=== PATIENT | female | born 1940 | race Caucasian/White ===

== ENCOUNTER 2016-08-02 14:11 | Inpatient (IN) | payer MEDICARE, BC ==
[2016-08-02] MEDS ORDERED: Morphine INJ* 4 MG/ML 1 ML SYRINGE IV ONE ×2 (14:13→14:49)
[2016-08-02] MEDS ORDERED: Ondansetron INJ* 2 MG/ML VIAL IV ONE (14:13)
[2016-08-02] MEDS ORDERED: Ondansetron INJ* 2 MG/ML VIAL ONE (14:16)
[2016-08-02] MEDS ORDERED: Morphine INJ* 4 MG/ML 1 ML SYRINGE ONE (14:16)
[2016-08-02] MEDS ORDERED: NS 0.9% 1000 ML* 2,000 ML IV ONE (14:33)
--- NOTE | 2016-08-02 15:18 | RAD ---
INDICATION: Abdominal pain. COMPARISON: Comparison is made with a prior chest x-ray study from January 23, 2015. TECHNIQUE: A portable view of the chest was obtained. FINDINGS: Cardiac and mediastinal contours appear to be within normal limits. The lungs are underinflated. There is mild prominence of the interstitial markings. No focal infiltrate or pleural effusion is seen. IMPRESSION: DIFFUSE PROMINENCE OF THE INTERSTITIAL MARKINGS LIKELY SECONDARY TO UNDERINFLATION OF THE LUNGS ALTHOUGH THE POSSIBILITY OF INTERSTITIAL PULMONARY EDEMA CANNOT BE EXCLUDED.
[2016-08-02] MEDS ORDERED: Ketorolac INJ* 30 MG/ML 1 ML VIAL IV PUSH ONE (15:19)
[2016-08-02 15:41] LABS: Hematocrit 39 % (35-47); Hemoglobin 12.7 g/dl (12.0-16.0); Mean Corpuscular HGB Conc 33 g/dl (31-36); Mean Corpuscular Hemoglobin 31 pg (27-31); Mean Corpuscular Volume 94 fL (80-97); Mean Platelet Volume 9 um3 (7.4-10.4); Red Blood Count 4.12 10^6/ul (4.0-5.4); Red Cell Distribution Width 14 % (10.5-15); White Blood Count 6.8 10^3/ul (3.5-10.8)
[2016-08-02 15:45] LABS: Troponin I 0.04 ng/mL (<0.04)
[2016-08-02 15:51] LABS: ALT 16 U/L (7-52); AST 28 U/L (13-39); Albumin 3.6 g/dL (3.2-5.2); Alkaline Phosphatase 43 U/L (34-104); Anion Gap 7 mmol/L (2-11); BUN/Creatinine Ratio 40.8 (8-20); Blood Urea Nitrogen 20 mg/dL (6-24); C Reactive Protein < 1.00 mg/L (< 5.00); CO2 Carbon Dioxide 24 mmol/L (22-32); Calcium 8.7 mg/dL (8.6-10.3); Chloride 107 mmol/L (101-111); Creatine Kinase 206 U/L (10-223); EGFR African American 158.3 (>60); EGFR Non-African American 123.1 (>60); Globulin 2.2 g/dL (2-4); Glucose 121 mg/dL (70-100); Lipase < 10 U/L (11.0-82.0); Potassium 3.8 mmol/L (3.5-5.0); Sodium 138 mmol/L (133-145); Total Protein 5.8 g/dL (6.4-8.9)
[2016-08-02] MEDS ORDERED: Diazepam SYRINGE* 5 MG/ML SYRINGE IV ONE (16:43)
--- NOTE | 2016-08-02 16:48 | RAD ---
INDICATION: Right hip pain. TECHNIQUE: An AP view of the pelvis was obtained. FINDINGS: The patient is status post total bilateral hip replacement surgeries. The bones and prostheses are in normal alignment. No fracture is seen. IMPRESSION: STATUS POST TOTAL BILATERAL HIP REPLACEMENT SURGERIES, NO EVIDENCE FOR ACUTE FINDING.
--- NOTE | 2016-08-02 16:50 | RAD ---
INDICATION: Right hip pain. TECHNIQUE: 2 views of the right femur were obtained. FINDINGS: The patient is status post total right hip replacement surgery. The bones and prostheses are in normal alignment. No fracture is seen. There is moderate to severe osteoarthritic change in the medial compartment of the knee. Incidental note is made of prominent vascular calcifications. IMPRESSION: 1. NO EVIDENCE FOR FRACTURE. 2. MODERATE TO SEVERE OSTEOARTHRITIC CHANGE IN THE RIGHT KNEE.
[2016-08-02 18:40] LABS: Troponin I 0.26 ng/mL (<0.04)
[2016-08-02] MEDS ORDERED: Iohexol 350* (CONTRAST) 500 ML MDV IV ONE (19:06)
--- NOTE | 2016-08-02 20:34 | RAD ---
Indication: Chest pain, back pain Contrast: Administered 99.9 ml of OMNIPAQUE 350 mgi/ml CTA of the chest, abdomen and pelvis was performed after IV contrast administration. Coronal and sagittal reconstructed images were obtained. The internal carotid arteries are unremarkable. Atherosclerotic aorta is noted. No evidence of aneurysmal dilatation of the a.c. ascending or descending aorta is noted. No evidence of aortic dissection is noted. Common iliac artery and external iliac arteries are unremarkable. There is no mediastinal or hilar adenopathy noted. No hilar adenopathy is noted. The heart demonstrates no pericardial effusion. The trachea and major bronchi appear patent. No pneumothorax is noted. Some atelectasis is noted in the left medial lung base. The spleen is normal in size. The liver is normal in size. No focal lesions or intrahepatic ductal dilatation is noted. Gallbladder demonstrates no calcified gallstones. The spleen is normal in size. No adrenal masses are noted. The kidneys demonstrate no masses. No retroperitoneal lymphadenopathy is noted. No dilated loops of bowel are noted. The colon is filled with stool. The stomach demonstrates diffuse wall thickening which is nonspecific. CT of the pelvis demonstrates no pelvic adenopathy. Urinary bladder is unremarkable. No hernias are noted. Small bowel demonstrates no evidence of abnormal dilatation. Patient is status post bilateral hip replacement. IMPRESSION: NO EVIDENCE OF AORTIC DISSECTION IS NOTED ALTHOUGH ATHEROSCLEROTIC AORTA IS NOTED. MULTILEVEL DEGENERATIVE DISC DISEASE IS NOTED.
[2016-08-02 21:23] LABS: Troponin I 0.33 ng/mL (<0.04)
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
--- NOTE | 2016-08-02 22:30 | HP ---
H&P (Free Text) History and Physical: PCP: Maria Elena Guerra MD Date/Time of Evaluation: 08/02/2016 2200 CC: RLQ & R hip pain HPI: Mrs Bose is a 76YO female HX HTN, HLD, RA who was driving today and experienced the sudden onset of severe sharp RLQ pain that gradually settled in to the lateral R hip. Pain was rated at 10/10. Morphine did not help much, but toradol did after ~1hour. She states she has never had pain this severe, but does have chronic LBP that radiates down the legs. She did feel warm and reports sweating for hours during the worst of the pain, but denies chills or other infectious symptoms. She denies chest pain, SOB, nausea, palpitations, and light-headedness. Evaluation is notable mainly for an incidental finding of elevated troponin initially at 0.04, then increasing to 0.24, and again to 0.33. ECG is benign. Radiologic work up for dissection and fracture is negative. PMedHx asthma HTN HLD hypothyroidism rheumatoid arthritis chronic LBP w/ sciatica IBS osteoporosis OAB Ambulatory Orders Albuterol TAB* [Proventil TAB*] 4 mg PO BID 07/11/13 Folic Acid TAB* [Folvite TAB*] 1 mg PO DAILY 07/11/13 Metaxalone TAB* [Skelaxin TAB*] 800 mg PO BEDTIME PRN 07/11/13 Atorvastatin* [Lipitor*] 20 mg PO DAILY 11/25/14 Clotrimazole 1% TOPICAL (NF) [Lotrimin 1% TOPICAL (NF)] 1 applic TOPICAL DAILY 11/25/14 Fluticasone NASAL SPRAY 50MCG* [Flonase NASAL SPRAY 50MCG*] 2 spray BOTH NARES DAILY PRN 11/25/14 Lidocaine PATCH 5%* [Lidoderm 5% Patch*] 1 patch TRANSDERM DAILY PRN 11/25/14 Montelukast Sodium TAB* [Singulair TAB*] 10 mg PO DAILY 11/25/14 Albuterol 2.5MG/3ML (0.083%)* [Ventolin 2.5 MG/3 ML NEB.TITUS*] 2.5 mg INH Q4H PRN 08/02/16 Albuterol HFA INHALER* [Ventolin HFA Inhaler*] 2 puff INH DAILY PRN 08/02/16 Aspirin EC Low Dose* [Ecotrin EC Low Dose 81 MG*] 81 mg PO DAILY 08/02/16 Carboxymethylcellulose Sodium [Refresh Tears] 0.5 % BOTH EYES DAILY PRN Clobetasol 0.05% OINT* 1 applic TOPICAL DAILY PRN 08/02/16 Cyanocobalamin TAB* [Vitamin B12 TAB*] 1,000 mcg PO DAILY 08/02/16 Desloratidine (NF) [Clarinex (NF)] 5 mg PO DAILY 08/02/16 Diclofenac 1.3% PATCH (NF) [Flector 1.3% PATCH (NF)] 1 patch TOPICAL DAILY PRN 08/02/16 Diphenhydramine HCl (Topical) [Itch Relief] 2 % TOPICAL DAILY PRN 08/02/16 Docusate Sodium [Dok] 250 mg PO DAILY PRN 08/02/16 Epinastine 0.05% OPHTH(NF) [Elestat 0.05% OPTH TITUS (NF)] 1 drop BOTH EYES BID Gabapentin CAP(*) [Neurontin 100 mg CAP(*)] 100 mg PO BEDTIME 08/02/16 Gabapentin CAP(*) [Neurontin 100 mg CAP(*)] 200 mg PO 1200 08/02/16 Gabapentin CAP(*) [Neurontin 100 mg CAP(*)] 200 mg PO QAM 08/02/16 Ketoconazole 2 % CREAM (NF) [Nizoral 2% CREAM (NF)] 1 applic TOPICAL DAILY PRN 08/02/16 Leflunomide [Arava] 20 mg PO QAM 08/02/16 Levothyroxine TAB* [Synthroid TAB*] 150 mcg PO DAILY 08/02/16 Mometasone 220 MCG MDI * [Asmanex 220 MCG MDI *] 1 puff INH BID 08/02/16 Multivitamins/Minerals TAB* [Theragran/minerals TAB*] 1 tab PO DAILY 08/02/16 Oxaprozin [Daypro] 1,200 mg PO DAILY 08/02/16 Raloxifene (NF) [Evista(NF)] 60 mg PO DAILY 08/02/16 Solifenacin(NF) [Vesicare(NF)] 5 mg PO DAILY 08/02/16 Triamcinolone 0.1% CREAM (NF) [Kenalog 0.1% Cream (NF)] 1 applic TOPICAL BID oxyCODONE SR TAB(*) [Oxycontin 10 mg (*)] 20 mg PO BID 08/02/16 oxyCODONE TAB* [Roxycodone TAB 5 mg*] 5 mg PO BID 08/02/16 Allergies Amoxicillin Allergy (Severe, Verified 08/02/16 21:36) Rash Fluocinolone [From Fluocinonide Acetonide] Allergy (Severe, Verified 08/02/16 21 :36) Itching Penicillins Allergy (Mild, Verified 08/02/16 21:36) Rash Sulfa Drugs Allergy (Mild, Verified 08/02/16 21:36) Rash Latex Allergy (Verified 08/02/16 21:36) Itching Codeine Adverse Reaction (Severe, Verified 08/02/16 21:36) Nausea Cromolyn [From Intal] Adverse Reaction (Severe, Verified 08/02/16 21:36) Palpitations Sulindac [From Clinoril] Adverse Reaction (Severe, Verified 08/02/16 21:36) Diarrhea Tramadol Adverse Reaction (Severe, Verified 08/02/16 21:36) Nausea Zafirlukast [From Accolate] Adverse Reaction (Severe, Verified 08/02/16 21:36) elevated lft's DUST Allergy (Uncoded 08/02/16 21:36) Unknown Reaction Details GETS ALLERGY SHOTS FOR THIS MOLD Allergy (Uncoded 08/02/16 21:36) Unknown Reaction Details GET ALLERGY SHOTS FOR THIS POLLEN Allergy (Uncoded 08/02/16 21:36) Unknown Reaction Details GETS ALLERGY SHOTS FOR THIS advair discus Adverse Reaction (Intermediate, Uncoded 08/02/16 21:36) voice change METHYL LAURAL SULFATE Adverse Reaction (Uncoded 08/02/16 21:36) MOUTH SORES FOUND IN MOST TOOTHPASTE PSurgHx OU cataract extractions tonsillectomy Ex-Lap for endometriosis tubal ligation B JACOBY ORIF R wrist B carpal tunnel release R arthroscopy SocHx: no tobacco or recreational drugs, mild alcohol; , lives alone; full code status FamHx: no similar issues in family ROS: as above, otherwise reviewed and all were negative Constitutional: NAD, normally developed, well-nourished elderly white female vitals: Vital Signs Temp 36.6 C 08/02/16 18:18 Pulse 82 08/02/16 21:33 Resp 19 08/02/16 21:33 BP 114/71 08/02/16 21:33 Pulse Ox 97 08/02/16 21:33 Intake & Output 08/01/16 08/02/16 08/02/16 23:59 11:59 23:59 Weight 45.359 kg HEENM: atraumatic; sclera/conjunctiva: non-icteric/clear; hearing: clinically intact; oropharynx: clear, mucosa moist Neck: soft tissue: non-tender; thyroid: normal Pulmonary: clear to auscultation bilaterally, good aeration, no accessory muscle use CV: RR/RR, normal S1S2, no carotid bruit, no jugular venous distention, 2+ B DP/ PT, no edema Abdominal: soft, non-distended, non-tender, no rebound/guarding/rigidity, normoactive bowel sounds, no hepatosplenomegaly or masses, no costovertebral angle tenderness Musculoskeletal: general: grossly intact; gait: unsteady; tender over R greater trochanter Integumental: normal appearance and texture of exposed skin Psychiatric orientation: AA&O to PPS affect: calm mood: cooperative eye contact: good content: reliable responses: timely insight: good Testing: Lab Results 08/02/16 08/02/16 08/02/16 Range/Units 15:14 15:14 15:14 WBC 6.8 (3.5-10.8) 10^3/ul RBC 4.12 (4.0-5.4) 10^6/ul Hgb 12.7 (12.0-16.0) g/dl Hct 39 (35-47) % MCV 94 (80-97) fL MCH 31 (27-31) pg MCHC 33 (31-36) g/dl RDW 14 (10.5-15) % Plt Count 251 (150-450) 10^3/ul MPV 9 (7.4-10.4) um3 Neut % (Auto) 62.3 (38-83) % Lymph % (Auto) 19.5 L (25-47) % [place] % (Auto) 14.9 H (1-9) % Eos % (Auto) 2.2 (0-6) % Baso % (Auto) 1.1 (0-2) % Absolute Neuts (auto) 4.2 (1.5-7.7) 10^3/ul Absolute Lymphs (auto) 1.3 (1.0-4.8) 10^3/ul Absolute Monos (auto) 1.0 H (0-0.8) 10^3/ul Absolute Eos (auto) 0.1 (0-0.6) 10^3/ul Absolute Basos (auto) 0.1 (0-0.2) 10^3/ul Absolute Nucleated RBC 0 10^3/ul Nucleated RBC % 0 INR (Anticoag Therapy) 0.93 (0.89-1.11) APTT 27.8 (26.0-36.3) seconds Sodium 138 (133-145) mmol/L Potassium 3.8 (3.5-5.0) mmol/L Chloride 107 (101-111) mmol/L Carbon Dioxide 24 (22-32) mmol/L Anion Gap 7 (2-11) mmol/L BUN 20 (6-24) mg/dL Creatinine 0.49 L (0.51-0.95) mg/dL Est GFR ( Amer) 158.3 (>60) Est GFR (Non-Af Amer) 123.1 (>60) BUN/Creatinine Ratio 40.8 H (8-20) Glucose 121 H (70-100) mg/dL Calcium 8.7 (8.6-10.3) mg/dL Total Bilirubin 0.30 (0.2-1.0) mg/dL AST 28 (13-39) U/L ALT 16 (7-52) U/L Alkaline Phosphatase 43 (34-104) U/L Total Creatine Kinase 206 (10-223) U/L CK-MB (CK-2) Pending Troponin I 0.04 H* (<0.04) ng/mL C-Reactive Protein < 1.00 (< 5.00) mg/L B-Natriuretic Peptide ( - 100) pg/mL Total Protein 5.8 L (6.4-8.9) g/dL Albumin 3.6 (3.2-5.2) g/dL Globulin 2.2 (2-4) g/dL Albumin/Globulin Ratio 1.6 (1-3) Lipase < 10 L (11.0-82.0) U/L 08/02/16 08/02/16 08/02/16 Range/Units 15:14 18:10 20:56 WBC (3.5-10.8) 10^3/ul RBC (4.0-5.4) 10^6/ul Hgb (12.0-16.0) g/dl Hct (35-47) % MCV (80-97) fL MCH (27-31) pg MCHC (31-36) g/dl RDW (10.5-15) % Plt Count (150-450) 10^3/ul MPV (7.4-10.4) um3 Neut % (Auto) (38-83) % Lymph % (Auto) (25-47) % [place] % (Auto) (1-9) % Eos % (Auto) (0-6) % Baso % (Auto) (0-2) % Absolute Neuts (auto) (1.5-7.7) 10^3/ul Absolute Lymphs (auto) (1.0-4.8) 10^3/ul Absolute Monos (auto) (0-0.8) 10^3/ul Absolute Eos (auto) (0-0.6) 10^3/ul Absolute Basos (auto) (0-0.2) 10^3/ul Absolute Nucleated RBC 10^3/ul Nucleated RBC % INR (Anticoag Therapy) (0.89-1.11) APTT (26.0-36.3) seconds Sodium (133-145) mmol/L Potassium (3.5-5.0) mmol/L Chloride (101-111) mmol/L Carbon Dioxide (22-32) mmol/L Anion Gap (2-11) mmol/L BUN (6-24) mg/dL Creatinine (0.51-0.95) mg/dL Est GFR ( Amer) (>60) Est GFR (Non-Af Amer) (>60) BUN/Creatinine Ratio (8-20) Glucose (70-100) mg/dL Calcium (8.6-10.3) mg/dL Total Bilirubin (0.2-1.0) mg/dL AST (13-39) U/L ALT (7-52) U/L Alkaline Phosphatase (34-104) U/L Total Creatine Kinase Pending Pending (10-223) U/L CK-MB (CK-2) Pending Pending Troponin I 0.26 H* 0.33 H* (<0.04) ng/mL C-Reactive Protein (< 5.00) mg/L B-Natriuretic Peptide 128 H ( - 100) pg/mL Total Protein (6.4-8.9) g/dL Albumin (3.2-5.2) g/dL Globulin (2-4) g/dL Albumin/Globulin Ratio (1-3) Lipase (11.0-82.0) U/L ECG, personally reviewed: 1st degree AV block rate 79, no ischemia, CXR, personally reviewed: IMPRESSION: DIFFUSE PROMINENCE OF THE INTERSTITIAL MARKINGS LIKELY SECONDARY TO UNDERINFLATION OF THE LUNGS ALTHOUGH THE POSSIBILITY OF INTERSTITIAL PULMONARY EDEMA CANNOT BE EXCLUDED. CT chest/abd/pel W, personally reviewed: IMPRESSION: NO EVIDENCE OF AORTIC DISSECTION IS NOTED ALTHOUGH ATHEROSCLEROTIC AORTA IS NOTED. MULTILEVEL DEGENERATIVE DISC DISEASE IS NOTED. XRY pelvis, personally reviewed: IMPRESSION: STATUS POST TOTAL BILATERAL HIP REPLACEMENT SURGERIES, NO EVIDENCE FOR ACUTE FINDING. XRY R femur, personally reviewed: IMPRESSION: 1. NO EVIDENCE FOR FRACTURE. 2. MODERATE TO SEVERE OSTEOARTHRITIC CHANGE IN THE RIGHT KNEE. Impression: 76F presenting with non-tramatic acute RLQ and R hip pain and incidental finding of escalating troponin DIAGNOSIS & PLAN Primary acute non-traumatic RLQ/R hip pain of uncertain etiology, suspect exacerbation of her chronic LBP/sciatica vs bursitis : pain control : PT evaluation elevated troponin : uncertain clinical significance : uncertain relation to chief complaint unless demand ischemia or highly atypical anginal equivalent : telemetry : trend : aspirin : metoprolol : supplemental oxygen : check ECHO in AM : consider cardiology consult vs chemical NST in AM pending above : supportive care Secondary asthma : continue albuterol, montelukast, & mometasone HTN : monitor periodically : not currently on anti-hypertensives HLD : continue atorvastatin hypothyroidism : continue levothyroxine rheumatoid arthritis : continue leflunomide chronic LBP w/ sciatica : continue lidocaine patch, gabapentin, metaxalone, oxaprozin, & oxycodone IBS osteoporosis : continue raloxifene OAB : continue solifenacin Admission Rational: observation for r/o ACS DVTp: heparin SQ & SCDs Code Status: full HCP:
[2016-08-02] MEDS ORDERED: Ondansetron INJ* 2 MG/ML VIAL IV PRN (22:59)
[2016-08-02] MEDS ORDERED: Aspirin Low Dose CHEW TAB* 81 MG PO ONE (22:59)
[2016-08-02] MEDS ORDERED: HYDROmorphone* 1 MG/ML 1 ML SYR IV PRN (22:59)
[2016-08-02] MEDS ORDERED: Ketorolac INJ* 15 MG/ML 1 ML VIAL IV PRN (22:59)
[2016-08-02] MEDS ORDERED: Melatonin (NF) 3 MG TAB PO PRN (22:59)
[2016-08-02] MEDS ORDERED: traMADol TAB* 50 MG PO PRN (22:59)
[2016-08-02] MEDS ORDERED: Metoprolol Tartrate TAB* 25 MG PO ONE (23:00)
[2016-08-02] MEDS ORDERED: Lidocaine PATCH 5%* 1 PATCH TRANSDERM PRN (23:11)
[2016-08-02] MEDS ORDERED: oxyCODONE SR TAB(*) 20 MG TAB.SR PO SCH (23:30)
[2016-08-02] MEDS ORDERED: ALBUTEROL 4 MG PO SCH (23:30)
[2016-08-02] MEDS ORDERED: Lidocaine Patch REMOVE* 1 NOTE MISC PATCH OFF PRN (23:45)
[2016-08-03] MEDS: Montelukast Sodium TAB* 10 MG PO SCH ×2 (00:59→20:56)
[2016-08-03] MEDS: CMCS Solifenacin(NF) 5 MG TAB PO SCH ×3 (01:00→20:56)
[2016-08-03] MEDS: Metaxalone TAB* 800 MG PO PRN ×2 (01:00→20:56)
--- NOTE | 2016-08-03 01:08 | PN ---
Progress Note - Progress Note Note: Nursing reports continued increase in troponin to 0.6 making this an NSTEMI. Start heparin GTT, D/C ketorolac, continue troponin trending.
[2016-08-03] MEDS: ALBUTEROL 4 MG PO SCH ×3 (01:13→20:56)
[2016-08-03] MEDS ORDERED: Heparin VIAL(*) 5000 UNITS/ML VIAL (FIVE THOUSAND) IV SCH (02:00)
[2016-08-03] MEDS: Heparin DRIP 25,000 UNITS(*) 25,000 UNITS/500 ML BAG IVPB SCH (02:12)
[2016-08-03] MEDS: Senna TAB PO SCH ×2 (02:12→20:55)
[2016-08-03] MEDS: Levothyroxine TAB* 150 MCG TAB PO SCH (05:49)
[2016-08-03] MEDS: Omeprazole CAP* 20 MG PO SCH (05:49)
[2016-08-03] MEDS ORDERED: Heparin VIAL(*) 5000 UNITS/ML VIAL (FIVE THOUSAND) SUBCUT SCH (06:00)
[2016-08-03] MEDS: LEFLUNOMIDE 20 MG PO SCH (08:05)
[2016-08-03] MEDS: Epinastine 0.05% OPHTH(NF) 5 ML BTL BOTH EYES SCH ×2 (08:05→20:58)
[2016-08-03] MEDS: Gabapentin CAP(*) 100 MG PO SCH ×3 (08:05→20:58)
[2016-08-03] MEDS: Mometasone 220 MCG MDI INH SCH ×2 (08:54→20:40)
[2016-08-03] MEDS ORDERED: Atorvastatin* 20 MG TAB PO SCH (09:00)
[2016-08-03] MEDS ORDERED: ALBUTEROL 4 MG PO SCH (09:00)
[2016-08-03] MEDS ORDERED: Raloxifene (NF) 60 MG TAB PO SCH (09:00)
[2016-08-03] MEDS ORDERED: OXAPROZIN PO SCH (09:00)
[2016-08-03] MEDS ORDERED: oxyCODONE TAB* 5 MG TAB PO SCH (09:00)
[2016-08-03] MEDS ORDERED: oxyCODONE SR TAB(*) 10 MG TAB.SR PO SCH (09:00)
[2016-08-03] MEDS: Aspirin EC Low Dose* 81 MG TAB.EC PO SCH (09:36)
[2016-08-03] MEDS ORDERED: Gabapentin CAP(*) 100 MG PO SCH (12:00)
--- NOTE | 2016-08-03 13:11 | ECHO ---
Patient: SMITH ORTEGA [facility] Rec#: [id number] : 1940 Date: 08/03/2016 Age: 76y Height: 147.32 cm / 58.0 in Weight: 45.36 kg / 100.0 lbs Sex: F BSA: 1.36 Room#: [facility] Admit Date#: 08/02/2016 Type: Inpatient Referring: Howie Bradshaw MD Reading: Lana Fabian MD Picu Nurse: Keysha Garcia,RDCS,RDMS CC: Vani Guerra MD Transthoracic Echocardiogram Indication: NSTEMI BP: 95/56 HR: 68 Rhythm: NSR Indications Acute Myocardial Infarction Findings History: HTN, HLD, RA, SVT Technical Comments: The study quality is fair. Completed 1010 Left Ventricle: The left ventricular chamber size is normal. Mild concentric left ventricular hypertrophy is observed. There is a prominent septal knuckle. There is a focal wall motion abnormality present.The apex is severely hypo to akinetic extending to the septum and inferior base. on apical views, the anterior wall is severely hypokinetic on the short axis view. There is moderately decreased left ventricular systolic function. The estimated ejection fraction is 35-40%. Closer to 35%. Abnormal left ventricular diastolic filling is observed, consistent with impaired relaxation. The mid anteroseptal, mid anterolateral, mid inferolateral, apical septal, apical anterior, apical lateral, and apical inferior wall segments are hypokinetic (score 2). Overall wallmotion score index is 2.00 Left Atrium: The left atrial chamber size is normal. Right Ventricle: The right ventricular chamber size and systolic function are within normal limits. Right Atrium: The right atrial cavity size is normal. Aortic Valve: The aortic valve is trileaflet. The aortic valve leaflets are mildly thickened. There is aortic annular calcification. There is a trace of aortic regurgitation. Mitral Valve: There is mitral annular calcification. The mitral valve leaflets are mildly thickened. There is no evidence of mitral regurgitation. Tricuspid Valve: The tricuspid valve leaflets are normal. There is trace tricuspid regurgitation. Unable to estimate the right ventricular systolic pressure. Pulmonic Valve: There is no evidence of pulmonic valve thickening. There is a trace pulmonic regurgitation. Pericardium: There is no significant pericardial effusion. Aorta: The ascending aorta is not well visualized. The aortic arch is not well visualized. The aortic root is normal in size. Pulmonary Artery: The main pulmonary artery is not well visualized. Venous: The inferior vena cava appears normal in size. There is an approximate 50% respiratory change in the inferior vena cava dimension. Conclusions Mild concentric left ventricular hypertrophy is observed. The apex is severely hypo to akinetic extending to the septum and inferior base. on apical views, the anterior wall is severely hypokinetic on the short axis view. The estimated ejection fraction is 35%. Abnormal left ventricular diastolic filling is observed, consistent with impaired relaxation. The right ventricular chamber size and systolic function are within normal limits. The aortic valve leaflets are sclerosit with a trace of aortic regurgitation. There is mitral annular calcification and the mitral valve leaflets are mildly thickened. There is trace tricuspid regurgitation. Unable to estimate the right ventricular systolic pressure. Compared with prior echo of 07/11/13, the apical wall motion abnormality and depressed EF are new. Measurements Name Value Normal Range RVIDd (AP) 2D 1.3 cm (0.9 - 2.6) RVDdMajor (2D) 3.3 cm (2.2 - 4.4) RAd ISD 4CH 3.5 cm (3.4 - 4.9) RA (A4C)W 4 cm (2.9 - 4.6) IVSd (2D) 1.3 cm (0.6 - 1) LVPWd (2D) 1.1 cm (0.6 - 1) LVIDd (2D) 3.8 cm (3.6 - 5.4) LVIDs (2D) 2.3 cm - LV FS (2D) 38 % (25 - 45) Aortic Annulus 2 cm (1.4 - 2.6) Ao root diameter (2D) 3.1 cm (2.1 - 3.5) LA dimension (AP) 2D 3.7 cm (2.3 - 3.8) LAd ISD 4CH 5.7 cm (2.9 - 5.3) LA ISD 4CH W 4.2 cm (2.5 - 4.5) Name Value Normal Range LA ESV SP 4CH (A/L) 40.84 ml - LA ESV SP 2CH (A/L) 44.54 ml - LA ESV BP (A/L) 43.3 ml - LA ESV BP (A/L) index 32 ml/m2 - LA ESV SP 4CH (MOD) 36.9 ml - LA ESV SP 2CH (MOD) 43.09 ml - Name Value Normal Range MV E-wave Vmax 1 m/sec - MV deceleration time 191 msec - MV A-wave Vmax 1.4 m/sec - MV E:A ratio 0.7 ratio - P. vein S-wave Vmax 0.6 m/sec - P. vein D-wave Vmax 0.3 m/sec - P. vein S:D Vmax ratio 1.7 ratio - P. vein A-wave duration 67 msec - LV septal e' Vmax 0.04 m/sec - LV lateral e' Vmax 0.06 m/sec - LV E:e' septal ratio 25 ratio - LV E:e' lateral ratio 16.7 ratio - Name Value Normal Range AV Vmax 1.4 m/sec - AV VTI 27.4 cm - AV peak gradient 8 mmHg - AV mean gradient 4.2 mmHg - LVOT diameter 2 cm - LVOT Vmax 0.7 m/sec - LVOT VTI 16 cm - LVOT peak gradient 2 mmHg - LVOT mean gradient 1.4 mmHg - DOI (VTI) 0.6 ratio - SV LVOT 49.74 ml - MILAGROS (continuity Vmax) 1.6 cm2 - MILAGROS (continuity VTI) 1.8 cm2 - Name Value Normal Range MV Vmax 1.3 m/sec - MV VTI 30.6 cm - MV peak gradient 7 mmHg - MV mean gradient 3.2 mmHg - MV PHT 43 msec - MVA (PHT) 5.1 cm2 - MVA (continuity VTI) 1.6 cm2 - Name Value Normal Range RAP 8 mmHg - IVC diameter 1.8 cm - Name Value Normal Range PV Vmax 0.7 m/sec - PV peak gradient 2 mmHg - Wallmotion BAS Not Seen BA Not Seen BAL Not Seen KAEL Not Seen BI Not Seen BIS Not Seen MAS Hypokinetic MA Not Seen MAL Hypokinetic MIL Hypokinetic VA Not Seen MIS Not Seen Hypokinetic AA Hypokinetic AL Hypokinetic AI Hypokinetic APEX Hypokinetic
[2016-08-03] MEDS: Metoprolol Tartrate TAB* 25 MG PO SCH (18:33)
--- NOTE | 2016-08-03 21:45 | CONS ---
INTERVENTIONAL CARDIOLOGY CONSULT NOTE: DATE OF CONSULT: 08/03/16 PRIMARY: Vani Guerra MD APPLICATION ADMINISTRATOR: Lana Fabian MD HISTORY OF PRESENT ILLNESS: A 76-year-old woman with hypertension, hyperlipidemia, rheumatoid arthritis, and chronic pain admitted with severe hip pain and found to have troponin positive "ACS" attributed to demand ischemia. She has no history of angina, she is limited by orthopedic issues in terms of ambulation, walks with a cane and walking sticks. She does not have dyspnea on exertion or any symptoms suggestive of angina. During this admission, she was found to have an elevated troponin in the ER, which subsequently peaked at 0.67 and cardiology was consulted. 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 She was admitted here in 2013, EKG during that admission showed small inferior R - waves and QS in V1 and V2 consistent with the septal infarct, new from prior EKGs, echo then showed limited study with better than current septal wall motion. She has not had a previous catheter or stress imaging. She denies PND or orthopnea, has longstanding history of asthma, which has been well controlled and she does not exercise to the level of dyspnea. During this admission, her echo showed LVEF of 35% with an apical wall motion abnormality, worse than 2014. She has not had imaging, has not been treated for reduced LVEF. PAST MEDICAL HISTORY: 1. Hypertension. 2. Hyperlipidemia. 3. Rheumatoid arthritis. 4. History of asthma. PRE-HOSPITAL MEDICATIONS: Extensive. ALLERGIES: Numerous - see the list. FAMILY HISTORY: Negative for premature coronary disease. SOCIAL HISTORY: She is a nonsmoker. She is active. 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 GI: No history of peptic ulcer disease or bleeding. She has tolerated aspirin 81 mg daily for a long time. Heme: No history of malignancy or bleeding. Remainder all negative. PHYSICAL EXAM: General: She is slight, weighs 102 pounds. Vital signs: BP 122/72 and pulse is in the 60s to 80s, sinus rhythm. HEENT: Normal. Neck: JVP is normal. Carotids are normal. Lungs: She has a few faint rales. Cardiac Exam: Notable for possibly a soft S4, but no S3 or murmur. Abdomen: Soft and nontender. No bruit. I can't feel the aorta. Extremities: Femoral pulses are palpable. Her right radial and left radial are palpable. She has soreness in the right wrist, which precludes external rotation currently. Pedal pulses, dorsalis pedis, and posterior tibial palpable bilaterally. She has no cyanosis, clubbing, or edema. DIAGNOSTIC STUDIES/LAB DATA: EKG shows evidence of a previous inferior and septal infarct, echo as above. Troponins 0.04, 0.26, 0.33, 0.67, and 0.6. BNP 128. Chest x-ray by my review shows some increased interstitial markings consistent with very mild CHF. BNP is 128. IMPRESSION: Type II NSTEMI with severe Left ventricular systolic dysfunction. This is apparently chronic with wall motion worse than it was in 2014, but EKG evidence of a septal and apical infarct. The amount of viable residual myocardium is unknown, she will have a viability study tomorrow morning. Depending on those findings, she may need a coronary angiogram if she has sufficient viable anteroapical myocardium. I have discussed with her cath, stenting, she understands the potential need for dual- antiplatelet therapy. I have added short-acting captopril with the intent of switching it to long- acting CARMINA inhibitor before discharge. Thanks for the consultation. I will follow with you as needed. CC: Vani Guerra MD; Lana Fabian MD * [id number]/[facility] #: [id number] MTDD
[2016-08-04] MEDS ORDERED: Fluticasone NASAL SPRAY 50MCG* 16 gm SPRAY BTL BOTH NARES PRN ×2 (00:26→00:27)
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
[2016-08-04] MEDS: Metoprolol Tartrate TAB* 25 MG PO SCH ×3 (02:31→18:39)
[2016-08-04 05:00] LABS: Hematocrit 35 % (35-47); Hemoglobin 11.4 g/dl (12.0-16.0); Mean Corpuscular HGB Conc 33 g/dl (31-36); Mean Corpuscular Hemoglobin 31 pg (27-31); Mean Corpuscular Volume 95 fL (80-97); Mean Platelet Volume 9 um3 (7.4-10.4); Red Blood Count 3.68 10^6/ul (4.0-5.4); Red Cell Distribution Width 14 % (10.5-15)
[2016-08-04 05:13] LABS: Albumin 3.1 g/dL (3.2-5.2); BUN/Creatinine Ratio 23.9 (8-20); Calcium 8.3 mg/dL (8.6-10.3); EGFR African American 170.3 (>60); EGFR Non-African American 132.4 (>60); Globulin 2.2 g/dL (2-4); Potassium 3.5 mmol/L (3.5-5.0); Total Bilirubin 0.3 mg/dL (0.2-1.0); Total Protein 5.3 g/dL (6.4-8.9)
[2016-08-04 05:17] LABS: Troponin I 0.22 ng/mL (<0.04)
[2016-08-04] MEDS: Levothyroxine TAB* 150 MCG TAB PO SCH (06:02)
[2016-08-04] MEDS: Omeprazole CAP* 20 MG PO SCH (06:02)
[2016-08-04] MEDS: oxyCODONE SR TAB(*) 10 MG TAB.SR PO SCH ×3 (06:03→15:40)
[2016-08-04] MEDS: oxyCODONE TAB* 5 MG TAB PO SCH ×2 (06:03→12:15)
[2016-08-04] MEDS: Heparin DRIP 25,000 UNITS(*) 25,000 UNITS/500 ML BAG IVPB SCH (06:59)
[2016-08-04] MEDS: Mometasone 220 MCG MDI INH SCH ×2 (07:42→21:08)
[2016-08-04] MEDS: Epinastine 0.05% OPHTH(NF) 5 ML BTL BOTH EYES SCH ×2 (07:53→08:15)
[2016-08-04] MEDS: LEFLUNOMIDE 20 MG PO SCH (07:53)
[2016-08-04] MEDS: Gabapentin CAP(*) 100 MG PO SCH ×3 (08:05→21:58)
[2016-08-04] MEDS: Atorvastatin* 80 MG TAB PO SCH (08:05)
[2016-08-04] MEDS: Aspirin EC Low Dose* 81 MG TAB.EC PO SCH (08:05)
[2016-08-04] MEDS: CMCS Solifenacin(NF) 5 MG TAB PO SCH ×2 (08:14→21:49)
[2016-08-04] MEDS: ALBUTEROL 4 MG PO SCH ×2 (10:46→21:54)
[2016-08-04] MEDS: EPINASTINE 0.05% BOTH EYES SCH ×2 (12:13→21:45)
[2016-08-04] MEDS: CMC: Leflunomide (NF) 10 MG TAB PO SCH (12:13)
[2016-08-04] MEDS: Potassium Chlor TAB* 20 MEQ TAB.ER PO SCH ×2 (12:14→15:40)
[2016-08-04] MEDS: Captopril TAB* 12.5 MG PO SCH ×2 (15:40→21:43)
[2016-08-04] MEDS: Montelukast Sodium TAB* 10 MG PO SCH (21:48)
[2016-08-04] MEDS: Senna TAB PO SCH (21:48)
[2016-08-04] MEDS: Metaxalone TAB* 800 MG PO PRN (21:55)
[2016-08-05] MEDS: Metoprolol Tartrate TAB* 25 MG PO SCH ×2 (03:50→08:40)
[2016-08-05 05:47] LABS: Hematocrit 36 % (35-47); Hemoglobin 11.8 g/dl (12.0-16.0); Mean Corpuscular HGB Conc 33 g/dl (31-36); Mean Corpuscular Hemoglobin 31 pg (27-31); Mean Corpuscular Volume 94 fL (80-97); Mean Platelet Volume 9 um3 (7.4-10.4); Red Blood Count 3.84 10^6/ul (4.0-5.4); Red Cell Distribution Width 14 % (10.5-15)
[2016-08-05 05:57] LABS: BUN/Creatinine Ratio 18.6 (8-20); Calcium 8.6 mg/dL (8.6-10.3); EGFR African American 184.1 (>60); EGFR Non-African American 143.1 (>60); Magnesium 1.9 mg/dL (1.9-2.7); Potassium 3.8 mmol/L (3.5-5.0)
[2016-08-05] MEDS: Levothyroxine TAB* 150 MCG TAB PO SCH (06:12)
[2016-08-05] MEDS: Omeprazole CAP* 20 MG PO SCH (06:13)
[2016-08-05] MEDS: oxyCODONE TAB* 5 MG TAB PO SCH ×2 (06:14→11:44)
[2016-08-05] MEDS: oxyCODONE SR TAB(*) 10 MG TAB.SR PO SCH ×3 (06:15→15:28)
[2016-08-05] MEDS: Mometasone 220 MCG MDI INH SCH ×2 (07:42→20:54)
[2016-08-05] MEDS: EPINASTINE 0.05% BOTH EYES SCH ×2 (08:39→18:10)
[2016-08-05] MEDS: Aspirin EC Low Dose* 81 MG TAB.EC PO SCH (08:40)
[2016-08-05] MEDS: CMCS Solifenacin(NF) 5 MG TAB PO SCH ×2 (08:40→21:41)
[2016-08-05] MEDS: ALBUTEROL 4 MG PO SCH ×2 (08:41→21:39)
[2016-08-05] MEDS: Lisinopril TAB* 5 MG PO SCH (08:41)
[2016-08-05] MEDS: Atorvastatin* 80 MG TAB PO SCH (08:41)
[2016-08-05] MEDS: Gabapentin CAP(*) 100 MG PO SCH ×3 (08:42→21:39)
[2016-08-05] MEDS: CMC: Leflunomide (NF) 10 MG TAB PO SCH (08:43)
[2016-08-05] MEDS ORDERED: NS 0.9% 500 ML BAG* 500 ML IV ONE (12:00)
[2016-08-05] MEDS ORDERED: Lidocaine 1% INJ* 10 MG/ML 30 ML SDV ONE (14:03)
[2016-08-05] MEDS ORDERED: methylPREDNISolone ACETATE 80* 80 MG/ML 1 ML VIAL ONE (14:03)
--- NOTE | 2016-08-05 17:08 | RAD ---
CPT II Codes: 6045F INDICATION: Back pain. Fluoroscopic services provided for referring physician. 6 seconds of fluoroscopy time was used. 3 spot images demonstrates placement of a catheter in the epidural space. IMPRESSION: Fluoroscopic services provided for referring physician for pain management.
[2016-08-05] MEDS: Montelukast Sodium TAB* 10 MG PO SCH (21:40)
[2016-08-05] MEDS: Senna TAB PO SCH (21:41)
[2016-08-05] MEDS: Metoprolol Succinate XL TAB* 50 MG PO SCH ×2 (21:54→22:41)
[2016-08-06] MEDS: Omeprazole CAP* 20 MG PO SCH (06:15)
[2016-08-06] MEDS: Levothyroxine TAB* 150 MCG TAB PO SCH (06:15)
[2016-08-06] MEDS: oxyCODONE SR TAB(*) 10 MG TAB.SR PO SCH ×2 (06:15→07:59)
[2016-08-06] MEDS: oxyCODONE TAB* 5 MG TAB PO SCH ×2 (06:16→12:57)
[2016-08-06 07:48] VITALS: BP 104/63
[2016-08-06] MEDS: CMC: Leflunomide (NF) 10 MG TAB PO SCH (07:58)
[2016-08-06] MEDS: Aspirin EC Low Dose* 81 MG TAB.EC PO SCH (07:58)
[2016-08-06] MEDS: ALBUTEROL 4 MG PO SCH (07:59)
[2016-08-06] MEDS: Lisinopril TAB* 5 MG PO SCH (07:59)
[2016-08-06] MEDS: CMCS Solifenacin(NF) 5 MG TAB PO SCH (07:59)
[2016-08-06] MEDS: Atorvastatin* 80 MG TAB PO SCH (08:00)
[2016-08-06] MEDS: Metoprolol Succinate XL TAB* 50 MG PO SCH (08:00)
[2016-08-06] MEDS: Gabapentin CAP(*) 100 MG PO SCH ×2 (08:00→12:57)
[2016-08-06] MEDS: EPINASTINE 0.05% BOTH EYES SCH (08:02)
[2016-08-06] MEDS: Mometasone 220 MCG MDI INH SCH (08:35)
--- NOTE | 2016-08-06 09:26 | RAD ---
HISTORY: Right wrist pain COMPARISONS: December 09, 2009 VIEWS: 3, Frontal, lateral, and oblique views of the right wrist FINDINGS: BONE DENSITY: There is diffuse osteopenia. BONES: The patient is status post internal fixation of the distal radius. There is no hardware failure or osteolysis. JOINTS: There is advanced osteoarthritis of the first MCP joint . There is osteoarthritis of the fifth DIP joint ALIGNMENT: There is no dislocation. SOFT TISSUES: Unremarkable. OTHER FINDINGS: None. IMPRESSION: 1. OSTEOPENIA. 2. OSTEOARTHRITIS. 3. STATUS POST INTERNAL FIXATION OF THE DISTAL RADIUS
--- NOTE | 2016-08-06 09:54 | RAD ---
Indication: Old myocardial infarct, evaluate apex for viability. Rest myocardial perfusion scan was performed after intravenous injection of 3.1 mCi of thallium-201. 4 hour images were obtained. 24 hour additional 1.0 mCi of thallium-201 was injected. There is homogeneous distribution of the radiotracer throughout the left ventricle. There may be some apical thinning that extends slightly into the anterior lateral wall most pronounced on the 4 hour images. This area appears to reverse after reinjection and this likely represents viable myocardium. This is a rather small defect. IMPRESSION: THALLIUM VIABILITY STUDY DEMONSTRATES APICAL THINNING WITH SMALL DEFECT EXTENDING INTO THE ANTERIOR WALL WHICH APPEARS TO REDISTRIBUTE AFTER 24 HOUR REINJECTION SUGGESTIVE OF MYOCARDIAL VIABILITY.
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
== END 2016-08-06 13:30 | disposition home or self-care (01) | DRG 281 ==
LOC: ED 14:11 → MEDTELE 23:23 → OBSVTOIN 08-03 15:36
PROVIDERS: ADMIT Hospitalist; ATTEND Internal Medicine Geriatric Medicine
PROC: 3E0S33Z Introduction of Anti-inflammatory into Epidural Space, Percutaneous Approach (ICD-10-PCS; principal; 2016-08-05)
DX: I21.4 Non-ST elevation (NSTEMI) myocardial infarction (principal); J98.11 Atelectasis; M06.9 Rheumatoid arthritis, unspecified; I08.2 Rheumatic disorders of both aortic and tricuspid valves; M41.9 Scoliosis, unspecified; Z96.643 Presence of artificial hip joint, bilateral; G89.29 Other chronic pain; E03.9 Hypothyroidism, unspecified; E78.00 Pure hypercholesterolemia, unspecified; I10 Essential (primary) hypertension; M54.42 Lumbago with sciatica, left side; M47.816 Spondylosis without myelopathy or radiculopathy, lumbar region; M25.551 Pain in right hip; M79.651 Pain in right thigh; G25.0 Essential tremor; I70.0 Atherosclerosis of aorta; F43.9 Reaction to severe stress, unspecified; N32.81 Overactive bladder; M19.031 Primary osteoarthritis, right wrist; J45.909 Unspecified asthma, uncomplicated; K58.9 Irritable bowel syndrome, unspecified; M19.90 Unspecified osteoarthritis, unspecified site; M81.0 Age-related osteoporosis without current pathological fracture; H40.9 Unspecified glaucoma; Z79.82 Long term (current) use of aspirin; Z87.01 Personal history of pneumonia (recurrent); Z91.81 History of falling; Z97.4 Presence of external hearing-aid; Z82.49 Family history of ischemic heart disease and other diseases of the circulatory system; Z83.49 Family history of other endocrine, nutritional and metabolic diseases; Z88.8 Allergy status to other drugs, medicaments and biological substances; Z88.0 Allergy status to penicillin; Z88.1 Allergy status to other antibiotic agents; Z88.2 Allergy status to sulfonamides; Z91.040 Latex allergy status; Z91.048 Other nonmedicinal substance allergy status; Z98.42 Cataract extraction status, left eye; Z98.41 Cataract extraction status, right eye; Z98.51 Tubal ligation status; I25.2 Old myocardial infarction
CPT/HCPCS: 36415; 62323; 71010; 71275; 72100; 72170; 74174; 77003; 78452; 80048; 80053; 82550; 82553; 83690; 83735; 83880; 84484; 85025; 85027; 85610; 85730; 86140; 93005; 93306; 94640; 94760; A9270-GY; A9505; G0378; G8978-GP-CH; G8979-GP-CH; G8980-GP-CH; J1040; J1170; J1644; J1885; J2001; J2270; J2405; Q9967

== ENCOUNTER 2017-06-30 21:51 | Observation (INO) | payer MEDICARE, BC ==
[2017-06-30] MEDS ORDERED: Ketorolac INJ* 30 MG/ML 1 ML VIAL IV PUSH ONE (22:33)
[2017-06-30] MEDS ORDERED: HYDROmorphone INJ* 2 MG/ML CARPUJECT SYRINGE IV SLOW PU ONE (22:33)
[2017-06-30] MEDS ORDERED: diPHENhydraMINE IV* 50 MG/ML 1 ml VIAL (BENADRYL) IV ONE (22:33)
[2017-07-01 00:34] LABS: ABS Basophils 0.1 10^3/ul (0-0.2); ABS Eosinophils 0.3 10^3/ul (0-0.6); ABS Lymphocytes 1.4 10^3/ul (1.0-4.8); ABS Neutrophils 4.1 10^3/ul (1.5-7.7); ABS Nucleated RBC 0 10^3/ul; Hematocrit 39 % (35-47); Hemoglobin 13.1 g/dl (12.0-16.0); Lymphocyte % 20.4 % (25-47); Mean Corpuscular HGB Conc 33 g/dl (31-36); Mean Corpuscular Hemoglobin 31 pg (27-31); Mean Corpuscular Volume 93 fL (80-97); Mean Platelet Volume 8.8 um3 (7.4-10.4); Nucleated Red Blood Cells % 0; Platelet Count 230 10^3/ul (150-450); Red Blood Count 4.23 10^6/ul (4.0-5.4); Red Cell Distribution Width 15 % (10.5-15); White Blood Count 6.8 10^3/ul (3.5-10.8)
[2017-07-01] MEDS ORDERED: HYDROmorphone INJ* 2 MG/ML CARPUJECT SYRINGE ONE (00:44)
[2017-07-01] MEDS ORDERED: HYDROmorphone INJ* 2 MG/ML CARPUJECT SYRINGE IV SLOW PU ONE (00:46)
[2017-07-01 00:48] LABS: EGFR Non-African American 103.1 (>60)
[2017-07-01] MEDS ORDERED: Aspirin 81 mg CHEW TAB* 81 MG TAB.CHEW PO ONE (01:29)
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
--- NOTE | 2017-07-01 04:52 | HP ---
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 Over 15 minutes it increased to severe and she left the auditorium hoping walking and stretching would help, but it did not. She then asked help from the theater staff and EMS was called. She is most concerned as she feels this is exactly how she felt when she was found to have an NSTEMI. ED checked a troponin finding it elevated at 0.04 and prompting request for observation. She denies chest pain, SOB, N/V, diaphoresis, palpitations, & light-headedness. PMedHx CAD/LA cardiomyopathy EF 35-40% COPD HTN HLD hypothyroidism rheumatoid arthritis chronic LBP w/ sciatica IBS osteoporosis OAB Ambulatory Orders Albuterol 2.5MG/3ML (0.083%)* [Ventolin 2.5 MG/3 ML NEB.TITUS*] 2.5 mg INH Q4H PRN 06/30/17 Albuterol TAB* [Proventil TAB*] 4 mg PO BID 06/30/17 Atorvastatin* [Lipitor*] 80 mg PO DAILY 06/30/17 Desloratidine (NF) [Clarinex (NF)] 5 mg PO DAILY 06/30/17 Epinastine 0.05% OPHTH(NF) [Elestat 0.05% OPTH TITUS (NF)] 1 drop BOTH EYES DAILY 06/30/17 Folic Acid TAB* [Folvite TAB*] 1 mg PO DAILY 06/30/17 Ketoconazole 2 % CREAM (NF) [Nizoral 2% CREAM (NF)] 1 applic TOPICAL DAILY 06/30 Leflunomide (NF) [Arava (NF)] 20 mg PO DAILY 06/30/17 Levothyroxine TAB* [Synthroid TAB*] 112 mcg PO DAILY 06/30/17 Lisinopril TAB* [Prinivil TAB*] 5 mg PO DAILY 06/30/17 Metaxalone TAB* [Skelaxin TAB*] 800 mg PO BEDTIME 06/30/17 Metoprolol Succinate XL TAB* [Toprol XL TAB*] 50 mg PO DAILY 06/30/17 Mometasone 220 MCG MDI * [Asmanex 220 MCG MDI *] 1 puff INH BID 06/30/17 Montelukast Sodium TAB* [Singulair TAB*] 10 mg PO DAILY 06/30/17 Solifenacin(NF) [Vesicare(NF)] 10 mg PO BEDTIME 06/30/17 oxyCODONE SR TAB(*) [Oxycontin 10 mg (*)] 10 mg PO QPM PRN 06/30/17 oxyCODONE SR TAB(*) [Oxycontin 10 mg (*)] 20 mg PO QAM PRN 06/30/17 oxyCODONE TAB* [Roxycodone TAB 5 mg*] 5 mg PO BID PRN 06/30/17 Allergies amoxicillin Allergy (Verified 06/20/17 10:23) Rash codeine Allergy (Verified 06/20/17 10:23) Nausea cromolyn Allergy (Verified 06/20/17 10:23) Palpitations fluocinolone acetonide Allergy (Verified 06/20/17 10:23) Itching latex Allergy (Verified 06/20/17 10:23) Itching Penicillins Allergy (Verified 06/20/17 10:23) Rash Sulfa (Sulfonamide Antibiotics) Allergy (Verified 06/20/17 10:23) Rash sulindac Allergy (Verified 06/20/17 10:23) Diarrhea tramadol Allergy (Verified 06/20/17 10:23) Nausea zafirlukast [From Accolate] Allergy (Verified 06/20/17 10:23) elevated LFT's cats Allergy (Uncoded 06/20/17 10:23) Difficulty Breathing Dogs Allergy (Uncoded 06/20/17 10:23) upper resp DUST Allergy (Uncoded 06/20/17 10:23) Unknown Reaction Details GETS ALLERGY SHOTS FOR THIS MOLD Allergy (Uncoded 06/20/17 10:23) Unknown Reaction Details GET ALLERGY SHOTS FOR THIS POLLEN Allergy (Uncoded 06/20/17 10:23) Unknown Reaction Details GETS ALLERGY SHOTS FOR THIS advair discus Adverse Reaction (Intermediate, Uncoded 06/20/17 10:23) voice change METHYL LAURAL SULFATE Adverse Reaction (Uncoded 06/20/17 10:23) MOUTH SORES FOUND IN MOST TOOTHPASTE PSurgHx OU cataract extractions tonsillectomy exploratory laparotomy for endometriosis tubal ligation B JACOBY ORIF R wrist B carpal tunnel release SocHx: no tobacco, alcohol, or recreational drugs; lives alone; full code status FamHx: reviewed & non-contributory ROS: as above, otherwise reviewed and all were negative vitals: Vital Signs Temp 36.7 C 07/01/17 03:09 Pulse 78 07/01/17 03:09 Resp 18 07/01/17 03:09 BP 123/74 07/01/17 03:09 Pulse Ox 97 07/01/17 03:09 Intake & Output 06/30/17 06/30/17 07/01/17 11:59 23:59 11:59 Weight 45.359 kg Constitutional: NAD, normally developed, well-nourished elderly white female HEENM: atraumatic; sclera/conjunctiva: anicteric/clear; hearing: clinically mildly decreased; oropharynx: clear, moist Neck: soft tissue: non-tender; thyroid: normal Pulmonary: clear to auscultation bilaterally, good aeration, no accessory muscle use CV: RR/RR, normal S1S2, no carotid bruit, no jugular venous distention, 2+ B DP/ PT, no edema Abdominal: soft, non-distended, non-tender, no rebound/guarding/rigidity, normoactive bowel sounds, no hepatosplenomegaly or masses, no costovertebral angle tenderness Musculoskeletal: general: grossly intact, no tenderness w/ palpation Integumental: normal appearance and texture of exposed skin Psychiatric orientation: AA&O to PPS affect: calm mood: cooperative eye contact: good content: reliable responses: timely insight: good Testing: Lab Results 07/01/17 07/01/17 07/01/17 Range/Units 00:20 00:20 00:20 WBC 6.8 (3.5-10.8) 10^3/ul RBC 4.23 (4.0-5.4) 10^6/ul Hgb 13.1 (12.0-16.0) g/dl Hct 39 (35-47) % MCV 93 (80-97) fL MCH 31 (27-31) pg MCHC 33 (31-36) g/dl RDW 15 (10.5-15) % Plt Count 230 (150-450) 10^3/ul MPV 8.8 (7.4-10.4) um3 Neut % (Auto) 60.5 (38-83) % Lymph % (Auto) 20.4 L (25-47) % [place] % (Auto) 14.2 H (0-7) % Eos % (Auto) 4.0 (0-6) % Baso % (Auto) 0.9 (0-2) % Absolute Neuts (auto) 4.1 (1.5-7.7) 10^3/ul Absolute Lymphs (auto) 1.4 (1.0-4.8) 10^3/ul Absolute Monos (auto) 1.0 H (0-0.8) 10^3/ul Absolute Eos (auto) 0.3 (0-0.6) 10^3/ul Absolute Basos (auto) 0.1 (0-0.2) 10^3/ul Absolute Nucleated RBC 0 10^3/ul Nucleated RBC % 0 Sodium 135 L (139-145) mmol/L Potassium 4.3 (3.5-5.0) mmol/L Chloride 103 (101-111) mmol/L Carbon Dioxide 26 (22-32) mmol/L Anion Gap 6 (2-11) mmol/L BUN 20 (6-24) mg/dL Creatinine 0.57 (0.51-0.95) mg/dL Est GFR ( Amer) 132.6 (>60) Est GFR (Non-Af Amer) 103.1 (>60) BUN/Creatinine Ratio 35.1 H (8-20) Glucose 117 H (70-100) mg/dL Lactic Acid 0.6 (0.5-2.0) mmol/L Calcium 8.9 (8.6-10.3) mg/dL Total Bilirubin 0.40 (0.2-1.0) mg/dL AST 24 (13-39) U/L ALT 18 (7-52) U/L Alkaline Phosphatase 54 (34-104) U/L Total Creatine Kinase 110 (10-223) U/L Troponin I 0.04 H* (<0.04) ng/mL C-Reactive Protein < 1.00 (< 5.00) mg/L Total Protein 6.1 L (6.4-8.9) g/dL Albumin 3.8 (3.2-5.2) g/dL Globulin 2.3 (2-4) g/dL Albumin/Globulin Ratio 1.7 (1-3) 07/01/ Range/Units 03:29 WBC (3.5-10.8) 10^3/ul RBC (4.0-5.4) 10^6/ul Hgb (12.0-16.0) g/dl Hct (35-47) % MCV (80-97) fL MCH (27-31) pg MCHC (31-36) g/dl RDW (10.5-15) % Plt Count (150-450) 10^3/ul MPV (7.4-10.4) um3 Neut % (Auto) (38-83) % Lymph % (Auto) (25-47) % [place] % (Auto) (0-7) % Eos % (Auto) (0-6) % Baso % (Auto) (0-2) % Absolute Neuts (auto) (1.5-7.7) 10^3/ul Absolute Lymphs (auto) (1.0-4.8) 10^3/ul Absolute Monos (auto) (0-0.8) 10^3/ul Absolute Eos (auto) (0-0.6) 10^3/ul Absolute Basos (auto) (0-0.2) 10^3/ul Absolute Nucleated RBC 10^3/ul Nucleated RBC % Sodium (139-145) mmol/L Potassium (3.5-5.0) mmol/L Chloride (101-111) mmol/L Carbon Dioxide (22-32) mmol/L Anion Gap (2-11) mmol/L BUN (6-24) mg/dL Creatinine (0.51-0.95) mg/dL Est GFR ( Amer) (>60) Est GFR (Non-Af Amer) (>60) BUN/Creatinine Ratio (8-20) Glucose (70-100) mg/dL Lactic Acid (0.5-2.0) mmol/L Calcium (8.6-10.3) mg/dL Total Bilirubin (0.2-1.0) mg/dL AST (13-39) U/L ALT (7-52) U/L Alkaline Phosphatase (34-104) U/L Total Creatine Kinase (10-223) U/L Troponin I 0.05 H* (<0.04) ng/mL C-Reactive Protein (< 5.00) mg/L Total Protein (6.4-8.9) g/dL Albumin (3.2-5.2) g/dL Globulin (2-4) g/dL Albumin/Globulin Ratio (1-3) ECG, personally reviewed: NSR rate 85, no ischemia, old inferior LA CXR, personally reviewed: no acute process XRY pelvis, personally reviewed: B JACOBY, no acute finding Impression: 77F HX NSTEMI presents with rapid onset R hip pain radiating down R leg which is how she presented last year when found to have an NSTEMI, elevated troponin DIAGNOSIS & PLAN Primary R hip pain radiating down R leg : HX chronic LBP w/ sciatica : continue outpatient regimen elevated troponin : HX CAD/LA : cardiomyopathy EF 35-40% : telemetry : trend : aspirin given in ED : supplemental oxygen Secondary COPD : continue albutrol, mometasone HTN : continue lisinopril & metoprolol HLD : continue atorvastatin hypothyroidism : continue levothyroxine rheumatoid arthritis : continue leflunomide OAB : continue solifenacin Ambulatory Orders Ketoconazole 2 % CREAM (NF) [Nizoral 2% CREAM (NF)] 1 applic TOPICAL DAILY 06/30 Admission Rational: observation for elevated troponin/r/o ACS DVTp: SCDS Code Status: full HCP: son
[2017-07-01] MEDS ORDERED: Albuterol 2.5 MG/3 ML NEB.SOL* (0.083%) INH PRN (05:01)
[2017-07-01] MEDS ORDERED: oxyCODONE SR TAB(*) 10 MG TAB.SR PO PRN (06:07)
[2017-07-01] MEDS: oxyCODONE TAB* 5 MG TAB PO PRN ×2 (06:18→18:08)
[2017-07-01] MEDS: Levothyroxine TAB* 112 MCG TAB PO SCH (06:18)
[2017-07-01] MEDS: Mometasone 220 MCG MDI INH SCH ×2 (07:52→19:48)
--- NOTE | 2017-07-01 08:48 | RAD ---
INDICATION: Elevated troponin COMPARISON: Chest x-ray dated August 02, 2016 TECHNIQUE: Single AP portable view of the chest was obtained. FINDINGS: Image quality is compromised due to the relative inferiority of a portable chest x-ray. The heart and mediastinum exhibit normal size and contour. Again seen is coarse calcification overlying the arch of the aorta. The lungs are grossly clear. There is no evidence of a large pleural effusion. Visualized bones are normal for the patient's age. IMPRESSION: No radiographic evidence for acute cardiopulmonary abnormality on this portable chest x-ray.
[2017-07-01] MEDS ORDERED: LEFLUNOMIDE 10 MG PO SCH (09:00)
[2017-07-01] MEDS ORDERED: Metoprolol Succinate XL TAB* 50 MG PO SCH ×2 (09:00→21:00)
[2017-07-01] MEDS ORDERED: Montelukast Sodium TAB* 10 MG PO SCH ×2 (09:00→21:00)
--- NOTE | 2017-07-01 09:40 | RAD ---
INDICATION: Chronic right hip pain COMPARISON: None TECHNIQUE: 3 views of the right hip were obtained. FINDINGS: On the AP view of the pelvis the hip prostheses are anatomically aligned bilaterally. The right hip prosthesis is anatomically aligned in the AP and lateral views. The visualized bones are otherwise intact and appropriately aligned. Incidental note is made of calcified atherosclerosis of the bilateral visualized iliofemoral arteries. IMPRESSION: 1. Anatomic alignment of hip prostheses without radiographically apparent periprosthetic fracture or loosening. 2. Incidentally noted is calcified atherosclerosis. Please correlate to signs or symptoms of arterial insufficiency. If the patient's symptoms persist follow-up imaging is recommended.
[2017-07-01] MEDS: ALBUTEROL 4 MG PO SCH ×2 (09:46→20:57)
[2017-07-01] MEDS: Folic Acid TAB* 1 MG PO SCH (09:48)
[2017-07-01] MEDS: Atorvastatin* 80 MG TAB PO SCH (09:48)
[2017-07-01] MEDS: Lisinopril TAB* 5 MG PO SCH (09:48)
[2017-07-01] MEDS: KETOCONAZOLE 2% TOPICAL SCH (09:59)
[2017-07-01] MEDS: Epinastine 0.05% OPHTH(NF) 5 ML BTL BOTH EYES SCH (13:06)
[2017-07-01] MEDS ORDERED: oxyCODONE TAB* 5 MG TAB PO PRN (18:47)
[2017-07-01] MEDS ORDERED: Docusate CAP* 100 MG PO PRN (18:48)
[2017-07-01] MEDS ORDERED: Senna TAB PO PRN (18:48)
[2017-07-01] MEDS: oxyCODONE SR TAB(*) 10 MG TAB.SR PO SCH (19:18)
[2017-07-01] MEDS ORDERED: Solifenacin(NF) 10 MG TAB PO SCH (21:00)
[2017-07-01] MEDS ORDERED: Cetirizine* 10 MG TAB PO SCH (21:00)
[2017-07-01] MEDS ORDERED: Metaxalone TAB* 800 MG PO SCH (21:00)
[2017-07-02 05:27] LABS: ABS Basophils 0.1 10^3/ul (0-0.2); ABS Eosinophils 0.3 10^3/ul (0-0.6); ABS Lymphocytes 1.4 10^3/ul (1.0-4.8); ABS Monocytes 0.9 10^3/ul (0-0.8); ABS Neutrophils 4.6 10^3/ul (1.5-7.7); ABS Nucleated RBC 0 10^3/ul; Eosinophil % 3.6 % (0-6); Hematocrit 37 % (35-47); Hemoglobin 12.2 g/dl (12.0-16.0); Lymphocyte % 19.7 % (25-47); Mean Corpuscular HGB Conc 33 g/dl (31-36); Mean Corpuscular Hemoglobin 31 pg (27-31); Mean Corpuscular Volume 93 fL (80-97); Mean Platelet Volume 8.5 um3 (7.4-10.4); Nucleated Red Blood Cells % 0; Platelet Count 203 10^3/ul (150-450); Red Blood Count 3.96 10^6/ul (4.0-5.4); Red Cell Distribution Width 15 % (10.5-15); White Blood Count 7.2 10^3/ul (3.5-10.8)
[2017-07-02] MEDS ORDERED: oxyCODONE TAB* 5 MG TAB PO SCH (06:00)
[2017-07-02] MEDS: Levothyroxine TAB* 112 MCG TAB PO SCH (06:03)
[2017-07-02] MEDS: oxyCODONE SR TAB(*) 10 MG TAB.SR PO SCH ×2 (06:03→08:11)
[2017-07-02] MEDS: Mometasone 220 MCG MDI INH SCH (07:06)
[2017-07-02] MEDS: Folic Acid TAB* 1 MG PO SCH (08:12)
[2017-07-02] MEDS: Atorvastatin* 80 MG TAB PO SCH (08:12)
[2017-07-02] MEDS: ALBUTEROL 4 MG PO SCH (08:12)
[2017-07-02] MEDS: Lisinopril TAB* 5 MG PO SCH (08:12)
[2017-07-02] MEDS: KETOCONAZOLE 2% TOPICAL SCH (08:13)
[2017-07-02] MEDS: Epinastine 0.05% OPHTH(NF) 5 ML BTL BOTH EYES SCH (08:13)
[2017-07-02] MEDS ORDERED: LEFLUNOMIDE 20 MG PO SCH (09:00)
--- NOTE | 2017-07-02 09:59 | ECHO ---
Patient: SMITH ORTEGA [facility] Rec#: [id number] : 1940 Date: 07/02/2017 Age: 77y Height: 144.78 cm / 57.0 in Weight: 45.36 kg / 100.0 lbs Sex: F BSA: 1.34 Room#: 433 Admit Date#: 07/01/2017 Type: Inpatient Referring: Vani Guerra MD Reading: Ananth Camacho MD Console Assembler: Keysha GarciaRD,RDMS Transthoracic Echocardiogram Indication: Elevated TROP, cardiomyopathy BP: 127/61 HR: 65 Rhythm: NSR with PVCs Findings History: CAD, NH, COPD, HTN, HLD, cardiomyopathy Technical Comments: The study quality is good. Left Ventricle: The left ventricular chamber size is normal. Mild concentric left ventricular hypertrophy is observed. Basal interventricular septum shows moderate thickening. Global left ventricular wall motion and contractility are within normal limits. There is normal left ventricular systolic function. The estimated ejection fraction is 55-60%. Abnormal left ventricular diastolic filling is observed, consistent with impaired relaxation. Left Atrium: The left atrium is mildly dilated. Right Ventricle: The right ventricular chamber size and systolic function are within normal limits. Right Atrium: The right atrial cavity size is normal. Aortic Valve: The aortic valve is trileaflet. The aortic valve leaflets are mildly thickened. There is moderate thickening of the non coronary cusp. There is aortic annular calcification. There is no evidence of aortic regurgitation. There is mild aortic stenosis. The mean gradient of the aortic valve is 4.2 mmHg. The aortic valve area, by peak velocities, is calculated at 1.5 cm2. Mitral Valve: Severe mitral annular calcification present. The mitral valve leaflets are mildly thickened. There is a trace of mitral regurgitation. There is mild mitral stenosis. Tricuspid Valve: The tricuspid valve leaflets are normal. There is trace tricuspid regurgitation. No pulmonary hypertension is noted. Pulmonic Valve: The pulmonic valve structure is not well visualized. There is no evidence of pulmonic regurgitation. Pericardium: There is no significant pericardial effusion. Aorta: The aortic root appears normal. There is no dilatation of the aortic arch. There is plaque visualized in the ascending aorta. Pulmonary Artery: The main pulmonary artery is not well visualized. Venous: The inferior vena cava appears normal in size. There is an approximate 50% respiratory change in the inferior vena cava dimension. Conclusions Global left ventricular wall motion and contractility are within normal limits. There is normal left ventricular systolic function. The estimated ejection fraction is 55-60%. The right ventricular chamber size and systolic function are within normal limits. There is moderate thickening of the non coronary cusp. There is no evidence of aortic regurgitation. There is mild aortic stenosis. There is a trace of mitral regurgitation. There is trace tricuspid regurgitation. There is no significant pericardial effusion. Compared to study of 08-03-16 The LV function is now normal Measurements Name Value Normal Range RVIDd (AP) 2D 2.2 cm (0.9 - 2.6) RVDdMajor (2D) 2.5 cm (2.2 - 4.4) RAd ISD 4CH 4.2 cm (3.4 - 4.9) RA (A4C)W 3.8 cm (2.9 - 4.6) IVSd (2D) 1.6 cm (0.6 - 1) LVPWd (2D) 1 cm (0.6 - 1) LVIDd (2D) 3.6 cm (3.6 - 5.4) LVIDs (2D) 2.3 cm - LV FS (2D) 35 % (25 - 45) Aortic Annulus 2 cm (1.4 - 2.6) Ao root diameter (2D) 3.2 cm (2.1 - 3.5) Ascending Ao 3.2 cm (2.1 - 3.4) Aortic arch 2.1 cm (1.8 - 3.4) LA dimension (AP) 2D 3.5 cm (2.3 - 3.8) LAd ISD 4CH 5.9 cm (2.9 - 5.3) LA ISD 4CH W 4.3 cm (2.5 - 4.5) Name Value Normal Range LA ESV SP 4CH (A/L) 58.11 ml - LA ESV SP 2CH (A/L) 33.26 ml - LA ESV BP (A/L) 47 ml - LA ESV BP (A/L) index 35 ml/m2 - LA ESV SP 4CH (MOD) 51.68 ml - LA ESV SP 2CH (MOD) 32.14 ml - Name Value Normal Range MV E-wave Vmax 1 m/sec - MV deceleration time 330 msec - MV A-wave Vmax 1.3 m/sec - MV E:A ratio 0.8 ratio - LV septal e' Vmax 0.04 m/sec - LV lateral e' Vmax 0.07 m/sec - LV E:e' septal ratio 25 ratio - LV E:e' lateral ratio 14 ratio - Name Value Normal Range AV Vmax 1.5 m/sec - AV VTI 29 cm - AV peak gradient 9 mmHg - AV mean gradient 4.2 mmHg - LVOT diameter 1.9 cm - LVOT Vmax 0.8 m/sec - LVOT VTI 17 cm - LVOT peak gradient 2.6 mmHg - LVOT mean gradient 1.6 mmHg - MILAGROS (continuity Vmax) 1.5 cm2 - MILAGROS (continuity VTI) 1.7 cm2 - SUPRIYA Vmax 0.4 m/sec - Name Value Normal Range MV Vmax 1.4 m/sec - MV VTI 38.3 cm - MV peak gradient 8 mmHg - MV mean gradient 3.1 mmHg - MV PHT 99 msec - MVA (PHT) 2.2 cm2 - MVA (continuity VTI) 1.3 cm2 - Name Value Normal Range TR Vmax 2.6 m/sec - TR peak gradient 27 mmHg - RAP 3 mmHg - RVSP 30 mmHg - IVC diameter 2 cm - Name Value Normal Range PV Vmax 0.5 m/sec - PV peak gradient 1 mmHg -
[2017-07-02] MEDS ORDERED: NIFEdipine ER TAB* 30 MG PO ONE (12:45)
[2017-07-02 14:07] VITALS: BP 113/49
== END 2017-07-02 13:50 | disposition home or self-care (01) ==
LOC: ED 21:51 → MEDTELE 07-01 01:47
PROVIDERS: ADMIT Hospitalist; ATTEND Internal Medicine Geriatric Medicine
DX: M25.551 Pain in right hip (principal); G89.29 Other chronic pain; R79.89 Other specified abnormal findings of blood chemistry; I42.9 Cardiomyopathy, unspecified; I25.10 Atherosclerotic heart disease of native coronary artery without angina pectoris; I51.7 Cardiomegaly; J44.9 Chronic obstructive pulmonary disease, unspecified; I10 Essential (primary) hypertension; E78.5 Hyperlipidemia, unspecified; E03.9 Hypothyroidism, unspecified; M06.9 Rheumatoid arthritis, unspecified; M54.5 Low back pain; M54.30 Sciatica, unspecified side; K58.9 Irritable bowel syndrome, unspecified; M81.0 Age-related osteoporosis without current pathological fracture; N32.81 Overactive bladder; R42 Dizziness and giddiness
CPT/HCPCS: 36415; 71045; 80053; 82550; 83605; 84484; 85025; 86140; 93005; 93306; 94640; 94760; 96374; 96375; 99285; A9270-GY; G0378; J1170; J1200; J1885

== ENCOUNTER 2017-11-08 23:32 | Inpatient (IN) | payer MEDICARE, BC ==
[2017-11-08] MEDS ORDERED: Ondansetron INJ* 2 MG/ML VIAL IV PRN (23:54)
[2017-11-08] MEDS ORDERED: Morphine VIAL* 10 MG/ML 1 ML VIAL IV ONE (23:54)
[2017-11-08] MEDS ORDERED: NS 0.9% 500 ML* 500 ML IV ONE (23:54)
[2017-11-09 00:09] LABS: ABS Basophils 0 10^3/ul (0-0.2); ABS Eosinophils 0.2 10^3/ul (0-0.6); ABS Lymphocytes 1.3 10^3/ul (1.0-4.8); ABS Monocytes 0.9 10^3/ul (0-0.8); ABS Neutrophils 3.1 10^3/ul (1.5-7.7); ABS Nucleated RBC 0 10^3/ul; Eosinophil % 3.8 % (0-6); Hematocrit 41 % (35-47); Hemoglobin 13.8 g/dl (12.0-16.0); Lymphocyte % 23.2 % (25-47); Mean Corpuscular HGB Conc 33 g/dl (31-36); Mean Corpuscular Hemoglobin 31 pg (27-31); Mean Corpuscular Volume 93 fL (80-97); Mean Platelet Volume 8.6 um3 (7.4-10.4); Nucleated Red Blood Cells % 0; Platelet Count 278 10^3/ul (150-450); Red Blood Count 4.45 10^6/ul (4.00-5.40); Red Cell Distribution Width 14 % (10.5-15); White Blood Count 5.4 10^3/ul (3.5-10.8)
[2017-11-09 00:25] LABS: EGFR Non-African American 128.8 (>60)
--- OUTSIDE RECORDS SUMMARY | 2017-11-09 00:28 | XMS REPORT ---
:1940 External Reference #:[id number] Author Organization [facility] Address [address] [place] [address] Phone [phone] Care Team Providers Name Role Phone Vani Guerra M.D. Primary Care Physician Unavailable Payers Type Date Identification Numbers Payment Provider Subscriber Medicare Primary Policy Number: [id number] Medicare - NGS Kim Bose PayID: [id number] [address] [facility] [place] [address] Medigap Part B Effective: Policy Number: BS Excellus Kim Kimyor 1997 [id number] Health Plan PayID: [id number] [address] [address] [place] [address] Problems Date Description Provider Status Onset: Osteoporosis Active Onset: Rheumatoid arthritis Active Onset: Asthma Active Onset: Essential hypertension Active Onset: Allergic rhinitis Active Onset: Diverticulosis of colon without Active diverticulitis Onset: Essential tremor Active Onset: Hyperlipidemia Active Onset: Hypothyroidism Active Onset: Idiopathic scoliosis Active Onset: Lumbosacral radiculopathy Active Onset: Menopause present Active Onset: Bilateral hearing loss Active Onset: Anemia Active Onset: 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 Active Onset: 09/04/2014 Chronic allergic conjunctivitis Shelly Woodruff O.D. Active Onset: 09/04/2014 Moderate Glaucoma Shelly Woodruff O.D. Active Onset: 03/09/2015 Low-tension glaucoma, left eye, Shelly Woodruff O.D. Active moderate stage Onset: 03/09/2015 Primary open-angle glaucoma, Shelly Woodruff O.D. Active moderate stage Onset: 03/09/2015 Low tension glaucoma Shelly Woodruff O.D. 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 ON [employer] ETOH Use Rarely consumes alcohol Smoking Patient has never smoked Recreational Drug Use Never Used Drugs Daily Caffeine Does Not Consume Caffeine Allergies, Adverse Reactions, Alerts Date Description Reaction Status Severity Comments 09/04/2014 Amoxicillin Rash active 09/04/2014 Tramadol Nausea and Vomiting active 09/04/2014 Intal Palpitations active 09/04/2014 Codeine Nausea and Vomiting active 09/04/2014 Sulfa Antibiotics active 09/04/2014 Fluocinolone Itching active 09/04/2014 Clinoril active 09/04/2014 Accolate Elevated LFTs active 09/04/2014 Morphine Allergic asthma, Rash active 09/04/2014 Advair Diskus Voice Changes active 09/04/2014 Lumigan active 09/04/2014 Latex active 11/01/2017 Gluten active Medications Medication Date Status Form Strength Qnty SIG Indications Ordering Provider Epinastine HCL 04/04/ Active Solution 0.05% 15ml [address] 2016 twice a , in O.D. each eye Metaxalone / Active Tablets 800mg Unknown 0000 Albuterol / Active Tablets ER 4mg Unknown Sulfate ER 0000 12HR Montelukast / Active Tablets 10mg Unknown Sodium 0000 Oxycontin / Active Tab ER 12H 10mg Unknown 0000 Abuse-Det Asmanex / Active Aerosol 220mcg/Inh Unknown Twisthaler 60 0000 Metered Doses Leflunomide / Active Tablets 20mg Unknown 0000 Triamcinolone / Active Cream 0.1% Unknown Acetonide 0000 Lidocaine / Active Patches 5% Unknown 0000 Levothyroxine / Active Tablets 200mcg Unknown Sodium 0000 Folic Acid / Active Tablets 1mg Unknown 0000 Flector / Active Patches 1.3% Unknown 0000 Aspirin Low / Active Tablets 81mg 1 by Unknown Dose 0000 mouth every day Oxycodone HCL / Active Tablets 5mg 1 every Unknown 0000 4 hours as needed Clarinex / Active Tablets 5mg 1 every Unknown 0000 day Multivitamin / Active Tablets Adlt 50+ 1 every Unknown Adults 50+ 0000 day [facility] B-12 / Active Tablets ER 1000mcg 1 every Unknown 0000 day Nasal [place] / Active Solution 0.05% Unknown X-Moist 0000 Metoprolol / Active Tablets ER 50mg Guerra, Succinate ER 0000 24HR Vani M.D. Lisinopril / Active Tablets 5mg Guerra, 0000 Vani M.D. Atorvastatin / Active Tablets 80mg Guerra, Calcium 0000 Vani M.D. Vitamin D3 / Active Tablets Unknown Complete 0000 Nifedipine ER / Active Tablets ER 30mg Take 1 Unknown Osmotic Release 0000 24HR Tablet By Mouth Every Day Dymista / Active Suspension 137-50mcg/ Use 2 Unknown 0000 Act Sprays In Each Nostril One Time A Day Oxybutynin / Active Tablets ER 10mg Take 1 Unknown Chloride ER 0000 24HR Tablet By Mouth Every Day Ketoconazole / Active Cream 2% Unknown 0000 Elestat 10/06/ Hx Solution 0.05% 5units [address] 2015 - both isi, 10/15/ eyes O.D. 2016 twice a day Azelastine HCL 09/30/ Hx Solution 0.05% 6ml [address] (Ophthalmic) 2015 - both isi, 10/15/ eyes O.D. 2016 twice a day as needed Pataday 03/09/ Hx Solution 0.2% 2.5ml [address] 2014 - both Ranjan, 09/30/ eyes O.D. 2015 every day as needed Refresh Tears 03/08/ Hx Solution 0.5% as [facility] 2014 - needed win, 10/31/ O.D. 2017 Optivar 11/21/ Hx Solution 0.05% 1units [address] 2014 - both win, 03/08/ eyes O.D. 2014 twice a day as needed Azelastine HCL 09/03/ Hx Solution 0.05% [facility] 2014 - win, 03/08/ O.D. 2014 Soothe 09/03/ Hx Solution 0.6-0.6% [address] 2014 - a week win, 03/08/ drop O.D. 2014 left eye as needed Atorvastatin 00/ Hx Tablets 20mg Unknown Calcium - 2017 Fluticasone 00/ Hx Suspension 50mcg/Act Unknown Propionate - 2017 Raloxifene HCL /00/ Hx Tablets 60mg Unknown - 2014 Oxaprozin 00/ Hx Tablets 600mg Unknown - 2016 Verapamil HCL 00/ Hx Caps ER 24HR 120mg Unknown ER - 2014 Desloratadine /00/ Hx Tablets 5mg Unknown - 2017 Ventolin HFA / Hx Aerosol 108(90Base Unknown 0000 - ) mcg/Act 2017 Vesicare /00/ Hx Tablets 5mg Unknown 0000 - 2017 Gabapentin /00/ Hx Capsules 200mg three Unknown 0000 - times a 2016 Evista /00/ Hx Tablets 60mg every Unknown 0000 - day 2017 Nystatin /00/ Hx Suspension 172307Xone 1 tbsp Unknown 0000 - /ML four 05/03/ times a 2017 day as needed Singulair /00/ Hx Tablets 10mg 1 every Unknown 0000 - day 2017 Vitamin D 00/00/ Hx Tablets 1000Unit 1 by Unknown (Cholecalcifero 0000 - mouth l) 05/03/ twice a 2017 day Sennosides /00/ Hx Tablets 8.6mg 25 MG Unknown 0000 - 1-2 05/03/ Daily 2017 Docusate Sodium /00/ Hx Capsules 250mg 1 every Unknown 0000 - day 2017 Clotrimazole / Hx Cream 1% as Unknown 0000 - needed 2017 Prednisone / Hx Tablets 10mg 1/2 Unknown 0000 - tablet 10/31/ twice 2018 daily Medications Administered in Office Medication Date Status Form Strength Qnty SIG Indications Ordering Provider Alana Administered Injection Perez 3 Abraham Willoughby Results Description No Information Procedures Date CPT Code Description Status 05/04/2017 29085 Est Patient Intermediate Exam Completed 10/17/2016 87152 Scanning Computerized Ophthalmic Diagnostic Imag Completed Posterior Seg On 10/17/2016 94608 Est Patient Comprehensive Exam Completed 04/04/2016 62791 Est Patient Comprehensive Exam Completed 10/02/2015 02770 Scanning Computerized Ophthalmic Diagnostic Imag Completed Posterior Seg On 10/02/2015 32543 Est Patient Comprehensive Exam Completed 03/09/2015 62860 Scanning Computerized Ophthalmic Diagnostic Imag Completed Posterior Seg On 03/09/2015 80458 Est Patient Comprehensive Exam Completed 09/04/2014 63284 Est Patient Intermediate Exam Completed 03/07/2014 85782 Scanning Computerized Ophthalmic Diagnostic Imag Completed Posterior Seg On 03/07/2014 82061 Visual Field Exam Extended Completed 03/07/2014 74060 Est Patient Comprehensive Exam Completed 05/29/2013 43848 Trabeculoplasty By Laser Surgery Completed 04/01/2013 98846 Pachymetry Completed 02/27/2013 60026 Trabeculoplasty By Laser Surgery Completed 02/04/2013 96321 Visual Field Exam Extended Completed 01/30/2012 04002 Scanning Computerized Ophthalmic Diagnostic Imag Completed Posterior Seg On 05/27/2011 06330 Visual Field Exam Extended Completed 05/27/2011 60714 Determination Of Refractive State Completed 05/27/2011 46180 Est Patient Intermediate Exam Completed 02/11/2011 99747 Scanning Computerized Ophthalmic Diagnostic Imag Completed Posterior Seg On 02/11/2011 14239 Est Patient Comprehensive Exam Completed 01/15/2010 76748 Est Patient Intermediate Exam Completed 07/24/2008 27049 Scanning Laser W/Interp And Report Completed 07/24/2008 48471 Determination Of Refractive State Completed 07/24/2008 35795 Est Patient Comprehensive Exam Completed 01/24/2008 91542 Est Patient Intermediate Exam Completed 01/24/2008 71931 Visual Field Exam Extended Completed 01/24/2008 41315 Fundus Photography With Interpretation And Report Completed 10/23/2007 23896 Scanning Laser W/Interp And Report Completed 10/23/2007 05502 Determination Of Refractive State Completed 10/23/2007 35831 Est Patient Comprehensive Exam Completed 02/16/2005 64312 Est Patient Comprehensive Exam Completed 12/30/2004 10769 Scanning Laser W/Interp And Report Completed 12/30/2004 00110 Scanning Laser W/Interp And Report Completed 12/30/2004 24442 Visual Field Exam Extended Completed 12/22/2004 98101 Rescheduled Appointment Completed 07/16/2004 45059 Recheck Completed 06/24/2004 58148 Determination Of Refractive State Completed 06/24/2004 60084 Est Patient Intermediate Exam Completed 02/17/2004 23296 Est Patient Intermediate Exam Completed 02/17/2004 84996 Visual Field Exam Extended Completed 02/17/2004 54797 Scanning Laser W/Interp And Report Completed 12/24/2003 12073 Est Patient Intermediate Exam Completed 10/29/2003 37776 Extracapsular Cataract Extraction W/Intraocular Lens Completed 10/23/2003 73533 Ophthalmic Biometry Completed 10/22/2003 51961 Extracapsular Cataract Extraction W/Intraocular Lens Completed 10/13/2003 48557 Unlisted Procedure, Ophthalmological Completed 10/13/2003 12304 Ophthalmic Biometry Completed 09/18/2003 27252 Fundus Photography With Interpretation And Report Completed 09/18/2003 95953 Gonioscopy Completed 09/18/2003 41925 Determination Of Refractive State Completed 09/18/2003 99683 Est Patient Comprehensive Exam Completed 09/23/2002 113 Crizal Completed Encounters Type Date Location Provider CPT E/M Dx Office Visit 07/25/2013 10:45a Natan Mcfarland MD, Pee Lemus, 03026 365.12 melissa Cortez 365.72 Office Visit 05/03/2013 9:30a Natan Mcfarland MD, Hortencia Brumfield O.D. 39135 372.14 pc Office Visit 04/20/2013 1:30p Natan Mcfarland MD, Hortencia Brumfield O.D. 12024 372.14 pc Office Visit 04/01/2013 10:00a Natan Mcfarland MD, Pee Lemus M.D. 44100 365.11 pc 365.11 365.72 365.72 Office Visit 02/20/2013 10:45a Natan Mcfarland MD, Pee Lemus M.D. 57909 365.11 pc 365.72 Office Visit 02/13/2013 1:30p Natan Mcfarland MD, Pee Lemus M.D. 61758 995.27 pc Office Visit 02/04/2013 12:45p Natan Mcfarland MD, Pee Lemus M.D. 02895 365.12 pc 365.12 365.72 365.72 Office Visit 08/06/2012 1:45p Natan Mcfarland MD, Pee Lemus M.D. 52519 365.12 pc 365.72 Office Visit 01/30/2012 10:45a Natan Mcfarland MD, Pee Lemus M.D. 97489 365.12 pc 365.12 365.72 365.72 Office Visit 08/29/2011 10:00a Natan Mcfarland MD, Pee Lemus M.D. 84014 365.12 pc 365.72 Office Visit 02/25/2011 3:30p Natan Mcfarland MD, Pee Lemus M.D. 32418 365.12 pc 365.72 Plan of Care 11/01/2017 - Shelly Woodruff O.D.[id number] Low-tension glaucoma, bilateral, moderate stageComments:Your glaucoma is stable at this time.Your eye pressure is within an acceptable range, and your testing does not show any Glaucoma related changes at this time. Please continue your treatment.Follow up:6 Month Follow Up IOP Check At your next visit, we are not planning to dilate your eyes. However, if you have any changes in your vision or new symptoms, there are certain situations that require us to dilate your eyes. If Dr. Woodruff requests any additional testing, that may require extra time. If you have any questions before your next appointment, please call our office at [phone].
[2017-11-09] MEDS ORDERED: Iohexol 300* (CONTRAST) 10 ML SDV IV ONE (00:32)
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
[2017-11-09] MEDS ORDERED: Morphine VIAL* 10 MG/ML 1 ML VIAL ONE (01:30)
[2017-11-09] MEDS ORDERED: Morphine INJ* 2 MG/ML 1 ML SYRINGE (TWO MG - NEW SYRINGE VERSION) ONE ×3 (02:30→09:05)
--- NOTE | 2017-11-09 05:01 | RAD ---
EXAM: US Abdomen Limited, Right Upper Quadrant CLINICAL HISTORY: 77 years old, female; Pain; Abdominal pain; Generalized; Additional info: Ruq pain TECHNIQUE: Real-time ultrasound of the right upper quadrant with image documentation. COMPARISON: ABD SANCHEZ US ABDOMEN LIMITED 04/27/2011 7:38 AM, CTA C/A/P CTA CHEST/ABD/PEL 08/02/2016 7:12:00 PM FINDINGS: Liver: Normal liver echogenicity and size with a small focal hypoechoic nonvascular focus anterior right hepatic lobe measuring 1.4 x 1.1 x 0.8 cm not seen on prior exams. Normal hepatopetal portal vein flow. Gallbladder: Collapsed gallbladder containing no hyperechoic gallstones. No wall thickening, pericholecystic fluid, or sonographic Hernandez's sign. Common bile duct: CBD measures 0.3 cm. Pancreas: Pancreatic head and body are visualized showing no ductal dilation or focal lesions. Tail is shadowed by overlying bowel gas. Right kidney: Right kidney measures 9.2 x 4.0 x 3.9 cm (75 cc). No solid cortical lesions, calculi, or pelvocaliectasis. Aorta: Non-atherosclerotic normal caliber aorta. Inferior vena cava: Patent IVC. IMPRESSION: 1. No sonographic findings to correlate with patient's symptomatology. 2. Small hepatic lesion which may be due to technique with other etiologies including a complex cyst, atypical hemangioma, or metastasis. Consider multiphase liver protocol CT or MRI for further characterization.
--- NOTE | 2017-11-09 05:24 | RAD ---
EXAM: CT Abdomen and Pelvis With Intravenous Contrast CLINICAL HISTORY: 77 years old, female; Pain; Abdominal pain; Flank; Right lower quadrant (rlq); Prior surgery; Surgery date: 6+ months; Surgery type: Bilateral hip replacements; Patient HX: Rt lower abd pain/difficult urination TECHNIQUE: Axial computed tomography images of the abdomen and pelvis with intravenous contrast. All CT scans at this facility use at least one of these dose optimization techniques: automated exposure control; mA and/or kV adjustment per patient size (includes targeted exams where dose is matched to clinical indication); or iterative reconstruction. Coronal and sagittal reformatted images were created and reviewed. CONTRAST: 60 mL of OMNIPAQUE 300 administered intravenously. COMPARISON: CTA C/A/P CTA CHEST/ABD/PEL 08/02/2016 7:12 PM FINDINGS: Lung bases: Linear atelectasis or scarring in the lingula and left lower lobe. ABDOMEN: Liver: Hepatomegaly. Gallbladder and bile ducts: Mild intra-and extrahepatic biliary ductal dilatation to the level of the ampulla. No obstructing calculus is appreciated. Pancreas: Unremarkable. No mass. No ductal dilation. Spleen: Unremarkable. No splenomegaly. Adrenals: Unremarkable. No mass. Kidneys and ureters: Unremarkable. No solid mass. No hydronephrosis. Stomach and bowel: Status post partial bowel resection with anastomosis in the right lower quadrant. There is evidence of small bowel obstruction with transition point adjacent to the anastomotic suture line however evaluation of this region is suboptimal due to beam hardening artifact from bilateral hip arthroplasties. No mucosal thickening. PELVIS: Appendix: No findings to suggest acute appendicitis. Bladder: Unremarkable. No mass. Reproductive: Unremarkable as visualized. ABDOMEN and PELVIS: Intraperitoneal space: Unremarkable. No free air. No significant fluid collection. Bones/joints: Status post bilateral hip arthroplasty. Extensive beam hardening artifact from the hardware limits evaluation of pelvic organs. Stenosis of the spinal canal at L4-5. Severe levoscoliosis of the thoracolumbar spine. No acute fracture. No dislocation. Soft tissues: Unremarkable. Vasculature: Atherosclerotic disease of the coronary arteries. Coarsely calcified aortic and mitral anulus. Atherosclerotic disease of the abdominal aorta. No abdominal aortic aneurysm. Lymph nodes: Unremarkable. No enlarged lymph nodes. IMPRESSION: Status post partial bowel resection with anastomosis in the right lower quadrant. There is evidence of small bowel obstruction with transition point adjacent to the anastomotic suture line however evaluation of this region is suboptimal due to beam hardening artifact from bilateral hip arthroplasties.
[2017-11-09] MEDS ORDERED: Acetaminophen TAB* 325 MG PO ONE (06:11)
[2017-11-09 06:16] LABS: Urine Appearance Clear; Urine Blood Negative (Negative); Urine Color Yellow; Urine Ketones Negative (Negative); Urine Protein Negative (Negative); Urine Red Blood Cell Absent (Absent); Urine Specific Gravity 1.011 (1.010-1.030); Urine Urobilinogen Negative (Negative); Urine White Blood Cell Absent (Absent)
[2017-11-09] MEDS ORDERED: Morphine VIAL* 4 MG/ML VIAL (1 ml vial) IV ONE ×3 (07:35→08:58)
[2017-11-09] MEDS ORDERED: Ondansetron INJ* 2 MG/ML VIAL IV ONE (07:35)
[2017-11-09] MEDS: Morphine INJ* 2 MG/ML 1 ML SYRINGE (TWO MG - NEW SYRINGE VERSION) IV ONE ×2 (08:14→09:06)
--- NOTE | 2017-11-09 08:57 | ED ---
Re-Evaluation - Re-Evaluation First Eval Re-Evaluation Time: 08:00 Change: Worse Comment: Pain level high. Course/Dx - Course Course Of Treatment: Complains of sudden onset intense right side abdominal pain , 10 out of 10 starting at 9 PM. Pain described as constant, sharp. Denies fever, cough, sore throat, CP, SOB, N/V/D, change in urine, change in BM, vaginal symptoms. Denies pain with urination, history of kidney stones, history of similar symptoms. Medical history is back pain, RA, HTN, and STEMI. Abdominal/pelvic surgical history is none. Physical exam:Patient in extreme pain, hard to differentiate right lower quadrant pain from right upper quadrant pain. No other pain in with palpation of other quadrants of abdomen. - Provider Notifications Discussed Care Of Patient With: Radha Baca Time Discussed With Above Provider: 07:36 Instructed by Provider To: Other - ask surgeon if recommends surgical or medical admit. Discharge - Sign-Out/Discharge Documenting (check all that apply): Patient Departure - Admit, Receiving Sign- Out Receiving patient FROM: Micha Grimm - Discharge Plan Referrals: Vani Guerra MD [Primary Care Provider] - - Attestation Statements Document Initiated by Scribe: Yes Documenting Scribe: Mateo Solorzano Provider For Whom Scribe is Documenting (Include Credential): Dr. Jose Adams MD Scribe Attestation: Mateo Chahal scribed for Dr. Jose Adams MD on 11/09/17 at 0942. Consult Consult: 0848 Dr. uGerra: Asked if hospitalist could do medical admission at this time. 0850 Lavern Baca: Accepts admission. 0900 Dr. Torres: Being consulted, PA will see pt in ED.
[2017-11-09] MEDS ORDERED: Ondansetron INJ* 2 MG/ML VIAL IV PRN (09:38)
[2017-11-09] MEDS ORDERED: HYDROmorphone INJ* 1 MG/ML CARPUJECT SYRINGE IV SLOW PU PRN ×2 (09:38→15:30)
[2017-11-09] MEDS ORDERED: PROCHLORPERAZINE INJ 5 MG/ML 2 ML VIAL IV PRN (09:38)
[2017-11-09] MEDS ORDERED: Diclofenac 1.3% PATCH (NF) 5 PATCHS TRANSDERM PRN (09:41)
[2017-11-09] MEDS ORDERED: Carboxymethylcellulos 1% OPTH* 1 DROP AMP BOTH EYES PRN (09:41)
[2017-11-09] MEDS ORDERED: Albuterol 2.5 MG/3 ML NEB.SOL* (0.083%) INH PRN (09:41)
[2017-11-09] MEDS ORDERED: Lidocaine PATCH 5%* 1 PATCH TRANSDERM PRN (09:41)
[2017-11-09] MEDS ORDERED: Metoprolol Tartrate IV* 1 MG/ML 5 ML VIAL IV PRN (09:56)
[2017-11-09] MEDS ORDERED: HYDROmorphone INJ* 0.5 MG/0.5 ML SYRINGE ONE ×2 (12:28→15:54)
[2017-11-09] MEDS ORDERED: HYDROmorphone INJ* 0.5 MG/0.5 ML SYRINGE IV SLOW PU PRN ×2 (12:30→15:31)
[2017-11-09] MEDS: NS 0.9% 1000 ML* 1,000 ML IV SCH ×2 (12:57→22:33)
[2017-11-09] MEDS: Heparin VIAL(*) 5000 UNITS/ML VIAL (FIVE THOUSAND) SUBCUT SCH ×2 (13:48→21:53)
--- NOTE | 2017-11-09 16:08 | CONS ---
CC: Dr. Vani Guerra * SURGICAL CONSULTATION DATE OF CONSULT: 11/09/2017. ATTENDING SURGEON: Dr. Micha Torres (KARTHIK Joseph dictating). PRIMARY CARE PHYSICIAN: Dr. Vani Guerra. CHIEF COMPLAINT: Abdominal pain. HISTORY OF PRESENT ILLNESS: This is a 77-year-old female with multiple medical problems who was in her usual state of health yesterday. She got up to void around 9:30 p.m.and began to experience acute onset of right lower quadrant pain. She states that this has been both constant but with colicky paroxysms with some related nausea and anorexia, but no vomiting. She notes that she has not been passing gas. Her last bowel movement was yesterday morning and described it as normal (she does have some chronic constipation secondary to chronic opiate maintenance pain medication for which she uses Senna). 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 Her past record available in her electronic chart indicates a D and C for an endometrial polyp, but no other abdominal or pelvic procedures. She did undergo colonoscopy in 2011. This was a normal study. The patient states that she did receive some relief from an initial Morphine injection, but was declining effect on subsequent administration. PAST MEDICAL HISTORY: Fair severe scoliosis, chronic back and neck pain, rheumatoid arthritis, environmental allergies and asthma, osteoarthritis, hypertension, hyperlipidemia, hypothyroidism (on replacement). 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 Bilateral hip replacement, D and C, bilateral cataract surgery, bilateral carpal tunnel release. She reports no anesthesia or surgical complications. CURRENT MEDICATIONS: Her list was reviewed and includes Lisinopril, Atorvastatin, Montelukast, Metaxalone, Leflunomide, Albuterol nebulizer prn, Vesicare, Metoprolol Succinate, Diclofenac topical, Lidocaine patch, Desloratadine, Ketoconazole topical, Levothyroxine, OxyContin 10 mg t.i.d., Oxycodone 5 mg b.i.d. prn, Mometasone b.i.d., Albuterol 4 mg tablet p.o. b.i.d. , folic acid 1 mg once daily, multivitamin, B12 and D3 supplements, Nifedipine extended release 30 mg once daily, an ophthalmic drop, and Senna two tabs at bedtime. ALLERGIES: Multiple, including SULFA, PENICILLIN, AMOXICILLIN (ALL CAUSED RASH) , TRAMADOL and CODEINE (NAUSEA), CROMOLYN (PALPITATIONS), FLUOCINOLONE (ITCHING) , ADVAIR (VOICE CHANGES), ZAFIRLUKAST (ELEVATED LIVER FUNCTION TEST), SULINDAC ( DIARRHEA). FAMILY HISTORY: Not obtained. SOCIAL HISTORY: The patient lives alone, but does have a close friend attending her in the ED. She denies the use of tobacco and/or alcohol rarely. She does use a cane or walking stick when she is ambulating outside of her own home. PHYSICAL EXAM: General: Well-nourished, elderly-appearing female in various levels of distress based on timing of paroxysms of abdominal pain. At times during our interview, she appears comfortable and at other times she states that she is having the worst pain she has ever had. Skin: Warm and dry. No suspicious rashes or lesions. Vital Signs: Height 4'7", weight 100 pounds. Temperature 98.8, blood pressure ranging from 156 to 186/85 to 112, pulse ranging from 34 to 77, respirations 20, room air saturation 92 to 96 percent. HEENT: Head atraumatic. Oropharynx: Teeth in good repair. Mucus membranes moist. Neck: No lymphadenopathy or thyromegaly. Heart: Regular rate and rhythm. The heart tones are somewhat distant. No murmur appreciated. Lungs: Clear to auscultation. No rales or wheezes. Abdomen: Mildly protuberant and tympanitic. Bowel sounds are present, but hypoactive. There is a possible infraumbilical surgical scar, otherwise the abdomen appears to be without evidence of prior surgery. Abdomen is soft. There is mild tenderness across the lower abdomen with predominance in the right lower quadrant, though without peritoneal signs of guarding, rigidity, or rebound. There are no palpable masses. There are no palpable inguinal hernias. The remainder of the abdomen is relatively nontender. No tenderness specifically in the right upper quadrant. Negative Hernandez sign. Back: Not examined directly, but notable on her CT scan for fairly severe scoliosis with spondylolisthesis. Extremities: No edema. Pulse exam not performed. Neurological: Grossly intact. LABORATORY DATA: White blood cell count 5400, hemoglobin 13.8, no significant shift. Chemistries notable for AST of 100, ALT of 94 versus baseline for both which are normal. CRP is less than 1, lactic acid is normal at 0.8. DIAGNOSTIC STUDIES: CT scan of the abdomen and pelvis with oral and IV contrast was reviewed and compared with CTA from July of 2016. On the current study, the gallbladder is relatively contracted (she did have a right upper quadrant ultrasound done in the ED which did not show stones or evidence of cholecystitis). Oral contrast does extend into the distal small bowel, though is difficult to see a transition point. There is an area of hyperdensity in the right lower quadrant that appears to be consistent with an anastomotic staple line (despite the patient's lack of prior GI surgery). There is a dilated adjacent loop of bowel, but this appears fairly similar to the study from one year ago. There is some stool in the colon, but not extensive. There is no free air. IMPRESSION: Partial small bowel obstruction. PLAN: Bowel rest, IV hydration, pain control, serial exams, repeat lab work, and abdominal plain film in the morning. The case was discussed with Dr. Radha Baca. Case and CT to be reviewed by Dr. Torres who will also exam the patient for confirmation of the above findings. KARTHIK JOSEPH [id number]/[facility] #: [id number] SAMEER
[2017-11-09] MEDS: HYDROmorphone INJ* 0.5 MG/0.5 ML SYRINGE IV SLOW PU PRN (19:21)
[2017-11-09] MEDS: Mometasone 220 MCG MDI INH SCH (19:47)
--- NOTE | 2017-11-09 20:04 | HP ---
CC: Dr. Vani Guerra * HISTORY AND PHYSICAL: DATE OF ADMISSION: 11/09/17 PRIMARY CARE PROVIDER: Dr. Vani Guerra CHIEF COMPLAINT: Abdominal pain. HISTORY OF PRESENT ILLNESS: Ms. Bose is a 77-year-old female with an extensive medical history including hypertension, hypothyroidism, severe scoliosis with chronic back and neck pain, rheumatoid arthritis, asthma, and coronary artery disease, who presents to the emergency room with complaints of right lower quadrant abdominal pain. The patient states that on the evening prior to admission, she was essentially in her usual state of health. She states that she went to a dinner meeting last night and ate some foods that were not completely typical for her though nothing truly exotic or very high in roughage. She states that she ultimately came home and went to bed approximately 9 p.m. Shortly after lying down in bed, she felt as if she needed to urinate. She got up, she urinated without difficulty, but then within a couple of minutes developed severe right lower quadrant abdominal pain. The patient additionally felt the patient radiating into her right hip and lateral thigh. She states the patient was very severe and therefore contacted the ambulance to bring her to the emergency room. The patient in the ER had a gallbladder ultrasound, pain around midnight. This revealed no sonographic findings correlate with the patient's abdominal pain and the small hepatic lesion, which may be due to technique with other etiologies including complex cyst, atypical hemangioma or metastasis. Multiphase liver protocol CT or MRI was recommended for further characterization. The patient did also undergo CT of the abdomen and pelvis with oral and IV contrast. She was ultimately found to have an evidence of a small bowel obstruction with the transition point adjacent to what was felt to be an anastomotic suture line, however, evaluation of this region was felt to be suboptimal due to beam hardening artifact from bilateral hip arthroplasties. In speaking with the patient, she denies any abdominal surgery or bowel resections that she can recall. She does state that perhaps she has some sort of surgery for endometriosis in the past, but again she does not recall this either. The patient is continued to have severe intermittent episodes of grabbing sharp right lower quadrant abdominal pain. She has had more constant discomfort within the lateral hip and thigh. The patient over the last 1 to 2 hours states that she has now become somewhat nauseous. She has not vomited. She states her last bowel movement was yesterday morning and was normal for her. She does take Senna 50 mg at bedtime nightly due to being constipated related to her narcotic pain medications. The patient has noticed decrease in passing flatus over the last several hours. PAST MEDICAL HISTORY: 1. Coronary artery disease. 2. Cardiomyopathy with an EF of 35 to 40% with a most recent echocardiogram in the [facility] system dating back to June 2017, at which time her EF was estimated to be 55 to 60% 3. Asthma. 4. Hypertension. 5. Hyperlipidemia. 6. Hypothyroidism. 7. Rheumatoid arthritis. 8. Chronic back and neck pain with sciatica. 9. Osteoporosis. PAST SURGICAL HISTORY: 1. Bilateral cataract extractions. 2. Tonsillectomy. 3. Exploratory laparotomy for endometriosis. 4. Bilateral total hip replacement. 5. ORIF right wrist. 6. Bilateral carpal tunnel release. 7. D and C. MEDICATIONS: 1. OxyContin 10 mg p.o. t.i.d. 2. Oxymetazoline 1 to 2 sprays to both nostrils twice daily p.r.n. congestion. 3. Multivitamin 1 tab p.o. daily. 4. Lidocaine patch applied topically daily p.r.n. pain. 5. Flonase 2 squirts both nostrils daily. 6. Diclofenac patch apply topically daily p.r.n. pain. 7. Vitamin B12 1000 mcg p.o. daily. 8. Clotrimazole cream applied vaginal daily p.r.n. yeast infection. 9. Vitamin D3 1000 units p.o. daily. 10. Refresh Tears 1 drop to both eyes b.i.d. p.r.n. dry eyes. 11. Aspirin 81 mg p.o. daily. 12. Nifedipine ER 30 mg p.o. daily. 13. Oxycodone 5 mg p.o. b.i.d. p.r.n. pain. 14. VESIcare 10 mg p.o. daily. 15. Sennoside 50 mg p.o. q.h.s. 16. Singulair 10 mg p.o. daily. 17. Asmanex 1 puff inhaled twice daily. 18. Metoprolol XL 25 mg p.o. q.h.s. 19. Skelaxin 400 to 800 mg p.o. at bedtime p.r.n. muscle spasms. 20. Lisinopril 5 mg p.o. daily. 21. Levothyroxine 112 mcg p.o. daily. 22. Leflunomide 20 mg p.o. daily. 23. Folic acid 1 mg p.o. daily. 24. Clarinex 5 mg p.o. daily. 25. Lipitor 80 mg p.o. daily. 26. Albuterol 4 mg p.o. b.i.d. 27. Albuterol HFA 2 puffs inhaled q.4 hours p.r.n. shortness of breath. 28. Albuterol 1 neb inhaled q.4 hours p.r.n. shortness of breath. 29. Ketoconazole cream applied topically daily p.r.n. rash. 30. Elestat 1 drop to both eyes twice daily. ALLERGIES: AMOXICILLIN, CODEINE, CHROMELIN, FLUOCINOLONE ACETONIDE, LATEX, PENICILLIN, SULFA, SULINDAC, TRAMADOL, ACCOLATE, CATS, DOGS, DUST, MOLD, POLLEN , ADVAIR, METHYL SULFATE. FAMILY HISTORY: Mom at the age of 64 with CHF, she also had coronary disease. Dad had diabetes and emphysema. SOCIAL HISTORY: The patient lives alone and typically gets around without any difficulty, sometimes using a cane. She is a nonsmoker. She drinks alcohol very rarely. Her friend, Juanpablo Ortiz is her healthcare proxy. REVIEW OF SYSTEMS: A complete 11-system review of systems was obtained. Pertinent positives and negatives are as per HPI and otherwise negative. PHYSICAL EXAMINATION GENERAL: The patient is a well-developed, elderly female seen lying in the stretcher, at times appearing to be in severe pain, but currently in no acute distress. VITAL SIGNS: Blood pressure 144/83, pulse 69, respirations 18, temp 98.8, O2 sat 93% on room air. HEENT: Pupils are equal and round. There is evidence of prior cataract extraction. Extraocular muscles are intact. Oropharynx is clear. Oral mucosa is very dry. NECK: There is no submandibular, cervical, or supraclavicular adenopathy. PULMONARY: Lungs are clear to auscultation anteriorly. CARDIAC: Normal S1, S2. Heart rate sounds to be irregular. I do not appreciate any murmurs. There is no lower extremity edema. ABDOMEN: Bowel sounds present. Abdomen is soft, mildly distended. She is tender to palpation in the right lower quadrant. MUSCULOSKELETAL: There is no cyanosis or clubbing of the digits. There is full active range of motion of all 4 extremities. NEURO: Cranial nerves II through XII are grossly intact. Sensation is intact to light touch throughout. Strength is 5/5 and symmetric in both upper and lower extremities bilaterally. PSYCH: The patient is alert. She is oriented x3. Affect appears appropriate. SKIN: Warm and dry. There are no rashes. DIAGNOSTIC STUDIES/LAB DATA: WBC 5.4, hemoglobin 13.8, hematocrit 41, platelets 278. Sodium 137, potassium 3.6, chloride 102, CO2 26, BUN 16, creatinine 0.47, glucose 112, lactic acid 0.8, calcium 9.9. Bilirubin 0.5, AST 100, ALT 94, alk phos 85, CRP less than 1, albumin 4.2. Urinalysis revealed specific gravity of 1.011 and otherwise negative for signs of infection. CT abdomen and pelvis is read by the Overnight Radiology Service, the patient appears to be status post partial bowel resection with anastomosis in the right lower quadrant (the patient again denies this). There is evidence of small bowel obstruction with transition point adjacent to what appears to be anastomotic suture line, however, evaluation of this region is suboptimal due to beam hardening artifact from bilateral hip arthroplasties. EKG reveals sinus rhythm with PVCs. ASSESSMENT AND PLAN: Ms. Bose is a 77-year-old female with multiple chronic medical conditions including hypertension, hyperlipidemia, hypothyroidism, rheumatoid arthritis, and chronic back and neck pain, who presents to the emergency room with complaints of sudden acute onset of severe right lower quadrant abdominal pain radiating to the right lateral hip. 1. Abdominal pain. Differential diagnosis for this include bowel obstruction as identified on CT scan; however, the patient denies any bowel resection. She may have had an exploratory laparotomy for endometriosis, but she is not 100% sure about that. I do not have records for that here in this hospital. Bowel obstruction does seem likely given her symptoms, however, feels that mesenteric ischemia is also on the differential, however, her lactic acid is normal and her CRP is also normal. We will need to continue to perform serial abdominal exams. She will have a KUB obtained tomorrow morning to evaluate for progression of the contrast through her bowel and colon. Pain has been the biggest issue for this patient. It has been quite severe and at times appears to be out of proportion to her exam. She does, however, take oxycodone throughout the day and perhaps she has just built up a tolerance and needs a higher dose than what has been offered to her. She did receive approximately 20 mg of morphine in the emergency room over the course of the last 9 hours. I will change to Dilaudid 1 mg IV every 3 hours with the understanding that this dose may need to be increased if it does not adequately control her pain. The patient has had some nausea and therefore, Zofran and Compazine have been ordered. The patient will be n.p.o. except for sips of water or ice. General Surgery Service had seen the patient and will continue to follow along. 2. Hypertension. The patient at home is on nifedipine and metoprolol XL. If she is essentially n.p.o. at this point, I will order metoprolol XL to be given every 6 hours as needed for heart rate greater than 100. Her blood pressure is moderately elevated at this point, however, again her pain has not been adequately treated yet. We will monitor her blood pressure closely. 3. Hypothyroidism. The patient will be converted over to levothyroxine 60 mcg IV daily. 4. Hyperlipidemia. I am going to hold the patient's statin while n.p.o. 5. Rheumatoid arthritis. The patient's leflunomide and folic acid will be held. 6. Asthma. The patient will continue with p.r.n. albuterol nebs and inhaled steroid. 7. Chronic back and neck pain. The patient will have Dilaudid IV for pain. 8. DVT prophylaxis. According to the Adult Thrombosis Prophylaxis Risk Factor Assessment Guide, the patient has a total risk factor score of 3 making her high risk. She will be placed on heparin 5000 units subcutaneous q.8 hours. 9. Code status is full. TIME SPENT: Sixty-five minutes were spent admitting this patient, of which greater than half was spent [id number] with the patient reviewing her history and performing physical exam. [id number]/[facility] #: [id number] SAMEER
[2017-11-09] MEDS: Epinastine 0.05% OPHTH(NF) 5 ML BTL BOTH EYES SCH (21:56)
[2017-11-10] MEDS: Heparin VIAL(*) 5000 UNITS/ML VIAL (FIVE THOUSAND) SUBCUT SCH ×3 (05:46→21:50)
[2017-11-10] MEDS: Levothyroxine INJ* 100 MCG/5 ML VIAL IV SCH (05:47)
[2017-11-10 07:00] LABS: ABS Basophils 0.1 10^3/ul (0-0.2); ABS Eosinophils 0.2 10^3/ul (0-0.6); ABS Lymphocytes 0.6 10^3/ul (1.0-4.8); ABS Monocytes 0.8 10^3/ul (0-0.8); ABS Neutrophils 5.5 10^3/ul (1.5-7.7); ABS Nucleated RBC 0 10^3/ul; Eosinophil % 2.6 % (0-6); Hematocrit 41 % (35-47); Hemoglobin 13.6 g/dl (12.0-16.0); Lymphocyte % 8.2 % (25-47); Mean Corpuscular HGB Conc 33 g/dl (31-36); Mean Corpuscular Hemoglobin 31 pg (27-31); Mean Corpuscular Volume 94 fL (80-97); Nucleated Red Blood Cells % 0.1; Platelet Count 230 10^3/ul (150-450); Red Blood Count 4.34 10^6/ul (4.00-5.40); Red Cell Distribution Width 14 % (10.5-15); White Blood Count 7.2 10^3/ul (3.5-10.8)
[2017-11-10 07:18] LABS: EGFR Non-African American 135.5 (>60)
[2017-11-10] MEDS: Mometasone 220 MCG MDI INH SCH ×2 (08:00→20:07)
--- NOTE | 2017-11-10 08:16 | RAD ---
INDICATION: Abdominal pain COMPARISON: CTA 2017 TECHNIQUE: A single view of the abdomen is submitted. FINDINGS: Bones: There are no acute bony findings. There are degenerative changes with a prominent scoliotic deformity. There is bilateral hip arthroplasty Soft tissues: The soft tissues appear normal. The psoas margins are sharp. Bowel gas pattern: There is residual contrast within the colon from the earlier CT. This has progressed to the sigmoid colon. No dilated bowel loops are present Calcifications: There are no abnormal calcifications. Other: None IMPRESSION: THE PLAIN RADIOGRAPH SHOWS NO EVIDENCE OF OBSTRUCTION.
[2017-11-10] MEDS: Epinastine 0.05% OPHTH(NF) 5 ML BTL BOTH EYES SCH ×2 (08:46→21:52)
--- NOTE | 2017-11-10 10:12 | PN ---
Progress Note - Progress Note Date of Service: 11/10/17 Note: HD#2 SBO Afeb Voiding, passed BM No pain, hungry, Abd soft non-tender Trace tympany AXR--resolving SBO Would start po's, disch when crystal We will follow prn.
--- NOTE | 2017-11-10 10:27 | PN ---
Progress Note - Progress Note Date of Service: 11/09/17 Note: I have reviewed to consult by KARTHIK Sanders and agree with the assessment and plan of management.
[2017-11-10] MEDS: NS 0.9% 1000 ML* 1,000 ML IV SCH (21:44)
[2017-11-11] MEDS: HYDROmorphone INJ* 0.5 MG/0.5 ML SYRINGE IV SLOW PU PRN (00:08)
[2017-11-11] MEDS: Levothyroxine INJ* 100 MCG/5 ML VIAL IV SCH (05:34)
[2017-11-11] MEDS: Heparin VIAL(*) 5000 UNITS/ML VIAL (FIVE THOUSAND) SUBCUT SCH (05:34)
[2017-11-11 06:32] LABS: ABS Basophils 0.1 10^3/ul (0-0.2); ABS Eosinophils 0.3 10^3/ul (0-0.6); ABS Lymphocytes 0.9 10^3/ul (1.0-4.8); ABS Monocytes 0.7 10^3/ul (0-0.8); ABS Neutrophils 3.4 10^3/ul (1.5-7.7); ABS Nucleated RBC 0 10^3/ul; Eosinophil % 5.3 % (0-6); Hematocrit 37 % (35-47); Hemoglobin 12.5 g/dl (12.0-16.0); Lymphocyte % 17.2 % (25-47); Mean Corpuscular HGB Conc 34 g/dl (31-36); Mean Corpuscular Hemoglobin 31 pg (27-31); Mean Corpuscular Volume 93 fL (80-97); Mean Platelet Volume 8.6 um3 (7.4-10.4); Nucleated Red Blood Cells % 0; Platelet Count 227 10^3/ul (150-450); Red Blood Count 3.99 10^6/ul (4.00-5.40); Red Cell Distribution Width 14 % (10.5-15); White Blood Count 5.3 10^3/ul (3.5-10.8)
[2017-11-11 06:50] LABS: EGFR Non-African American 169.8 (>60)
[2017-11-11] MEDS: Epinastine 0.05% OPHTH(NF) 5 ML BTL BOTH EYES SCH (07:26)
[2017-11-11] MEDS: Mometasone 220 MCG MDI INH SCH (08:09)
[2017-11-11] MEDS: NS 0.9% 1000 ML* 1,000 ML IV SCH (08:36)
[2017-11-11 12:25] VITALS: BP 148/89
--- NOTE | 2017-11-11 15:35 | DS ---
DISCHARGE SUMMARY: DATE OF ADMISSION: 11/09/17 DATE OF DISCHARGE: 11/11/17 DISCHARGE DIAGNOSES: 1. Abdominal pain with nausea and vomiting, possible partial small bowel obstruction, or possible passage of gallstone with negative ultrasound and with elevated transaminases. 2. History of hypertension. 3. History of Takotsubo cardiomyopathy with probable coronary artery spasm. 4. History of rheumatoid arthritis. 5. History of hypothyroidism. 6. Chronic low back pain, lumbar spondylosis, chronic neck pain. 7. Osteoporosis. 8. Allergic rhinitis. 9. History of asthma. 10. History of impaired fasting glucose. 11. Hyperlipidemia, treated. 12. Essential tremor. 13. Dysphonia. 14. History of irritable bowel syndrome. 15. Diverticulosis. 16. History of supraventricular tachycardia, possible atrial flutter in 2014. 17. Hypokalemia. 18. Liver lesion on ultrasound, not seen on CT. HISTORY: Kim Bose is a 77-year-old woman, admitted with abdominal pain, nausea, and vomiting. Please see the dictated admission note for details of the present illness, past medical history, family history, social and personal history, review of systems, and physical examination. The patient had severe pain in the abdomen, mostly in the right lower quadrant radiating into the right hip and lateral thigh. In the emergency room, she had a gallbladder ultrasound. There was a small hepatic lesion, possible cyst, possible hemangioma. She then had CT, found to have evidence of small bowel obstruction with transition point adjacent to what was felt to be an anastomotic suture line ; however, it was a suboptimal study due to beam hardening artifact from hip arthroplasties and she denied previous abdominal surgery of bowel resection, although she did say she had laparoscopic surgery for endometriosis when she was much younger. LABORATORY DATA: CBC on 11/09/17, WBC 5.4, H and H 13.8/41, MCV 93, PLT 270K. White count subsequently went up to 7.2 on 11/10/17 with 5.3 on 11/11/17. Other studies remain normal with H and H on 11/11/17 of 12.5/37. PTT 29. Chemistries on 11/09/17, sodium 137, potassium 3.6, chloride 102, CO2 26, BUN and creatinine 16/0.47. Glucose 112. Rest of the comprehensive metabolic panel abnormal for AST 100, ALT 94, C-reactive protein less than 1. Repeat chemistries on 11/10/17, essentially within normal limits except for AST, ALT coming down to 62/62 and CRP up to 14.24. On 11/11/17, potassium is low at 3.4. Rest of the comprehensive metabolic panel showed AST/ALT 54/59. Urinalysis, yellow clear, specific gravity 1.011. Dipstick negative, pH 5. IMAGING STUDIES: Gallbladder ultrasound on 11/08/17, showed no sonographic findings to correlate with patient's symptomatologies, small hepatic lesion, which may be due to technique with other etiologies including complex cyst, atypical hemangioma or metastasis. Consider multiphase liver protocol CT or MRI for further characterization. Abdominal pelvis CT on 11/08/17, showed partial small bowel resection with anastomosis in the right lower quadrant, evidence of small bowel obstruction with transition point adjacent to the anastomotic suture line; however, evaluation of this region was suboptimal due to beam hardening artifact from bilateral hip arthroplasties. Abdominal x-ray on 11/10/17 showed no evidence of obstruction. There was wandering baseline making ST-segments hard to interpret. Consultation surgery, 11/09/17, felt the patient had partial small bowel obstruction, recommended bowel rest and IV hydration. Serial exams, lab work, abdominal plain film in the morning. HOSPITAL COURSE: The patient was admitted. She was placed n.p.o. except for sips of water or ice. She was placed on IV fluids. Zofran and Compazine were not ordered for nausea. She was ordered Dilaudid 1 mg every 3 hours for relief of pain. She had received 20 mg of morphine in the emergency room over the course of night hours. After vomiting, she was pain-free and had no further pain. I saw her on the morning of 11/10/17. She was feeling much better. Abdomen was nontender. She had normal bowel sounds. It was felt that she had probable small bowel obstruction versus passage of gallstone. Her LFTs are coming down. Her diet was advanced. When seen on 11/11/17, she had had frequent crampy bowel movements the previous day. She denied pain at present. She was able to eat rice cereals for breakfast. She maintained her gluten-free diet at home. She was very uncomfortable in the hospital; however, because of the bed. At home, she sleeps in her recliner because of her neck and back pain. She felt that she was able to go home. CT scan reviewed with Dr. Arriola who felt that there was no significant finding in the liver. He felt that the lesion on ultrasound suggested probable focal sparing with mild surrounding [id number] ignore or follow-up with ultrasound in 3-6 months. Her vital signs were stable. Blood pressure 124/50, pulse 63. She had had a low pulse of 28. I am not sure if this is correct, however. Respiration is 16 , temperature 97.8, O2 sat 97%. Her chest was clear. Heart was regular. Abdomen soft and nontender. Her bowel sounds were normal. Her labs were as noted above. It was felt that her GI symptoms have largely resolved. The etiology is not entirely clear. Her potassium was noted to be low, this should come up with resumption of her diet. At the time of dictation , she is to be on a soft, low-fat, gluten-free diet. Activity as tolerated. She is to be on her usual medications: 1. Leflunomide 20 mg daily. 2. OxyContin 10 mg 2 in the morning and 1 in the p.m. 3. Levothyroxine 112 mcg, 5 days out of 7. 4. Oxycodone 5 mg 1 pill twice a day as needed for pain. 5. Metoprolol succinate 50 mg one-half per day at bedtime. 6. Atorvastatin 80 mg once a day. 7. Lisinopril 5 mg once a day. 8. Fluticasone 50 mcg nasal spray 2 sprays each side daily. 9. Nifedipine 30 mg extended release once a day. 10. Metaxalone 800 mg at bedtime. 11. Asmanex 220 twice a day. 12. Folic acid 1 mg once a day. 13. Singulair 10 mg once a day. 14. Aspirin 81 mg once a day. 15. VESIcare 10 mg once a day. 16. Albuterol extended release 4 mg twice a day. 17. Epinastine eye drops 0.05% one drop twice a day. 18. B12 1000 mcg of vitamin D 1000 units once a day. 19. Senna 8.6 mg 6 a day. 20. Clarinex 5 mg once a day. She is to follow up with me in 4 to 6 days in my office. [id number]/[facility] #: [id number] SAMEER
== END 2017-11-11 14:00 | disposition home or self-care (01) | DRG 389 ==
LOC: ED 23:32 → SSU 11-09 09:38
PROVIDERS: ADMIT Hospitalist; ATTEND Internal Medicine Geriatric Medicine
DX: K56.609 Unspecified intestinal obstruction, unspecified as to partial versus complete obstruction (principal); I51.81 Takotsubo syndrome; K80.20 Calculus of gallbladder without cholecystitis without obstruction; M06.9 Rheumatoid arthritis, unspecified; E03.9 Hypothyroidism, unspecified; M54.5 Low back pain; M47.896 Other spondylosis, lumbar region; M54.2 Cervicalgia; M81.0 Age-related osteoporosis without current pathological fracture; J30.9 Allergic rhinitis, unspecified; R73.01 Impaired fasting glucose; E78.5 Hyperlipidemia, unspecified; G25.0 Essential tremor; R49.0 Dysphonia; E87.6 Hypokalemia; R74.0 Nonspecific elevation of levels of transaminase and lactic acid dehydrogenase [LDH]; M41.9 Scoliosis, unspecified; I25.10 Atherosclerotic heart disease of native coronary artery without angina pectoris; I11.9 Hypertensive heart disease without heart failure; R10.31 Right lower quadrant pain; Z96.643 Presence of artificial hip joint, bilateral; J30.81 Allergic rhinitis due to animal (cat) (dog) hair and dander; K59.09 Other constipation; Z79.82 Long term (current) use of aspirin; Z79.891 Long term (current) use of opiate analgesic; Z79.899 Other long term (current) drug therapy; Z09 Encounter for follow-up examination after completed treatment for conditions other than malignant neoplasm; Z88.5 Allergy status to narcotic agent; Z88.0 Allergy status to penicillin; Z88.2 Allergy status to sulfonamides; Z88.8 Allergy status to other drugs, medicaments and biological substances; Z88.1 Allergy status to other antibiotic agents; Z91.040 Latex allergy status; Z82.49 Family history of ischemic heart disease and other diseases of the circulatory system; Z83.3 Family history of diabetes mellitus; Z82.5 Family history of asthma and other chronic lower respiratory diseases
CPT/HCPCS: 36415; 62323; 72100; 74018; 74177; 76705; 77003; 80048; 80053; 80076; 81003; 83605; 85025; 85730; 86140; 93005; 94640; 99284; A9270-GY; J0780; J1040; J1170; J1644; J2270; J2405; Q9967

== ENCOUNTER 2018-10-01 10:28 | Day surgery (SDC) | payer MEDICARE, OTHER ==
[2018-10-01] MEDS ORDERED: Morphine 4 MG/ML VIAL (1 ml) 4 MG/ML VIAL IV ONE ×2 (11:43→14:04)
[2018-10-01] MEDS ORDERED: Lidocaine 2% PF * 5 ML VIAL ONE (14:39)
[2018-10-01] MEDS ORDERED: Propofol* 10 MG/ML 20 ML BTL ONE ×2 (14:39)
[2018-10-01] MEDS ORDERED: Midazolam* 1 MG/ML 2 ML VIAL (2 MG) ONE (14:39)
[2018-10-01] MEDS ORDERED: fentaNYL* 50 MCG/ML 2 ML VIAL (100 MCG VIAL) ONE (14:39)
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
[2018-10-01 17:22] VITALS: BP 119/77
--- NOTE | 2018-10-01 19:13 | OP ---
DATE OF OPERATION: 10/01/18 - [facility] DATE OF : 42 SURGEON: Emeka Ellis MD ANESTHESIA: MAC/general. PRE-OP DIAGNOSIS: Dislocated left total hip arthroplasty. POST-OP DIAGNOSIS: Dislocated left total hip arthroplasty. OPERATIVE PROCEDURE: Closed reduction, left total hip arthroplasty. ESTIMATED BLOOD LOSS: None. COMPLICATIONS: None. INDICATIONS: Ms. Bose is a 78-year-old female who had undergone a total hip arthroplasty with Dr. Hoang in 1999. She had done well until earlier today when something had fallen and she went to pick it up and as she was coming upwards, her left foot slipped and she is unsure of exactly how she fell, but she had significant left hip pain and was unable to get up. She ended up scooting backwards to get to a phone so that she could call 911. She was brought to the emergency room here at [facility] [place] and x-rays were taken, which found a dislocated left total hip arthroplasty. With her medical comorbidities, there was concern about doing conscious sedation in the emergency department and Dr. James was called. She was the orthopedist on-call and she was in the office. I just finished my cases for the day and was asked if I could do the closed reduction. I introduced myself to Ms. Bose and discussed with her that we could do a closed reduction and get this going for her. Risks of surgery such as a fracture, inability to reduce the hip, as well as continued instability were some of the risks discussed. She had wished to proceed. DESCRIPTION OF PROCEDURE: The patient was brought to the OR and MAC was introduced. With a little bit of traction, she still felt this and a little more propofol was then given. With pulling a little bit more, she did not feel this and just with straight traction and she had kept the leg flexed up, the hip really came forward, but did not move. With rocking the leg back and forth a little bit to disengage posteriorly and then traction and adduction, I was able to feel the hip move and a nice clear thunk was felt when the hip dropped into place. The hip now moved easily and with lying the leg down, her leg length was perfectly equal. C-arm was brought in and picture of the head of the prosthesis in the cup was obtained. She was then allowed to wake up a little bit more in the OR and then was stable on transfer to the recovery room. DISPOSITION/DISCHARGE SUMMARY: Ms. Bose is a 78-year-old female who just underwent a closed reduction of her left total hip arthroplasty. She tolerated the procedure well and there were no complications. She is here in the recovery room. When she can tolerate p.o., has her pain well controlled and can void, she will be discharged home. She has instructions to follow hip dislocation precautions once again and these were written out. I would like to see her in the office in approximately 10 to 14 days, reinforced the dislocation restrictions and probably keep her restricted for a total of 4 weeks. If there are any troubles or anything odd should occur, there are instructions to give the office a call. [id number]/[facility] [place]: [id number] SAMEER
== END 2018-10-01 17:15 | disposition home or self-care (01) ==
LOC: ED 10:28 → OR 14:09
PROVIDERS: ATTEND Orthopaedic Surgery
DX: T84.021A Dislocation of internal left hip prosthesis, initial encounter (principal); I25.10 Atherosclerotic heart disease of native coronary artery without angina pectoris; J45.909 Unspecified asthma, uncomplicated; I10 Essential (primary) hypertension; E78.5 Hyperlipidemia, unspecified; E03.9 Hypothyroidism, unspecified; M06.9 Rheumatoid arthritis, unspecified; M81.0 Age-related osteoporosis without current pathological fracture
CPT/HCPCS: 71045; 76000; 99285; J2250; J2270; J2704; J3010

== ENCOUNTER 2018-11-17 23:28 | Inpatient (IN) | payer MEDICARE, OTHER ==
[2018-11-17] MEDS ORDERED: NS 0.9% 1000 ML** 2,000 ML IV ONE (23:53)
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
[2018-11-18] MEDS: Morphine 4 MG/ML VIAL (1 ml) 4 MG/ML VIAL IV PRN ×8 (00:22→20:22)
[2018-11-18 00:28] LABS: ABS Basophils 0.1 10^3/ul (0-0.2); ABS Eosinophils 0.1 10^3/ul (0-0.6); ABS Lymphocytes 1.1 10^3/ul (1.0-4.8); ABS Monocytes 1.1 10^3/ul (0-0.8); ABS Neutrophils 3.5 10^3/ul (1.5-7.7); Hematocrit 42 % (35-47); Hemoglobin 14.1 g/dL (12.0-16.0); Lymphocyte % 19.1 %; Mean Corpuscular HGB Conc 34 g/dL (31-36); Mean Corpuscular Hemoglobin 32 pg (27-31); Mean Corpuscular Volume 94 fL (80-97); Platelet Count 249 10^3/uL (150-450); Red Blood Count 4.43 10^6 /uL (3.70-4.87); Red Cell Distribution Width 15 % (10-15); White Blood Count 5.9 10^3/uL (3.5-10.8)
[2018-11-18 00:47] LABS: ALT 25 U/L (7-52); AST 35 U/L (13-39); Albumin 4.4 g/dL (3.2-5.2); Albumin/Globulin Ratio 1.8 (1-3); Alkaline Phosphatase 61 U/L (34-104); Anion Gap 10 mmol/L (2-11); BUN/Creatinine Ratio 25.5 (8-20); Blood Urea Nitrogen 13 mg/dL (6-24); C Reactive Protein < 1.00 mg/L (<8.01); CO2 Carbon Dioxide 24 mmol/L (22-32); Calcium 10.2 mg/dL (8.6-10.3); Chloride 103 mmol/L (101-111); EGFR African American 141.5 (>60); EGFR Non-African American 116.9 (>60); Globulin 2.4 g/dL (2-4); Glucose 98 mg/dL (70-100); Potassium 3.5 mmol/L (3.5-5.0); Sodium 137 mmol/L (135-145); Total Protein 6.8 g/dL (6.4-8.9)
[2018-11-18] MEDS ORDERED: Iohexol 300* (CONTRAST) 10 ML SDV IV ONE (01:29)
[2018-11-18] MEDS ORDERED: Morphine 4 MG/ML VIAL (1 ml) 4 MG/ML VIAL IV ONE (02:24)
[2018-11-18] MEDS ORDERED: Morphine 10 MG/ML VIAL (1 ml) IV ONE (02:24)
--- OUTSIDE RECORDS SUMMARY | 2018-11-18 02:24 | XMS REPORT | Continuity of Care Document ---
:1940 External Reference #:[id number] Author Name Shelly Woodruff O.D. Address [address] [place] [address] Care Team Providers Name Role Phone Vani Guerra M.D. - Internal Care Team Information Creative Services Designer [phone] Franklin Cardenas M.D. - Anesthesiology Care Team Information Creative Services Designer Kirby Interiano M.D. - Allergy & Care Team Information Creative Services Designer [phone] Immunology Parker Romero M.D. 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 Onset: 09/04/2014 Chronic allergic conjunctivitis Shelly Woodruff O.D. Onset: 09/04/2014 Moderate Glaucoma Shelly Woodruff O.D. Onset: 09/04/2014 Low-tension glaucoma, left eye, moderate Shelly Woodruff O.D. Onset: stage Primary open-angle glaucoma, moderate Shelly Woodruff O.D. Onset: 2014 stage Low tension glaucoma Shelly Woodruff O.D. Onset: 03/09/2015 Cardiomyopathy Onset: Note: (*[place]) Cervical radiculopathy Onset: Social History Type Date Description Comments Sex Unknown ETOH Use Rarely consumes alcohol Tobacco Use Start: Unknown Patient has never smoked Recreational Drug Use Never Used Drugs Smoking Status Reviewed: 11/02/18 Patient has never smoked Allergies, Adverse Reactions, Alerts Active Allergies Reaction Severity Comments Date Amoxicillin Rash 09/04/2014 Tramadol Nausea and Vomiting 09/04/2014 Intal Palpitations 09/04/2014 Codeine Nausea and Vomiting 09/04/2014 Sulfa Antibiotics 09/04/2014 Fluocinolone Itching 09/04/2014 Clinoril 09/04/2014 Accolate Elevated LFTs 09/04/2014 Morphine Allergic asthma, Rash 09/04/2014 Advair Diskus Voice Changes 09/04/2014 Lumigan 09/04/2014 Latex 09/04/2014 Gluten 11/01/2017 Medications Active Medications SIG Qnty Indications Ordering Provider Date Refresh as needed Shelly St 05/03/2018 1.4-0.6% Solution Chi Woodruff Epinastine HCL 1 drop twice a 15ml H10.[address] 04/04/2016 0.05% day in each eye Chi Woodruff Solution Ketoconazole Unknown 2% Cream Oxybutynin Chloride ER Take 1 Tablet By Unknown 10mg Mouth Every Day Tablets ER 24HR Dymista Use 2 Sprays In Unknown 137-50mcg/Act Each Nostril One Suspension Time A Day Nifedipine ER Osmotic Take 1 Tablet By Unknown Release Mouth Every Day 30mg Tablets ER 24HR Vitamin D3 Complete Unknown Tablets Atorvastatin Calcium Guerra, Vani 80mg M.D. Tablets Lisinopril Guerra, Vani 5mg Tablets M.D. Metoprolol Succinate ER Guerra, Vani M.D. 50mg Tablets ER 24HR Nasal Emeigh X-Moist Unknown 0.05% Solution [facility] B-12 1 every day Unknown 1000mcg Tablets ER Multivitamin Adults 50+ 1 every day Unknown Adlt 50+ Tablets Clarinex 1 every day Unknown 5mg Tablets Oxycodone HCL 1 every 4 hours Unknown 5mg Tablets as needed Aspirin Low Dose 1 by mouth every Unknown 81mg day Tablets Flector Unknown 1.3% Patches Folic Acid Unknown 1mg Tablets Levothyroxine Sodium Unknown 200mcg Tablets Lidocaine Unknown 5% Patches Triamcinolone Acetonide Unknown 0.1% Cream Leflunomide Unknown 20mg Tablets Asmanex Twisthaler 60 Unknown Metered Doses 220mcg/Inh Aerosol Oxycontin Unknown 10mg Tab ER 12H Abuse-Det Montelukast Sodium Unknown 10mg Tablets Albuterol Sulfate ER Unknown 4mg Tablets ER 12HR Metaxalone Unknown 800mg Tablets History Medications Elestat 1 drop both eyes 5units Shelly Woodruff, 05/07/2018 - 0.05% twice a day O.D. 11/02/2018 Solution Medications Administered in Office Medication SIG Qnty Indications Ordering Provider Date Crizal Abraham Storey 09/23/2002 Injection Immunizations Description No Information Available Vital Signs Description No Information Available Results Description No Information Available Procedures Description No Information Available Medical Devices Description No Information Available Encounters Description No Information Available Assessments Date Code Description Provider 11/02/2018 H40.1232 Low-tension glaucoma, bilateral, Shelly Woodruff O.D. moderate stage 11/02/2018 H10.45 Other chronic allergic conjunctivitis Shelly Woodruff O.D. Plan of Treatment 11/02/2018 - Shelly Woodruff O.D.H40.1232 Low-tension glaucoma, bilateral, moderate stageFollow up:6 Month Follow Up IOP Check At [...] next appointment, please call our office at .h10.45 Other chronic allergic conjunctivitisComments:CONTINUE EPINASTINE DROPS NEEDED 2XDAY FOR ITCHING AND ALLERGIES Functional Status Description No Information Available Mental Status Description No Information Available Referrals Description No Information Available
[2018-11-18 03:38] LABS: Urine Appearance Clear; Urine Bacteria Absent (Absent); Urine Bilirubin Negative (Negative); Urine Blood Negative (Negative); Urine Color Straw; Urine Glucose Negative (Negative); Urine Ketones Trace (Negative); Urine Nitrite Negative (Negative); Urine Protein Negative (Negative); Urine Red Blood Cell Absent (Absent); Urine Specific Gravity 1.015 (1.010-1.030); Urine Urobilinogen Negative (Negative); Urine White Blood Cell Absent (Absent)
[2018-11-18] MEDS ORDERED: Magnesium Hydroxide LIQ* 30 ML UDC PO PRN (03:53)
[2018-11-18] MEDS ORDERED: Senna TAB 8.6 mg* TAB PO PRN (03:53)
[2018-11-18] MEDS ORDERED: Morphine 4 MG/ML VIAL (1 ml) 4 MG/ML VIAL IV PRN (03:53)
[2018-11-18] MEDS ORDERED: Al Hydrox/Mg Hydrox/Simet LIQ* 30 ML UDC PO PRN (03:53)
[2018-11-18] MEDS ORDERED: Metaxalone TAB* 800 MG PO PRN (04:03)
[2018-11-18] MEDS ORDERED: Saline NASAL SPRAY 0.65%* BTL BOTH NARES PRN (04:03)
[2018-11-18] MEDS ORDERED: Dextran 70/Hypromellose Tears Eye Drops 15 ml BTL (for Artificials Tears) BOTH EYES PRN (04:03)
[2018-11-18] MEDS ORDERED: Albuterol 2.5 MG/3 ML NEB.SOL* (0.083%) INH PRN (04:03)
[2018-11-18] MEDS ORDERED: Lidocaine PATCH 5%* 1 PATCH TRANSDERM PRN (04:03)
[2018-11-18 05:11] LABS: TSH (Thyroid Stimulating Horm) 4.84 mcIU/mL (0.34-5.60)
[2018-11-18] MEDS ORDERED: Levothyroxine TAB* 112 MCG TAB PO SCH (06:00)
[2018-11-18] MEDS: Enoxaparin(*) 40 MG/0.4 ML SYR SUBCUT SCH (06:02)
[2018-11-18] MEDS: Mometasone 220 MCG MDI INH SCH ×2 (07:40→20:34)
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
[2018-11-18] MEDS: ALBUTEROL 4 MG PO SCH ×2 (08:58→21:37)
[2018-11-18] MEDS: Aspirin EC TAB* 81 MG TAB.EC PO SCH (08:58)
[2018-11-18] MEDS: Cyanocobalamin TAB* 500 MCG PO SCH (08:58)
[2018-11-18] MEDS: Lisinopril TAB* 5 MG PO SCH (08:59)
[2018-11-18] MEDS: Cetirizine* 10 MG TAB PO SCH (08:59)
[2018-11-18] MEDS: Cholecalciferol TAB* 1000 UNITS PO SCH (08:59)
[2018-11-18] MEDS: Atorvastatin* 80 MG TAB PO SCH (08:59)
[2018-11-18] MEDS ORDERED: oxyCODONE SR TAB(*) 20 MG TAB.SR PO SCH (09:00)
[2018-11-18] MEDS: Folic Acid TAB* 1 MG PO SCH (09:01)
[2018-11-18] MEDS: Leflunomide (NF) 10 MG TAB PO SCH (09:01)
[2018-11-18] MEDS: Oxybutynin XL TAB* 5 MG PO SCH (09:01)
[2018-11-18] MEDS: NIFEdipine ER TAB* 30 MG PO SCH (09:02)
[2018-11-18] MEDS ORDERED: Ondansetron ODT TAB* 4 MG PO PRN (12:40)
[2018-11-18] MEDS ORDERED: oxyCODONE SR TAB(*) 10 MG TAB.SR PO SCH (21:00)
[2018-11-18] MEDS: Metoprolol Succinate XL TAB* 25 MG PO SCH (21:36)
[2018-11-18] MEDS: Senna TAB 8.6 mg* TAB PO SCH (21:37)
[2018-11-19] MEDS: Enoxaparin(*) 40 MG/0.4 ML SYR SUBCUT SCH ×2 (05:22→05:38)
[2018-11-19] MEDS: Levothyroxine TAB* 112 MCG TAB PO SCH (05:38)
[2018-11-19] MEDS: Acetaminophen TAB* 325 MG PO PRN ×2 (05:51→17:52)
[2018-11-19 06:19] LABS: ABS Lymphocytes 0.5 10^3/ul (1.0-4.8); ABS Monocytes 0.8 10^3/ul (0-0.8); ABS Neutrophils 3.2 10^3/ul (1.5-7.7); Eosinophil % 0.1 %; Hematocrit 44 % (35-47); Hemoglobin 14.7 g/dL (12.0-16.0); Lymphocyte % 11.4 %; Mean Corpuscular HGB Conc 34 g/dL (31-36); Mean Corpuscular Hemoglobin 32 pg (27-31); Mean Corpuscular Volume 95 fL (80-97); Mean Platelet Volume 8.4 fL (7.4-10.4); Platelet Count 255 10^3/uL (150-450); Red Blood Count 4.61 10^6 /uL (3.70-4.87); Red Cell Distribution Width 15 % (10-15); White Blood Count 4.6 10^3/uL (3.5-10.8)
[2018-11-19 06:37] LABS: ALT 19 U/L (7-52); AST 30 U/L (13-39); Albumin 3.6 g/dL (3.2-5.2); Albumin/Globulin Ratio 1.8 (1-3); Alkaline Phosphatase 48 U/L (34-104); Anion Gap 15 mmol/L (2-11); BUN/Creatinine Ratio 31.1 (8-20); Blood Urea Nitrogen 19 mg/dL (6-24); C Reactive Protein 120.98 mg/L (<8.01); CO2 Carbon Dioxide 18 mmol/L (22-32); Calcium 8.7 mg/dL (8.6-10.3); Chloride 103 mmol/L (101-111); EGFR African American 115.1 (>60); EGFR Non-African American 95.1 (>60); Glucose 85 mg/dL (70-100); Potassium 3.3 mmol/L (3.5-5.0); Sodium 136 mmol/L (135-145); Total Protein 5.6 g/dL (6.4-8.9)
[2018-11-19] MEDS: Mometasone 220 MCG MDI INH SCH ×2 (07:18→19:51)
[2018-11-19] MEDS ORDERED: oxyCODONE SR TAB(*) 20 MG TAB.SR PO SCH (09:00)
[2018-11-19] MEDS: ALBUTEROL 4 MG PO SCH ×2 (09:34→20:33)
[2018-11-19] MEDS: Aspirin EC TAB* 81 MG TAB.EC PO SCH (09:35)
[2018-11-19] MEDS: Cetirizine* 10 MG TAB PO SCH (09:37)
[2018-11-19] MEDS: Atorvastatin* 80 MG TAB PO SCH (09:38)
[2018-11-19] MEDS: Oxybutynin XL TAB* 5 MG PO SCH (09:39)
[2018-11-19] MEDS: Lisinopril TAB* 5 MG PO SCH (09:39)
[2018-11-19] MEDS: Cholecalciferol TAB* 1000 UNITS PO SCH (09:39)
[2018-11-19] MEDS: Folic Acid TAB* 1 MG PO SCH (09:40)
[2018-11-19] MEDS: Leflunomide (NF) 10 MG TAB PO SCH (09:40)
[2018-11-19] MEDS: NIFEdipine ER TAB* 30 MG PO SCH (09:40)
[2018-11-19] MEDS: Cyanocobalamin TAB* 500 MCG PO SCH (09:40)
[2018-11-19] MEDS ORDERED: oxyCODONE TAB* 5 MG TAB PO PRN (10:41)
[2018-11-19] MEDS: Potassium Chloride* LIQUID 20 MEQ/15 ML UDC PO SCH ×2 (12:50→20:32)
[2018-11-19] MEDS: oxyCODONE SR TAB(*) 10 MG TAB.SR PO SCH (15:26)
[2018-11-19] MEDS: Cefepime 2 GM in Dextrose(*) 2 GM/50 ML BAG IV SCH (17:52)
[2018-11-19] MEDS: Morphine 4 MG/ML VIAL (1 ml) 4 MG/ML VIAL IV PRN (20:17)
[2018-11-19] MEDS: Senna TAB 8.6 mg* TAB PO SCH (20:31)
[2018-11-19] MEDS: Metoprolol Succinate XL TAB* 25 MG PO SCH (20:33)
[2018-11-19] MEDS ORDERED: NS 0.9% 500 ML* 500 ML IV ONE (23:00)
[2018-11-20] MEDS ORDERED: Lactated Ringers 1000 ML Bag* 1,000 ML IV ONE ×2 (00:01)
[2018-11-20] MEDS ORDERED: Morphine 10 MG/ML VIAL (1 ml) IV PRN (00:03)
[2018-11-20] MEDS ORDERED: Metoprolol Succinate XL TAB* 25 MG PO SCH (00:04)
[2018-11-20 05:10] LABS: Hematocrit 43 % (35-47); Hemoglobin 14.5 g/dL (12.0-16.0); Mean Corpuscular HGB Conc 34 g/dL (31-36); Mean Corpuscular Hemoglobin 32 pg (27-31); Mean Corpuscular Volume 93 fL (80-97); Mean Platelet Volume 8.2 fL (7.4-10.4); Platelet Count 259 10^3/uL (150-450); Red Blood Count 4.59 10^6 /uL (3.70-4.87); Red Cell Distribution Width 15 % (10-15); White Blood Count 2.9 10^3/uL (3.5-10.8)
[2018-11-20 05:28] LABS: Albumin 3.4 g/dL (3.2-5.2); Albumin/Globulin Ratio 1.4 (1-3); BUN/Creatinine Ratio 29.2 (8-20); C Reactive Protein 245.24 mg/L (<8.01); Calcium 8.4 mg/dL (8.6-10.3); EGFR African American 35.7 (>60); EGFR Non-African American 29.5 (>60); Globulin 2.4 g/dL (2-4); Potassium 3.8 mmol/L (3.5-5.0); Total Bilirubin 0.9 mg/dL (0.2-1.0); Total Protein 5.8 g/dL (6.4-8.9)
[2018-11-20] MEDS: Cefepime 2 GM in Dextrose(*) 2 GM/50 ML BAG IV SCH (05:52)
[2018-11-20 06:00] LABS: ABS Lymphocytes 0.1 10^3/ul (1.0-4.8); ABS Monocytes 0.6 10^3/ul (0-0.8); Eosinophil % 0.3 %; Lymphocyte % 5.3 %; Nucleated Red Blood Cells % 0.1
[2018-11-20] MEDS: oxyCODONE SR TAB(*) 10 MG TAB.SR PO SCH (06:02)
[2018-11-20] MEDS: Enoxaparin(*) 40 MG/0.4 ML SYR SUBCUT SCH (06:03)
[2018-11-20] MEDS: Levothyroxine TAB* 112 MCG TAB PO SCH (06:03)
[2018-11-20] MEDS ORDERED: NS 0.9% 1000 ML** 1,000 ML IV.FLUID IV ONE (09:38)
--- NOTE | 2018-11-20 10:08 | CONS ---
CONSULTATION REPORT: DATE OF CONSULT: 11/20/18 CHIEF COMPLAINT: Abdominal pain. HISTORY OF PRESENT ILLNESS: This is a pleasant 78-year-old female who was admitted by Dr. Mixon a few days ago with complaints of abdominal pain. She has had a course of intermittent pain, some flatus with bowel movements. She has had workup for the intermittent abdominal pain, which included 3 CT scans, the most recent of which was concerning for possible small-bowel obstruction. Her pain became much more persistent and severe in the cardiac surgeon hours this morning. Some nausea with emesis. An NG was placed with a large amount of fluid evacuated. She remains distended and tender. PAST MEDICAL HISTORY: Coronary artery disease, heart failure with preserved ejection fraction, hypertension, asthma, rheumatoid arthritis, chronic back and neck pain; on chronic opioids, hypothyroid, osteoporosis. PAST SURGICAL HISTORY: Exploratory laparotomy for endometriosis, bilateral total hip replacements, ORIF of right wrist, bilateral carpal tunnel releases. MEDICATIONS AT HOME: 1. Oxycodone for back pain. 2. Nifedipine. 3. Metoprolol. 4. Lisinopril. 5. Levothyroxine. 6. Atorvastatin. 7. Aspirin. 8. Alendronate. 9. Albuterol. 10. Mometasone. 11. Oxybutynin. 12. Sennoside. 13. Metaxalone. 14. Leflunomide. 15. Diclofenac. 16. Desloratadine. 17. Triamcinolone cream, among others. ALLERGIES: FAMILY HISTORY: Mother had coronary artery disease. Father had COPD. SOCIAL HISTORY: She lives alone. She has a son. Nonsmoker. REVIEW OF SYSTEMS: General: Denies weight loss and change of appetite. HEENT : No changes in vision, hearing, swallowing. No sore throat. Cardiac: No chest pain. Pulmonary: No cough. GI: No blood per rectum. : No hematuria. Skin: Denies rash. Neuro: No headache or dizziness. Musculoskeletal: No extremity weakness. Psych: No anxiety or depression. PHYSICAL EXAM: General: A pleasant female complaining of abdominal pain. Vital Signs: Low blood pressure in the 90s. HEENT: The sclerae are anicteric. The oral mucosa is pink and moist. Neck is supple. Heart: S1, S2. Lungs: Clear anteriorly. Abdomen: Distended, tender. Peritoneal signs on the right side. Skin: No rashes or petechia or jaundice. Extremities: No clubbing, cyanosis, or edema. Neuro Exam: Grossly intact. No focal motor or sensory deficits. IMPRESSION AND PLAN: Abdominal pain with signs of peritonitis. This has developed over the last number of days and has become especially severe this morning. I am concerned about obstruction or an acute intraabdominal process. I have introduced the patient to Dr. Ko, who saw the patient as well. Her abdominal exam was concerning and the plan will be for surgical exploration. Dr. Ko has discussed the risks and benefits of surgery, and plans on assuming care, and all questions were answered. Dr. Mixon was present for our consultation as well. [id number]/[facility] #: [id number] MTDD
[2018-11-20] MEDS: Lactated Ringers 1000 ML Bag* 1,000 ML IV SCH ×4 (10:20→22:52)
[2018-11-20] MEDS: metroNIDAZOLE IV 500 MG/100ML* 500 MG/100 ML BAG IVPB SCH ×2 (10:49→20:34)
--- NOTE | 2018-11-20 11:34 | CONSULT ---
Consult Consult: CRITICAL CARE CONSULTATION 78 y/o female PMH RA on immunosuppression presents to [facility] with abdominal pain. Ultimately dx'd with SBO. This AM I was contacted by Dr. Kayy Guerra regarding possible ICU admission for hypotension and CHEMO. I agreed ICU was apporpiate. On arrival ICU she had a BP of 80's/50's with mild tachypnea. C/O abd pain that was progressive. Initially RUQ and by then had spread across her abdomen. Denied chest pain. Reported good baseline exercise tolerance on stairs and could walk to the back of a large store without SOB. PMH: RA, CAD, CHF with preserved EF, HTN, hypothyroidism Allergy: PCN - rash Medications: CARMINA, BB, beta agonist INH, Ca+ edison, statin, ASA, narcotics for chronic back pain PSH: ExLap endometriosis, bilateral hip ORIF, carpal tunnel bilat FH: non-contributory ROS: as in HPI Physical exam: Well noursihed, well developed in mild to moderate distress with abdominal pain. NCAT, PERRL, EOMI Neck supple, NT, no JVD Lungs with decreased entry at the bases, increased AP diameter Cor S1S2 regular and tachycardic, no murmur or extrasytoles Abd full, disteneded, tender diffusely, hypoactive bowel sounds, equivocal rebound Ext with no edema A&O and grossly non-focal Labs: 2.9/14.5/259 BUN/Cr 50/1.7 from Cr 0.6 yesterday. HCO3 21 CXR 9/3 with non-specific bowel gas and basilar atelectasis, no infiltrate A/P 78 y/o female with multiple comorbidities and preserved EF on last echo now with hypotension in the setting of apparent acute abdomen. I initiated the sepsis bundle on her arrival to ICU. In the last hour she has now received 1.5 liters of crystalloid and her BP has risen from 88/58 to 137/77; she has also received cefepime and flagyl and lactate has been sent. 2D ECHO has been ordered and performed and PICC line is being placed. NGT is draining, gonzales is ordered. Her HR is currently under 100, she has a SaO2 of 96% on NC oxygen with RR low 20's and she is medically maximized for OR at this time. critical care time 35 minutes
--- NOTE | 2018-11-20 11:57 | ECHO ---
*[facility]* [place] [address] Fax #: [phone] Transthoracic Echocardiogram Patient: Kim Bose : 1940 Study Date: 11/20/2018 Age: 78 Gender: F HR: 96 bpm Height: 55 in /139.7 cm BSA: 1.32 m^2 Weight: 101.8 lb /46.3 kg BMI: 23.7 kg/m^2 *Cutter Grinder: * Domenica Jon RDCS RN *Referring Physician: * Hannah Guerra *Reading Physician: * Ananth Camacho MD Indications: Hypotension History: Coronary artery disease. MN. PMH: Cardiomyopathy. Risk factors: Hypertension. Dyslipidemia. Conclusions Summary: - Left ventricle: Systolic function is at the lower limits of normal. The estimated ejection fraction is 50-55%. Wall motion is normal; there are no regional wall motion abnormalities. Doppler parameters are consistent with abnormal left ventricular relaxation (grade 1 diastolic dysfunction). - Right ventricle: Systolic function is normal. - Left atrium: The atrium is at the upper limits of normal in size. - Mitral valve: There is no evidence of stenosis. There is trace regurgitation. - Aortic valve: The findings are consistent with mild stenosis. The mean systolic gradient is 7.0 mm Hg. The LVOT to aortic valve VTI ratio is 0.51. - Tricuspid valve: There is mild-moderate regurgitation. - Pericardium, extracardiac: There is no pericardial effusion. - Pulmonary arteries: Systolic pressure is mildly to moderately increased, estimated to be 44 mm Hg. - Compared to study of 07/02/17, there is no significant change. Study data: Transthoracic echocardiogram. Procedure: Transthoracic echocardiography was performed. Image quality was fair. The study was technically limited due to restricted patient mobility. Complete 2D, spectral Doppler, and color flow Doppler. Location: Bedside. Patient status: Inpatient. Patient room number: ICU 12. Study status: [facility]. Rhythm: Normal sinus rhythm. Findings Left ventricle: The cavity size is normal. Wall thickness is normal. Systolic function is at the lower limits of normal. The estimated ejection fraction is 50-55%. Wall motion is normal; there are no regional wall motion abnormalities. Doppler parameters are consistent with abnormal left ventricular relaxation (grade 1 diastolic dysfunction). Right ventricle: The cavity size is normal. Systolic function is normal. Left atrium: The atrium is at the upper limits of normal in size. Right atrium: Not well visualized. Mitral valve: The Mitral valve annulus appears moderately calcified. The leaflets are mildly thickened. There is no evidence of stenosis. There is trace regurgitation. Aortic valve: The valve is trileaflet. The leaflets are moderately thickened. The findings are consistent with mild stenosis. There is no significant regurgitation. Tricuspid valve: The leaflets are normal thickness. There is no evidence of stenosis. There is mild-moderate regurgitation. Pulmonic valve: Not well visualized. Aorta: Aortic root: The aortic root is not dilated. Aortic arch: The aortic arch is not visualized. Pericardium: There is no pericardial effusion. Pulmonary arteries: Not well visualized. Systolic pressure is mildly to moderately increased, estimated to be 44 mm Hg. Systemic veins: Inferior vena cava: Not visualized. Measurements Left ventricle Value Ref Aortic valve Value Ref TIBURCIO, LAX (L) 3.4 cm 3.8 - Hannah diam, ED 1.6 cm ----- 5.2 Peak v, S 1.6 m/sec ----- ESD, LAX 2.3 cm 2.2 - VTI, S 26.5 cm ----- 3.5 Mean grad, S 7.0 mm Hg ----- FS, LAX 34 % 27 - 45 Peak grad, S 10.0 mm Hg ----- PW, ED 0.9 cm 0.6 - LVOT/AV, VTI ratio 0.51 ----- 0.9 MILAGROS, VTI 1.46 cm^2 ----- IVS/PW, ED 1.02 ------- MILAGROS, Vmax 1.76 cm^2 ----- E', lat hannah, TDI (L) 8.8 cm/sec >=10.0 E/e', lat hannah, TDI 10 ------- Mitral valve Value Ref E', med hannah, TDI (L) 5.7 cm/sec >=7.0 Peak E 0.88 m/sec ---- - E/e', med hannah, TDI 15 ------- Peak A 1.41 m/sec ----- E', avg, TDI 7.3 cm/sec ------- Decel time 194 ms ----- E/e', avg, TDI 12 <=14 PHT 59 ms ---- - Mean grad, D 3.0 mm Hg ----- LVOT Value Ref Peak grad, D 9.0 mm Hg ----- Diam, S 1.90 cm ------- Peak E/A ratio 0.6 ----- Area 2.8 cm^2 ------- MVA, PHT 3.7 cm^2 ----- Peak terese, S 0.99 m/sec ------- VTI, S 13.6 cm ------- Pulmonic valve Value Ref Mean grad, S 2 mm Hg ------- Peak v, S 0.62 m/sec ----- SV 39 ml ------- Peak grad, S 2.0 mm Hg ----- SV/bsa 30 ml/m^2 ------- Tricuspid valve Value Ref Ventricular septum Value Ref TR peak v (H) 3 m/sec <=2.8 IVS, ED 0.9 cm 0.6 - Peak RV-RA grad, S 36 mm Hg ----- 0.9 Max TR terese 3 m/sec ----- Right ventricle Value Ref Aortic root Value Ref Pressure, S 44 mm Hg ------- Root diam 3.0 cm <3.6 Left atrium Value Ref Pulmonary artery Value Ref ML dim, A4C 3.4 cm ------- Pressure, S 44.0 mm Hg ----- SI dim, A4C 5.7 cm ------- Vol/bsa, ES, 1-p 27 ml/m^2 11 - 40 A4C Vol/bsa, ES, A/L 33 ml/m^2 16 - 34 Right atrium Value Ref Estimated RAP 8 mm Hg ------- Legend: (L) and (H) sangeetha values outside specified reference range. Prepared and electronically signed by Ananth Caamcho MD 11/20/2018 11:57
[2018-11-20] MEDS ORDERED: Etomidate* 2 MG/ML 10 ML VIAL ONE (12:37)
[2018-11-20] MEDS ORDERED: Rocuronium* 10 MG/ML VIAL ONE (12:37)
[2018-11-20] MEDS ORDERED: fentaNYL* 50 MCG/ML 2 ML VIAL (100 MCG VIAL) ONE (12:40)
[2018-11-20 13:14] LABS: Hematocrit 39 % (35-47); Hemoglobin 13.3 g/dL (12.0-16.0); Mean Corpuscular HGB Conc 34 g/dL (31-36); Mean Corpuscular Hemoglobin 32 pg (27-31); Mean Corpuscular Volume 94 fL (80-97); Mean Platelet Volume 8.7 fL (7.4-10.4); Platelet Count 230 10^3/uL (150-450); Red Blood Count 4.14 10^6 /uL (3.70-4.87); Red Cell Distribution Width 16 % (10-15); White Blood Count 5.7 10^3/uL (3.5-10.8)
[2018-11-20 13:24] LABS: Calcium 7.7 mg/dL (8.6-10.3); Potassium 3.7 mmol/L (3.5-5.0); Total Bilirubin 0.8 mg/dL (0.2-1.0)
[2018-11-20 13:30] LABS: Albumin/Globulin Ratio 1.4 (1-3); BUN/Creatinine Ratio 37.1 (8-20); EGFR African American 50.8 (>60); EGFR Non-African American 41.9 (>60); Globulin 2.1 g/dL (2-4); Total Protein 5.1 g/dL (6.4-8.9)
[2018-11-20] MEDS ORDERED: ceFAZolin 2 GM in NS PREMIX(*) 2 GM/100 ML BAG IVPB ONE (13:32)
[2018-11-20] MEDS ORDERED: Phenylephrine 40 MCG/ML SYRINGE ONE (14:13)
[2018-11-20] MEDS ORDERED: Norepinephrine VIAL* 1 MG/ML 4 ML VIAL ONE (14:13)
[2018-11-20] MEDS ORDERED: Norepinephrine 16MCG/ML IVPRE* 4,000 MCG/250 ML BAG IV ONE (14:30)
[2018-11-20] MEDS ORDERED: Propofol* 100 ML ONE (14:31)
[2018-11-20] MEDS ORDERED: Bupivacaine 0.5% W/EPI SDV* 10 ML VIAL INJ ONE (14:35)
--- NOTE | 2018-11-20 15:07 | OP ---
Operative Report - Blank - Operative Report Date of Operation: 11/20/18 Note: Brief Operative Note Preop Dx: SBO Postop Dx: same Procedure: Exploratory laparotomy; wedge resection small bowel Anesthesia: GET Surgeon: Stefani Nurse Anesthesia Program Director: KARTHIK Powell Fluids: 2400 ml RL EBL: < 50 ml Specimen: portion small bowel Drains: none Findings: as above; multiple areas of patchy ischemia; apparent point of obstruction distal small bowel w/ full thickness ischemia, therefore resected Complications: none
[2018-11-20] MEDS: fentaNYL* 50 MCG/ML 2 ML VIAL (100 MCG VIAL) IV SLOW PU PRN (15:18)
[2018-11-20] MEDS: Propofol* 100 ML IV SCH (15:30)
[2018-11-20] MEDS ORDERED: Naloxone* 0.4 MG/ML 1 ML VIAL IV PRN (15:30)
[2018-11-20] MEDS: fentaNYL INFUSION 50 MCG/ML* 2,500 MCG/50 ML BAG IV SCH (15:48)
[2018-11-20 17:15] LABS: Urine Appearance Cloudy; Urine Bacteria Absent (Absent); Urine Bilirubin Negative (Negative); Urine Blood 2+ (Negative); Urine Color Amber; Urine Glucose Negative (Negative); Urine Ketones Trace (Negative); Urine Nitrite Negative (Negative); Urine Protein 1+(30 mg/dL) (Negative); Urine Red Blood Cell 1+(3-5/hpf) (Absent); Urine Specific Gravity 1.023 (1.010-1.030); Urine Squamous Epithelial Cell Present (Absent); Urine Urobilinogen Negative (Negative); Urine White Blood Cell Absent (Absent)
[2018-11-20] MEDS: Cefepime 1 GM in Dextrose(*) 1 GM/50 ML BAG IV SCH (18:20)
[2018-11-20] MEDS ORDERED: Ondansetron INJ* 2 MG/ML VIAL IV PRN ×2 (18:31→18:35)
[2018-11-20] MEDS ORDERED: LR IV ONE (21:40)
[2018-11-20] MEDS ORDERED: Chlorhexidine MOUTHWASH 0.12%* 15 ML UDC TOPICAL SCH (22:00)
--- NOTE | 2018-11-20 22:33 | OP ---
CC: Vani Guerra MD* OPERATIVE REPORT: DATE OF OPERATION: 11/20/18 - Inpatient, room NVT12-43 DATE OF : 42 SURGEON: Dr. Ko. SALES SERVICE TECHNICIAN: KARTHIK Joseph. ANESTHESIOLOGIST: Dr. Rainer Ramos. ANESTHESIA: General endotracheal. PRE-OP DIAGNOSIS: Small bowel obstruction. POST-OP DIAGNOSIS: Small bowel obstruction. OPERATIVE PROCEDURES: Exploratory laparotomy, lysis of adhesions, and partial resection of small bowel. ESTIMATED BLOOD LOSS: Less than 50 mL. IV FLUIDS: 2.4 L of crystalloid. SPECIMEN: Portions of small bowel. DRAINS: None. COMPLICATIONS: None. COUNTS: Instrument, needle, and sponge count was correct. OPERATIVE FINDINGS: The patient had a transition zone in the ileum with evidence of a hernia type obstruction without evidence of any hernia found. There is patchy ischemia of the proximal areas of the small bowel. DESCRIPTION OF PROCEDURE: The patient was brought to the operating room and placed on the table supine. Sequential compression devices were placed on both lower extremities. General anesthesia was administered. A Antunez catheter was placed. She was positioned and padded appropriately. After a sterile prep and drape and after administration of intravenous antibiotics, time-out was performed. A midline laparotomy was undertaken from the umbilicus inferiorly for a length of approximately 6 inches. Upon entering the peritoneal cavity, there was dilated bowel noted and some clear ascites. Small bowel was eviscerated. There was noted to be patchy areas of ischemia with dilation of the proximal small bowel. There was distally collapsed ileum. There were some scant adhesions that were lysed during the exteriorization of the small bowel with no clear obstructing band. Small bowel was run proximally from the ileocecal valve and in the area of the ileum approximately a foot and a half from the ileocecal valve, there was a demarcation on the antimesenteric portion of the small bowel with an area of what appeared to be full-thickness ischemia affecting only the antimesenteric portion for about 50% of the circumference. The small bowel was run further proximally and bowel contents were milked proximally into the stomach. The position of the gastric tube was confirmed. Upon allowing the small bowel an opportunity to re- perfuse, the areas of patchy ischemia did appear to improve. The area where the focus of obstruction appeared to be in the ileum; however, did not and the decision was made to excise this. First, the remaining bowel was returned to the abdominal cavity and this loop was exteriorized, bowel clamps were placed proximally and distally to this. Then 3-0 silk stay sutures were positioned through the healthy portions of the bowel on either side of the mesentery and then the necrotic portion of wall was excised with cautery and submitted to Pathology. The enterotomy thus created was then closed in a single layer of full-thickness running closure with 3-0 PDS suture. After completing the closure, bowel contents were milked to and fro through this area and no leak was identified. The bowel was returned to the abdominal cavity, copious lavage was performed until clear. The large bowel was inspected, did appear normal containing gas and stool. There was scant omentum, which was drawn over the bowel and then the midline wound was closed with #1 PDS running. Skin incision was closed with laurent. Dressings were applied. The patient tolerated the procedure well, was left intubated and transferred to intensive care unit. [id number]/[facility] #: [id number] SAMEER
[2018-11-21] MEDS: Chlorhexidine MOUTHWASH 0.12%* 15 ML UDC TOPICAL SCH ×4 (00:16→13:26)
[2018-11-21 01:18] LABS: Calcium 6.5 mg/dL (8.6-10.3); EGFR African American 90.7 (>60); EGFR Non-African American 74.9 (>60)
[2018-11-21] MEDS: Norepinephrine 16MCG/ML IVPRE* 4,000 MCG/250 ML BAG IV SCH ×2 (01:21→07:13)
[2018-11-21] MEDS: Propofol* 100 ML IV SCH (01:25)
[2018-11-21] MEDS: Lactated Ringers 1000 ML Bag* 1,000 ML IV SCH ×5 (03:56→22:49)
[2018-11-21 04:46] LABS: Hematocrit 36 % (35-47); Hemoglobin 12.7 g/dL (12.0-16.0); Mean Corpuscular HGB Conc 35 g/dL (31-36); Mean Corpuscular Hemoglobin 33 pg (27-31); Mean Corpuscular Volume 94 fL (80-97); Mean Platelet Volume 8.4 fL (7.4-10.4); Platelet Count 218 10^3/uL (150-450); Red Blood Count 3.85 10^6 /uL (3.70-4.87); Red Cell Distribution Width 16 % (10-15); White Blood Count 10.7 10^3/uL (3.5-10.8)
[2018-11-21 05:10] LABS: Albumin 2.4 g/dL (3.2-5.2); Albumin/Globulin Ratio 1.2 (1-3); BUN/Creatinine Ratio 43.7 (8-20); Calcium 6.8 mg/dL (8.6-10.3); EGFR African American 96.6 (>60); EGFR Non-African American 79.8 (>60); Total Bilirubin 0.6 mg/dL (0.2-1.0); Total Protein 4.4 g/dL (6.4-8.9)
[2018-11-21 05:36] LABS: ABS Lymphocytes 0.5 10^3/ul (1.0-4.8); ABS Monocytes 0.4 10^3/ul (0-0.8); ABS Neutrophils 9.8 10^3/ul (1.5-7.7); Eosinophil % 0.4 %; Lymphocyte % 4.5 %
[2018-11-21 05:38] LABS: Magnesium 1.8 mg/dL (1.9-2.7); Potassium 4.2 mmol/L (3.5-5.0)
[2018-11-21 05:42] LABS: Polychromasia 1+
[2018-11-21] MEDS: Cefepime 1 GM in Dextrose(*) 1 GM/50 ML BAG IV SCH ×2 (05:52→17:45)
[2018-11-21] MEDS: Enoxaparin(*) 40 MG/0.4 ML SYR SUBCUT SCH (06:00)
[2018-11-21] MEDS: Pantoprazole IV* 40 MG IV SCH (08:37)
[2018-11-21] MEDS ORDERED: Magnesium Sulfate 2 GM IV* 2 GM/50 ML BAG IVPB ONE (09:09)
[2018-11-21] MEDS ORDERED: SODIUM PHOSPHATE IVPB ONE (09:10)
[2018-11-21] MEDS ORDERED: NS IVPB ONE (09:10)
--- NOTE | 2018-11-21 09:22 | PN ---
Date of Service: 11/21/18 Critical Care Services: Sedated comfortably. On CPAP Vital Signs: Temp Pulse Resp BP SpO2 FiO2 37.4 C 102 18 119/78 95 30 11/21/18 08:15 11/21/18 08:15 11/21/18 08:00 11/21/18 08:15 11/21/18 08:15 11/21 08:00 Physical Exam: Gen: Comfortably sedated. HEENT: NCAT, PERRL Lungs: Clear Cardiac: S1S2 regular Abdomen: soft, hypoactive BS, cleanly dressed Extremities: trace edema Neuro: rouses, moves ext Fluid Balance (Past 24 Hours): I= O= Net Intake & Output 11/19/18 11/20/18 11/21/18 11/22/18 06:59 06:59 06:59 06:59 Intake Total 1300 0 5894.1 Output Total 803 175 Balance 1300 0 5091.1 -175 Weight 53.977 kg Intake: IV Fluids 5295.4 ABX - FLAGYL 100 LR 3655 NS (0.9%) 1440.4 NS 100ML, Cefazolin 2G 100 IVPB 100 ABX - FLAGYL 100 Medicated IV 498.7 CC - Norepinephrine/ 389 Levophed CC - Propofol/Diprivan 109.7 Oral 1300 0 Output: Antunez 803 175 Other: Estimated Void Large Date of Last Bowel 11/17/18 Movement # Bowel Movements 0 0 # Voids 1 0 Labs: Laboratory Results - last 24 hr 11/20/18 11/20/18 11/20/18 09:12 12:32 12:32 WBC 5.7 RBC 4.14 Hgb 13.3 Hct 39 MCV 94 MCH 32 H MCHC 34 RDW 16 H Plt Count 230 MPV 8.7 Neut % (Auto) Lymph % (Auto) [place] % (Auto) Eos % (Auto) Baso % (Auto) Absolute Neuts (auto) Absolute Lymphs (auto) Absolute Monos (auto) Absolute Eos (auto) Absolute Basos (auto) Absolute Nucleated RBC Immature Gran % Neutrophils % Band Neutrophils % Lymphocytes % Reactive Lymphs % Monocytes % Metamyelocytes % Nucleated RBC % Toxic Granulation Normal RBC Morphology Polychromasia Sodium 133 L Potassium 3.7 Chloride 105 Carbon Dioxide 20 L Anion Gap 8 BUN 46 H Creatinine 1.24 H Est GFR ( Amer) 50.8 Est GFR (Non-Af Amer) 41.9 BUN/Creatinine Ratio 37.1 H Glucose 98 Lactic Acid Calcium 7.7 L Phosphorus Magnesium Total Bilirubin 0.80 AST 40 H ALT 19 Alkaline Phosphatase 42 C-Reactive Protein Total Protein 5.1 L Albumin 3.0 L Globulin 2.1 Albumin/Globulin Ratio 1.4 Urine Color Neelima Urine Appearance Cloudy Urine pH 5.0 Ur Specific Sinclair 1.023 Urine Protein 1+(30 mg/dl) A Urine Ketones Trace A Urine Blood 2+ A Urine Nitrate Negative Urine Bilirubin Negative Urine Urobilinogen Negative Ur Leukocyte Esterase Negative Urine WBC (Auto) Absent Urine RBC (Auto) 1+(3-5/hpf) A Ur Squamous Epith Cells Present A Urine Bacteria Absent Hyaline Casts Present A Urine Glucose Negative 11/20/18 11/21/18 11/21/18 12:43 00:46 04:33 WBC 10.7 RBC 3.85 Hgb 12.7 Hct 36 MCV 94 MCH 33 H MCHC 35 RDW 16 H Plt Count 218 MPV 8.4 Neut % (Auto) 90.8 Lymph % (Auto) 4.5 [place] % (Auto) 4.0 Eos % (Auto) 0.4 Baso % (Auto) 0.3 Absolute Neuts (auto) 9.8 H Absolute Lymphs (auto) 0.5 L Absolute Monos (auto) 0.4 Absolute Eos (auto) 0.0 Absolute Basos (auto) 0.0 Absolute Nucleated RBC 0.0 Immature Gran % 7.0 Neutrophils % 85.0 Band Neutrophils % 4.0 Lymphocytes % 3.0 Reactive Lymphs % 1.0 Monocytes % 4.0 Metamyelocytes % 3.0 H Nucleated RBC % 0.0 Toxic Granulation 1+ Normal RBC Morphology Not Reportable Polychromasia 1+ Sodium 135 Potassium 4.0 Chloride 110 Carbon Dioxide 19 L Anion Gap 6 BUN 33 H Creatinine 0.75 Est GFR ( Amer) 90.7 Est GFR (Non-Af Amer) 74.9 BUN/Creatinine Ratio 44.0 H Glucose 86 Lactic Acid 1.4 Calcium 6.5 L Phosphorus Magnesium Total Bilirubin AST ALT Alkaline Phosphatase C-Reactive Protein Total Protein Albumin Globulin Albumin/Globulin Ratio Urine Color Urine Appearance Urine pH Ur Specific Sinclair Urine Protein Urine Ketones Urine Blood Urine Nitrate Urine Bilirubin Urine Urobilinogen Ur Leukocyte Esterase Urine WBC (Auto) Urine RBC (Auto) Ur Squamous Epith Cells Urine Bacteria Hyaline Casts Urine Glucose 11/21/18 11/21/18 04:33 04:33 WBC RBC Hgb Hct MCV MCH MCHC RDW Plt Count MPV Neut % (Auto) Lymph % (Auto) [place] % (Auto) Eos % (Auto) Baso % (Auto) Absolute Neuts (auto) Absolute Lymphs (auto) Absolute Monos (auto) Absolute Eos (auto) Absolute Basos (auto) Absolute Nucleated RBC Immature Gran % Neutrophils % Band Neutrophils % Lymphocytes % Reactive Lymphs % Monocytes % Metamyelocytes % Nucleated RBC % Toxic Granulation Normal RBC Morphology Polychromasia Sodium 132 L Potassium 4.2 Chloride 106 Carbon Dioxide 21 L Anion Gap 5 BUN 31 H Creatinine 0.71 Est GFR ( Amer) 96.6 Est GFR (Non-Af Amer) 79.8 BUN/Creatinine Ratio 43.7 H Glucose 80 Lactic Acid 1.3 Calcium 6.8 L Phosphorus 2.0 L Magnesium 1.8 L Total Bilirubin 0.60 AST 68 H ALT 26 Alkaline Phosphatase 55 C-Reactive Protein 325.00 H Total Protein 4.4 L Albumin 2.4 L Globulin 2.0 Albumin/Globulin Ratio 1.2 Urine Color Urine Appearance Urine pH Ur Specific Sinclair Urine Protein Urine Ketones Urine Blood Urine Nitrate Urine Bilirubin Urine Urobilinogen Ur Leukocyte Esterase Urine WBC (Auto) Urine RBC (Auto) Ur Squamous Epith Cells Urine Bacteria Hyaline Casts Urine Glucose Studies: CXR with persistent basilar atelectasis Nutrition: NPO for now Impression: POD #1 exlap with wedge resection ischemic segment now well perfused on CPAP. Plan: Hypovolemic shock secondary to focal area ischemic bowel - Dusky but viable areas seen in OR and still oligoanuric atthat point when I saw her on return to ICU post-op. I elected to keep her intubated while we continued her resuscitation given multivalvular heart disease, age and overall scenario. Hypovolemia now corrected. 5 liters positive balance. Good UO. Cr at baseline ( nl) Mild hyponatremia and hypophosphatemia replaced. Levophed at low dose while still on vent and diprivan, expect it to go away with extubation. CXR with mail haziness but mechanics excellent and pulling 500cc on CPAP / while sedated. DC diprivan and extubate. Likely will need fentanyl gtt given her narcotic tolerance but will DC continuous if she shows any sedation. Continue cefepime and flagyl for now. Will D/W surgery regarding ongoing indications for antibiotics. PO status per surgery. GI/DVT prophylaxis on board. Great rescue by Dr. Guerra and the operative team. Critical Care Time: 40 minutes
[2018-11-21] MEDS: metroNIDAZOLE IV 500 MG/100ML* 500 MG/100 ML BAG IVPB SCH ×2 (10:35→21:35)
[2018-11-21] MEDS: Morphine 4 MG/ML VIAL (1 ml) 4 MG/ML VIAL IV PRN ×3 (11:53→21:08)
[2018-11-22] MEDS: fentaNYL INFUSION 50 MCG/ML* 2,500 MCG/50 ML BAG IV SCH (03:04)
[2018-11-22] MEDS: Cefepime 1 GM in Dextrose(*) 1 GM/50 ML BAG IV SCH (05:09)
[2018-11-22 05:21] LABS: Hematocrit 37 % (35-47); Mean Corpuscular HGB Conc 33 g/dL (31-36); Mean Corpuscular Hemoglobin 31 pg (27-31); Mean Corpuscular Volume 96 fL (80-97); Mean Platelet Volume 8.4 fL (7.4-10.4); Platelet Count 181 10^3/uL (150-450); Red Blood Count 3.85 10^6 /uL (3.70-4.87); Red Cell Distribution Width 16 % (10-15); White Blood Count 15.6 10^3/uL (3.5-10.8)
[2018-11-22 05:51] LABS: Albumin 2.4 g/dL (3.2-5.2); BUN/Creatinine Ratio 39.2 (8-20); Calcium 7.1 mg/dL (8.6-10.3); EGFR African American 141.5 (>60); EGFR Non-African American 116.9 (>60); Magnesium 2.1 mg/dL (1.9-2.7); Phosphorus 2.2 mg/dL (2.5-5.0); Potassium 3.7 mmol/L (3.5-5.0)
[2018-11-22] MEDS ORDERED: Dextrose 50% VIAL 50 ml IV PUSH ONE (06:00)
[2018-11-22] MEDS ORDERED: Dextrose 50% VIAL 50 ml ONE (06:03)
[2018-11-22] MEDS: Enoxaparin(*) 40 MG/0.4 ML SYR SUBCUT SCH (06:14)
[2018-11-22 06:23] LABS: ABS Eosinophils 0.1 10^3/ul (0-0.6); ABS Lymphocytes 0.5 10^3/ul (1.0-4.8); Eosinophil % 0.4 %; Lymphocyte % 3.2 %
[2018-11-22] MEDS: Pantoprazole IV* 40 MG IV SCH (09:25)
[2018-11-22] MEDS: metroNIDAZOLE IV 500 MG/100ML* 500 MG/100 ML BAG IVPB SCH (09:25)
[2018-11-22] MEDS ORDERED: Potassium Phosphate IV* 15 MMOLE in NS 0.9% 250 ML* 250 ML IVPB ONE (10:15)
--- NOTE | 2018-11-22 11:09 | PN ---
Date of Service: 11/22/18 Critical Care Services: POD #2 Kevon did well overnight Vital Signs: Temp Pulse Resp BP SpO2 FiO2 37.0 C 84 18 119/62 93 30 11/22/18 10:00 11/22/18 10:00 11/22/18 10:00 11/22/18 10:00 11/22/18 10:00 11/21 08:00 Physical Exam: Gen: mild lethargy, appropriate HEENT: NCAT, PERRL Lungs: decreased basilar entry Cardiac: S1S2 regular Abdomen: soft, mild dist, hypoactive BS Extremities: +2 edema Neuro: grossly intact Fluid Balance (Past 24 Hours): I= O= Net Intake & Output 11/20/18 11/21/18 11/22/18 11/23/18 06:59 06:59 06:59 06:59 Intake Total 0 5894.1 4218 60 Output Total 803 1808 175 Balance 0 5091.1 2410 -115 Weight 53.977 kg 55.565 kg Intake: IV Fluids 5295.4 3648 ABX - FLAGYL 100 LR 3655 3365 NS (0.9%) 1440.4 141 NS 100ML, Cefazolin 2G 100 sodium phosphate 142 IVPB 100 448 ABX - CEFEPIME 100 ABX - FLAGYL 100 298 magnesium 50 Medicated IV 498.7 122 CC - Norepinephrine/ 389 92 Levophed CC - Propofol/Diprivan 109.7 30 Oral 0 60 Output: Antunez 803 1808 175 Other: Date of Last Bowel 11/17/18 Movement # Bowel Movements 0 # Voids 0 Labs: Laboratory Results - last 24 hr 11/21/18 11/22/18 11/22/18 14:05 05:02 05:02 WBC 15.6 H RBC 3.85 Hgb 12.0 Hct 37 MCV 96 MCH 31 MCHC 33 RDW 16 H Plt Count 181 MPV 8.4 Neut % (Auto) 89.8 Lymph % (Auto) 3.2 [place] % (Auto) 6.3 Eos % (Auto) 0.4 Baso % (Auto) 0.3 Absolute Neuts (auto) 14.0 H Absolute Lymphs (auto) 0.5 L Absolute Monos (auto) 1.0 H Absolute Eos (auto) 0.1 Absolute Basos (auto) 0.0 Absolute Nucleated RBC 0.0 Nucleated RBC % 0.0 Sodium 137 Potassium 3.7 Chloride 107 Carbon Dioxide 21 L Anion Gap 9 BUN 20 Creatinine 0.51 Est GFR ( Amer) 141.5 Est GFR (Non-Af Amer) 116.9 BUN/Creatinine Ratio 39.2 H Glucose 53 L POC Glucose (mg/dL) Lactic Acid 0.9 Calcium 7.1 L Phosphorus 2.2 L Magnesium 2.1 Albumin 2.4 L 11/22/18 07:56 WBC RBC Hgb Hct MCV MCH MCHC RDW Plt Count MPV Neut % (Auto) Lymph % (Auto) [place] % (Auto) Eos % (Auto) Baso % (Auto) Absolute Neuts (auto) Absolute Lymphs (auto) Absolute Monos (auto) Absolute Eos (auto) Absolute Basos (auto) Absolute Nucleated RBC Nucleated RBC % Sodium Potassium Chloride Carbon Dioxide Anion Gap BUN Creatinine Est GFR ( Amer) Est GFR (Non-Af Amer) BUN/Creatinine Ratio Glucose POC Glucose (mg/dL) 135 H Lactic Acid Calcium Phosphorus Magnesium Albumin Nutrition: NPO per surgery Impression: POD #2 clean ExLap with partial small bowel resection for ischemia. Plan: Septic shock - resolved. Off pressors. Abx still on board. Will D/W surgery, length of Abx indicated. CHEMO - resolved SBO/Ischemic Bowel - resolved. Awaiting bowel function for PO. Edema LUE - intiially seemed to be related to extravasated IV and IV removed and arm warmed up and stabilized. Arm has grown again overnight. Will get US of LUE and try to place midline RUE and remove left arm PICC. Edema - will dose lasix today. IV fluid DC'd. Will get her OOB and see how she does. If does well can go to floor later today. D/W Dr. Guerra
[2018-11-22] MEDS: Furosemide IV* 10 MG/ML 10 ML VIAL (100 MG) IV SCH (12:32)
[2018-11-22] MEDS: Morphine 4 MG/ML VIAL (1 ml) 4 MG/ML VIAL IV PRN (14:35)
[2018-11-22] MEDS: fentaNYL* 50 MCG/ML 2 ML VIAL (100 MCG VIAL) IV SLOW PU PRN (16:21)
--- NOTE | 2018-11-22 16:33 | PN ---
Progress Note - Progress Note Date of Service: 11/22/18 SOAP: Subjective: Seen am and pm yesterday and again today. She was extubated yesterday and self- d/c'd NGT. Has been without N/V. Somewhat confused. Per RN LUE edema noted (had concern for infiltrated IV yesterday.) Objective: Vital Signs Temp 100.0 F 11/22/18 15:00 Pulse 91 11/22/18 15:00 Resp 21 11/22/18 16:21 BP 140/80 11/22/18 15:00 Pulse Ox 90 11/22/18 15:00 Gen: anasarca Lungs: cta with exp wheezes Abd: incision c/d/i; no erythema; No BS. Soft and mod tender Intake & Output 11/21/18 11/22/18 11/22/18 18:59 06:59 18:59 Intake Total 1914 2304 244 Output Total 894 374 2603 Balance 999 1411 -931 Weight 122 lb 8 oz Intake: IV Fluids 1575 2073 75 LR 1318 2047 75 NS (0.9%) 115 26 sodium phosphate 142 IVPB 217 231 ABX - CEFEPIME 100 ABX - FLAGYL 167 131 magnesium 50 Medicated IV 122 CC - Norepinephrine/ 92 Levophed CC - Propofol/Diprivan 30 IV Narcotic Infusion 9 Fentanyl 9 Oral 160 Output: Antunez 764 006 0048 Laboratory Results - last 24 hr 11/22/18 11/22/18 11/22/18 05:02 05:02 07:56 WBC 15.6 H RBC 3.85 Hgb 12.0 Hct 37 MCV 96 MCH 31 MCHC 33 RDW 16 H Plt Count 181 MPV 8.4 Neut % (Auto) 89.8 Lymph % (Auto) 3.2 [place] % (Auto) 6.3 Eos % (Auto) 0.4 Baso % (Auto) 0.3 Absolute Neuts (auto) 14.0 H Absolute Lymphs (auto) 0.5 L Absolute Monos (auto) 1.0 H Absolute Eos (auto) 0.1 Absolute Basos (auto) 0.0 Absolute Nucleated RBC 0.0 Nucleated RBC % 0.0 Sodium 137 Potassium 3.7 Chloride 107 Carbon Dioxide 21 L Anion Gap 9 BUN 20 Creatinine 0.51 Est GFR ( Amer) 141.5 Est GFR (Non-Af Amer) 116.9 BUN/Creatinine Ratio 39.2 H Glucose 53 L POC Glucose (mg/dL) 135 H Calcium 7.1 L Phosphorus 2.2 L Magnesium 2.1 Albumin 2.4 L Assessment: POD#2 s/p ex lap. SBRsxn. Expected postop course given her condition. Plan: Cont NPO x chips/sips. F/u labs LUE US per CCM. Consider TPN.
[2018-11-22] MEDS ORDERED: Lorazepam PYXIS KEY PRN ×2 (17:59→18:01)
[2018-11-22] MEDS ORDERED: LORazepam INJ* 2 MG/ML 1 ML VIAL IV PUSH ONE (18:01)
[2018-11-23] MEDS: Morphine 4 MG/ML VIAL (1 ml) 4 MG/ML VIAL IV PRN ×2 (03:42→23:00)
[2018-11-23 04:11] LABS: Hematocrit 36 % (35-47); Mean Corpuscular HGB Conc 34 g/dL (31-36); Mean Corpuscular Hemoglobin 31 pg (27-31); Mean Corpuscular Volume 93 fL (80-97); Mean Platelet Volume 8.2 fL (7.4-10.4); Platelet Count 183 10^3/uL (150-450); Red Blood Count 3.84 10^6 /uL (3.70-4.87); Red Cell Distribution Width 15 % (10-15); White Blood Count 13.5 10^3/uL (3.5-10.8)
[2018-11-23 04:36] LABS: BUN/Creatinine Ratio 24.6 (8-20); Calcium 7.6 mg/dL (8.6-10.3); EGFR African American 124.4 (>60); EGFR Non-African American 102.8 (>60); Magnesium 1.6 mg/dL (1.9-2.7); Phosphorus 1.5 mg/dL (2.5-5.0); Potassium 2.8 mmol/L (3.5-5.0)
[2018-11-23] MEDS: Enoxaparin(*) 40 MG/0.4 ML SYR SUBCUT SCH (05:29)
[2018-11-23] MEDS: LORazepam INJ* 2 MG/ML 1 ML VIAL IV PUSH PRN ×2 (05:29→21:28)
[2018-11-23] MEDS ORDERED: KCL 20 MEQ/100 ML IVPREMIX* 20 MEQ/100 ML BAG ONE (06:04)
[2018-11-23] MEDS: KCL 20 MEQ/100 ML IVPREMIX* 20 MEQ/100 ML BAG IV SCH ×2 (06:34→08:21)
[2018-11-23] MEDS ORDERED: Magnesium Sulfate 1 GM IV* 1 GM/100 ML BAG IV ONE (06:45)
[2018-11-23] MEDS ORDERED: NS 0.9% 250 ML* 250 ML ONE (07:58)
[2018-11-23] MEDS ORDERED: Potassium Phosphate IV* 15 MMOLE in NS 0.9% 250 ML* 250 ML IVPB ONE ×2 (08:00→10:00)
[2018-11-23] MEDS: Furosemide IV* 10 MG/ML 10 ML VIAL (100 MG) IV SCH (08:17)
[2018-11-23] MEDS: Pantoprazole IV* 40 MG IV SCH (08:18)
[2018-11-23] MEDS ORDERED: Magnesium Sulf 4 GM/100 ML IV* 4,000 MG/100 ML BAG IVPB ONE (09:26)
--- NOTE | 2018-11-23 09:44 | PN ---
Date of Service: 11/23/18 Critical Care Services: Some agitated delirium yesterday evening but better with ativan Vital Signs: Temp Pulse Resp BP SpO2 FiO2 37.2 C 98 16 140/85 96 30 11/23/18 09:03 11/23/18 09:01 11/23/18 09:01 11/23/18 09:00 11/23/18 09:01 11/23 04:00 Physical Exam: Gen: responsive to voice, no complaints HEENT: NCAT, PERRL Lungs: coarse entry Cardiac: S1S2 regular Abdomen: soft, ND, hypoactive BS Extremities: +1 edema, improving LUE edema Neuro: grossly intact Fluid Balance (Past 24 Hours): I= O= Net Intake & Output 11/21/18 11/22/18 11/23/18 11/24/18 06:59 06:59 06:59 06:59 Intake Total 5894.1 4218 848 Output Total 803 1808 4565 Balance 5091.1 2410 -3717 Weight 53.977 kg 55.565 kg 55.474 kg Intake: IV Fluids 5295.4 3648 469 ABX - FLAGYL 100 LR 3655 3365 75 NS (0.9%) 1440.4 141 4 NS 100ML, Cefazolin 2G 100 sodium phosphate 142 390 IVPB 100 448 ABX - CEFEPIME 100 ABX - FLAGYL 100 298 magnesium 50 Medicated IV 498.7 122 CC - Norepinephrine/ 389 92 Levophed CC - Propofol/Diprivan 109.7 30 IV Narcotic Infusion 9 Fentanyl 9 Oral 370 Output: Urine 755 Antunez 803 1808 3810 Other: Estimated Void Medium # Voids 1 ADLs: Meal Record Start: 11/18/18 04: 52 Freq: DAILY@0900,1400,1800 Status: Inactive Protocol: Created 11/18/18 04:52 System (Rec: 11/18/18 04:52 System MED-M28) Document 11/18/18 09:00 [id number] (Rec: 11/18/18 09:43 [id number] MED-C09) Document 11/18/18 13:00 NEN1147 (Rec: 11/18/18 13:01 OOL6057 MED-C09) Document 11/18/18 18:00 TRX2591 (Rec: 11/18/18 21:02 VDM2549 MED-C09) Document 11/19/18 09:00 [id number] (Rec: 11/19/18 13:55 TJG6168 MED-C11) Document 11/19/18 13:55 PCH1109 (Rec: 11/19/18 13:56 [id number] MED-C11) Document 11/19/18 18:00 EVH7126 (Rec: 11/19/18 19:12 HUO0233 MED-C11) Document 11/20/18 09:00 JGR6188 (Rec: 11/20/18 09:29 UKA0010 MED-C11) ADLs: Meal Record Start: 11/20/18 11: 36 Freq: 09,13,18 Status: Active Protocol: Created 11/20/18 11:36 [id number] (Rec: 11/20/18 11:36 CIE0797 ICU-C07) Document 11/20/18 18:00 LCT6004 (Rec: 11/20/18 18:28 [id number] ICU-C12) Document 11/21/18 09:00 UCL2471 (Rec: 11/21/18 10:40 ARV4871 ICU-C16) Document 11/21/18 13:00 FZE4127 (Rec: 11/21/18 13:19 KTR1594 ICU-C16) Document 11/21/18 18:00 BDI9592 (Rec: 11/21/18 18:01 RCD1797 [facility] ) Document 11/22/18 09:00 BIW1307 (Rec: 11/22/18 09:59 GUD4853 ICU-C10) Document 11/22/18 13:00 KLY5355 (Rec: 11/22/18 13:07 SUU1587 ICU-C10) Document 11/22/18 18:00 KGO5749 (Rec: 11/22/18 18:31 AEA6417 ICU-C10) Intake and Output Start: 11/17/18 23: 43 Freq: Status: Active Protocol: Created 11/17/18 23:43 System (Rec: 11/17/18 23:43 System ED-C24) Intake and Output Start: 11/18/18 04: 52 Freq: DAILY@0600,1400,2200 Status: Inactive Protocol: Created 11/18/18 04:52 System (Rec: 11/18/18 04:52 System MED-M28) Document 11/18/18 06:00 YOM7022 (Rec: 11/18/18 06:04 CDY6721 MED-C09) Document 11/18/18 14:00 DUX5737 (Rec: 11/18/18 17:07 RPC1797 MED-C09) Document 11/18/18 20:00 CSA0145 (Rec: 11/18/18 20:01 AEG3352 MED-C09) Document 11/19/18 14:00 YIZ9876 (Rec: 11/19/18 14:01 DOQ4953 MED-C11) Document 11/19/18 21:37 GOF8036 (Rec: 11/19/18 21:37 FXX2803 MED-C02) Document 11/20/18 05:28 FTC8018 (Rec: 11/20/18 05:29 BSC1595 MED-C02) Intake and Output Start: 11/20/18 11: 36 Freq: Q1HR Status: Active Protocol: Created 11/20/18 11:36 RLU8890 (Rec: 11/20/18 11:36 MFW5482 ICU-C07) Document 11/20/18 16:00 LLB8646 (Rec: 11/20/18 16:59 LPT4836 ICU-C12) Document 11/20/18 17:00 HXY5393 (Rec: 11/20/18 17:50 DJC1977 ICU-C12) Document 11/20/18 18:00 CRB5169 (Rec: 11/20/18 18:28 SAY5285 ICU-C12) Document 11/20/18 20:00 VOP0931 (Rec: 11/20/18 20:42 MFT4683 IS[facility]-M03 ) Document 11/20/18 21:20 LPS7317 (Rec: 11/20/18 21:44 URE8873 ICU-C16) Document 11/20/18 22:25 ECS5774 (Rec: 11/20/18 22:25 IYH5266 IS[facility]-M03 ) Document 11/20/18 23:00 YNP1192 (Rec: 11/20/18 23:44 NYL0594 ICU-C16) Document 11/21/18 00:00 XBQ0858 (Rec: 11/21/18 00:22 CQV2217 IS[facility]-M03 ) Document 11/21/18 01:00 HSE2370 (Rec: 11/21/18 01:12 [id number] ICU-C16) Document 11/21/18 02:00 LHK4990 (Rec: 11/21/18 02:25 DJM7749 ICU-C16) Document 11/21/18 03:52 WHK4019 (Rec: 11/21/18 03:54 PKA1097 IS[facility]-M03 ) Document 11/21/18 06:00 YJS5045 (Rec: 11/21/18 06:05 YTK4269 IS[facility]-M03 ) Document 11/21/18 07:57 PWG3793 (Rec: 11/21/18 07:57 WNX3260 [facility]-M03 ) Document 11/21/18 11:00 KPW0151 (Rec: 11/21/18 11:03 PKM7194 ICU-C10) Document 11/21/18 12:00 LUT5428 (Rec: 11/21/18 12:30 IDN8673 [facility]-M03 ) Document 11/21/18 12:58 SJF5700 (Rec: 11/21/18 12:59 ILM2660 IS[facility]-M03 ) Document 11/21/18 14:00 ZVN2800 (Rec: 11/21/18 14:19 FXU7842 ICU-C16) Document 11/21/18 15:51 FCA1807 (Rec: 11/21/18 15:52 UUU2847 ICU-C10) Document 11/21/18 17:52 OJG8152 (Rec: 11/21/18 17:52 HKG3649 IS[facility]-M03 ) Document 11/21/18 18:56 WRS2888 (Rec: 11/21/18 18:58 INB8470 [facility]-M03 ) Document 11/21/18 19:00 LLD7921 (Rec: 11/21/18 19:01 HUB7772 [facility]-M03 ) Document 11/21/18 19:47 SKD9447 (Rec: 11/21/18 19:47 FGH9503 ICU-C15) Document 11/21/18 20:00 YAS9767 (Rec: 11/21/18 20:47 AIO2673 ICU-C15) Document 11/21/18 21:00 HOB3110 (Rec: 11/21/18 21:20 HSX1167 ICU-C15) Document 11/21/18 22:00 OFE6381 (Rec: 11/21/18 22:14 SBW8491 ICU-C15) Document 11/22/18 00:00 LBE7620 (Rec: 11/22/18 00:06 ELJ6010 ICU-C15) Document 11/22/18 02:00 XPS9686 (Rec: 11/22/18 02:13 DRP1326 ICU-C15) Document 11/22/18 03:00 XCL2106 (Rec: 11/22/18 03:11 FVH5417 [facility] Document 11/22/18 05:00 ETF3880 (Rec: 11/22/18 05:51 SKD1476 ICU-C15) Document 11/22/18 06:00 FFT9637 (Rec: 11/22/18 06:33 IEO0338 ICU-C15) Document 11/22/18 07:00 MTD3408 (Rec: 11/22/18 08:06 BVL7550 ICU-C10) Document 11/22/18 08:00 WEJ8524 (Rec: 11/22/18 10:01 RHV5666 ICU-C10) Document 11/22/18 09:00 JON1266 (Rec: 11/22/18 10:01 IEE9309 ICU-C10) Document 11/22/18 10:00 HFJ2925 (Rec: 11/22/18 10:02 RKD6765 ICU-C10) Document 11/22/18 12:00 HUN3423 (Rec: 11/22/18 12:38 ERG0297 [facility] Document 11/22/18 13:00 BMU8129 (Rec: 11/22/18 13:06 QDN7704 ICU-C10) Document 11/22/18 14:00 VIZ7444 (Rec: 11/22/18 15:15 JRL5816 ICU-C10) Document 11/22/18 15:00 WHH9804 (Rec: 11/22/18 15:18 MEF0834 ICU-C10) Document 11/22/18 16:00 RYY5916 (Rec: 11/22/18 17:13 HVG3522 ICU-C10) Document 11/22/18 17:00 ZJK0762 (Rec: 11/22/18 17:14 ZJR5496 ICU-C10) Document 11/22/18 18:00 TAF5217 (Rec: 11/22/18 18:31 UJY4598 ICU-C10) Document 11/22/18 19:00 DYS8511 (Rec: 11/22/18 21:04 GGK1451 ICU-C16) Document 11/22/18 20:00 TNV5958 (Rec: 11/22/18 21:05 OCH5591 ICU-C16) Document 11/22/18 21:00 HVN8683 (Rec: 11/22/18 21:05 GLQ0152 ICU-C16) Document 11/22/18 21:37 OUU6440 (Rec: 11/22/18 21:37 DUY2106 ICU-C16) Document 11/22/18 23:00 LWI7991 (Rec: 11/22/18 23:22 SAY6135 ICU-C16) Document 11/23/18 00:00 FIH6834 (Rec: 11/23/18 00:53 QJJ5003 ICU-C16) Document 11/23/18 01:00 ILN2174 (Rec: 11/23/18 03:24 ZCS1209 ICU-C16) Document 11/23/18 02:00 SVR2606 (Rec: 11/23/18 03:44 LQO3596 ISDE[facility]-M03 ) Document 11/23/18 03:00 RMK6189 (Rec: 11/23/18 03:44 BJY1328 IS[facility]-M03 ) Document 11/23/18 04:00 BVO9935 (Rec: 11/23/18 05:42 UKH5484 ICU-C16) Document 11/23/18 05:00 ZLU8945 (Rec: 11/23/18 05:42 [id number] ICU-C16) Document 11/23/18 06:00 FGP7066 (Rec: 11/23/18 06:12 BAU7408 IS[facility]-M03 ) Document 11/23/18 06:43 [id number] (Rec: 11/23/18 06:43 MWW5049 ICU-C16) Labs: Laboratory Results - last 24 hr 11/22/18 11/23/18 11/23/18 18:10 03:52 03:52 WBC 13.5 H RBC 3.84 Hgb 12.0 Hct 36 MCV 93 MCH 31 MCHC 34 RDW 15 Plt Count 183 MPV 8.2 Sodium 140 Potassium 2.8 L Chloride 102 Carbon Dioxide 27 Anion Gap 11 BUN 14 Creatinine 0.57 Est GFR ( Amer) 124.4 Est GFR (Non-Af Amer) 102.8 BUN/Creatinine Ratio 24.6 H Glucose 69 L POC Glucose (mg/dL) 74 Calcium 7.6 L Ionized Calcium Phosphorus 1.5 L Magnesium 1.6 L 11/23/18 03:52 WBC RBC Hgb Hct MCV MCH MCHC RDW Plt Count MPV Sodium Potassium Chloride Carbon Dioxide Anion Gap BUN Creatinine Est GFR ( Amer) Est GFR (Non-Af Amer) BUN/Creatinine Ratio Glucose POC Glucose (mg/dL) Calcium Ionized Calcium 0.97 L Phosphorus Magnesium Studies: Basilic vein thrombosis Nutrition: PO per surgery Impression: POD #3 ExLap with resection ischemic small bowel Plan: Septic shock - resolved. Antibiotics discontinued as D/W Dr. Ko. CHEMO - resolved, now negative balance 4 liters last 24hrs. Still some edema, more lasix today. SBO/Ischemic Bowel - resolved. I'm starting to hear bowel sounds. Perhaps PO on the horizon. Risk:Benefit TPN still more risk than benefit at this point. DVT LUE - associated with PICC. PICC removed. Arm appears smaller. No clear indication from the literature to anticoagulate UE DVT especially in setting of it being provoked. Electrolyte abnormalities - modeate hypokalemia, hypophosphatemia, hypomagnesemia and hypocalcemia. Being aggressively replaced. Respiratory status excellent, delirium improved and pain reasonably well controlled. PT ordered and medically stable for transfer to the floor. D/W Drs. Guerra and Stefani.
--- NOTE | 2018-11-23 09:53 | PN ---
Progress Note - Progress Note Date of Service: 11/23/18 SOAP: Subjective: Asking for her dog. C/o thirst. Per RN no bowel function. Had received Ativan earlier this morning. Diuresed yesterday. Objective: Vital Signs Temp 99.0 F 11/23/18 09:03 Pulse 98 11/23/18 09:01 Resp 16 11/23/18 09:01 BP 140/85 11/23/18 09:00 Pulse Ox 96 11/23/18 09:01 Abd: incision c/d/i; no erythema; +BS; soft and min tender. Intake & Output 11/22/18 11/23/18 11/23/18 18:59 06:59 18:59 Intake Total 304 544 Output Total 2710 1855 Balance -2406 -1311 Weight 122 lb 4.8 oz Intake: IV Fluids 75 394 LR 75 NS (0.9%) 4 sodium phosphate 390 IV Narcotic Infusion 9 Fentanyl 9 Oral 220 150 Output: Urine 755 Antunez 1955 1855 Other: Estimated Void Medium # Voids 1 Laboratory Results - last 24 hr 11/22/18 11/23/18 11/23/18 18:10 03:52 03:52 WBC 13.5 H RBC 3.84 Hgb 12.0 Hct 36 MCV 93 MCH 31 MCHC 34 RDW 15 Plt Count 183 MPV 8.2 Sodium 140 Potassium 2.8 L Chloride 102 Carbon Dioxide 27 Anion Gap 11 BUN 14 Creatinine 0.57 Est GFR ( Amer) 124.4 Est GFR (Non-Af Amer) 102.8 BUN/Creatinine Ratio 24.6 H Glucose 69 L POC Glucose (mg/dL) 74 Calcium 7.6 L Ionized Calcium Phosphorus 1.5 L Magnesium 1.6 L 11/23/18 03:52 WBC RBC Hgb Hct MCV MCH MCHC RDW Plt Count MPV Sodium Potassium Chloride Carbon Dioxide Anion Gap BUN Creatinine Est GFR ( Amer) Est GFR (Non-Af Amer) BUN/Creatinine Ratio Glucose POC Glucose (mg/dL) Calcium Ionized Calcium 0.97 L Phosphorus Magnesium Assessment: POD#3 s/p Exlap/SBR for SBO. Improving. Plan: As d/w Dr. Cooper. [facility] on Dr. Guerra's service. Will advance to clears. Needs OT/PT.
[2018-11-23] MEDS ORDERED: Calcium Gluconate INJ* 4 GM in NS 0.9% 250 ML* 250 ML IVPB ONE (10:00)
[2018-11-23] MEDS ORDERED: Magnesium Sulfate 3 GM IV IVPB ONE ×2 (11:00)
[2018-11-23] MEDS ORDERED: oxyCODONE SR TAB(*) 10 MG TAB.SR PO ONE (23:02)
[2018-11-24] MEDS: Metoprolol Succinate XL TAB* 25 MG PO SCH ×2 (01:46→20:44)
[2018-11-24 05:18] LABS: Hematocrit 39 % (35-47); Hemoglobin 13.3 g/dL (12.0-16.0); Mean Corpuscular HGB Conc 35 g/dL (31-36); Mean Corpuscular Hemoglobin 32 pg (27-31); Mean Corpuscular Volume 92 fL (80-97); Platelet Count 187 10^3/uL (150-450); Red Blood Count 4.21 10^6 /uL (3.70-4.87); Red Cell Distribution Width 15 % (10-15); White Blood Count 10.4 10^3/uL (3.5-10.8)
[2018-11-24 05:37] LABS: BUN/Creatinine Ratio 20.4 (8-20); Calcium 7.8 mg/dL (8.6-10.3); EGFR African American 148.2 (>60); EGFR Non-African American 122.5 (>60); Magnesium 1.6 mg/dL (1.9-2.7); Phosphorus 1.3 mg/dL (2.5-5.0)
[2018-11-24 05:39] LABS: Potassium 2.7 mmol/L (3.5-5.0)
[2018-11-24] MEDS: KCL 20 MEQ/100 ML IVPREMIX* 20 MEQ/100 ML BAG IV SCH ×5 (06:28→22:17)
[2018-11-24] MEDS: Enoxaparin(*) 40 MG/0.4 ML SYR SUBCUT SCH (06:31)
[2018-11-24] MEDS: oxyCODONE SR TAB(*) 10 MG TAB.SR PO SCH ×3 (06:32→15:18)
--- NOTE | 2018-11-24 09:46 | PN ---
Progress Note - Progress Note Date of Service: 11/24/18 SOAP: Subjective: Reports pain from arthritis and abdomen. No N/V. Some appetite. Had multiple BMs. Objective: Vital Signs Temp 98.6 F 11/24/18 07:13 Pulse 95 11/24/18 07:13 Resp 20 11/24/18 07:13 BP 118/72 11/24/18 07:13 Pulse Ox 94 11/24/18 07:13 Gen: NAD; sitting up in chair Abd: incision c/d/i; softly distended; mildly tender; +tympany Intake & Output 11/23/18 11/24/18 11/24/18 18:59 06:59 18:59 Intake Total 1117 460 Output Total 3325 400 Balance -8 60 Intake: IV Fluids 60 NS (0.9%) 60 IVPB 757 NS (0.9%) 156 calcium gluconate 245 magnesium 106 potassium phosphate 250 Oral 300 460 Output: Urine 0 Gonzales 3325 400 Other: Date of Last Bowel 11/24/2018 11/24/18 Movement # Bowel Movements 0 1 1 Estimated Stool Amount Medium Medium Laboratory Results - last 24 hr 11/24/18 11/24/18 11/24/18 05:03 05:10 05:10 WBC 10.4 RBC 4.21 Hgb 13.3 Hct 39 MCV 92 MCH 32 H MCHC 35 RDW 15 Plt Count 187 MPV 8.0 Sodium 137 Potassium 2.7 L* Chloride 95 L Carbon Dioxide 36 H Anion Gap 6 BUN 10 Creatinine 0.49 L Est GFR ( Amer) 148.2 Est GFR (Non-Af Amer) 122.5 BUN/Creatinine Ratio 20.4 H Glucose 181 H Calcium 7.8 L Ionized Calcium 1.02 L Phosphorus 1.3 L Magnesium 1.6 L Assessment: POD#4 s/p exlap/SBR. Doing well from surgical perspective. Plan: Adv diet. D/c gonzales. PT. Replete K+.
[2018-11-24] MEDS ORDERED: Magnesium Sulfate 2 GM IV* 2 GM/50 ML BAG IVPB ONE ×2 (09:48→14:00)
[2018-11-24] MEDS: Pantoprazole IV* 40 MG IV SCH (10:15)
[2018-11-24] MEDS ORDERED: Calcium Gluconate INJ* 1 GM in NS 0.9% 50 ML* 50 ML IVPB ONE (10:38)
[2018-11-24] MEDS: Furosemide IV* 10 MG/ML 10 ML VIAL (100 MG) IV SCH (10:48)
[2018-11-24] MEDS: Potassium & Sodium Phos 250MG* = 1 PACKET PO SCH ×3 (13:33→20:44)
[2018-11-24 19:10] LABS: BUN/Creatinine Ratio 17.4 (8-20); EGFR African American 159.4 (>60); EGFR Non-African American 131.7 (>60); Potassium 3.5 mmol/L (3.5-5.0)
[2018-11-25] MEDS: KCL 20 MEQ/100 ML IVPREMIX* 20 MEQ/100 ML BAG IV SCH (00:35)
[2018-11-25] MEDS: Enoxaparin(*) 40 MG/0.4 ML SYR SUBCUT SCH (05:25)
[2018-11-25] MEDS: oxyCODONE SR TAB(*) 10 MG TAB.SR PO SCH ×3 (05:26→15:42)
[2018-11-25 07:58] LABS: Hematocrit 38 % (35-47); Hemoglobin 13.2 g/dL (12.0-16.0); Mean Corpuscular HGB Conc 34 g/dL (31-36); Mean Corpuscular Hemoglobin 32 pg (27-31); Mean Corpuscular Volume 93 fL (80-97); Mean Platelet Volume 8.4 fL (7.4-10.4); Platelet Count 206 10^3/uL (150-450); Red Blood Count 4.15 10^6 /uL (3.70-4.87); Red Cell Distribution Width 15 % (10-15); White Blood Count 10.7 10^3/uL (3.5-10.8)
[2018-11-25 08:15] LABS: Albumin 2.6 g/dL (3.2-5.2); Albumin/Globulin Ratio 1.4 (1-3); BUN/Creatinine Ratio 17.1 (8-20); Calcium 7.9 mg/dL (8.6-10.3); EGFR African American 218.5 (>60); EGFR Non-African American 180.6 (>60); Globulin 1.9 g/dL (2-4); Magnesium 1.8 mg/dL (1.9-2.7); Phosphorus 2.3 mg/dL (2.5-5.0); Potassium 3.9 mmol/L (3.5-5.0); Total Bilirubin 0.7 mg/dL (0.2-1.0); Total Protein 4.5 g/dL (6.4-8.9)
[2018-11-25] MEDS: Pantoprazole IV* 40 MG IV SCH (08:26)
[2018-11-25 09:05] LABS: ABS Eosinophils 0.1 10^3/ul (0-0.6); ABS Lymphocytes 0.7 10^3/ul (1.0-4.8); ABS Monocytes 0.7 10^3/ul (0-0.8); ABS Neutrophils 9.1 10^3/ul (1.5-7.7); Eosinophil % 1.2 %; Lymphocyte % 6.8 %; Nucleated Red Blood Cells % 0.2
[2018-11-25] MEDS: Potassium & Sodium Phos 250MG* = 1 PACKET PO SCH ×4 (09:33→20:56)
--- NOTE | 2018-11-25 09:40 | PN ---
Progress Note - Progress Note Date of Service: 11/25/18 SOAP: Subjective: She c/o abdominal pain. No N/V. Tolerating clears. Asks if she can have yogurt. Having BMs and flatus. Objective: Vital Signs Temp 97.5 F 11/25/18 07:30 Pulse 69 11/25/18 07:30 Resp 15 11/25/18 07:30 BP 137/67 11/25/18 07:30 Pulse Ox 96 11/25/18 07:30 Intake & Output 11/24/18 11/25/18 11/25/18 18:59 06:59 18:59 Intake Total 140 1630 Output Total 400 560 200 Balance -260 1070 -200 Intake: IV Fluids 694 NS (0.9%) 694 IVPB 50 536 magnesium 50 potassium phosphate 536 Oral 90 400 Output: Urine 110 200 Antunez 400 450 Other: Estimated Void Medium Small Date of Last Bowel 11/24/18 11/25/18 11/25/18 Movement # Bowel Movements 1 3 1 Estimated Stool Amount Medium Small Small # Voids 3 1 Laboratory Results - last 24 hr 11/24/18 11/24/18 11/25/18 18:07 18:46 07:35 WBC 10.7 RBC 4.15 Hgb 13.2 Hct 38 MCV 93 MCH 32 H MCHC 34 RDW 15 Plt Count 206 MPV 8.4 Neut % (Auto) 85.3 Lymph % (Auto) 6.8 [place] % (Auto) 6.3 Eos % (Auto) 1.2 Baso % (Auto) 0.4 Absolute Neuts (auto) 9.1 H Absolute Lymphs (auto) 0.7 L Absolute Monos (auto) 0.7 Absolute Eos (auto) 0.1 Absolute Basos (auto) 0.0 Absolute Nucleated RBC 0.0 Nucleated RBC % 0.2 Sodium Cancelled 137 Potassium Cancelled 3.5 Chloride Cancelled 98 L Carbon Dioxide Cancelled 34 H Anion Gap Cancelled 5 BUN Cancelled 8 Creatinine Cancelled 0.46 L Est GFR ( Amer) Cancelled 159.4 Est GFR (Non-Af Amer) Cancelled 131.7 BUN/Creatinine Ratio Cancelled 17.4 Glucose Cancelled 222 H Calcium Cancelled 8.0 L Ionized Calcium Phosphorus Magnesium Cancelled 2.0 Total Bilirubin AST ALT Alkaline Phosphatase Total Protein Albumin Globulin Albumin/Globulin Ratio 11/25/18 11/25/18 07:35 07:35 WBC RBC Hgb Hct MCV MCH MCHC RDW Plt Count MPV Neut % (Auto) Lymph % (Auto) [place] % (Auto) Eos % (Auto) Baso % (Auto) Absolute Neuts (auto) Absolute Lymphs (auto) Absolute Monos (auto) Absolute Eos (auto) Absolute Basos (auto) Absolute Nucleated RBC Nucleated RBC % Sodium 140 Potassium 3.9 Chloride 102 Carbon Dioxide 36 H Anion Gap 2 BUN 6 Creatinine 0.35 L Est GFR ( Amer) 218.5 Est GFR (Non-Af Amer) 180.6 BUN/Creatinine Ratio 17.1 Glucose 92 Calcium 7.9 L Ionized Calcium 1.05 L Phosphorus 2.3 L Magnesium 1.8 L Total Bilirubin 0.70 AST 30 ALT 16 Alkaline Phosphatase 88 Total Protein 4.5 L Albumin 2.6 L Globulin 1.9 L Albumin/Globulin Ratio 1.4 Assessment: POD#7 s/p exlap/SBRsxn. Cont to improve. Malnurished. Plan: Adv diet as tolerated. Pain meds per Dr. Guerra.
[2018-11-25] MEDS: oxyCODONE TAB* 5 MG TAB PO PRN ×2 (14:13→22:27)
[2018-11-25 14:19] LABS: C Reactive Protein 49.8 mg/L (<8.01)
[2018-11-25] MEDS: Morphine 4 MG/ML VIAL (1 ml) 4 MG/ML VIAL IV PRN ×2 (17:35→22:32)
[2018-11-25] MEDS: Metoprolol Succinate XL TAB* 25 MG PO SCH (20:56)
[2018-11-26] MEDS: oxyCODONE TAB* 5 MG TAB PO PRN ×4 (02:58→18:02)
[2018-11-26] MEDS: Morphine 4 MG/ML VIAL (1 ml) 4 MG/ML VIAL IV PRN ×2 (02:58→14:27)
[2018-11-26 04:36] LABS: Hematocrit 39 % (35-47); Hemoglobin 12.9 g/dL (12.0-16.0); Mean Corpuscular HGB Conc 33 g/dL (31-36); Mean Corpuscular Hemoglobin 31 pg (27-31); Mean Corpuscular Volume 94 fL (80-97); Mean Platelet Volume 8.4 fL (7.4-10.4); Platelet Count 201 10^3/uL (150-450); Red Blood Count 4.14 10^6 /uL (3.70-4.87); Red Cell Distribution Width 15 % (10-15); White Blood Count 11.7 10^3/uL (3.5-10.8)
[2018-11-26 04:52] LABS: ALT 17 U/L (7-52); AST 34 U/L (13-39); Albumin 2.7 g/dL (3.2-5.2); Albumin/Globulin Ratio 1.4 (1-3); Alkaline Phosphatase 83 U/L (34-104); Anion Gap 3 mmol/L (2-11); BUN/Creatinine Ratio 15.6 (8-20); Blood Urea Nitrogen 7 mg/dL (6-24); C Reactive Protein 34.74 mg/L (<8.01); CO2 Carbon Dioxide 36 mmol/L (22-32); Calcium 7.6 mg/dL (8.6-10.3); Chloride 100 mmol/L (101-111); EGFR African American 163.5 (>60); EGFR Non-African American 135.1 (>60); Globulin 1.9 g/dL (2-4); Glucose 98 mg/dL (70-100); Magnesium 1.7 mg/dL (1.9-2.7); Phosphorus 3.3 mg/dL (2.5-5.0); Potassium 4.5 mmol/L (3.5-5.0); Sodium 139 mmol/L (135-145); Total Protein 4.6 g/dL (6.4-8.9)
[2018-11-26 04:58] LABS: ABS Basophils 0.1 10^3/ul (0-0.2); ABS Eosinophils 0.2 10^3/ul (0-0.6); ABS Monocytes 1.3 10^3/ul (0-0.8); ABS Neutrophils 9.1 10^3/ul (1.5-7.7); Eosinophil % 1.8 %; Lymphocyte % 8.6 %; Nucleated Red Blood Cells % 0.3
[2018-11-26] MEDS: Enoxaparin(*) 40 MG/0.4 ML SYR SUBCUT SCH (05:40)
[2018-11-26] MEDS: oxyCODONE SR TAB(*) 10 MG TAB.SR PO SCH ×3 (05:42→15:05)
[2018-11-26] MEDS ORDERED: Magnesium Sulfate 2 GM IV* 2 GM/50 ML BAG IVPB ONE (09:14)
--- NOTE | 2018-11-26 09:24 | PN ---
Progress Note - Progress Note Date of Service: 11/26/18 Note: S: POD #8. c/o abd pain and new R foot pain (no hx of trauma or injury; pain w/ ambulation). Crystal diet (no N/V). Passing flatus ("not much"); having mult BM's. Pt seen w/ Dr. Guerra. Current Medications Albuterol (Ventolin 2.5 Mg/3 Ml Neb.Elissa*) 2.5 mg INH Q4H PRN PRN Reason: SOB/WHEEZING Last Admin: 11/22/18 00:16 Dose: 2.5 mg Artificial Tears (Natural Balance Tears Eye Drop) 1 drop BOTH EYES BID PRN PRN Reason: DRY EYE Colchicine (Colcrys*) 0.6 mg PO TID BRETT Enoxaparin Sodium (Lovenox(*)) 40 mg SUBCUT 0600 [facility] Last Admin: 11/26/18 05:40 Dose: 40 mg Magnesium Sulfate (Magnesium Sulfate 2 Gm Iv*) 2 gm in 50 mls @ 50 mls/hr IVPB ONCE ONE Stop: 11/26/18 10:13 Lidocaine (Lidoderm 5% Patch*) 1 patch TRANSDERM DAILY PRN PRN Reason: PAIN Last Admin: 11/18/18 06:01 Dose: 1 patch Lorazepam (Ativan Inj*) 1 mg IV PUSH Q6H PRN PRN Reason: ANXIETY Last Admin: 11/23/18 21:28 Dose: 1 mg Metoprolol Succinate (Toprol Xl Tab*) 25 mg PO 2100 BRETT Last Admin: 11/25/18 20:56 Dose: 25 mg Miscellaneous (Ativan Pyxis Joseph) 1 ea N/A .ATIVAN IV JOSEPH PRN PRN Reason: PYXIS JOSEPH Morphine Sulfate (Morphine 4 Mg/Ml Vial (1 Ml)) 4 mg IV Q4H PRN PRN Reason: PAIN - MODERATE Last Admin: 11/26/18 02:58 Dose: 4 mg Ondansetron HCl (Zofran Inj*) 4 mg IV Q6H PRN PRN Reason: NAUSEA/VOMITING Oxycodone HCl (Oxycontin(*)) 10 mg PO 0600,0900,1530 [facility] Last Admin: 11/26/18 05:42 Dose: 10 mg Oxycodone HCl (Roxycodone Tab*) 5 mg PO Q4H PRN PRN Reason: PAIN - MODERATE Last Admin: 11/26/18 07:37 Dose: 5 mg Pantoprazole Sodium (Protonix Iv*) 40 mg IV DAILY BRETT Last Admin: 11/25/18 08:26 Dose: Not Given Sodium Chloride (Sodium Chloride 0.65% Nasal [place]*) 1 spray BOTH NARES Q4H PRN PRN Reason: CONGESTION O: Vital Signs - 8 hr 11/26/18 11/26/18 11/26/18 02:58 03:35 03:48 Temperature 98.8 F Pulse Rate 72 Respiratory 20 18 Rate Blood Pressure 128/67 (mmHg) O2 Sat by Pulse 97 92 Oximetry 11/26/18 11/26/18 11/26/18 05:42 07:15 07:37 Temperature 99.0 F Pulse Rate 79 Respiratory 16 16 18 Rate Blood Pressure 109/73 (mmHg) O2 Sat by Pulse 95 Oximetry 11/26/18 11/26/18 07:39 09:11 Temperature Pulse Rate Respiratory 18 18 Rate Blood Pressure (mmHg) O2 Sat by Pulse Oximetry Intake and Output Last 24 Hours 11/24/18 11/25/18 11/26/18 11/27/18 06:59 06:59 06:59 06:59 Intake Total 1577 1770 2040 Output Total 3725 960 1450 400 Balance -2148 810 590 -400 Intake: IV Fluids 60 694 NS (0.9%) 60 694 IVPB 757 586 NS (0.9%) 156 calcium gluconate 245 magnesium 106 50 potassium phosphate 250 536 Oral 362 292 8249 Output: Urine 0 110 1450 400 Antunez 3725 850 Other: Estimated Void Medium Small Date of Last Bowel 11/24/2018 11/25/18 11/25/18 Movement # Bowel Movements 1 3 1 Estimated Stool Amount Medium Small Small # Voids 3 1 Gen: elderly female, lying in bed; NAD Heart: reg Lungs: few crackles; bases fairly clear Abd: mildly distended/tympanitic; incision ok; +BS, normal active; soft; moderate tenderness across midabdomen, including, but not localized to incision ; lower abd nontender Extr: Right foot mildly edematous, w/ erythema (marked w/ pen) over dorsum. Exquisitely tender. No open wounds. Toes ok. Labs: Laboratory Tests 11/25/18 11/26/18 11/26/18 07:35 04:17 04:17 WBC 11.7 H BUN 7 Creatinine 0.45 L Calcium 7.6 L Magnesium 1.7 L C-Reactive Protein 49.80 H 34.74 H Albumin 2.6 L 2.7 L A: s/p laparotomy for SBO w/ SB wedge rsxn for ischemia, doing reasonably well from surgical standpoint w/ likely resolving resolving ileus Per Dr. Guerra, likely gout or pseudogout of R foot P: colchicine per Dr. Guerra; cont diet as crystal; encourage ambulation
[2018-11-26] MEDS: Potassium & Sodium Phos 250MG* = 1 PACKET PO SCH (09:31)
[2018-11-26] MEDS: Pantoprazole IV* 40 MG IV SCH (09:43)
[2018-11-26 10:12] LABS: TSH (Thyroid Stimulating Horm) 35.63 mcIU/mL (0.34-5.60)
[2018-11-26] MEDS: Colchicine* 0.6 MG TAB PO SCH ×3 (10:48→21:07)
[2018-11-26 11:47] LABS: Uric Acid < 1.5 mg/dL (2.3-6.6)
[2018-11-26] MEDS ORDERED: diPHENhydraMINE PO* 25 MG PO PRN (13:55)
[2018-11-26] MEDS ORDERED: diPHENhydraMINE PO* 25 MG ONE (14:00)
[2018-11-26] MEDS: Metoprolol Succinate XL TAB* 25 MG PO SCH (21:07)
[2018-11-27] MEDS: oxyCODONE TAB* 5 MG TAB PO PRN ×2 (01:58→11:06)
[2018-11-27] MEDS: oxyCODONE SR TAB(*) 10 MG TAB.SR PO SCH ×3 (05:24→16:36)
[2018-11-27] MEDS: Enoxaparin(*) 40 MG/0.4 ML SYR SUBCUT SCH (05:25)
[2018-11-27] MEDS ORDERED: Levothyroxine TAB* 112 MCG TAB PO SCH (06:00)
[2018-11-27 06:03] LABS: Hematocrit 39 % (35-47); Hemoglobin 12.8 g/dL (12.0-16.0); Mean Corpuscular HGB Conc 33 g/dL (31-36); Mean Corpuscular Hemoglobin 31 pg (27-31); Mean Corpuscular Volume 95 fL (80-97); Mean Platelet Volume 8.6 fL (7.4-10.4); Platelet Count 240 10^3/uL (150-450); Red Blood Count 4.11 10^6 /uL (3.70-4.87); Red Cell Distribution Width 15 % (10-15); White Blood Count 11.3 10^3/uL (3.5-10.8)
[2018-11-27 06:21] LABS: BUN/Creatinine Ratio 14.9 (8-20); Calcium 7.8 mg/dL (8.6-10.3); EGFR African American 155.5 (>60); EGFR Non-African American 128.5 (>60); Potassium 4.7 mmol/L (3.5-5.0)
[2018-11-27 06:33] LABS: ABS Basophils 0.1 10^3/ul (0-0.2); ABS Eosinophils 0.2 10^3/ul (0-0.6); ABS Lymphocytes 0.9 10^3/ul (1.0-4.8); ABS Monocytes 0.8 10^3/ul (0-0.8); ABS Neutrophils 9.4 10^3/ul (1.5-7.7); Eosinophil % 1.5 %; Lymphocyte % 7.6 %; Nucleated Red Blood Cells % 0.1
[2018-11-27] MEDS: Colchicine* 0.6 MG TAB PO SCH ×2 (09:52→21:05)
[2018-11-27] MEDS: Pantoprazole IV* 40 MG IV SCH (09:55)
[2018-11-27] MEDS ORDERED: Polyethylene Glycol 3350* 17 GM PACKET PO PRN (14:27)
--- NOTE | 2018-11-27 15:37 | PN ---
Progress Note - Progress Note Date of Service: 11/27/18 Note: Surgery Progress: (late entry; patient seen ~ 1000.) S: POD #7. Feels somewhat better, though verbally expresses significant ongoing mid-abd pain. Passing some flatus. No BM for > 24 hr. Usually takes Senna at home. Vijay diet, though "I'm making myself eat". Right foot pain is improved vs since colchicine started. Ambulating some. Per Dr. Guerra, will likely require SNF for short term rehab. O: Vital Signs - 8 hr 11/27/18 11/27/18 11/27/18 08:06 08:58 09:54 Temperature 100.7 F Pulse Rate 72 Respiratory 16 16 20 Rate Blood Pressure 137/77 (mmHg) O2 Sat by Pulse 93 Oximetry 11/27/18 11/27/18 11/27/18 11:06 11:29 12:21 Temperature 99.0 F Pulse Rate 78 Respiratory 18 16 18 Rate Blood Pressure 104/68 (mmHg) O2 Sat by Pulse 96 Oximetry Intake and Output Last 24 Hours 11/25/18 11/26/18 11/27/18 11/28/18 06:59 06:59 06:59 06:59 Intake Total 1770 2040 2280 240 Output Total 960 1450 1600 900 Balance 810 590 680 -660 Intake: IV Fluids 694 NS (0.9%) 694 IVPB 586 magnesium 50 potassium phosphate 536 Oral 490 2040 2280 240 Output: Urine 110 1450 1600 900 Antunez 850 Other: Estimated Void Medium Small Date of Last Bowel 11/25/18 11/25/18 Movement # Bowel Movements 3 1 Estimated Stool Amount Small Small # Voids 3 1 Gen: sitting up in chair; appears comfortable Heart: reg w/ occ dropped beat Lungs: upper lopez clear; few bibasilar crackles Abd: less distended/tympanitic; +BS; soft; no apparent tenderness to palp when patient is distracted. Midline laurent intact. So sign of wound infection. Extr: Right foot erythema and tenderness less intense vs 11/26. A: s/p laparotomy for SBO w/ partial SB rsxn, improving gout vs pseudogout, improving P: will resume senna and add miralax prn Poss be ready for d/c to SNF in 2 d?
[2018-11-27] MEDS ORDERED: Senna TAB 8.6 mg* TAB PO SCH (18:00)
[2018-11-27] MEDS: Metoprolol Succinate XL TAB* 25 MG PO SCH (21:04)
[2018-11-28] MEDS: oxyCODONE SR TAB(*) 10 MG TAB.SR PO SCH ×2 (05:48→08:23)
[2018-11-28] MEDS: Enoxaparin(*) 40 MG/0.4 ML SYR SUBCUT SCH (05:48)
[2018-11-28] MEDS ORDERED: Levothyroxine TAB* 112 MCG TAB PO SCH (06:00)
[2018-11-28 07:49] VITALS: BP 113/64
[2018-11-28] MEDS: Colchicine* 0.6 MG TAB PO SCH (08:22)
--- NOTE | 2018-11-28 08:34 | PN ---
Progress Note - Progress Note Date of Service: 11/28/18 SOAP: Subjective: Reports feeling better today. Abdomen still sore. She had one episode of emesis yesterday after breakfast. She has been passing flatus and had BM yesterday. Pain adequately controlled. Scheduled to go to PM today. Objective: Vital Signs Temp 97.6 F 11/28/18 07:48 Pulse 66 11/28/18 07:48 Resp 16 11/28/18 08:24 BP 113/64 11/28/18 07:48 Pulse Ox 95 11/28/18 07:48 Gen: NAD Abd: incision c/d/i; no erythema; softly distended; mild diffuse tenderness. Intake & Output 11/27/18 11/28/18 11/28/18 18:59 06:59 18:59 Intake Total 240 1210 Output Total 900 500 Balance -660 710 Intake: Oral 240 1210 Output: Urine 900 500 Other: Estimated Void Large # Voids 1 Assessment: POD#8 s/p exlap/partial SBRsxn. Stable to transfer to [facility]. Plan: Cont diet. PO pain meds prn. Bowel regimen. D/c laurent on POD#10.
--- NOTE | 2018-12-03 04:04 | DS ---
CC: Dr. Ko; Dr. Wong * DISCHARGE SUMMARY: DATE OF ADMISSION: 11/17/18 DATE OF DISCHARGE: 11/28/18 DISCHARGE DIAGNOSES: 1. Small bowel obstruction with ischemic bowel. 2. Acute kidney injury. 3. Hypovolemic shock with hypotension. 4. Hyponatremia. 5. Hypokalemia. 6. Hypomagnesemia. 7. Hypophosphatemia. 8. Hypocalcemia. 9. Agitated delirium. 10. Left upper extremity deep vein thrombosis due to PICC line. 11. History of rheumatoid arthritis. 12. History of Takotsubo's cardiomyopathy with coronary artery spasm. 13. History of hypertension. 14. History of asthma. 15. History of hypothyroidism with elevated TSH noted during admission due to absence of levothyroxine. 16. Chronic neck and back pain. 17. Pseudogout right foot. 18. Diverticulosis. 19. Osteoporosis. 20. History of bilateral total hip replacements. 21. Treatment for hyperlipidemia. 22. History of laparotomy for endometriosis in remote past. 23. Possible pneumonia. 24. Mild aortic stenosis. PROCEDURES: On 11/20/18, exploratory laparotomy with wedge resection of small bowel with findings of multiple areas of patchy ischemia with point of obstruction distal small bowel with full-thickness ischemia, resected. HISTORY: Kim Bose is a 78-year-old woman admitted with acute abdominal pain. Please see the dictated admission note for details of the present illness , past medical history, family history, social and personal history, review of systems, and physical examination. LABORATORY DATA: CBC on admission WBC 5.9, H and H 14.1/42, MCV 94, PLT 249K. Sodium 137, potassium 3.5, chloride 103, CO2 24, BUN/creatinine 13/0.51, lactic acid 1. Rest of the comprehensive metabolic panel was within normal limits with CRP less than 1, lipase less than 10, TSH normal at 4.84. Calcium normal at 10.2. Urinalysis, straw clear, specific gravity 1.015, pH 7, trace ketones, otherwise normal urinalysis. Please see labs during the hospitalization. CBC remained relatively stable H and H, white count went down to 2.9 on 11/20/18, was up to 15.6 on 11/22/18, and was 11.3 on 11/27/18 prior to discharge. She had multiple chemistries during hospitalization. Sodium went down as low as 132 on 11/21/18, was 137 prior to discharge. Potassium went as low as 2.7 on , was 4.7 on 11/27/18. BUN/creatinine went up to 49/1.68 on 11/20/18, on 11/27/18 were 7/0.47. Lactic acid was always normal. Calcium was as low as 6.5 on 11/21/18, was 7.8 on 11/27/18. C-reactive protein went up to a high of 245.24 on 11/20/18, was 34.74 on 11/26/18. TSH went up to 35.63 on 11/26/18 due to now getting levothyroxine. At this point, it was started. Magnesium went down to a low of 1.6 on 11/23/18 and 11/24/18, was 2 on 11/27/18. Phosphorus went as low as 1.3 on 11/24/18, was 3.3 on 11/27/18. Ionized calcium was as low as 0.97, was 1.05 on 11/25/18. Urinalysis on 11/20/18, caleb cloudy, specific gravity 1.023, pH 5, dipsticks positive for 1+ protein, 2 + blood, 1+ rbc's. Blood cultures were no growth on 11/20/18 and 11/21/18. IMAGING: Abdominal and pelvis CT on 11/17/18, showed stable colonic diverticulosis, no signs of bowel obstruction. Hip and pelvis x-ray on 11/17/18 , showed bilateral total hip replacements, no fracture. Chest, abdomen, and pelvis CT on 11/19/18, showed moderately dilated loops of small bowel, nonspecific; small amount of ascites; possible infiltrate at the right lung base. Abdomen and pelvis CT 12 hours later on 11/19/18 showed small bowel obstruction with transition lightly in the right lower quadrant, right lower lobe atelectasis versus pneumonia. Chest x-ray 11/20/18 showed cardiomegaly, right basilar atelectasis, no pneumonia. Chest x-ray later on 11/20/18 showed endotracheal tube, left-sided PICC line. Chest x-ray 11/21/18 showed right basilar atelectasis, ET tube in appropriate position. Venous Doppler study 08/05, upper extremity vein on the left showed occlusive thrombus, left basilic vein in the area of the PICC line extending into the forearm. Venous study 09/05 right arm showed no upper extremity deep vein thrombosis. Pathology 11/20 showed transmural necrosis of the small bowel, no evidence of neoplasia. EKG 11/20/18 showed sinus rhythm, borderline LAD, low voltages which have decreased with anterior changes due to altered lead placement perhaps, possible anteroseptal infarct, new since 11/09/17 EKG. EKG 11/23/18, showed no significant change. Echocardiogram 11/20/18 showed LV systolic functions at the lower limits of normal with EF 50% to 55%, grade 1 diastolic dysfunction, trace mitral regurgitation, mild aortic stenosis, [id number] tricuspid regurgitation. HOSPITAL COURSE: The patient was initially admitted to the medical floor. Etiology of her abdominal pain was uncertain. She was treated symptomatically with IV morphine, baseline oxycodone, continued on her usual medications. DVT prophylaxis was with Lovenox subcutaneous, code status was full. She was initially thought to have constipation, enema was ordered on 11/18/18. Enema did not yield much stool. Her pain medication was adjusted as it was not ordered as she had been taking it at home. Her pain seemed to improve on , although not a lot of stool had come out. There was a concern for appendicitis, so CT was repeated as noted above. This again did not yield the cause of her pain. Later on 11/19/18, the CT was again repeated after pain worsened and did show a small bowel resection. An NG tube was placed. There had been a suggestion of pneumonia on the first CT on 11/19/18 and so she had been started on cefepime for a possible pneumonia. On 11/20/18, surgical consultation was obtained and the surgeons felt that she should go to the operating room. At this point, she had become hypotensive and lab showed acute kidney injury. She was moved to the ICU for medical stabilization. Echocardiogram was ordered. She was given IV fluids. She remained in the ICU until 11/23/18. Postoperatively, she was initially on ventilator. She was given fluids. She got a PICC line. This did cause a DVT in her left upper extremity so it was removed. She was treated with fluids and pressors for septic shock. Antibiotics were continued through during her ICU stay. She did develop edema, which was treated with Lasix. She came off the ventilator and subsequently was on CPAP. After she moved back to the floor, she was quite weak. She had low potassium, magnesium, calcium, and phosphorus, which were repleted. It was discovered that she had not been getting her levothyroxine and this was restarted. After her volume overload was corrected, her furosemide was discontinued. Her diet was gradually advanced. Her Antunez catheter was discontinued. She developed pseudogout in the right foot, treated with colchicine. Pain control was initially with morphine, subsequently switched to oxycodone p.o. in addition to her OxyContin. Her leflunomide for rheumatoid arthritis is being held. This should be restarted about 10 days to 2 weeks post surgery. By 11/28/18, it was felt that her condition was weak, medically stable, able to go to acute rehab on the [facility]. MEDICATIONS AT THE TIME OF DISCHARGE: 1. Lisinopril 2.5 mg daily. 2. Atorvastatin 80 mg daily. 3. Metaxalone 800 mg at bedtime. 4. Leflunomide is being held at this time, should be restarted as noted above. 5. Albuterol 2.5 mg in 3 mL q.4 h p.r.n. wheezing or shortness of breath. 6. Metoprolol 25 mg at h.s. 7. Ketoconazole cream twice weekly as needed. 8. Levothyroxine 112 mcg daily. She has previously taken it 6 days a week. At this point, she should take it daily until her TSH comes down. 9. Oxycodone 5 mg q.4 h p.r.n. pain. 10. Mometasone 1 puff twice a day. 11. Folic acid 1 mg daily. 12. Epinastine 1 drop both eyes twice a day. 13. Oxycodone 10 mg 3 times a day, which she takes at specific times of 6 a.m. , 9 a.m., and 3:30 p.m. 14. Nifedipine extended-release 30 mg daily. 15. Lidoderm patches as needed. 16. Diclofenac patches as needed. 17. B12 1000 mcg daily. 18. Oxybutynin was stopped. 19. MultiVites 1 daily. 20. Aspirin 81 mg daily. 21. Saline nose spray as needed. 22. Senna 8.6 mg as needed. 23. Alendronate 70 mg weekly. 24. Colchicine 0.6 mg twice a day. This is for the pseudogout. This can be stopped when her pain in her foot and swelling resolved. DIET: Regular. ACTIVITIES: As tolerated. [id number]/[facility] #: [id number] [facility]
== END 2018-11-28 08:40 | DRG 329 ==
LOC: ED 23:28 → MED 11-18 03:53 → OBSVTOIN 11-19 10:46 → ICU 11-20 08:28 → SSU 11-23 10:36
PROVIDERS: ADMIT Internal Medicine; ATTEND Internal Medicine Geriatric Medicine
PROC: 0D9670Z Drainage of Stomach with Drainage Device, Via Natural or Artificial Opening (ICD-10-PCS; 2018-11-20)
PROC: 02HV33Z Insertion of Infusion Device into Superior Vena Cava, Percutaneous Approach (ICD-10-PCS; 2018-11-20)
PROC: 5A1935Z Respiratory Ventilation, Less than 24 Consecutive Hours (ICD-10-PCS; 2018-11-20)
PROC: 3E043XZ Introduction of Vasopressor into Central Vein, Percutaneous Approach (ICD-10-PCS; 2018-11-20)
PROC: 0DBB0ZZ Excision of Ileum, Open Approach (ICD-10-PCS; principal; 2018-11-20 12:30)
DX: K55.029 Acute infarction of small intestine, extent unspecified (principal); R57.1 Hypovolemic shock; A41.9 Sepsis, unspecified organism; R65.21 Severe sepsis with septic shock; I50.32 Chronic diastolic (congestive) heart failure; R18.8 Other ascites; E87.1 Hypo-osmolality and hyponatremia; N17.9 Acute kidney failure, unspecified; I82.622 Acute embolism and thrombosis of deep veins of left upper extremity; K56.7 Ileus, unspecified; K55.9 Vascular disorder of intestine, unspecified; I25.10 Atherosclerotic heart disease of native coronary artery without angina pectoris; I11.0 Hypertensive heart disease with heart failure; J45.909 Unspecified asthma, uncomplicated; M06.9 Rheumatoid arthritis, unspecified; G89.29 Other chronic pain; M54.2 Cervicalgia; M54.9 Dorsalgia, unspecified; E03.9 Hypothyroidism, unspecified; M81.0 Age-related osteoporosis without current pathological fracture; Z96.643 Presence of artificial hip joint, bilateral; Z82.49 Family history of ischemic heart disease and other diseases of the circulatory system; E87.70 Fluid overload, unspecified; E83.39 Other disorders of phosphorus metabolism; E87.6 Hypokalemia; E83.42 Hypomagnesemia; E83.51 Hypocalcemia; R41.0 Disorientation, unspecified; M19.90 Unspecified osteoarthritis, unspecified site; E78.00 Pure hypercholesterolemia, unspecified; G47.30 Sleep apnea, unspecified; K58.9 Irritable bowel syndrome, unspecified; M41.9 Scoliosis, unspecified; H40.9 Unspecified glaucoma; K57.90 Diverticulosis of intestine, part unspecified, without perforation or abscess without bleeding; K59.00 Constipation, unspecified; Z88.6 Allergy status to analgesic agent; Z82.5 Family history of asthma and other chronic lower respiratory diseases; I25.2 Old myocardial infarction; Z88.0 Allergy status to penicillin; Z91.040 Latex allergy status; Z88.5 Allergy status to narcotic agent; Z88.2 Allergy status to sulfonamides; Z88.8 Allergy status to other drugs, medicaments and biological substances; Z91.018 Allergy to other foods; Z87.01 Personal history of pneumonia (recurrent); Z98.41 Cataract extraction status, right eye; Z98.42 Cataract extraction status, left eye; Z83.3 Family history of diabetes mellitus
CPT/HCPCS: 36415; 71045; 71250; 74176; 74177; 80048; 80053; 81003; 81015; 82040; 82330; 83605; 83690; 83735; 84100; 84443; 84550; 85025; 85027; 86140; 87040; 88307; 93005; 93306; 94002; 94640; 99283; A9270-GY; C1751; G0378; G8978-GP-CM; G8979-GP-CI; G8987-GO-CK; G8988-GO-CH; J0610; J0690; J0692; J1650; J1940; J2060; J2270; J2405; J2704; J3010; J3475; J3480; Q9967

== ENCOUNTER 2018-11-28 06:50 | Inpatient (IN) | payer MEDICARE, OTHER ==
[2018-11-28] MEDS ORDERED: Ondansetron ODT TAB* 4 MG PO PRN (10:43)
[2018-11-28] MEDS: oxyCODONE TAB* 5 MG TAB PO PRN ×3 (12:26→21:36)
[2018-11-28] MEDS ORDERED: oxyCODONE SR TAB(*) 10 MG TAB.SR PO SCH (15:30)
[2018-11-28] MEDS: Docusate CAP* 100 MG PO SCH (20:01)
[2018-11-28] MEDS: Senna TAB 8.6 mg* TAB PO SCH (20:02)
[2018-11-28] MEDS: Colchicine* 0.6 MG TAB PO SCH (20:08)
[2018-11-28] MEDS: Acetaminophen TAB* 325 MG PO PRN (20:08)
[2018-11-28] MEDS: Metoprolol Succinate XL TAB* 25 MG PO SCH (20:08)
[2018-11-28] MEDS: Hydrocortisone 1% CREAM* 30 GM TUBE TOPICAL PRN (21:36)
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
[2018-11-29] MEDS: Hydrocortisone 1% CREAM* 30 GM TUBE TOPICAL PRN ×3 (02:36→23:52)
[2018-11-29] MEDS: Levothyroxine TAB* 112 MCG TAB PO SCH (05:56)
[2018-11-29] MEDS: oxyCODONE SR TAB(*) 10 MG TAB.SR PO SCH ×3 (05:56→17:42)
[2018-11-29] MEDS: Mometasone 220 MCG MDI INH SCH (07:42)
[2018-11-29] MEDS: Enoxaparin(*) 40 MG/0.4 ML SYR SUBCUT SCH (09:53)
[2018-11-29] MEDS: Pantoprazole TAB * 40 MG TAB PO SCH (09:54)
[2018-11-29] MEDS: Docusate CAP* 100 MG PO SCH ×2 (09:54→20:20)
[2018-11-29] MEDS: Colchicine* 0.6 MG TAB PO SCH ×2 (09:54→20:20)
--- NOTE | 2018-11-29 17:00 | PN ---
Progress Note Date of Service: 11/29/18 Note: SMITH ORTEGA was visited. Therapy notes read and reviewed. She thinks she did not do as well as she had hoped in therapy and feels washed out. Has little appetite. Current Medications: Active Medications Generic Name Dose Route Start Last Admin Trade Name Freq PRN Reason Stop Dose Admin Acetaminophen 650 mg 11/28/18 09:49 11/28/18 20:08 Tylenol Tab* PO 650 mg Q6H PRN Administration MILD PAIN or TEMP > 100.4 Colchicine 0.6 mg 11/28/18 21:00 11/29/18 09:54 Colcrys* PO 0.6 mg BID BRETT Administration Docusate Sodium 100 mg 11/28/18 21:00 11/29/18 09:54 Colace Cap* PO 100 mg BID BRETT Administration Enoxaparin Sodium 40 mg 11/29/18 08:00 11/29/18 09:53 Lovenox(*) SUBCUT 40 mg Q24H BRETT Administration Hydrocortisone 1 applic 11/28/18 10:41 11/29/18 09:28 Hytone Cream 1%* TOPICAL 12/05/18 10:40 1 applic Q6H PRN Administration ITCHING Levothyroxine Sodium 112 mcg 11/29/18 06:00 11/29/18 05:56 Synthroid Tab* PO 112 mcg DAILY@0600 BRETT Administration Metoprolol Succinate 25 mg 11/28/18 21:00 11/28/18 20:08 Toprol Xl Tab* PO 25 mg 2100 BRETT Administration Mometasone Furoate 2 puff 11/29/18 09:00 11/29/18 07:42 Asmanex 220 Mcg Mdi * INH Not Given DAILY [facility] Protocol Ondansetron HCl 4 mg 11/28/18 10:43 Zofran Odt Tab* PO Q6H PRN NAUSEA Oxycodone HCl 5 mg 11/28/18 10:40 11/28/18 21:36 Roxycodone Tab* PO 5 mg Q4H PRN Administration PAIN - SEVERE Oxycodone HCl 10 mg 11/29/18 07:00 11/29/18 12:08 Oxycontin(*) PO 10 mg 0700,1100,1700 BRETT Administration Pantoprazole Sodium 40 mg 11/29/18 09:00 11/29/18 09:54 Protonix Tab* PO 40 mg DAILY BRETT Administration Senna 1 tab 11/28/18 21:00 11/28/18 20:02 Senokot 8.6 Mg Tab* PO Not Given BEDTIME BRETT Vital Signs: Vital Signs Temp Pulse Resp BP Pulse Ox 98.2 F 78 16 126/67 95 11/29/18 15:59 11/29/18 15:59 11/29/18 15:59 11/29/18 15:59 11/29/18 16:40 Exam: GENERAL: No distress LUNGS: Clear HEART: reg rhythm ABDOMEN: Soft. +BS EXTREMITIES: Normal tone NEUROLOGIC: A&O. Muscle strength 4+/5 Assessment/Plan: 1. Small Bowel Obstruction; exp lap and partial resection: Reg diet. PT/OT. Surgery follow up. Ensure 2. Septic shock: Finished with antibiotics. PT/OT 3. Rheumatoid Arthritis: Will check with Dr. Romo about when to restart Arava. PT/OT. 4. Gout: Colchicine for now 5. DVT Prophylaxis: Lovenox 6. Advance Directives: Full COde 7. Hypothyroidism: Synthroid 11/29/18 16:56 11/29/18 16:58
[2018-11-29] MEDS: Senna TAB 8.6 mg* TAB PO SCH (19:50)
[2018-11-29] MEDS: Metoprolol Succinate XL TAB* 25 MG PO SCH (20:20)
[2018-11-30] MEDS: oxyCODONE TAB* 5 MG TAB PO PRN ×2 (04:20→21:17)
[2018-11-30] MEDS: Senna TAB 8.6 mg* TAB PO SCH ×2 (04:23→21:17)
[2018-11-30] MEDS: Levothyroxine TAB* 112 MCG TAB PO SCH (05:31)
[2018-11-30 06:09] LABS: ABS Basophils 0.1 10^3/ul (0-0.2); ABS Eosinophils 0.1 10^3/ul (0-0.6); ABS Lymphocytes 0.7 10^3/ul (1.0-4.8); ABS Monocytes 1.3 10^3/ul (0-0.8); ABS Neutrophils 12.7 10^3/ul (1.5-7.7); Eosinophil % 0.7 %; Hematocrit 38 % (35-47); Hemoglobin 12.5 g/dL (12.0-16.0); Lymphocyte % 4.7 %; Mean Corpuscular HGB Conc 33 g/dL (31-36); Mean Corpuscular Hemoglobin 31 pg (27-31); Mean Corpuscular Volume 94 fL (80-97); Mean Platelet Volume 8.9 fL (7.4-10.4); Platelet Count 337 10^3/uL (150-450); Red Cell Distribution Width 16 % (10-15); White Blood Count 14.9 10^3/uL (3.5-10.8)
[2018-11-30 06:33] LABS: Albumin 3.1 g/dL (3.2-5.2); Albumin/Globulin Ratio 1.3 (1-3); BUN/Creatinine Ratio 20.5 (8-20); Calcium 8.3 mg/dL (8.6-10.3); EGFR African American 167.8 (>60); EGFR Non-African American 138.7 (>60); Globulin 2.4 g/dL (2-4); Potassium 4.1 mmol/L (3.5-5.0); Total Bilirubin 0.5 mg/dL (0.2-1.0); Total Protein 5.5 g/dL (6.4-8.9)
[2018-11-30] MEDS: Mometasone 220 MCG MDI INH SCH (07:23)
[2018-11-30] MEDS: Colchicine* 0.6 MG TAB PO SCH ×2 (09:03→21:17)
[2018-11-30] MEDS: Docusate CAP* 100 MG PO SCH ×2 (09:03→21:17)
[2018-11-30] MEDS: Enoxaparin(*) 40 MG/0.4 ML SYR SUBCUT SCH (09:04)
[2018-11-30] MEDS: Pantoprazole TAB * 40 MG TAB PO SCH (09:04)
[2018-11-30] MEDS: oxyCODONE SR TAB(*) 10 MG TAB.SR PO SCH ×3 (09:04→17:34)
--- NOTE | 2018-11-30 10:57 | PN ---
Progress Note Date of Service: 11/30/18 Note: SMITH ORTEGA was visited. Nursing and therapy notes read and reviewed. She has poor endurance and gets fatigued with therapy. No chest pain or shortness of breath. Her abdominal pain is not too bad compared to when she was admitted. Current Medications: Active Medications Generic Name Dose Route Start Last Admin Trade Name Freq PRN Reason Stop Dose Admin Acetaminophen 650 mg 11/28/18 09:49 11/28/18 20:08 Tylenol Tab* PO 650 mg Q6H PRN Administration MILD PAIN or TEMP > 100.4 Colchicine 0.6 mg 11/28/18 21:00 11/30/18 09:03 Colcrys* PO 0.6 mg BID BRETT Administration Docusate Sodium 100 mg 11/28/18 21:00 11/30/18 09:03 Colace Cap* PO 100 mg BID BRETT Administration Enoxaparin Sodium 40 mg 11/29/18 08:00 11/30/18 09:04 Lovenox(*) SUBCUT 40 mg Q24H BRETT Administration Hydrocortisone 1 applic 11/28/18 10:41 11/29/18 23:52 Hytone Cream 1%* TOPICAL 12/05/18 10:40 1 applic Q6H PRN Administration ITCHING Levothyroxine Sodium 112 mcg 11/29/18 06:00 11/30/18 05:31 Synthroid Tab* PO 112 mcg DAILY@0600 BRETT Administration Metoprolol Succinate 25 mg 11/28/18 21:00 11/29/18 20:20 Toprol Xl Tab* PO 25 mg 2100 BRETT Administration Mometasone Furoate 2 puff 11/29/18 09:00 11/30/18 07:23 Asmanex 220 Mcg Mdi * INH 2 puff DAILY BRETT Administration Protocol Ondansetron HCl 4 mg 11/28/18 10:43 Zofran Odt Tab* PO Q6H PRN NAUSEA Oxycodone HCl 5 mg 11/28/18 10:40 11/30/18 04:20 Roxycodone Tab* PO 5 mg Q4H PRN Administration PAIN - SEVERE Oxycodone HCl 10 mg 11/29/18 07:00 11/30/18 09:04 Oxycontin(*) PO 10 mg 0700,1100,1700 BRETT Administration Pantoprazole Sodium 40 mg 11/29/18 09:00 11/30/18 09:04 Protonix Tab* PO 40 mg DAILY BRETT Administration Senna 1 tab 11/28/18 21:00 11/30/18 04:23 Senokot 8.6 Mg Tab* PO 1 tab BEDTIME BRETT Administration Vital Signs: Vital Signs Temp Pulse Resp BP Pulse Ox 98.3 F 74 18 140/76 93 11/30/18 04:08 11/30/18 07:24 11/30/18 09:04 11/30/18 04:08 11/30/18 07:18 Lab Results: Laboratory Results - last 24 hr 11/30/18 11/30/18 05:24 05:24 WBC 14.9 H RBC 4.00 Hgb 12.5 Hct 38 MCV 94 MCH 31 MCHC 33 RDW 16 H Plt Count 337 MPV 8.9 Neut % (Auto) 85.4 Lymph % (Auto) 4.7 [place] % (Auto) 8.8 Eos % (Auto) 0.7 Baso % (Auto) 0.4 Absolute Neuts (auto) 12.7 H Absolute Lymphs (auto) 0.7 L Absolute Monos (auto) 1.3 H Absolute Eos (auto) 0.1 Absolute Basos (auto) 0.1 Absolute Nucleated RBC 0.0 Nucleated RBC % 0.0 Sodium 138 Potassium 4.1 Chloride 103 Carbon Dioxide 30 Anion Gap 5 BUN 9 Creatinine 0.44 L Est GFR ( Amer) 167.8 Est GFR (Non-Af Amer) 138.7 BUN/Creatinine Ratio 20.5 H Glucose 81 Calcium 8.3 L Total Bilirubin 0.50 AST 42 H ALT 20 Alkaline Phosphatase 93 Total Protein 5.5 L Albumin 3.1 L Globulin 2.4 Albumin/Globulin Ratio 1.3 Exam: GENERAL: No acute distress. Alert and appropriate. LUNGS: Clear to auscultation bilaterally. HEART: regular rate and rhythm ABDOMEN: Soft. + bowel sounds, non-tender, non-distended. No peritoneal signs. Eladia intact with minimal redness. EXTREMITIES: No edema. Tender on dorsum of right foot where she identifies active gout. NEUROLOGIC: Sensation intact x4. Motor 4+/5 in BUE and BLE. Assessment/Plan: 1. Small Bowel Obstruction s/p exp lap and partial resection: Regular diet. PT/ OT. I asked surgery to f/u regarding staple removal and elevated WBCs. 2. Septic shock: Finished with antibiotics. I d/w Dr. Guerra elevated WBCs. Will check UA and CXR. She will f/u tomorrow. PT/OT 3. Rheumatoid Arthritis: Check with Dr. Guerra about when to restart Arava. PT /OT. 4. Gout: Colchicine for now 5. DVT Prophylaxis: Lovenox 6. Advance Directives: Full COde 7. Hypothyroidism: Synthroid 8. Estimated LOS: [facility] today. 11/30/18 10:47
[2018-11-30 12:51] LABS: Urine Appearance Clear; Urine Bilirubin Negative (Negative); Urine Blood Negative (Negative); Urine Color Yellow; Urine Glucose Negative (Negative); Urine Ketones Negative (Negative); Urine Nitrite Negative (Negative); Urine Protein Negative (Negative); Urine Specific Gravity 1.006 (1.010-1.030); Urine Urobilinogen Negative (Negative)
--- NOTE | 2018-11-30 12:51 | PMRUTEAM ---
PMRU: Team Meeting Current Status: Nursing: Current Status Skin Deviations [Bilateral Other Buttocks] Skin Deviations [Midline Incision Abdomen] Skin Deviation Description [ redness Bilateral Buttocks] Skin Deviation Description [ laurent, slight redness around the edges of the Midline Abdomen] laurent Physical Therapy: Current Status Bed Mobility Assistance mod assist Transfer Mobility Assistance Supervision Transfer/Bed Mobility Rolling Walker Recommended Devices Ambulation Assistance contact guard Ambulation Assistive Devices Rolling Walker Number of Feet Patient 40' and 45' Ambulated Stairs Assistance not tested Stairs Recommended Devices Two Rails Number of Stairs 2 x 3 Curb Not Tested Objective Comments Occupational Therapy: Current Status Upper Body Dressing Min Assist Lower Body Dressing Min Assist Bathing Contact Guard Assist Toileting Contact Guard Assist Toilet Transfer Supervision Shower Transfer Progress TBA Eating Independent Rec Therapy: Current Status Summary of Assessment and Pt. was open to conversation and engaged Clinical Impression throughout. Pt. identified with interests and was mostly active in them prior to admission. Pt. states her physical interests have been difficult to engage in d/t her declining health. Although pt. states she loves animals, she states pet therapy on the unit might be upsetting to her as she misses her pets. Treatment Goals Pt. will engage in leisure activities while on the unit. Treatment Plan Provide recreation therapy and encourage involvement. Goals: Physical Therapy: Initial Goals Bed Mobility Assistance Independent Transfer Mobility Assistance Independent Transfer/Bed Mobility Rolling Walker Recommended Devices Ambulation Independent Ambulation Recommended Devices Rolling Walker Ambulation Distance 150 Stairs Assistance Independent Stair Recommended Devices Two Rails Number of Stairs 5 Occupational Therapy: Initial Goals Goals to be Completed in (Days 7 ) Upper Body Bathing Routine Independent Lower Body Bathing Routine Modified Independent with Upper Body Dressing Routine Independent Lower Body Dressing Routine Modified Independent with Toilet Hygeine and Clothing Modified Independent with Management Routine Toilet Transfer Routine Modified Independent with Step-In Shower Transfer Modified Independent with Routine Functional Transfers for ADL Modified Independent with Grooming Routine Modified Independent with Feeding Routine Independent Care Plan: Care Plan ADL's - Improve/Maintain Start: 11/28/18 15:56 Freq: DAILY@0700,1900 Status: Active Target: 12/07/18 Protocol: Activity Type Activity Date Activity User E-Sign Co-Sign Detail Recorded Client Recorded Date Recorded By Document 11/29/18 12:50 [id number] 11/29/18 12:50 [id number] 11/29/18 12:50 PMRU Outcome: ADL's/ADL Transfers Orders/Interventions Occupational Therapy Evaluation & Treatment Communication Tool in Patient Room Device Yes Address Deficits Secondary To: s/p lap for small bowel resection Patient to receive OT 5x/wk for 60-120 Therex min/day Self Care Management Group Therapy UE/LE ADL's with Assist Yes: Doris ADL Transfers with Assist Yes: Doris Toileting: Transfers,Clothing Management Yes: Doris ,Hygeine w/Assist Light Kitchen/Laundry w/Assist Yes: Doris Other Outcome/Goals Pt making gains with standing enduranc, standing balance and LB ADLs. Pt will benefit from AE training for LLE and for socks. Pt has her therapy spaced out so that she has time to rest between sessions. Progression Toward Outcome/Goals Progressing Communication-Improve/Maintain Start: 11/28/18 21:16 Freq: DAILY@0700,1900 Status: Active Target: 12/07/18 Protocol: Activity Type Activity Date Activity User E-Sign Co-Sign Detail Recorded Client Recorded Date Recorded By Document 11/30/18 07:00 [id number] 11/30/18 07:14 [id number] 11/30/18 07:00 PMRU Outcome: Communication/Cognitive Status Current Communication Outcome/Goals Use Comm Tools/ Devices Makes Needs Known Effectively Progression Toward Outcomes/Goals Progressing Outcome/Goals Met Use Comm Tools/ Devices Makes Needs Known Effectively Outcome/Goals Met Comment pt ringing appropriately Discharge Planning - Improve/Maintain Start: 11/28/18 21:16 Freq: DAILY@0700,1900 Status: Active Target: 12/07/18 Protocol: Activity Type Activity Date Activity User E-Sign Co-Sign Detail Recorded Client Recorded Date Recorded By Document 11/30/18 07:00 [id number] 11/30/18 07:14 [id number] 11/30/18 07:00 PMRU Outcome: Discharge Planning Update Patient Family No Current Discharge Planning Outcome/Goals Demonstrates Understanding of Discharge Plan Progression Toward Outcome/Goals Progressing Education-Improve/Maintain Start: 11/28/18 21:16 Freq: DAILY@0700,1900 Status: Active Target: 12/07/18 Protocol: Activity Type Activity Date Activity User E-Sign Co-Sign Detail Recorded Client Recorded Date Recorded By Document 11/30/18 07:00 [id number] 11/30/18 07:14 [id number] 11/30/18 07:00 PMRU Outcome: Education Current Education Outcome/Goals Demonstrate/ Verbalize Understanding of Written Discharge Instructions Demonstrates Skills Encourage Questions Progression Toward Outcome/Goals Progressing /GI-Improve/Maintain Start: 11/28/18 21:16 Freq: DAILY@0700,1900 Status: Active Target: 12/07/18 Protocol: Activity Type Activity Date Activity User E-Sign Co-Sign Detail Recorded Client Recorded Date Recorded By Document 11/30/18 07:00 [id number] 11/30/18 07:14 [id number] 11/30/18 07:00 PMRU Outcome: Genitourinary/ Gastrointestinal Current Gastrointestinal Outcome/Goals Maintain/ Achieve Bowel Regularity in Accordance with Pt's Baseline Remain Free of Emesis Prevent Constipation Laxatives as Ordered Progression Toward Outcome/Goals Progressing Current Genitourinary Outcome/Goals Maintain/ Achieve Urinary Continence Remain Free of Hospital- Acquired UTI Progression Toward Outcome/Goals Progressing Medication Administration Start: 11/28/18 21:16 Freq: DAILY@699,1899 Status: Active Target: 12/07/18 Protocol: Activity Type Activity Date Activity User E-Sign Co-Sign Detail Recorded Client Recorded Date Recorded By Document 11/30/18 07:00 [id number] 11/30/18 07:14 [id number] 11/30/18 07:00 PMRU Outcome: Medication Administration Assess Patient Knowledge/Teach Med Yes Education for all Meds Current Resident Services Coordinator Outcome/Goals Patient Independent with Medication Administration at Home Demonstrates Understanding Progression Towards Outcome/Goals Progressing Is Patient Going Home on Lovenox? No Mobility- Improve/Maintain Start: 11/28/18 16:37 Freq: DAILY@699,1900 Status: Active Target: 11/29/18 Protocol: Activity Type Activity Date Activity User E-Sign Co-Sign Detail Recorded Client Recorded Date Recorded By Document 11/29/18 16:42 [id number] 11/29/18 16:42 [id number] 11/29/18 16:42 PMRU Outcome: Mobility Physical Therapy Evaluation and Yes Treatment Activity OOB with Assistance Yes WBAT Yes Device Yes Assistance Yes Patient to be seen 5x/wk for 60-120 min/ Therex day for: Mobility Training Gait Training Balance Current Mobility Outcome/Goals Maintain/ Achieve Baseline Mobility Status Improve Mobility Status Demonstrates Proper Use of Assistive Devices Free from Complications of Immobility Progression Toward Outcome/Goals Progressing Bed Mobility Yes: independent Transfers Yes: independent with rolling walker. Gait x ft Yes: independent with rolling walker 150' Up/Down Stairs Yes: independent with 1 rail up down 5 stairs Nutrition/Swallowing- Improve/Maintain Start: 11/28/18 21:16 Freq: DAILY@ Status: Active Target: 12/07/18 Protocol: Activity Type Activity Date Activity User E-Sign Co-Sign Detail Recorded Client Recorded Date Recorded By Document 11/30/18 07:00 [id number] 11/30/18 07:14 [id number] 11/30/18 07:00 PMRU Outcome: Nutrition/Swallowing Current Nutrition/Swallowing Outcome/ Demonstrates Goals Adequate Hydration/ Prevents Dehydration Maintain/ Improve Nutritional Status Progression Toward Outcome/Goals Progressing Pain/Comfort- Improve/Maintain Start: 11/28/18 21:16 Freq: DAILY@ Status: Active Target: 12/07/18 Protocol: Activity Type Activity Date Activity User E-Sign Co-Sign Detail Recorded Client Recorded Date Recorded By Document 11/30/18 07:00 [id number] 11/30/18 07:14 [id number] 11/30/18 07:00 PMRU Outcome: Pain/Comfort Current Pain/Comfort Outcome/Goals Demonstrates Knowledge and Use of Available Comfort Measures Achieves Acceptable Comfort/Pain Level as Determined by Patient/Condit Maintain Comfort Level Allowing Patient to Fully Participate in Rehab Progression Toward Outcome/Goals Progressing Rec Therapy- Improve/Maintain Start: 11/28/18 16:27 Freq: DAILY@ Status: Active Target: 12/04/18 Protocol: Activity Type Activity Date Activity User E-Sign Co-Sign Detail Recorded Client Recorded Date Recorded By Document 11/28/18 16:27 [id number] [email or web address] 11/28/18 16:27 [id number] 11/28/18 16:27 PMRU Outcome: Recreation Therapy Current Rec Ther Outcome/Goals Complete Rec Therapy Assessment Meet with Patient Regularly for Support Encourage Leisure Involvement Progression Toward Outcome/Goals Goal Initiation Safety- Improve/Maintain Start: 11/28/18 09:06 Freq: DAILY@00,0 Status: Active Target: 12/07/18 Protocol: Activity Type Activity Date Activity User E-Sign Co-Sign Detail Recorded Client Recorded Date Recorded By Document 11/30/18 07:00 [id number] 11/30/18 07:14 [id number] 11/30/18 07:00 PMRU Outcome: Safety Current Safety Outcome/Goals Remain Free of Injury or Harm Cooperates with Safety Measures for Least Restrictive Environment Prevent Falls/ Injury Progression Toward Outcome/Goals Progressing Skin- Improve/Maintain Start: 11/28/18 21:21 Freq: DAILY@00,0 Status: Active Target: 12/07/18 Protocol: Activity Type Activity Date Activity User E-Sign Co-Sign Detail Recorded Client Recorded Date Recorded By Document 11/30/18 07:00 [id number] 11/30/18 07:14 [id number] 11/30/18 07:00 PMRU Outcome: Skin Skin Risk Level Mild Risk Skin Orders Spenco Boots Heels Off Bed Current Skin Outcome/Goals Maintain/ Improve Skin Integrity Free from Pressure Injury Surgical Incisions Healing Progression Toward Outcome/Goals Progressing Medicine Note: Length of Stay: [1 week] Anticipated Discharge Destination: home Tentative Discharge Date: [12/07/18] Discharged to: [home]
--- NOTE | 2018-11-30 17:10 | PN ---
Progress Note - Progress Note Date of Service: 11/30/18 Note: Surgery Progress: S: POD #10. States that she's being worked aggressively by PT/OT, but understands the benefit. Is not sure of d/c plan. Tolerating Ensure well, but not much appetite for reg food. Bowels working on current regimen of Senna. O: Vital Signs - 8 hr 11/30/18 11/30/18 11/30/18 11:12 11:14 13:33 Temperature Pulse Rate Respiratory 18 18 20 Rate Blood Pressure (mmHg) O2 Sat by Pulse Oximetry 11/30/18 14:53 Temperature 97.7 F Pulse Rate 80 Respiratory 20 Rate Blood Pressure 115/67 (mmHg) O2 Sat by Pulse 94 Oximetry Intake and Output Last 24 Hours 11/28/18 11/29/18 11/30/18 12/01/18 06:59 06:59 06:59 06:59 Intake Total 100 687 600 Balance 100 687 600 Weight 122 lb Intake: Oral 100 687 600 Other: Estimated Void Medium Medium Small # Bowel Movements 1 1 Estimated Stool Amount Small Medium Small # Voids 2 1 1 Abd: midline incision healing well; minimal staple erythema; no s/sx of infection A: s/p ex lap for SBO; wedge rsxn SB; gradually progressing P: laurent removed; steri strips placed, which may come off on their own. Further surgical f/u prn.
[2018-11-30] MEDS: Metoprolol Succinate XL TAB* 25 MG PO SCH (21:18)
[2018-12-01] MEDS: oxyCODONE TAB* 5 MG TAB PO PRN ×4 (01:29→23:16)
[2018-12-01] MEDS: Hydrocortisone 1% CREAM* 30 GM TUBE TOPICAL PRN ×2 (01:45→19:40)
[2018-12-01] MEDS: Levothyroxine TAB* 112 MCG TAB PO SCH (06:16)
[2018-12-01] MEDS: Mometasone 220 MCG MDI INH SCH (07:56)
[2018-12-01] MEDS: Enoxaparin(*) 40 MG/0.4 ML SYR SUBCUT SCH (08:12)
[2018-12-01] MEDS: oxyCODONE SR TAB(*) 10 MG TAB.SR PO SCH ×3 (08:13→17:35)
[2018-12-01] MEDS: Docusate CAP* 100 MG PO SCH ×2 (08:13→19:47)
[2018-12-01] MEDS: Colchicine* 0.6 MG TAB PO SCH ×2 (08:13→19:47)
[2018-12-01] MEDS: Pantoprazole TAB * 40 MG TAB PO SCH (08:13)
[2018-12-01 08:43] LABS: ABS Basophils 0.2 10^3/ul (0-0.2); ABS Eosinophils 0.1 10^3/ul (0-0.6); ABS Lymphocytes 0.9 10^3/ul (1.0-4.8); ABS Monocytes 1.5 10^3/ul (0-0.8); ABS Neutrophils 12.5 10^3/ul (1.5-7.7); Eosinophil % 0.7 %; Hematocrit 38 % (35-47); Hemoglobin 12.7 g/dL (12.0-16.0); Lymphocyte % 5.7 %; Mean Corpuscular HGB Conc 33 g/dL (31-36); Mean Corpuscular Hemoglobin 31 pg (27-31); Mean Corpuscular Volume 94 fL (80-97); Mean Platelet Volume 8.2 fL (7.4-10.4); Platelet Count 433 10^3/uL (150-450); Red Blood Count 4.04 10^6 /uL (3.70-4.87); Red Cell Distribution Width 16 % (10-15); White Blood Count 15.2 10^3/uL (3.5-10.8)
--- NOTE | 2018-12-01 13:12 | PN ---
Progress Note Date of Service: 12/01/18 Note: SMITH ORTEGA was visited. Nursing and therapy notes read and reviewed. Today she was able to eat a banana. She has not had much appetite, but has at least had ensures with meals. Feels like she has a lot of gas. [place] removed by surgery yesterday. Dr. Vani Guerra in today as well as Dr. Mendoza given persistent leukocytosis. No chest pain or shortness of breath. Her right foot is getting better with gout. Current Medications: Active Medications Generic Name Dose Route Start Last Admin Trade Name Freq PRN Reason Stop Dose Admin Acetaminophen 650 mg 11/28/18 09:49 11/28/18 20:08 Tylenol Tab* PO 650 mg Q6H PRN Administration MILD PAIN or TEMP > 100.4 Colchicine 0.6 mg 11/28/18 21:00 12/01/18 08:13 Colcrys* PO 0.6 mg BID BRETT Administration Docusate Sodium 100 mg 11/28/18 21:00 12/01/18 08:13 Colace Cap* PO 100 mg BID BRETT Administration Enoxaparin Sodium 40 mg 11/29/18 08:00 12/01/18 08:12 Lovenox(*) SUBCUT 40 mg Q24H BRETT Administration Hydrocortisone 1 applic 11/28/18 10:41 12/01/18 01:45 Hytone Cream 1%* TOPICAL 12/05/18 10:40 1 applic Q6H PRN Administration ITCHING Levothyroxine Sodium 112 mcg 11/29/18 06:00 12/01/18 06:16 Synthroid Tab* PO 112 mcg DAILY@0600 BRETT Administration Metoprolol Succinate 25 mg 11/28/18 21:00 11/30/18 21:18 Toprol Xl Tab* PO 25 mg 2100 BRETT Administration Mometasone Furoate 2 puff 11/29/18 09:00 12/01/18 07:56 Asmanex 220 Mcg Mdi * INH 2 puff DAILY BRETT Administration Protocol Ondansetron HCl 4 mg 11/28/18 10:43 Zofran Odt Tab* PO Q6H PRN NAUSEA Oxycodone HCl 5 mg 11/28/18 10:40 12/01/18 06:16 Roxycodone Tab* PO 5 mg Q4H PRN Administration PAIN - SEVERE Oxycodone HCl 10 mg 11/29/18 07:00 12/01/18 11:37 Oxycontin(*) PO 10 mg 0700,1100,1700 BRETT Administration Pantoprazole Sodium 40 mg 11/29/18 09:00 12/01/18 08:13 Protonix Tab* PO 40 mg DAILY BRETT Administration Senna 1 tab 11/28/18 21:00 11/30/18 21:17 Senokot 8.6 Mg Tab* PO 1 tab BEDTIME BRETT Administration Vital Signs: Vital Signs Temp Pulse Resp BP Pulse Ox 97.7 F 71 16 141/75 98 12/01/18 04:45 12/01/18 04:45 12/01/18 11:46 12/01/18 04:45 12/01/18 04:45 Lab Results: Laboratory Results - last 24 hr 12/01/18 08:30 WBC 15.2 H RBC 4.04 Hgb 12.7 Hct 38 MCV 94 MCH 31 MCHC 33 RDW 16 H Plt Count 433 MPV 8.2 Neut % (Auto) 82.1 Lymph % (Auto) 5.7 [place] % (Auto) 10.2 Eos % (Auto) 0.7 Baso % (Auto) 1.3 Absolute Neuts (auto) 12.5 H Absolute Lymphs (auto) 0.9 L Absolute Monos (auto) 1.5 H Absolute Eos (auto) 0.1 Absolute Basos (auto) 0.2 Absolute Nucleated RBC 0.0 Nucleated RBC % 0.0 UA on 11/30/18 clear. Exam: GENERAL: No acute distress. Alert and appropriate. LUNGS: Clear to auscultation bilaterally. HEART: regular rate and rhythm ABDOMEN: Soft. + bowel sounds, mild soreness to touch, non-distended. No peritoneal signs. steristrips intact. EXTREMITIES: No edema. Tender on dorsum of right foot where she identifies active gout. NEUROLOGIC: Sensation intact x4. Motor 4+/5 in BUE and BLE. CXR 11/30/18 with linear atelectasis. Assessment/Plan: 1. Small Bowel Obstruction s/p exp lap and partial resection: Regular diet. PT/ OT. Elevated WBCs. Surgery following. Repeat CBC tomorrow. 2. h/o Septic shock: s/p antibiotics. Elevated WBCs without clear source. Dr. Guerra out of town next week and Dr. Hoskins covering. CBC tomorrow. CRP added to yesterday's labs. PT/OT 3. Rheumatoid Arthritis: Restart Arava in about [address] Guerra. PT/ OT. 4. Gout: Colchicine for now 5. DVT Prophylaxis: Lovenox 6. Advance Directives: Full COde 7. Hypothyroidism: Synthroid 8. Estimated LOS: 12/07/18 9. Gas: add simethicone. 12/01/18 13:09
--- NOTE | 2018-12-01 13:35 | PN ---
CC: [facility]; Dr. Vani Guerra PROGRESS NOTE: DATE OF VISIT: 12/01/18 LOCATION: Patient seen in [facility]. HISTORY OF PRESENT ILLNESS: I was contacted by the rehab team to evaluate Ms. Bose, a 78-year-old f emale, who presented to our hospital on 11/19/18 with abdominal pain. A workup including multiple CA T scans led to exploratory laparotomy on 11/20/18, where the patient was noted to have an ischemic po rtion of small bowel that appeared to likely be secondary to hernia that could not be found and small knuckle of bowel was removed and primarily repaired. 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 The patient recovered but was felt to be deconditioned and frail and sent to the rehab unit, where she has been working with ambulatory status and also encouraged with p.o. luis alberto kraft. The patient describes decreased appetite and taste for foods, but she is able to eat bananas and Ensu re, but solid foods have not been good for her. She does have abdominal pain that is treated with ox ycodone and senna. We were ultimately contacted because of the patient's elevated white blood cell count. A set of labs is drawn weekly at the unit and the patient was noted to have white count of 14.9 yesterday with lef t shift, repeat today again showed 15.2. PHYSICAL EXAM: She has been afebrile for over 48 hours. Heart rate has been consistently in the 70s and 80s with a normal blood pressure. She is alert and oriented x3, in no apparent distress. Head, Ears, Eyes, Nose and Throat: Normocephalic, atraumatic. Sclerae anicteric. Mucous membranes are mo ist. Neck: No lymphadenopathy. Lungs are clear to auscultation bilaterally with a poor inspiratory effort. Abdomen is soft, nondistended. Incisional tenderness. Steri- Strips at the site of incisio n with non-blanching erythema, not consistent with infection. Rectal exam not performed. Extremitie s within normal limits with signs of arthritis. A 4-cm patch of blanching erythema at the dorsal asp ect of her right foot. LABORATORY DATA: As described. IMPRESSION: Postop day 11 from exploratory laparotomy. Laparotomy site healing well. Mildly elevat ed white blood cell count of unclear etiology. I do not feel this is an abdominal process at this ti me and does not warrant workup; however, I would like to continue to follow the patient. We will see her again tomorrow with repeat labs. This was discussed with the primary team. The patient is enco uraged to have p.o. intake and I have asked her friend to bring her foods that she likes. No antibiot ics are necessary at this time. Continue pain medication. The patient is already on proton pump inh ibitor and I have recommended continuing this. [id number]/[facility] #: [id number]
[2018-12-01] MEDS: Simethicone TAB* 80 MG TAB.CHEW PO SCH (16:06)
[2018-12-01] MEDS: Senna TAB 8.6 mg* TAB PO SCH (19:47)
[2018-12-01] MEDS: Metoprolol Succinate XL TAB* 25 MG PO SCH (19:47)
[2018-12-02] MEDS: Hydrocortisone 1% CREAM* 30 GM TUBE TOPICAL PRN ×4 (02:01→20:36)
[2018-12-02 05:08] LABS: ABS Basophils 0.1 10^3/ul (0-0.2); ABS Eosinophils 0.1 10^3/ul (0-0.6); ABS Lymphocytes 0.8 10^3/ul (1.0-4.8); ABS Monocytes 1.5 10^3/ul (0-0.8); ABS Neutrophils 9.3 10^3/ul (1.5-7.7); Eosinophil % 0.9 %; Hematocrit 35 % (35-47); Hemoglobin 11.6 g/dL (12.0-16.0); Lymphocyte % 6.9 %; Mean Corpuscular HGB Conc 33 g/dL (31-36); Mean Corpuscular Hemoglobin 31 pg (27-31); Mean Corpuscular Volume 94 fL (80-97); Mean Platelet Volume 8.3 fL (7.4-10.4); Platelet Count 394 10^3/uL (150-450); Red Blood Count 3.76 10^6 /uL (3.70-4.87); Red Cell Distribution Width 16 % (10-15); White Blood Count 11.8 10^3/uL (3.5-10.8)
[2018-12-02] MEDS: oxyCODONE SR TAB(*) 10 MG TAB.SR PO SCH ×3 (05:15→18:16)
[2018-12-02] MEDS: Levothyroxine TAB* 112 MCG TAB PO SCH (05:16)
[2018-12-02] MEDS: Simethicone TAB* 80 MG TAB.CHEW PO SCH ×3 (05:34→15:28)
[2018-12-02] MEDS: Mometasone 220 MCG MDI INH SCH (07:17)
[2018-12-02] MEDS: Enoxaparin(*) 40 MG/0.4 ML SYR SUBCUT SCH (08:04)
[2018-12-02] MEDS: Docusate CAP* 100 MG PO SCH ×2 (08:05→20:43)
[2018-12-02] MEDS: oxyCODONE TAB* 5 MG TAB PO PRN ×3 (08:05→20:51)
[2018-12-02] MEDS: Colchicine* 0.6 MG TAB PO SCH ×2 (08:06→20:44)
[2018-12-02] MEDS: Senna TAB 8.6 mg* TAB PO SCH ×2 (08:06→20:43)
[2018-12-02] MEDS: Pantoprazole TAB * 40 MG TAB PO SCH (08:06)
--- NOTE | 2018-12-02 11:39 | PN ---
Progress Note Date of Service: 12/02/18 Note: SMITH ORTEGA was visited. Nursing notes read and reviewed. She feels her abdominal pain is continuing to improve. She is passing flatus and soft small stools. No chest pain or shortness of breath. Fatigue is lessening. Current Medications: Active Medications Generic Name Dose Route Start Last Admin Trade Name Freq PRN Reason Stop Dose Admin Acetaminophen 650 mg 11/28/18 09:49 11/28/18 20:08 Tylenol Tab* PO 650 mg Q6H PRN Administration MILD PAIN or TEMP > 100.4 Colchicine 0.6 mg 11/28/18 21:00 12/02/18 08:06 Colcrys* PO 0.6 mg BID BRETT Administration Docusate Sodium 100 mg 11/28/18 21:00 12/02/18 08:05 Colace Cap* PO 100 mg BID BRETT Administration Enoxaparin Sodium 40 mg 11/29/18 08:00 12/02/18 08:04 Lovenox(*) SUBCUT 40 mg Q24H BRETT Administration Hydrocortisone 1 applic 11/28/18 10:41 12/02/18 08:04 Hytone Cream 1%* TOPICAL 12/05/18 10:40 1 applic Q6H PRN Administration ITCHING Levothyroxine Sodium 112 mcg 11/29/18 06:00 12/02/18 05:16 Synthroid Tab* PO 112 mcg DAILY@0600 BRETT Administration Metoprolol Succinate 25 mg 11/28/18 21:00 12/01/18 19:47 Toprol Xl Tab* PO 25 mg 2100 BRETT Administration Mometasone Furoate 2 puff 11/29/18 09:00 12/02/18 07:17 Asmanex 220 Mcg Mdi * INH 2 puff DAILY BRETT Administration Protocol Ondansetron HCl 4 mg 11/28/18 10:43 Zofran Odt Tab* PO Q6H PRN NAUSEA Oxycodone HCl 5 mg 11/28/18 10:40 12/02/18 08:05 Roxycodone Tab* PO 5 mg Q4H PRN Administration PAIN - SEVERE Oxycodone HCl 10 mg 11/29/18 07:00 12/02/18 05:15 Oxycontin(*) PO 10 mg 0700,1100,1700 BRETT Administration Pantoprazole Sodium 40 mg 11/29/18 09:00 12/02/18 08:06 Protonix Tab* PO 40 mg DAILY BRETT Administration Senna 1 tab 12/01/18 21:00 12/02/18 08:06 Senokot 8.6 Mg Tab* PO 1 tab BID BRETT Administration Simethicone 80 mg 12/01/18 16:30 12/02/18 05:34 Mylicon Tab* PO 80 mg AC BRETT Administration Vital Signs: Vital Signs Temp Pulse Resp BP Pulse Ox 98.1 F 82 16 110/71 95 12/02/18 05:19 12/02/18 07:21 12/02/18 08:05 12/02/18 05:19 12/02/18 07:21 Lab Results: Laboratory Results - last 24 hr 12/01/18 12/02/18 08:28 04:56 WBC 11.8 H RBC 3.76 Hgb 11.6 L Hct 35 MCV 94 MCH 31 MCHC 33 RDW 16 H Plt Count 394 MPV 8.3 Neut % (Auto) 78.7 Lymph % (Auto) 6.9 [place] % (Auto) 12.9 Eos % (Auto) 0.9 Baso % (Auto) 0.6 Absolute Neuts (auto) 9.3 H Absolute Lymphs (auto) 0.8 L Absolute Monos (auto) 1.5 H Absolute Eos (auto) 0.1 Absolute Basos (auto) 0.1 Absolute Nucleated RBC 0.0 Nucleated RBC % 0.0 C-Reactive Protein 30.31 H Exam: GENERAL: No acute distress. Alert and appropriate. LUNGS: Clear to auscultation bilaterally. HEART: regular rate and rhythm ABDOMEN: Soft. + bowel sounds, mild soreness to touch, non-distended. No peritoneal signs. steri strips intact. EXTREMITIES: No edema. Tender on dorsum of right foot where she identifies active gout. NEUROLOGIC: Sensation intact x4. Motor 4+/5 in BUE and BLE. Assessment/Plan: 1. Small Bowel Obstruction s/p exp lap and partial resection: Regular diet. PT/ OT. WBCs improved without intervention. Surgery f/u as needed. 2. h/o Septic shock: s/p antibiotics. WBCs improved and CRP had shown a trend of improving also. Dr. Hoskins covering for Dr. Guerra this week if needed PT/OT 3. Rheumatoid Arthritis: Restart Arava in about [address] Guerra. PT/ OT. 4. Gout: Colchicine for now 5. DVT Prophylaxis: Lovenox 6. Advance Directives: Full COde 7. Hypothyroidism: Synthroid 8. Estimated LOS: 12/07/18 9. Gas: added simethicone. 12/02/18 11:36
[2018-12-02] MEDS: Metoprolol Succinate XL TAB* 25 MG PO SCH (20:44)
[2018-12-03] MEDS: Levothyroxine TAB* 112 MCG TAB PO SCH (05:53)
[2018-12-03] MEDS: oxyCODONE SR TAB(*) 10 MG TAB.SR PO SCH ×3 (05:53→17:16)
[2018-12-03] MEDS: Simethicone TAB* 80 MG TAB.CHEW PO SCH ×3 (05:53→17:16)
[2018-12-03] MEDS: Mometasone 220 MCG MDI INH SCH (08:49)
[2018-12-03] MEDS: Enoxaparin(*) 40 MG/0.4 ML SYR SUBCUT SCH (08:56)
[2018-12-03] MEDS: Colchicine* 0.6 MG TAB PO SCH ×2 (08:57→21:11)
[2018-12-03] MEDS: Docusate CAP* 100 MG PO SCH ×2 (08:57→21:11)
[2018-12-03] MEDS: Senna TAB 8.6 mg* TAB PO SCH ×2 (08:58→21:12)
[2018-12-03] MEDS: Pantoprazole TAB * 40 MG TAB PO SCH (08:58)
[2018-12-03] MEDS: Acetaminophen TAB* 325 MG PO PRN (09:03)
[2018-12-03] MEDS: oxyCODONE TAB* 5 MG TAB PO PRN ×2 (09:04→21:10)
[2018-12-03] MEDS: Hydrocortisone 1% CREAM* 30 GM TUBE TOPICAL PRN (18:19)
[2018-12-03] MEDS: hydrOXYzine HCL TAB* 25 MG PO PRN (19:58)
--- NOTE | 2018-12-03 20:04 | PN ---
Progress Note Date of Service: 12/03/18 Note: SMITH ORTEGA was visited. Therapy notes read and reviewed. Her suture line looks clean. She is complaining of tremendous itch near her sutures. No rash apparent. Current Medications: Active Medications Generic Name Dose Route Start Last Admin Trade Name Freq PRN Reason Stop Dose Admin Acetaminophen 650 mg 11/28/18 09:49 12/03/18 09:03 Tylenol Tab* PO 650 mg Q6H PRN Administration MILD PAIN or TEMP > 100.4 Colchicine 0.6 mg 11/28/18 21:00 12/03/18 08:57 Colcrys* PO 0.6 mg BID BRETT Administration Docusate Sodium 100 mg 11/28/18 21:00 12/03/18 08:57 Colace Cap* PO 100 mg BID BRETT Administration Enoxaparin Sodium 40 mg 11/29/18 08:00 12/03/18 08:56 Lovenox(*) SUBCUT 40 mg Q24H BRETT Administration Hydrocortisone 1 applic 11/28/18 10:41 12/03/18 18:19 Hytone Cream 1%* TOPICAL 12/05/18 10:40 1 applic Q6H PRN Administration ITCHING Hydroxyzine HCl 25 mg 12/03/18 19:38 12/03/18 19:58 Atarax Tab* PO 25 mg Q6H PRN Administration Pruritis Levothyroxine Sodium 112 mcg 11/29/18 06:00 12/03/18 05:53 Synthroid Tab* PO 112 mcg DAILY@0600 BRETT Administration Metoprolol Succinate 25 mg 11/28/18 21:00 12/02/18 20:44 Toprol Xl Tab* PO 25 mg 2100 BRETT Administration Mometasone Furoate 2 puff 11/29/18 09:00 12/03/18 08:49 Asmanex 220 Mcg Mdi * INH 2 puff DAILY BRETT Administration Protocol Ondansetron HCl 4 mg 11/28/18 10:43 Zofran Odt Tab* PO Q6H PRN NAUSEA Oxycodone HCl 5 mg 11/28/18 10:40 12/03/18 09:04 Roxycodone Tab* PO 5 mg Q4H PRN Administration PAIN - SEVERE Oxycodone HCl 10 mg 11/29/18 07:00 12/03/18 17:16 Oxycontin(*) PO 10 mg 0700,1100,1700 BRETT Administration Pantoprazole Sodium 40 mg 11/29/18 09:00 12/03/18 08:58 Protonix Tab* PO 40 mg DAILY BRETT Administration Senna 1 tab 12/01/18 21:00 12/03/18 08:58 Senokot 8.6 Mg Tab* PO 1 tab BID BRETT Administration Simethicone 80 mg 12/01/18 16:30 12/03/18 17:16 Mylicon Tab* PO 80 mg AC BRETT Administration Vital Signs: Vital Signs Temp Pulse Resp BP Pulse Ox 98 F 88 18 107/69 93 12/03/18 16:57 12/03/18 16:57 12/03/18 17:16 12/03/18 16:57 12/03/18 16:57 Exam: GENERAL: No acute distress. Alert and appropriate. LUNGS: Clear to auscultation bilaterally. HEART: regular rate and rhythm ABDOMEN: Soft. + bowel sounds, mild soreness to touch, non-distended. Steri strips intact. EXTREMITIES: No edema. Tender on dorsum of right foot where she identifies active gout. NEUROLOGIC: Sensation intact x4. Motor 4+/5 in BUE and BLE. Assessment/Plan: 1. Small Bowel Obstruction s/p exp lap and partial resection: Regular diet. PT/ OT. WBCs improved without intervention. Surgery f/u as needed. 2. h/o Septic shock: s/p antibiotics. WBCs improved. PT/OT 3. Rheumatoid Arthritis: Restart Arava in about [address] Guerra. PT/ OT. 4. Gout: Colchicine for now 5. DVT Prophylaxis: Lovenox 6. Advance Directives: Full Code 7. Hypothyroidism: Synthroid 8. Estimated LOS: 12/07/18 9. Gas: added simethicone. 10. Pruritis: Atarax PRN 12/03/18 20:05
[2018-12-03] MEDS: Metoprolol Succinate XL TAB* 25 MG PO SCH (21:11)
[2018-12-04] MEDS: oxyCODONE TAB* 5 MG TAB PO PRN ×3 (01:45→22:25)
[2018-12-04] MEDS: Levothyroxine TAB* 112 MCG TAB PO SCH (05:37)
[2018-12-04] MEDS: oxyCODONE SR TAB(*) 10 MG TAB.SR PO SCH ×3 (06:30→16:31)
[2018-12-04] MEDS: Mometasone 220 MCG MDI INH SCH (08:08)
[2018-12-04] MEDS: Simethicone TAB* 80 MG TAB.CHEW PO SCH ×3 (09:26→16:31)
[2018-12-04] MEDS: Colchicine* 0.6 MG TAB PO SCH ×2 (09:28→20:28)
[2018-12-04] MEDS: Senna TAB 8.6 mg* TAB PO SCH ×2 (09:28→20:28)
[2018-12-04] MEDS: Enoxaparin(*) 40 MG/0.4 ML SYR SUBCUT SCH (09:28)
[2018-12-04] MEDS: Pantoprazole TAB * 40 MG TAB PO SCH (09:28)
[2018-12-04] MEDS: Docusate CAP* 100 MG PO SCH ×2 (09:28→20:28)
[2018-12-04] MEDS: Hydrocortisone 1% CREAM* 30 GM TUBE TOPICAL PRN (12:40)
--- NOTE | 2018-12-04 12:49 | PMRUTEAM ---
PMRU: Team Meeting Current Status: Nursing: Current Status Skin Deviations [Bilateral Other Buttocks] Skin Deviations [Midline Incision Abdomen] Skin Deviation Description [ mild redness noted. barrier applied Bilateral Buttocks] Skin Deviation Description [ steri strips intact Midline Abdomen] Bladder Current Status voiding without difficulty Bowel Current Status bowel meds given Nutrition Current Status appetite fair Medication Current Status routine oxycontin Physical Therapy: Current Status Bed Mobility Assistance Supervision Transfer Mobility Assistance Supervision Transfer/Bed Mobility Rolling Walker Recommended Devices Ambulation Assistance Supervision Ambulation Assistive Devices Rolling Walker Number of Feet Patient 150 Ambulated Stairs Assistance Supervision Stairs Recommended Devices Two Rails Number of Stairs 5 Curb Supervision Objective Comments step to pattern ascend/descending stairs Occupational Therapy: Current Status Upper Body Dressing Supervision Lower Body Dressing Supervision Bathing Supervision Toileting Supervision Toilet Transfer Supervision Shower Transfer Supervision Shower Transfer Progress TBA Eating Independent Instrumental ADL AM-PAC: = 25.80% impaired Rec Therapy: Current Status Summary of Assessment and Recreation Therapy services introduced and Clinical Impression assessment has been completed. Pt. has been open to leisure visits but declining groups, pet therapy or needs at this time. Treatment Goals Pt. will engage in leisure activities while on the unit. Treatment Plan Provide recreation therapy and encourage involvement. Goals: Physical Therapy: Initial Goals Bed Mobility Assistance Independent Transfer Mobility Assistance Independent Transfer/Bed Mobility Rolling Walker Recommended Devices Ambulation Independent Ambulation Recommended Devices Rolling Walker Ambulation Distance 150 Stairs Assistance Independent Stair Recommended Devices Two Rails Number of Stairs 5 Physical Therapy: Updated Goals Bed Mobility Assistance Independent Transfer Mobility Assistance Independent Transfer/Bed Mobility Rolling Walker Recommended Devices Ambulation Assistance Independent Ambulation Assistive Devices Rolling Walker Ambulation Distance (ft) 150 Stairs Assistance Independent Stairs Recommended Devices Two Rails Number of Stairs 5 Home Exercise Program Independent Assistance Occupational Therapy: Initial Goals Goals to be Completed in (Days 7 ) Upper Body Bathing Routine Independent Lower Body Bathing Routine Modified Independent with Upper Body Dressing Routine Independent Lower Body Dressing Routine Modified Independent with Toilet Hygeine and Clothing Modified Independent with Management Routine Toilet Transfer Routine Modified Independent with Step-In Shower Transfer Modified Independent with Routine Functional Transfers for ADL Modified Independent with Grooming Routine Modified Independent with Feeding Routine Independent Nursing: Goals Bladder Goal independent Bowel Goal independent Nutrition Goal 100% of all meals consumed Medication Goal independnent Nutrition: Goals Intervention Goals 1. pt will tolerate po diet without adverse GI effects 2. adequate po intake to maintain lean body mass and hydration without add'l wt gain 3. maintain serum electrolytes levels WNL 4. achieve and maintain regulated bowel pattern without c/o constipation (or diarrhea) Care Plan: Care Plan ADL's - Improve/Maintain Start: 11/28/18 15:56 Freq: DAILY@[id number] Status: Active Target: 12/07/18 Protocol: Activity Type Activity Date Activity User E-Sign Co-Sign Detail Recorded Client Recorded Date Recorded By Document 12/03/18 12:47 [id number] [id number] 12/03/18 12:47 [id number] 12/03/18 12:47 PMRU Outcome: ADL's/ADL Transfers Orders/Interventions Occupational Therapy Evaluation & Treatment Communication Tool in Patient Room Device Yes Address Deficits Secondary To: s/p lap for small bowel resection Patient to receive OT 5x/wk for 60-120 Therex min/day Self Care Management Group Therapy UE/LE ADL's with Assist Yes: Doris ADL Transfers with Assist Yes: Doris Toileting: Transfers,Clothing Management Yes: Doris ,Hygeine w/Assist Light Kitchen/Laundry w/Assist Yes: Doris Other Outcome/Goals Pt tolerates therapy well this date, continues to be limited 2* fatigue. Progression Toward Outcome/Goals Progressing Communication-Improve/Maintain Start: 11/28/18 21:16 Freq: DAILY@ Status: Active Target: 12/03/18 Protocol: Activity Type Activity Date Activity User E-Sign Co-Sign Detail Recorded Client Recorded Date Recorded By Document 12/04/18 00:07 [id number] [email or web address] 12/04/18 00:07 [id number] 12/04/18 00:07 PMRU Outcome: Communication/Cognitive Status Current Communication Outcome/Goals Use Comm Tools/ Devices Makes Needs Known Effectively Progression Toward Outcomes/Goals Progressing Outcome/Goals Met Use Comm Tools/ Devices Makes Needs Known Effectively Outcome/Goals Met Comment pt ringing appropriately Discharge Planning - Improve/Maintain Start: 11/28/18 21:16 Freq: [id number]@[id number] Status: Active Target: 12/03/18 Protocol: Activity Type Activity Date Activity User E-Sign Co-Sign Detail Recorded Client Recorded Date Recorded By Document 12/04/18 00:07 [id number] 12/04/18 00:07 [id number] 12/04/18 00:07 PMRU Outcome: Discharge Planning Update Patient Family No Current Discharge Planning Outcome/Goals Demonstrates Understanding of Discharge Plan Progression Toward Outcome/Goals Progressing Education-Improve/Maintain Start: 11/28/18 21:16 Freq: DAILY@[id number] Status: Active Target: 12/03/18 Protocol: Activity Type Activity Date Activity User E-Sign Co-Sign Detail Recorded Client Recorded Date Recorded By Document 12/04/18 00:07 [id number] 12/04/18 00:07 [id number] 12/04/18 00:07 PMRU Outcome: Education Current Education Outcome/Goals Encourage Questions Progression Toward Outcome/Goals Progressing /GI-Improve/Maintain Start: 11/28/18 21:16 Freq: DAILY@ Status: Active Target: 12/03/18 Protocol: Activity Type Activity Date Activity User E-Sign Co-Sign Detail Recorded Client Recorded Date Recorded By Document 12/04/18 00:07 [id number] 12/04/18 00:07 [id number] 12/04/18 00:07 PMRU Outcome: Genitourinary/ Gastrointestinal Current Gastrointestinal Outcome/Goals Maintain/ Achieve Bowel Regularity in Accordance with Pt's Baseline Remain Free of Emesis Prevent Constipation Laxatives as Ordered Progression Toward Outcome/Goals Progressing Current Genitourinary Outcome/Goals Maintain/ Achieve Urinary Continence Remain Free of Hospital- Acquired UTI Progression Toward Outcome/Goals Progressing Outcome/Goals Met Comment pt up to BR Medication Administration Start: 11/28/18 21:16 Freq: DAILY@[id number] Status: Active Target: 12/03/18 Protocol: Activity Type Activity Date Activity User E-Sign Co-Sign Detail Recorded Client Recorded Date Recorded By Document 12/04/18 00:07 [id number] 12/04/18 00:07 [id number] 12/04/18 00:07 PMRU Outcome: Medication Administration Assess Patient Knowledge/Teach Med Yes Education for all Meds Current Furnace Filler Outcome/Goals Patient Independent with Medication Administration at Home Demonstrates Understanding Progression Towards Outcome/Goals Progressing Is Patient Going Home on Lovenox? No Mobility- Improve/Maintain Start: 11/28/18 16:37 Freq: DAILY@[id number],190 Status: Active Target: 12/07/18 Protocol: Activity Type Activity Date Activity User E-Sign Co-Sign Detail Recorded Client Recorded Date Recorded By Document 12/03/18 16:23 [id number] 12/03/18 16:23 [id number] 12/03/18 16:23 PMRU Outcome: Mobility Physical Therapy Evaluation and Yes Treatment Activity OOB with Assistance Yes WBAT Yes Device Yes Assistance Yes Patient to be seen 5x/wk for 60-120 min/ Therex day for: Mobility Training Gait Training Balance Current Mobility Outcome/Goals Maintain/ Achieve Baseline Mobility Status Improve Mobility Status Demonstrates Proper Use of Assistive Devices Free from Complications of Immobility Progression Toward Outcome/Goals Progressing Outcome/Goals Met Demonstrates Proper Use of Assistive Devices Free from Complications of Immobility Bed Mobility Yes: independent Transfers Yes: independent with rolling walker. Gait x ft Yes: independent with rolling walker 150' Up/Down Stairs Yes: independent with 1 rail up down 5 stairs Nutrition/Swallowing- Improve/Maintain Start: 11/28/18 21:16 Freq: DAILY@[id number],1900 Status: Active Target: 12/03/18 Protocol: Activity Type Activity Date Activity User E-Sign Co-Sign Detail Recorded Client Recorded Date Recorded By Document 12/04/18 00:07 [id number] 12/04/18 00:07 [id number] 12/04/18 00:07 PMRU Outcome: Nutrition/Swallowing Current Nutrition/Swallowing Outcome/ Demonstrates Goals Adequate Hydration/ Prevents Dehydration Maintain/ Improve Nutritional Status Progression Toward Outcome/Goals Progressing Pain/Comfort- Improve/Maintain Start: 11/28/18 21:16 Freq: DAILY@699,0 Status: Active Target: 12/03/18 Protocol: Activity Type Activity Date Activity User E-Sign Co-Sign Detail Recorded Client Recorded Date Recorded By Document 12/04/18 00:07 [id number] 12/04/18 00:07 [id number] 12/04/18 00:07 PMRU Outcome: Pain/Comfort Current Pain/Comfort Outcome/Goals Demonstrates Knowledge and Use of Available Comfort Measures Achieves Acceptable Comfort/Pain Level as Determined by Patient/Condit Maintain Comfort Level Allowing Patient to Fully Participate in Rehab Progression Toward Outcome/Goals Progressing Outcome/Goals Met Comment pain medication given as requested PRN Rec Therapy- Improve/Maintain Start: 11/28/18 16:27 Freq: DAILY@[id number],1900 Status: Active Target: 12/07/18 Protocol: Activity Type Activity Date Activity User E-Sign Co-Sign Detail Recorded Client Recorded Date Recorded By Document 12/03/18 15:55 [id number] [email or web address] 12/03/18 15:56 [id number] 12/03/18 15:55 PMRU Outcome: Recreation Therapy Current Rec Ther Outcome/Goals Meet with Patient Regularly for Support Encourage Leisure Involvement Progression Toward Outcome/Goals Progressing Lack of Progression Comment pt. has been open to continued leisure visits - social and cooperative but declining leisure involvement at this time. Outcome/Goals Met Meet with Patient Regularly for Support Encourage Leisure Involvement Safety- Improve/Maintain Start: 11/28/18 09:06 Freq: DAILY@0700,1900 Status: Active Target: 12/03/18 Protocol: Activity Type Activity Date Activity User E-Sign Co-Sign Detail Recorded Client Recorded Date Recorded By Document 12/04/18 00:07 [id number] 12/04/18 00:07 [id number] 12/04/18 00:07 PMRU Outcome: Safety Current Safety Outcome/Goals Remain Free of Injury or Harm Cooperates with Safety Measures for Least Restrictive Environment Prevent Falls/ Injury Progression Toward Outcome/Goals Progressing Skin- Improve/Maintain Start: 11/28/18 21:21 Freq: DAILY@0700,1900 Status: Active Target: 12/03/18 Protocol: Activity Type Activity Date Activity User E-Sign Co-Sign Detail Recorded Client Recorded Date Recorded By Document 12/04/18 00:07 [id number] 12/04/18 00:07 [id number] 12/04/18 00:07 PMRU Outcome: Skin Skin Risk Level Mild Risk Skin Orders Spenco Boots Heels Off Bed Current Skin Outcome/Goals Maintain/ Improve Skin Integrity Free from Pressure Injury Surgical Incisions Healing Progression Toward Outcome/Goals Progressing Medicine Note: Length of Stay: 3 days Anticipated Discharge Destination: Tentative Discharge Date: 12/07/18 Discharged to: Home
[2018-12-04] MEDS: Metoprolol Succinate XL TAB* 25 MG PO SCH (20:28)
--- NOTE | 2018-12-04 20:52 | PN ---
Progress Note Date of Service: 12/04/18 Note: SMITH ORTEGA was visited. Therapy notes read and reviewed. She was discussed in interdisciplinary team rounds. She has been doing well. She has little appetite but drinks Ensure Current Medications: Active Medications Generic Name Dose Route Start Last Admin Trade Name Freq PRN Reason Stop Dose Admin Acetaminophen 650 mg 11/28/18 09:49 12/03/18 09:03 Tylenol Tab* PO 650 mg Q6H PRN Administration MILD PAIN or TEMP > 100.4 Colchicine 0.6 mg 11/28/18 21:00 12/04/18 20:28 Colcrys* PO 0.6 mg BID BRETT Administration Docusate Sodium 100 mg 11/28/18 21:00 12/04/18 20:28 Colace Cap* PO 100 mg BID BRETT Administration Enoxaparin Sodium 40 mg 11/29/18 08:00 12/04/18 09:28 Lovenox(*) SUBCUT 40 mg Q24H BRETT Administration Hydrocortisone 1 applic 11/28/18 10:41 12/04/18 12:40 Hytone Cream 1%* TOPICAL 12/05/18 10:40 1 applic Q6H PRN Administration ITCHING Hydroxyzine HCl 25 mg 12/03/18 19:38 12/03/18 19:58 Atarax Tab* PO 25 mg Q6H PRN Administration Pruritis Levothyroxine Sodium 112 mcg 11/29/18 06:00 12/04/18 05:37 Synthroid Tab* PO 112 mcg DAILY@0600 BRETT Administration Metoprolol Succinate 25 mg 11/28/18 21:00 12/04/18 20:28 Toprol Xl Tab* PO 25 mg 2100 BRETT Administration Mometasone Furoate 2 puff 11/29/18 09:00 12/04/18 08:08 Asmanex 220 Mcg Mdi * INH 2 puff DAILY BRETT Administration Protocol Ondansetron HCl 4 mg 11/28/18 10:43 Zofran Odt Tab* PO Q6H PRN NAUSEA Oxycodone HCl 5 mg 11/28/18 10:40 12/04/18 18:11 Roxycodone Tab* PO 5 mg Q4H PRN Administration PAIN - SEVERE Oxycodone HCl 10 mg 11/29/18 07:00 12/04/18 16:31 Oxycontin(*) PO 10 mg 0700,1100,1700 BRETT Administration Pantoprazole Sodium 40 mg 11/29/18 09:00 12/04/18 09:28 Protonix Tab* PO 40 mg DAILY BRETT Administration Senna 1 tab 12/01/18 21:00 12/04/18 20:28 Senokot 8.6 Mg Tab* PO 1 tab BID BRETT Administration Simethicone 80 mg 12/01/18 16:30 12/04/18 16:31 Mylicon Tab* PO 80 mg AC BRETT Administration Vital Signs: Vital Signs Temp Pulse Resp BP Pulse Ox 98.8 F 88 18 115/68 93 12/04/18 16:00 12/04/18 16:00 12/04/18 19:03 12/04/18 16:00 12/04/18 18:57 Exam: GENERAL: No acute distress. Alert and appropriate. LUNGS: Clear to auscultation bilaterally. HEART: regular rate and rhythm ABDOMEN: Soft. + bowel sounds, mild soreness to touch, non-distended. Steri strips intact. EXTREMITIES: No edema. Tender on dorsum of right foot where she identifies active gout. NEUROLOGIC: Sensation intact x4. Motor 4+/5 in BUE and BLE. Assessment/Plan: 1. Small Bowel Obstruction s/p exp lap and partial resection: Regular diet. PT/ OT. WBCs improved without intervention. Surgery f/u as needed. 2. h/o Septic shock: s/p antibiotics. WBCs improved. PT/OT 3. Rheumatoid Arthritis: Restart Arava in about [address] Guerra. PT/ OT. 4. Gout: Colchicine for now 5. DVT Prophylaxis: Lovenox 6. Advance Directives: Full Code 7. Hypothyroidism: Synthroid 8. Estimated LOS: 12/07/18 9. Gas: added simethicone. 10. Pruritis: Atarax PRN 12/04/18 20:52
[2018-12-04] MEDS: Acetaminophen TAB* 325 MG PO PRN (22:26)
[2018-12-04] MEDS: hydrOXYzine HCL TAB* 25 MG PO PRN (23:23)
[2018-12-05] MEDS: Levothyroxine TAB* 112 MCG TAB PO SCH (05:26)
[2018-12-05] MEDS: oxyCODONE SR TAB(*) 10 MG TAB.SR PO SCH ×3 (06:38→16:41)
[2018-12-05] MEDS: Mometasone 220 MCG MDI INH SCH (09:42)
[2018-12-05] MEDS: Docusate CAP* 100 MG PO SCH ×2 (10:19→21:02)
[2018-12-05] MEDS: Simethicone TAB* 80 MG TAB.CHEW PO SCH ×3 (10:19→16:40)
[2018-12-05] MEDS: Enoxaparin(*) 40 MG/0.4 ML SYR SUBCUT SCH (10:19)
[2018-12-05] MEDS: Senna TAB 8.6 mg* TAB PO SCH ×2 (10:19→21:02)
[2018-12-05] MEDS: Pantoprazole TAB * 40 MG TAB PO SCH (10:19)
[2018-12-05] MEDS: Colchicine* 0.6 MG TAB PO SCH ×2 (10:22→21:00)
[2018-12-05] MEDS: oxyCODONE TAB* 5 MG TAB PO PRN ×2 (10:41→21:00)
[2018-12-05] MEDS: Metoprolol Succinate XL TAB* 25 MG PO SCH (21:00)
--- NOTE | 2018-12-05 21:44 | PN ---
Progress Note Date of Service: 12/05/18 Note: SMITH ORTEGA was visited. Therapy notes read and reviewed. She had some constipation earlier but had a bowel movement. Will order Miralax Current Medications: Active Medications Generic Name Dose Route Start Last Admin Trade Name Freq PRN Reason Stop Dose Admin Acetaminophen 650 mg 11/28/18 09:49 12/04/18 22:26 Tylenol Tab* PO 650 mg Q6H PRN Administration MILD PAIN or TEMP > 100.4 Colchicine 0.6 mg 11/28/18 21:00 12/05/18 21:00 Colcrys* PO 0.6 mg BID BRETT Administration Docusate Sodium 100 mg 11/28/18 21:00 12/05/18 21:02 Colace Cap* PO 100 mg BID BRETT Administration Enoxaparin Sodium 40 mg 11/29/18 08:00 12/05/18 10:19 Lovenox(*) SUBCUT 40 mg Q24H BRETT Administration Hydroxyzine HCl 25 mg 12/03/18 19:38 12/04/18 23:23 Atarax Tab* PO 25 mg Q6H PRN Administration Pruritis Levothyroxine Sodium 112 mcg 11/29/18 06:00 12/05/18 05:26 Synthroid Tab* PO 112 mcg DAILY@0600 BRETT Administration Metoprolol Succinate 25 mg 11/28/18 21:00 12/05/18 21:00 Toprol Xl Tab* PO 25 mg 2100 BRETT Administration Mometasone Furoate 2 puff 11/29/18 09:00 12/05/18 09:42 Asmanex 220 Mcg Mdi * INH 2 puff DAILY BRETT Administration Protocol Ondansetron HCl 4 mg 11/28/18 10:43 Zofran Odt Tab* PO Q6H PRN NAUSEA Oxycodone HCl 5 mg 11/28/18 10:40 12/05/18 21:00 Roxycodone Tab* PO 5 mg Q4H PRN Administration PAIN - SEVERE Oxycodone HCl 10 mg 11/29/18 07:00 12/05/18 16:41 Oxycontin(*) PO 10 mg 0700,1100,1700 BRETT Administration Pantoprazole Sodium 40 mg 11/29/18 09:00 12/05/18 10:19 Protonix Tab* PO 40 mg DAILY BRETT Administration Senna 1 tab 12/01/18 21:00 12/05/18 21:02 Senokot 8.6 Mg Tab* PO 1 tab BID BRTET Administration Simethicone 80 mg 12/01/18 16:30 12/05/18 16:40 Mylicon Tab* PO 80 mg AC BRETT Administration Vital Signs: Vital Signs Temp Pulse Resp BP Pulse Ox 98.5 F 85 18 117/68 91 12/05/18 15:45 12/05/18 15:45 12/05/18 21:00 12/05/18 15:45 12/05/18 15:45 Exam: GENERAL: No acute distress. Alert and appropriate. LUNGS: Clear to auscultation bilaterally. HEART: regular rate and rhythm ABDOMEN: Soft. + bowel sounds, mild soreness to touch, non-distended. Steri strips intact. EXTREMITIES: No edema. NEUROLOGIC: Sensation intact x4. Motor 4+/5 in BUE and BLE. Assessment/Plan: 1. Small Bowel Obstruction s/p exp lap and partial resection: Regular diet. PT/ OT. WBCs improved without intervention. Surgery f/u as needed. 2. h/o Septic shock: s/p antibiotics. WBCs improved. PT/OT 3. Rheumatoid Arthritis: Restart Arava in about [address] Guerra. PT/ OT. 4. Gout: Colchicine for now 5. DVT Prophylaxis: Lovenox 6. Advance Directives: Full Code 7. Hypothyroidism: Synthroid 8. Estimated LOS: 12/07/18 9. Gas: added simethicone. 10. Pruritis: Atarax PRN 12/05/18 21:45
[2018-12-06] MEDS: oxyCODONE TAB* 5 MG TAB PO PRN ×2 (01:05→10:47)
[2018-12-06] MEDS: Levothyroxine TAB* 112 MCG TAB PO SCH (06:08)
[2018-12-06] MEDS: oxyCODONE SR TAB(*) 10 MG TAB.SR PO SCH ×4 (06:08→20:33)
[2018-12-06] MEDS: Simethicone TAB* 80 MG TAB.CHEW PO SCH ×3 (06:09→16:06)
[2018-12-06] MEDS: Mometasone 220 MCG MDI INH SCH (08:00)
[2018-12-06] MEDS: Pantoprazole TAB * 40 MG TAB PO SCH (11:07)
[2018-12-06] MEDS: Enoxaparin(*) 40 MG/0.4 ML SYR SUBCUT SCH (11:07)
[2018-12-06] MEDS: Docusate CAP* 100 MG PO SCH ×2 (11:07→20:33)
[2018-12-06] MEDS: Colchicine* 0.6 MG TAB PO SCH (11:07)
[2018-12-06] MEDS: Senna TAB 8.6 mg* TAB PO SCH ×2 (11:07→20:33)
--- NOTE | 2018-12-06 17:32 | PN ---
Progress Note Date of Service: 12/06/18 Note: SMITH ORTEGA was visited. Therapy notes read and reviewed. She seems ready for discharge in am but notes her appetite is poor. Otherwise ok. Current Medications: Active Medications Generic Name Dose Route Start Last Admin Trade Name Freq PRN Reason Stop Dose Admin Acetaminophen 650 mg 11/28/18 09:49 12/04/18 22:26 Tylenol Tab* PO 650 mg Q6H PRN Administration MILD PAIN or TEMP > 100.4 Colchicine 0.6 mg 12/06/18 09:00 12/06/18 11:07 Colcrys* PO 0.6 mg DAILY BRETT Administration Docusate Sodium 100 mg 11/28/18 21:00 12/06/18 11:07 Colace Cap* PO 100 mg BID BRETT Administration Enoxaparin Sodium 40 mg 11/29/18 08:00 12/06/18 11:07 Lovenox(*) SUBCUT 40 mg Q24H BRETT Administration Hydroxyzine HCl 25 mg 12/03/18 19:38 12/04/18 23:23 Atarax Tab* PO 25 mg Q6H PRN Administration Pruritis Levothyroxine Sodium 112 mcg 11/29/18 06:00 12/06/18 06:08 Synthroid Tab* PO 112 mcg DAILY@0600 BRETT Administration Metoprolol Succinate 25 mg 11/28/18 21:00 12/05/18 21:00 Toprol Xl Tab* PO 25 mg 2100 BRETT Administration Mometasone Furoate 2 puff 11/29/18 09:00 12/06/18 08:00 Asmanex 220 Mcg Mdi * INH 2 puff DAILY BRETT Administration Protocol Ondansetron HCl 4 mg 11/28/18 10:43 Zofran Odt Tab* PO Q6H PRN NAUSEA Oxycodone HCl 5 mg 11/28/18 10:40 12/06/18 10:47 Roxycodone Tab* PO 5 mg Q4H PRN Administration PAIN - SEVERE Oxycodone HCl 10 mg 11/29/18 07:00 12/06/18 13:50 Oxycontin(*) PO 10 mg 0700,1100,1700 BRETT Administration Pantoprazole Sodium 40 mg 11/29/18 09:00 12/06/18 11:07 Protonix Tab* PO 40 mg DAILY BRETT Administration Senna 1 tab 12/01/18 21:00 12/06/18 11:07 Senokot 8.6 Mg Tab* PO 1 tab BID BRETT Administration Simethicone 80 mg 12/01/18 16:30 12/06/18 16:06 Mylicon Tab* PO 80 mg AC BRETT Administration Vital Signs: Vital Signs Temp Pulse Resp BP Pulse Ox 97.9 F 82 14 123/76 95 12/06/18 15:00 12/06/18 15:00 12/06/18 16:24 12/06/18 15:00 12/06/18 15:00 Exam: GENERAL: No acute distress. Alert and appropriate. LUNGS: Clear to auscultation bilaterally. HEART: regular rate and rhythm ABDOMEN: Soft. + bowel sounds, mild soreness to touch, non-distended. Steri strips intact. EXTREMITIES: No edema. NEUROLOGIC: Sensation intact x4. Motor 4+/5 in BUE and BLE. Assessment/Plan: 1. Small Bowel Obstruction s/p exp lap and partial resection: Regular diet. PT/ OT. WBCs improved without intervention. Surgery f/u as needed. 2. h/o Septic shock: s/p antibiotics. WBCs improved. PT/OT 3. Rheumatoid Arthritis: Restart Arava in about [address] Guerra. PT/ OT. 4. Gout: Colchicine for now 5. DVT Prophylaxis: Lovenox 6. Advance Directives: Full Code 7. Hypothyroidism: Synthroid 8. Estimated LOS: 12/07/18 9. Gas: added simethicone. 10. Pruritis: Atarax PRN 12/06/18 17:33
[2018-12-06] MEDS: Metoprolol Succinate XL TAB* 25 MG PO SCH (20:33)
[2018-12-07 04:33] LABS: Hematocrit 35 % (35-47); Hemoglobin 11.9 g/dL (12.0-16.0); Mean Corpuscular HGB Conc 34 g/dL (31-36); Mean Corpuscular Hemoglobin 32 pg (27-31); Mean Corpuscular Volume 92 fL (80-97); Mean Platelet Volume 8.7 fL (7.4-10.4); Platelet Count 420 10^3/uL (150-450); Red Blood Count 3.77 10^6 /uL (3.70-4.87); Red Cell Distribution Width 15 % (10-15); White Blood Count 5.9 10^3/uL (3.5-10.8)
[2018-12-07 04:54] LABS: Albumin 3.3 g/dL (3.2-5.2); Albumin/Globulin Ratio 1.3 (1-3); BUN/Creatinine Ratio 28.6 (8-20); Calcium 8.9 mg/dL (8.6-10.3); Globulin 2.6 g/dL (2-4); Potassium 3.9 mmol/L (3.5-5.0); Total Bilirubin 0.3 mg/dL (0.2-1.0); Total Protein 5.9 g/dL (6.4-8.9)
[2018-12-07 05:09] LABS: ABS Basophils 0.1 10^3/ul (0-0.2); ABS Eosinophils 0.2 10^3/ul (0-0.6); ABS Lymphocytes 1.1 10^3/ul (1.0-4.8); ABS Monocytes 1.6 10^3/ul (0-0.8); Eosinophil % 3.5 %; Lymphocyte % 18.8 %
[2018-12-07] MEDS: oxyCODONE SR TAB(*) 10 MG TAB.SR PO SCH ×3 (06:08→17:18)
[2018-12-07] MEDS: Levothyroxine TAB* 112 MCG TAB PO SCH (06:08)
[2018-12-07] MEDS: Enoxaparin(*) 40 MG/0.4 ML SYR SUBCUT SCH (07:47)
[2018-12-07] MEDS: Docusate CAP* 100 MG PO SCH (07:47)
[2018-12-07] MEDS: Pantoprazole TAB * 40 MG TAB PO SCH (07:47)
[2018-12-07] MEDS: Simethicone TAB* 80 MG TAB.CHEW PO SCH ×3 (07:47→17:18)
[2018-12-07] MEDS: Senna TAB 8.6 mg* TAB PO SCH (07:47)
[2018-12-07] MEDS: Mometasone 220 MCG MDI INH SCH (07:47)
[2018-12-07] MEDS: Colchicine* 0.6 MG TAB PO SCH (07:48)
[2018-12-07 16:51] VITALS: BP 115/69
--- NOTE | 2018-12-09 22:18 | DS ---
CC: Dr. Vani Guerra * DISCHARGE SUMMARY: DATE OF ADMISSION: 11/28/18 DATE OF DISCHARGE: 12/07/18 DISCHARGE DIAGNOSES: 1. Small bowel obstruction, status post exploratory laparotomy and partial small bowel resection. 2. Septic shock. 3. Rheumatoid arthritis. 4. Asthma. 5. Osteoporosis. 6. Chronic neck and back pain. 7. Congestive heart failure. 8. Hypothyroidism. 9. Gout. HISTORY OF ILLNESS AND HOSPITAL COURSE: For complete history of the events leading up to her rehab stay, please see the history and physical dictated by me on 11/29/18. On 11/30/18 on routine blood draws, the patient was found to have an elevated white blood cell count. Surgery was called to see the patient. Yo Powell and Dr. Pop Mendoza both examined the patient at bedside and felt that the patient's source of leukocytosis was not coming from her abdomen. She had a chest x-ray and a urinalysis, which were negative. The white blood cell count began to normalize on its own. Then by the day of discharge, it was 5.9, down from 14.9. The patient otherwise was largely medically stable. She was resumed on her usual opioids for her chronic back and neck pain. The patient was given laxatives to assist with bowel movements and she did have regular bowel movements on the rehab unit. The patient was seen by Physical Therapy and Occupational Therapy and made good gains with both disciplines. With physical therapy at the time of admission, the patient required min assist for bed mobility, contact guard to do a transfer. She could ambulate 30 feet with contact guard. With occupational therapy, at the time of admission, the patient required supervision for upper body dressing, total assistance for lower body dressing, moderate amount of assistance for bathing, toileting with contact guard, toilet transfers with contact guard. By the time of discharge, the patient was independent in transfers, independent ambulating 300 feet, independent going up and down stairs, independent toileting, independent dressing, independent in bathing. The patient was discharged home 12/07/18. CONDITION AT DISCHARGE: Good. DISCHARGE DIET: Regular. DISCHARGE MEDICATIONS: 1. OxyContin 10 mg 3 times a day. 2. Synthroid 112 mcg daily. 3. Toprol-XL 25 mg daily. 4. Oxycodone 5 mg every 4 hours as needed. 5. Protonix 40 mg every day. 6. Aspirin 81 mg daily. 7. Lisinopril 2.5 mg daily. 8. Clarinex 5 mg every day. 9. Lipitor 80 mg daily. SERVICES AFTER DISCHARGE: With visiting nurse service, she will have home nursing, home physical therapy. Follow up with Dr. Vani Guerra in 1 to 2 weeks. She will also follow up with Dr. John Ko in the office at [facility] in 2 weeks. TIME SPENT: Time for this discharge was approximately 50 minutes, greater than half of that was spent with the patient explaining post-rehabilitation therapy, services, and medications. [id number]/CPS #: [id number] MTDD
== END 2018-12-07 18:15 | disposition home health service (06) | DRG 949 ==
LOC: PMRU 08:57
PROVIDERS: ADMIT Physical Medicine & Rehabilitation; ATTEND Physical Medicine & Rehabilitation
PROC: F07Z5ZZ Bed Mobility Treatment (ICD-10-PCS; principal; 2018-11-28)
PROC: F07Z9ZZ Gait Training/Functional Ambulation Treatment (ICD-10-PCS; 2018-11-28)
PROC: F07Z8ZZ Transfer Training Treatment (ICD-10-PCS; 2018-11-28)
PROC: F08Z0ZZ Bathing/Showering Techniques Treatment (ICD-10-PCS; 2018-11-28)
PROC: F08Z1ZZ Dressing Techniques Treatment (ICD-10-PCS; 2018-11-28)
PROC: F08Z3ZZ Feeding/Eating Treatment (ICD-10-PCS; 2018-11-28)
PROC: F08Z4ZZ Home Management Treatment (ICD-10-PCS; 2018-11-28)
DX: Z48.815 Encounter for surgical aftercare following surgery on the digestive system (principal); J98.11 Atelectasis; I50.32 Chronic diastolic (congestive) heart failure; M06.9 Rheumatoid arthritis, unspecified; J45.909 Unspecified asthma, uncomplicated; M81.0 Age-related osteoporosis without current pathological fracture; M54.9 Dorsalgia, unspecified; M54.2 Cervicalgia; E03.9 Hypothyroidism, unspecified; M10.9 Gout, unspecified; L29.9 Pruritus, unspecified; K59.00 Constipation, unspecified; Z79.891 Long term (current) use of opiate analgesic; Z79.51 Long term (current) use of inhaled steroids; Z79.899 Other long term (current) drug therapy; Z88.5 Allergy status to narcotic agent; Z88.0 Allergy status to penicillin; Z88.2 Allergy status to sulfonamides; Z88.8 Allergy status to other drugs, medicaments and biological substances; Z88.1 Allergy status to other antibiotic agents; Z91.040 Latex allergy status
CPT/HCPCS: 36415; 71046; 80053; 81003; 85025; 86140; 94640; A9270-GY; J1650

== ENCOUNTER 2018-12-11 06:36 | Observation (INO) | payer MEDICARE, OTHER ==
[2018-12-11] MEDS ORDERED: Morphine 4 MG/ML VIAL (1 ml) 4 MG/ML VIAL IV ONE ×3 (06:46→12:10)
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
[2018-12-11 11:13] LABS: Hematocrit 32 % (35-47); Hemoglobin 10.9 g/dL (12.0-16.0); Mean Corpuscular HGB Conc 35 g/dL (31-36); Mean Corpuscular Hemoglobin 32 pg (27-31); Mean Corpuscular Volume 92 fL (80-97); Mean Platelet Volume 8.5 fL (7.4-10.4); Platelet Count 412 10^3/uL (150-450); Red Blood Count 3.45 10^6 /uL (3.70-4.87); Red Cell Distribution Width 15 % (10-15); White Blood Count 7.3 10^3/uL (3.5-10.8)
[2018-12-11 11:16] LABS: INR 1.02 (0.82-1.09)
[2018-12-11 11:29] LABS: BUN/Creatinine Ratio 28.3 (8-20); Calcium 8.7 mg/dL (8.6-10.3); EGFR African American 135.3 (>60); EGFR Non-African American 111.9 (>60); Potassium 3.3 mmol/L (3.5-5.0)
[2018-12-11 11:47] LABS: ABS Basophils 0.1 10^3/ul (0-0.2); ABS Eosinophils 0.1 10^3/ul (0-0.6); ABS Lymphocytes 1.3 10^3/ul (1.0-4.8); ABS Monocytes 1.2 10^3/ul (0-0.8); ABS Neutrophils 4.5 10^3/ul (1.5-7.7); Eosinophil % 1.8 %; Lymphocyte % 18.2 %; Nucleated Red Blood Cells % 0.1
[2018-12-11] MEDS ORDERED: Cyclobenzaprine TAB* 10 MG PO PRN (12:06)
[2018-12-11] MEDS ORDERED: Ondansetron ODT TAB* 4 MG PO PRN (12:06)
[2018-12-11] MEDS ORDERED: Morphine INJ* 2 MG/ML 1 ML SYRINGE (TWO MG - NEW SYRINGE VERSION) IV PRN ×2 (12:06→22:13)
[2018-12-11] MEDS ORDERED: Ondansetron INJ* 2 MG/ML VIAL IV PRN (12:06)
[2018-12-11] MEDS ORDERED: traMADol TAB* 50 MG PO PRN (12:06)
[2018-12-11] MEDS ORDERED: diPHENhydraMINE IV* 50 MG/ML 1 ml VIAL (BENADRYL) IV PRN (12:06)
[2018-12-11] MEDS ORDERED: Magnesium Hydroxide LIQ* 30 ML UDC PO PRN (12:06)
[2018-12-11] MEDS ORDERED: diPHENhydraMINE PO* 25 MG PO PRN ×2 (12:06→12:12)
--- NOTE | 2018-12-11 12:06 | HP ---
AMENDED REPORT NOW INCLUDES DESIGNATED COSIGNER HISTORY AND PHYSICAL: DATE OF EMERGENCY ROOM VISIT: 12/11/18 DATE OF INTENDED OPERATIVE PROCEDURE: Closed reduction of left hip, 12/11/18 ATTENDING ORTHOPEDIC PROVIDER: Dr. Matthew Jarrett * (DICTATED BY KARTHIK CARR) CHIEF COMPLAINT: Left hip dislocation. HISTORY OF PRESENT ILLNESS: The patient is a 78-year-old female who presented to [facility] Emergency Room on 12/11/18 with a dislocated left hip. Incident occurred in her home early this morning when her walker tipped over and she fell to the ground. She is unsure if she landed on her hip or if she fell into a deep squat. She also hit the left side of her head on a table. She reports no other injuries. The patient has a Life Alert, but the button was not working. She was able to scoot herself to a nearby phone and call for an ambulance. Today, the patient has pain at the left hip, though she is comfortable while lying in bed without movement. She is unable to bear weight. There is no radiation of pain; character is sharp with any movement. She denies any chest pain, shortness of breath, dizziness, or nausea associated with this fall. She feels that the fall was mechanical in nature. After hitting her head, she denies any headache, confusion, or change in vision. The patient does not have any history of heart attack, stroke, or blood clot. She does have a history of asthma as well as obstructive sleep apnea. Her asthma is well controlled with Asmanex. She does not need to use rescue inhaler. She does not use a CPAP at night, though she does have one prescribed to her. She requires no oxygen at home. She has had general anesthesia in the past, which she has tolerated well. She has also dislocated her hip in the past 10/01/18 and had a successful closed reduction by Dr. Ellis. She was discharged home in a stable condition with posterior hip precautions in place. Since this time, she has been walking with a walker. In the past several days, she has transitioned to the cane, which she does feel more stable with than with the walker. Of note, she did have a bowel obstruction 11/19/[address] Ko requiring exploratory laparotomy, lysis of adhesions, and partial resection of small bowel with an ICU stay thereafter. PAST MEDICAL HISTORY: Significant for asthma, osteoporosis, rheumatoid arthritis, chronic neck and back pain, congestive heart failure with preserved ejection fraction, hypothyroidism, and osteoporosis. HOME MEDICATIONS: Include: 1. Lisinopril 2.5 mg p.o. q.a.m. 2. Atorvastatin 80 mg p.o. daily. 3. Skelaxin 800 mg p.o. at bedtime. 4. Arava 20 mg daily. 5. Ventolin 2.5 mg inhaled q.4 hours p.r.n. 6. Metoprolol succinate 25 mg p.o. at bedtime. 7. Ketoconazole 2% cream twice a day p.r.n. 8. Levothyroxine 112 mcg p.o. Monday, Monday, Monday, , Monday. 9. Oxycodone 5 mg p.o. q.6 hours p.r.n. 10. Asmanex 220 mcg MDI 1 puff inhaled b.i.d. 11. Albuterol 4 mg p.o. b.i.d. in form of Proventil. 12. Folic acid 1 mg daily. 13. Elestat 0.05 ophthalmic solution 1 drop both eyes b.i.d. 14. Oxycodone 20 mg p.o. t.i.d. 15. Nifedipine ER 30 mg p.o. daily. 16. Lidocaine patch 5% transdermal patch daily p.r.n. 17. Diclofenac patch daily p.r.n. 18. Vitamin B12 1000 mcg daily. 19. Vitamin D3 1000 units daily. 20. Refresh Tears 1 drop both eyes b.i.d. p.r.n. 21. Oxybutynin XL 10 mg p.o. daily. 22. Dymista 1 spray both nares b.i.d. 23. Theragran minerals 1 tab p.o. daily. 24. Aspirin 81 mg daily. 25. Clotrimazole 1 topical application daily that is 1% cream. 26. Sodium chloride 0.65% nasal spray 1 spray both nares q.4 hours p.r.n. 27. Senna 8.6 mg p.o. daily p.r.n. 28. Desloratadine 5 mg daily. 29. Senna 17.2 mg p.o. q.a.m. 30. Ciclopirox 0.77% topical b.i.d. p.r.n. 31. Kenalog cream 0.025 one topical application b.i.d. 32. Alendronate 70 mg p.o. weekly. 33. Clobetasol 100 g foam 0.05% topical application b.i.d. p.r.n. ALLERGIES: AMOXICILLIN, CROMOLYN, ADVAIR, LATEX, PENICILLIN, SULFA, SULINDAC, TRAMADOL, CODEINE. SOCIAL HISTORY: The patient lives alone. She has a Life Alert necklace. She walks with a walker or a cane at baseline. She does have help from family and friends and does not feel that she will require a rehab stay after hip is closed reduced. REVIEW OF SYSTEMS: General: Negative for fever, chills, or recent illness. HEENT: Positive for head trauma on a side table when she fell today. Negative for any acute change in vision or headache. Cardio: No chest pain. No history of [place]. Respiratory: Positive for asthma, which she deemed to be well controlled. Positive for sleep apnea, prescribed a CPAP, but does not use it. No shortness of breath or cough. Abdomen: No abdominal pain. No nausea, vomiting, diarrhea. She does have loose stools several times each night. : No dysuria. Musculoskeletal: Positive for left hip pain. Neuro: Sensation intact to all extremities. She denies any numbness or paresthesias. Hematology : No history of blood clot. Skin: Denies any rashes or lesions. PHYSICAL EXAM: VITAL SIGNS: Temperature 97.6, pulse rate 66, respiratory rate 16, oxygen saturation 95 on 1 L, blood pressure 113/64. GENERAL: Appears well, in no acute distress. Carries on appropriate conversation. HEENT: Normocephalic, atraumatic aside from a quarter-sized goose egg on the posterior aspect of her left side of her head. RESPIRATORY: Clear to auscultation bilaterally. CARDIAC: S1, S2. ABDOMEN: Midline surgical scar well healed. Bowel sounds normoactive, nontender to palpation. No guarding, no rigidity. MUSCULOSKELETAL: Bilateral upper extremities with skin envelope intact. No obvious deformity, nontender to palpation. Active flexion and extension at the digits, wrist, elbow without associated pain. Shoulders nonpainful, active forward flexion and abduction. Lower extremities on the right side: Skin envelope intact. No obvious deformity, nontender to palpation. Active and nonpainful flexion and extension of digits, ankle, hip, and knee. Negative log roll of the hip. Left side: Skin envelope intact. Tender to palpation over the left hip. Left leg is short and internally rotated. She is able to flex and extend at the ankle and toes without any pain. She does not attempt any knee or range of motion due to known hip dislocation. NEURO: Sensation intact to light touch throughout bilateral upper and lower extremities. VASCULAR: DP +2 pulse bilaterally. Capillary refill less than 2 seconds distally. PSYCH: Appropriate affect. SKIN: No rashes or lesions. DIAGNOSTIC STUDIES/LAB DATA: X-ray confirmed left hip dislocation. ASSESSMENT: Left hip dislocation. PLAN: The patient will be nonweightbearing on bed rest. She needs to remain n.p.o. Her last meal was last night. She has had sips of water since. She knows to refrain from having any additional p.o. intake. CBC, BMP, INR ordered. The patient will be taken to the operating room for closed reduction at the soonest available slot. Discussed this case with Dr Vani Guerra, no need for any additional testing prior to going to the OR for closed reduction. If she is able to ambulate and feels safe to go home post op, this is a possibility. If she is having difficulty ambulating she will be admitted overnight KARTHIK CARR [id number]/[facility] #: [id number] [facility]ITAL[facility]amon
[2018-12-11] MEDS ORDERED: Diclofenac 1.3% PATCH (NF) 5 PATCHS TRANSDERM PRN (12:12)
[2018-12-11] MEDS ORDERED: Albuterol 2.5 MG/3 ML NEB.SOL* (0.083%) INH PRN (12:12)
[2018-12-11] MEDS ORDERED: Lidocaine PATCH 5%* 1 PATCH TRANSDERM PRN (12:12)
[2018-12-11] MEDS ORDERED: Saline NASAL SPRAY 0.65%* BTL BOTH NARES PRN (12:12)
[2018-12-11] MEDS ORDERED: Ketoconazole 2 % CREAM (NF) 30 GM TUBE TOPICAL PRN (12:12)
[2018-12-11] MEDS ORDERED: Carboxymethylcellulos 1% OPTH* 1 DROP AMP BOTH EYES PRN (12:12)
[2018-12-11] MEDS ORDERED: oxyCODONE TAB* 5 MG TAB PO PRN (13:19)
--- NOTE | 2018-12-11 13:22 | HP ---
ORTHOPEDIC NOTE: DATE OF ADMISSION: 12/11/18 PATIENT OF: Dr. Vani Guerra. CHIEF COMPLAINT: Left hip region pain. HISTORY OF PRESENT ILLNESS: This nice 78-year-old woman unfortunately got tangled up with her walker at home at 4 a.m. this morning. She had been to the bathroom, she was getting back into her recliner, and in maneuvering the walker , she got tangled and both went to the floor unfortunately. She has been seen, checked, and evaluated in the emergency room and has a dislocated left total hip replacement. She has had an acute hospitalization with a small bowel resection for some ischemic small bowel and septic shock and then was in rehab 11/28/18 through . Her other medical problems have included: Osteoporosis, rheumatoid arthritis, asthma, chronic pain neck and back, chronic opioid use, congestive heart failure, gout, hypothyroidism. The patient currently denies any abdominal pain. She states she has been moving her bowels and passing her urine satisfactorily. The main complaint today is the hip. PHYSICAL EXAMINATION GENERAL: The current examination; she is awake and responsive. Few minutes after she told me her acute history of the fall this morning, she had forgotten that she told me about that. But awake, responsive, and cooperative and not acutely distressed appearing. EXTREMITIES: Her left hip has tenderness. No marked swelling. There is no discoloration. The left thigh is adducted and internally rotated in the left hip and there is a pillow behind the left knee. The left hip adducted as noted. The left knee is flexed. The left ankle has active up and down movements. The left foot has intact sensation. The foot is warm and the color is good. No swelling in the foot. DIAGNOSTIC STUDIES: The x-ray show that the left total hip replacement has a posterior dislocation. We discussed with her whether a reduction maneuver would be possible without anesthesia and she thought not. IMPRESSION: Dislocated left total hip replacement. PLAN/RECOMMENDATIONS: Left hip closed reduction under anesthetic control. The operating room has been requested and notified, and after the procedure, we will see how the patient is doing. We will discuss with Dr. Guerra and possibly home or possibly here overnight. Walker ambulation afterwards and consideration for a hip brace to prevent the left thigh from adducting and internally rotating. [id number]/[facility] #: [id number] [facility]
[2018-12-11] MEDS: Acetaminophen TAB* 325 MG PO SCH ×2 (13:39→23:37)
[2018-12-11] MEDS: Lactated Ringers 1000 ML Bag* 1,000 ML IV SCH ×2 (13:50→22:31)
[2018-12-11] MEDS: Levothyroxine TAB* 112 MCG TAB PO SCH (13:55)
[2018-12-11] MEDS ORDERED: oxyCODONE TAB* 5 MG TAB PO SCH (15:30)
[2018-12-11] MEDS ORDERED: Propofol* 10 MG/ML 20 ML BTL ONE (17:46)
[2018-12-11] MEDS ORDERED: Sodium Citrate/Citric Acid* 15 ML UDC ONE (17:55)
[2018-12-11] MEDS ORDERED: fentaNYL* 50 MCG/ML 2 ML VIAL (100 MCG VIAL) ONE (18:07)
[2018-12-11] MEDS ORDERED: Lidocaine 2% PF * 5 ML VIAL ONE (18:25)
[2018-12-11] MEDS ORDERED: Naloxone* 0.4 MG/ML 1 ML VIAL IV PRN (18:33)
[2018-12-11] MEDS: Mometasone 220 MCG MDI INH SCH (19:33)
[2018-12-11] MEDS ORDERED: Metoprolol Succinate XL TAB* 25 MG PO SCH (21:00)
[2018-12-11] MEDS ORDERED: Senna TAB 8.6 mg* TAB PO SCH (21:00)
[2018-12-11] MEDS ORDERED: Metaxalone TAB* 800 MG PO SCH (21:00)
[2018-12-11] MEDS: Triamcinolone 0.025% OINT * 15 GM TUBE TOPICAL SCH (21:02)
[2018-12-11] MEDS ORDERED: Acetaminophen TAB* 325 MG PO PRN (22:12)
[2018-12-11] MEDS: Epinastine 0.05% OPHTH(NF) 5 ML BTL BOTH EYES SCH (22:18)
[2018-12-11] MEDS: Azelastine/Fluticasone 137-50 MCG BTL (NF) BOTH NARES SCH (22:18)
[2018-12-11] MEDS: Docusate CAP* 100 MG PO SCH (22:35)
[2018-12-11] MEDS: Potassium Chlor TAB* 20 MEQ TAB.ER PO SCH (22:35)
[2018-12-11] MEDS: Colchicine* 0.6 MG TAB PO SCH (22:38)
--- NOTE | 2018-12-12 04:43 | OP ---
DATE OF OPERATION: 12/11/18 - ROOM #348 DATE OF : 42 SURGEON: Matthew Jarrett MD SHOT HOLE SHOOTER: KARTHIK Cardona. A physician quality assurance assistant was required for the procedure for assistance with patient positioning, countertraction. ANESTHESIOLOGIST: Dr. Jw Ramos. ANESTHESIA: General anesthesia with LMA. PRE-OP DIAGNOSIS: Left total hip arthroplasty dislocation, posterior, recurrent. POST-OP DIAGNOSIS: Left total hip arthroplasty dislocation, posterior, recurrent. OPERATIVE PROCEDURE: Closed reduction/relocation left total hip arthroplasty under general anesthesia. ANTIBIOTICS: None. IV FLUIDS: See anesthesia note. PROCEDURE LENGTH: Approximately 2 minutes. RADIATION EXPOSURE: C-arm was utilized. Approximately 4 images taken. SPECIMENS: None. IMPLANTS: None. COMPLICATIONS: None. ESTIMATED BLOOD LOSS: Minimal. INDICATIONS FOR PROCEDURE: The patient is a 78-year-old woman, with a history of a left total hip arthroplasty, implanted in [place] approximately 19 years ago in approximately the year 1999, who injured herself at home with a fall this morning at approximately 4 a.m., today 12/11/18. The patient had had no episodes of instability for approximately 19 years until approximately 1 month ago when she sustained an instability event with a fall. A clarification that this was actually on 10/01/18. Dr. Ellis performed a successful closed relocation of the left hip on that date and the patient was discharged home. The patient had been walking with a walker after that. The patient had a bowel obstruction on 11/19/18, which required abdominal surgery by Dr. Ko. The patient has been recovering. Just in the last several days , she transitioned to using a cane as well as the walker. However, early this morning the patient tripped and fell using a walker. Both of the patient's 2 dislocation events have happened with falls. The patient was taken to the [facility]. X-rays demonstrated a posterior left total hip dislocation. The orthopedic team discussed the patient 's medical history with the patient's primary care physician, Dr. Vani Guerra. The patient was thought to be optimized for surgery. Diamond Rojas from my team saw the patient. Dr. Conrad also saw the patient. DESCRIPTION OF PROCEDURE: The patient signed a written consent in operative holding. Operative extremity was marked in preoperative holding. The patient was taken back to the operating room. On the stretcher, the patient was sedated. The patient was transferred to the operating room table and LMA was placed. The patient was relaxed sufficiently by anesthesia. Formal surgical time-out was performed. A closed relocation was performed. Countertraction was applied to the pelvis. A standard reduction technique was performed. Surprising, given this patient's slight build and older age, it took 2 attempts to successfully relocate the hip. After it perceived by field that I had relocated the hip, the left lower extremity rested in anatomic amount of rotation and there was smooth passive range of motion of the hip in all directions. C-arm was brought in and AP and frog leg lateral views showed left total hip arthroplasty fully relocated. No periprosthetic fractures present. The patient was placed in a hip abduction brace. The patient was awakened, LMA was removed, and the patient was transferred to the PACU. DISPOSITION: The patient was admitted overnight for pain control for functional help as the patient was not fully ambulatory postoperatively. The patient will be discharged home when medically and functionally stable, hopefully on postoperative day 1. I spoke to the patient's son after the operation about some precautions that can be taken in the next 3 months until the patient's left total hip arthroplasty re-scars in. These include a knee immobilizer to be worn at night. An alternative mentioned by Dr. Conrad earlier today is the functional hip brace, worn with activities of daily living. While the academic studies do not support these braces, I have seen them work well. The patient's son believes that the patient is not going to tolerate any of these precautionary devices. Perhaps, the patient will not need them as her dislocation events have only happened with falls. The patient can follow up 2 weeks after discharge from the hospital with me or any of my colleagues in clinic. [id number]/[facility] #: [id number] [facility]
[2018-12-12] MEDS: Levothyroxine TAB* 112 MCG TAB PO SCH (05:57)
[2018-12-12] MEDS: oxyCODONE SR TAB(*) 10 MG TAB.SR PO SCH ×2 (05:58→10:16)
--- NOTE | 2018-12-12 08:40 | PN ---
Progress Note - Progress Note Date of Service: 12/12/18 SOAP: Subjective: []Pt seen at bedside. She feels well without complaints. No pain in her left hip. No numbness or tingling of LLE. Denies CP, SOB, dizziness, nausea Objective: []Gen: Appears well, NAD Leg lengths equal, no rotation of limbs. Calves supple and nontender. LLE: Able to SLR, f/e MTP, ankle, hip and knee intact. Sensation intact to light touch throughout LLE. DP2+ Assessment: []POD 1 sp closed reduction L hip dislocation Plan: []WBAT Posterior hip precautions PT/OT For the next 3 months precautions should be taken to prevent recurrence of dislocation. Dr Jarrett discussed this with patient's son who feels patient will not tolerate these interventions: knee immobilizer to be worn at night. functional hip brace, worn with activities of daily living. As dislocation events have only occurred with falls, posterior hip precautions may be adequate if she is unable to tolerate immobilizer or hip brace follow up 2 weeks after discharge with ortho Vital Signs Temp 97.6 F 12/12/18 11:55 Pulse 66 12/12/18 11:55 Resp 16 12/12/18 11:55 BP 116/58 12/12/18 11:55 Pulse Ox 95 12/12/18 11:55 Intake & Output 12/11/18 12/12/18 12/12/18 18:59 06:59 18:59 Intake Total 200 980 747 Output Total 505 200 Balance 200 475 547 Weight 90 lb Intake: IV Fluids 200 747 LR 200 747 Oral 980 Output: Urine 155 200 Antunez 350 Laboratory Last Values WBC 7.3 10^3/uL (3.5-10.8) 12/11/18 10:58 RBC 3.45 10^6 /uL (3.70-4.87) L 12/11/18 10:58 Hgb 10.9 g/dL (12.0-16.0) L 12/11/18 10:58 Hct 32 % (35-47) L 12/11/18 10:58 MCV 92 fL (80-97) 12/11/18 10:58 MCH 32 pg (27-31) H 12/11/18 10:58 MCHC 35 g/dL (31-36) 12/11/18 10:58 RDW 15 % (10-15) 12/11/18 10:58 Plt Count 412 10^3/uL (150-450) 12/11/18 10:58 MPV 8.5 fL (7.4-10.4) 12/11/18 10:58 Neut % (Auto) 62.3 % 12/11/18 10:58 Lymph % (Auto) 18.2 % 12/11/18 10:58 [place] % (Auto) 16.9 % 12/11/18 10:58 Eos % (Auto) 1.8 % 12/11/18 10:58 Baso % (Auto) 0.8 % 12/11/18 10:58 Absolute Neuts (auto) 4.5 10^3/ul (1.5-7.7) 12/11/18 10:58 Absolute Lymphs (auto) 1.3 10^3/ul (1.0-4.8) 12/11/18 10:58 Absolute Monos (auto) 1.2 10^3/ul (0-0.8) H 12/11/18 10:58 Absolute Eos (auto) 0.1 10^3/ul (0-0.6) 12/11/18 10:58 Absolute Basos (auto) 0.1 10^3/ul (0-0.2) 12/11/18 10:58 Absolute Nucleated RBC 0.0 10^3/ul 12/11/18 10:58 Nucleated RBC % 0.1 12/11/18 10:58 INR (Anticoag Therapy) 1.02 (0.82-1.09) 12/11/18 10:58 Sodium 140 mmol/L (135-145) 12/11/18 10:58 Potassium 3.3 mmol/L (3.5-5.0) L 12/11/18 10:58 Chloride 104 mmol/L (101-111) 12/11/18 10:58 Carbon Dioxide 28 mmol/L (22-32) 12/11/18 10:58 Anion Gap 8 mmol/L (2-11) 12/11/18 10:58 BUN 15 mg/dL (6-24) 12/11/18 10:58 Creatinine 0.53 mg/dL (0.51-0.95) 12/11/18 10:58 Est GFR ( Amer) 135.3 (>60) 12/11/18 10:58 Est GFR (Non-Af Amer) 111.9 (>60) 12/11/18 10:58 BUN/Creatinine Ratio 28.3 (8-20) H 12/11/18 10:58 Glucose 85 mg/dL (70-100) 12/11/18 10:58 Calcium 8.7 mg/dL (8.6-10.3) 12/11/18 10:58
[2018-12-12] MEDS: Potassium Chlor TAB* 20 MEQ TAB.ER PO SCH (08:44)
[2018-12-12] MEDS: Docusate CAP* 100 MG PO SCH (08:46)
[2018-12-12] MEDS: Colchicine* 0.6 MG TAB PO SCH (08:47)
[2018-12-12] MEDS: Azelastine/Fluticasone 137-50 MCG BTL (NF) BOTH NARES SCH (08:49)
[2018-12-12] MEDS: Epinastine 0.05% OPHTH(NF) 5 ML BTL BOTH EYES SCH (08:50)
[2018-12-12] MEDS: Triamcinolone 0.025% OINT * 15 GM TUBE TOPICAL SCH (08:51)
[2018-12-12] MEDS: Mometasone 220 MCG MDI INH SCH (08:54)
[2018-12-12] MEDS ORDERED: Aspirin EC TAB* 81 MG TAB.EC PO SCH (09:00)
[2018-12-12] MEDS ORDERED: Senna TAB 8.6 mg* TAB PO SCH (09:00)
[2018-12-12] MEDS ORDERED: NIFEdipine ER TAB* 30 MG PO SCH (09:00)
[2018-12-12] MEDS ORDERED: Cetirizine* 10 MG TAB PO SCH (09:00)
[2018-12-12] MEDS ORDERED: Lisinopril TAB* 5 MG PO SCH ×2 (09:00→09:15)
[2018-12-12] MEDS ORDERED: Folic Acid TAB* 1 MG PO SCH (09:00)
[2018-12-12] MEDS ORDERED: Pantoprazole TAB * 40 MG TAB PO SCH (09:00)
[2018-12-12] MEDS ORDERED: Atorvastatin* 80 MG TAB PO SCH (09:00)
--- NOTE | 2018-12-12 11:26 | CONS ---
CC: Orthopedics, Dr. Jarrett CONSULTATION NOTE: DATE OF CONSULT: 12/12/18 DATE OF ADMISSION: 12/11/18 HISTORY OF PRESENT ILLNESS: Kim Bose is a 78-year-old woman admitted yesterday after falling a nd dislocating her hip. She went to the OR, where she had a closed reduction/relocation of the left total hip arthroplasty under general anesthesia. The patient feels better today. She is able to wal k with physical therapy. She denies pain. PAST MEDICAL HISTORY: Significant for the following medical problems: 1. Rheumatoid arthritis. 2. Osteoporosis. 3. Asthma. 4. Chronic pain in the neck and back, on chronic opioids. 5. History of Takotsubo cardiomyopathy. 6. Hypothyroidism. 7. History of hypertension. 8. Recent small-bowel obstruction with ischemic bowel, status post resection. 9. Hospitalization on 11/17/18 to 11/28/18 was complicated by acute kidney injury, hypovolemic shock , and hypotension. 10. History of hypertension. 11. Diverticulosis. 12. Hyperlipidemia, treated. 13. Mild aortic stenosis. PAST SURGICAL HISTORY: Include recent surgery as noted above, prior laparoscopy for endometriosis, c autery of lesions and tubal ligation, tonsillectomy, D and C, bilateral hip replacements, bilateral c ataract extractions, right carpal tunnel release, left carpal tunnel release, knee surgery of right k nee with debridement and chondroplasty, and ORIF right wrist for fracture. CURRENT MEDICATIONS: 1. OxyContin 10 mg 3 times a day. 2. Oxycodone 5 mg q.4 h. p.r.n. for pain. 3. Synthroid 112 mcg 6 days a week. 4. Toprol-XL 25 mg daily. 5. Protonix 40 mg daily. 6. Aspirin 81 mg daily. 7. Lisinopril 2.5 mg daily. 8. Clarinex 5 mg daily. 9. Lipitor 80 mg daily. 10. Senna 50 mg twice a day. 11. The patient had previously been on leflunomide 20 mg daily; this had been held postoperatively. 12. Asmanex 220 1 puff twice a day. 13. Nifedipine extended release 30 mg daily. 14. Alendronate 70 mg weekly. 15. Dymista 1 spray to both nostrils twice a day. 16. Skelaxin 800 mg at bedtime. ALLERGIES: AMOXICILLIN, CROMOLYN, FLUOCINOLONE, FLUTICASONE, LATEX, PENICILLIN, SALMETEROL, SULFA, Z AFIRLUKAST, CODEINE, SULINDAC, TRAMADOL. REVIEW OF SYSTEMS: The patient tells me that she had actually been doing quite well. While she was in the rehabilitation unit after her recent hospitalization, she was not eating well, basically just drinking Ensure. She states she has been eating better since being home since last Monday when she w as discharged on 12/07/18. She has been sleeping all right, but does get up at 4 a.m. to have a marcie l movement; usually has 2 to 3 bowel movements between 4 and 6 a.m., which is normal for her. She cueto s chronic neck and back pain. She has rheumatoid arthritis. She has no other complaints at this time . PHYSICAL EXAM: Vital Signs: Blood pressure 101/56, pulse 67, respirations 16, temperature 98.3, O2 sat 92%. She is an elderly white female, sitting up eating breakfast, in no acute distress. Skin is warm and dry. HEENT: Atraumatic, normocephalic, full EOMs, PERRLA. Chest is clear. Heart: Ernestine l S1, S2, grade 1/6 systolic murmur. Abdomen has a well-healed scar, soft, nontender, normal bowel s ounds. Extremities are without edema. DIAGNOSTIC STUDIES/LAB DATA: CBC: WBC 7.3, H and H 10.9/32, MCV 92, PLT 412,000. INR 1.02. Coding Compliance Auditor ry: Sodium 140, potassium 3.3, chloride 104, CO2 of 28, BUN/creatinine 15/0.53, glucose 85, calcium 8.7. IMPRESSION AND PLAN: 1. The patient is status post relocation of the hip after a dislocation yesterday. She is walking we ll. She feels that she is able to get home. 2. Hypokalemia. She has received a dose of KCl. She had not been eating well. I will recheck it. 3. Hypothyroidism. Her TSH had been elevated during her hospitalization recently because her Synthr oid was left off when she was in the ICU. We will recheck TSH today. 4. Rheumatoid arthritis. She has not restarted her leflunomide since being home. She states it has been reordered at the pharmacy and she just has not gotten to pick it up yet. Other problems are stable. [id number]/[facility] #: [id number]
[2018-12-12 11:55] VITALS: BP 116/58
--- NOTE | 2018-12-12 12:13 | DS ---
Orthopedic Discharge Summary - Discharge Summary Date of Admission:12/11/18 Date of Discharge: 12/12/18 Date of Surgery: 12/11/18 Attending Orthopedic Provider: Dr Jarrett Pre-operative Diagnosis: Left hip dislocation Operative Procedure: Left hip closed reduction Disposition of Patient: home Condition of Patient: stable History: SMITH ORTEGA is a 78 year old F with left hip dislocation. Hospital Course: SMITH was admitted to [facility] on 12/11/18. Patient underwent a closed reduction of left hip without complication followed by a brief recovery in PACU and transfer to the Short Stay Surgical Unit in stable condition. Dr Guerra, physical therapy and occupational therapy also participated in this patients care. Post-op day 1: patient was alert and in no acute distress. LLE f/e at hip, knee, ankle and MTPs intact, sensation intact to light touch distally, DP2+. Physical therapy and occational therapy goals were met. Home Medications Medication Instructions Recorded Confirmed Type Albuterol 2.5MG/3ML (0.083%)* 2.5 mg INH Q4H PRN 06/30/17 12/11/18 History [Ventolin 2.5 MG/3 ML NEB.TITUS*] Atorvastatin* [Lipitor 80 MG*] 80 mg PO DAILY 06/30/17 12/11/18 History Epinastine 0.05% OPHTH(NF) 1 drop BOTH EYES BID 06/30/17 12/11/18 History [Elestat 0.05% OPTH TITUS (NF)] Folic Acid TAB* [Folvite TAB*] 1 mg PO DAILY 06/30/17 12/11/18 History Ketoconazole 2 % CREAM (NF) 1 applic TOPICAL .TWICE WEEKLY PRN 06/30/17 History [Nizoral 2% CREAM (NF)] Levothyroxine TAB* [Synthorid 112 112 mcg PO SUTUWETHFR 06/30/17 12/11/18 History MCG TAB*] Lisinopril TAB* [Prinivil TAB 5 2.5 mg PO QAM 06/30/17 12/11/18 History MG*] Metaxalone TAB* [Skelaxin TAB*] 800 mg PO BEDTIME 06/30/17 12/11/18 History Metoprolol Succinate XL TAB* 25 mg PO BEDTIME 06/30/17 12/11/18 History [Toprol XL TAB*] Mometasone 220 MCG MDI * [Asmanex 1 puff INH BID 06/30/17 12/11/18 History 220 MCG MDI *] oxyCODONE TAB* [Roxycodone TAB 5 5 mg PO Q6HR PRN 06/30/17 12/11/18 History mg*] Carboxymethylcellulose Sodium 1 drop BOTH EYES BID PRN 11/09/17 12/11/18 History [Refresh Tears] Cholecalciferol (Vitamin D3) 1,000 unit PO DAILY 11/09/17 12/11/18 History [Vitamin D3] Cyanocobalamin (Vitamin B-12) 1,000 mcg PO DAILY 11/09/17 12/11/18 History [Vitamin B-12] Diclofenac 1.3% PATCH (NF) 1 patch TRANSDERM DAILY PRN 11/09/17 12/11/18 History [Flector 1.3% PATCH (NF)] Lidocaine PATCH 5%* [Lidoderm 5% 1 patch TRANSDERM DAILY PRN 11/09/17 12/11/18 History Patch*] NIFEdipine ER TAB* [Procardia Xl 30 mg PO DAILY 11/09/17 12/11/18 History TAB*] oxyCODONE SR TAB(*) [Oxycontin 10 20 mg PO TID 11/09/17 12/11/18 History mg (*)] Azelastine/Fluticasone PARMINDER(NF 1 spray BOTH NARES BID 01/30/18 12/11/18 History [Dymista(NF)] Alendronate (NF) [Fosamax (NF)] 70 mg PO WEEKLY 10/01/18 12/11/18 History Aspirin EC TAB* [Ecotrin EC Low 81 mg PO DAILY 10/01/18 12/11/18 History Dose 81 MG*] Desloratidine (NF) [Clarinex (NF)] 5 mg PO DAILY 10/01/18 12/11/18 History Multivitamins/Minerals TAB* 1 tab PO DAILY 10/01/18 12/11/18 History [Theragran/minerals TAB*] Saline NASAL SPRAY 0.65%* [Sodium 1 spray BOTH NARES Q4H PRN 10/01/18 12/11/18 History Chloride 0.65% Nasal [place]*] Sennosides [Senna] 8.6 mg PO QPM 10/01/18 12/11/18 History Sennosides [Senna] 17.2 mg PO QAM 10/01/18 12/11/18 History Triamcinolone 0.025% CM(NF) 1 applic TOPICAL BID 10/01/18 12/11/18 History [Kenalog Cream 0.025%*] Colchicine* [Colcrys*] 0.6 mg PO BID tab 11/28/18 12/11/18 Rx Levothyroxine TAB* [Synthorid 112 112 mcg PO DAILY@0600 tab 11/28/18 12/11/18 Rx MCG TAB*] Metoprolol Succinate XL TAB* 25 mg PO 2100 tab.xl 11/28/18 12/11/18 Rx [Toprol XL TAB*] diPHENhydraMINE PO* [Benadryl PO 25 mg PO Q4H PRN tab 11/28/18 12/11/18 Rx 25 MG TAB*] oxyCODONE SR TAB(*) [Oxycontin 10 10 mg PO 0600,0900,1530 tab.sr 11/28/1812/11 Rx mg (*)] oxyCODONE TAB* [Roxycodone TAB 5 5 mg PO Q4H PRN tab 11/28/18 12/11/18 Rx mg*] Acetaminophen TAB* [Tylenol TAB*] 650 mg PO Q6H PRN tab 12/06/18 12/11/18 Rx Levothyroxine TAB* [Synthorid 112 112 mcg PO DAILY@0600 tab 12/06/18 12/11/18 Rx MCG TAB*] Metoprolol Succinate XL TAB* 25 mg PO 2100 tab.xl 12/06/18 12/11/18 Rx [Toprol XL TAB*] Pantoprazole TAB * [Protonix TAB*] 40 mg PO DAILY tab 12/06/18 12/11/18 Rx Senna TAB 8.6 mg* [Senokot 8.6 mg 1 tab PO BID tab 12/06/18 12/11/18 Rx TAB*] oxyCODONE SR TAB(*) [Oxycontin 10 10 mg PO 0700,1100,1700 tab.sr 12/06/1812/11 Rx mg (*)] oxyCODONE TAB* [Roxycodone TAB 5 5 mg PO Q4H PRN tab 12/06/18 12/11/18 Rx mg*] Acetaminophen TAB* [Tylenol TAB*] 650 mg PO Q4H PRN tab 12/12/18 Rx weight bearing as tolerated Continue Posterior Hip Precautions- do not cross legs or bend greater than 90 degrees/squat Diet: * Regular diet * Increase fluids and fiber to prevent constipation. * Continue to use stool softeners, call office if no bowel motion within 48 hours. Medications resume home medications. There have been no changes made to your home medications FOLLOW UP: Follow up with [Luiza] 2 weeks sooner with concerns, call for appointment Please call our office with any questions or concerns ([phone])
[2018-12-12 12:20] LABS: Calcium 8.4 mg/dL (8.6-10.3); EGFR African American 144.8 (>60); EGFR Non-African American 119.6 (>60)
[2018-12-13] MEDS ORDERED: Bisacodyl SUPP* 10 MG SUPP PR PRN (12:06)
--- NOTE | 2019-01-02 17:06 | HP ---
ADDENDUM TO HISTORY AND PHYSICAL DATE OF ADMISSION: 12/11/2018. FAMILY HISTORY: Mother at age 64 with CHF, as well as coronary artery disease. Father with diabetes and emphysema. KARTHIK CARR [id number]/[facility] #: [id number] MTDRamon
== END 2018-12-12 15:05 | disposition home or self-care (01) ==
LOC: ED 06:36 → SSU 12:29
PROVIDERS: ADMIT Orthopaedic Surgery; ATTEND Orthopaedic Surgery
DX: T84.021A Dislocation of internal left hip prosthesis, initial encounter (principal); E03.9 Hypothyroidism, unspecified; I50.9 Heart failure, unspecified; I25.10 Atherosclerotic heart disease of native coronary artery without angina pectoris; E78.00 Pure hypercholesterolemia, unspecified; K57.90 Diverticulosis of intestine, part unspecified, without perforation or abscess without bleeding; I35.0 Nonrheumatic aortic (valve) stenosis; I10 Essential (primary) hypertension; M54.9 Dorsalgia, unspecified; Z79.82 Long term (current) use of aspirin; Z79.899 Other long term (current) drug therapy; Z88.0 Allergy status to penicillin; M06.9 Rheumatoid arthritis, unspecified; M81.0 Age-related osteoporosis without current pathological fracture; E78.5 Hyperlipidemia, unspecified
CPT/HCPCS: 36415; 70450; 80048; 84443; 85025; 85610; 96361; 96374; 96376; 99285; A9270-GY; G0378; G8978-GP-CI; G8979-GP-CI; G8980-GP-CI; G8987-GO-CJ; G8988-GO-CJ; G8989-GO-CJ; J2270; J2704; J3010

== ENCOUNTER 2019-03-09 17:01 | Day surgery (SDC) | payer MEDICARE ==
[2019-03-09] MEDS ORDERED: NS 0.9% 1000 ML** 1,000 ML IV ONE (17:04)
[2019-03-09] MEDS ORDERED: HYDROmorphone INJ* 0.5 MG/0.5 ML SYRINGE IV ONE (17:05)
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
--- OUTSIDE RECORDS SUMMARY | 2019-03-09 17:17 | XMS REPORT | Continuity of Care Document ---
:1940 External Reference #:[id number] Author Name Emeka Ellis M.D. (transmitted by agent of provider Sarai Pendleton) Address [address] [place] [address] [place] [address] Care Team Providers Name Role Phone Vani Guerra MD - Internal Medicine Care Team Information Cyber Transport Systems Specialist [phone] Problems Active Problems Provider Date Takotsubo cardiomyopathy Valeria Davenport MD, [facility], [place] [facility] Other cardiomyopathies Lana Fabian M.D. Onset: 09/15/2016 Dislocation of internal left hip Emeka Ellis M.D. Onset: 02/06/2019 prosthesis, subsequent encounter Closed fracture of acetabulum with Emeka Ellis M.D. Onset: 01/02/2019 dislocation of hip Social History Type Date Description Comments Sex Unknown Smokeless Tobacco Never Used Smokeless Tobacco ETOH Use Rarely consumes alcohol Tobacco Use Start: Unknown Patient has never smoked Recreational Drug Use Denies Drug Use Smoking Status Reviewed: 02/06/19 Patient has never smoked Exercise Type/Frequency Exercises regularly walking and gardening Allergies, Adverse Reactions, Alerts Active Allergies Reaction Severity Comments Date Penicillins 12/25/2013 Sulfa Antibiotics 12/25/2013 ALL Sulfa Products including methy kei sulfate in 12/25/2013 toothpaste Pollen 12/25/2013 Dust Mites 12/25/2013 Cat Dander 12/25/2013 Dog Dander 12/25/2013 Mold 12/25/2013 Rubber rash per patient 08/17/2016 Medications Active Medications SIG Qnty Indications Ordering Date Provider Evista 1 by mouth every Dirk Anamaria, 12/25/2013 60mg Tablets day ( PT Stop M.D. Taking) Lidoderm apply to affected Dirk Anamaria, 12/25/2013 5% Patches area for 12 hours, M.D. remove for 12 hours and repeat as needed Tobramycin Opthalmic 2 drops in affected 1Bottle Unknown Solution eye every 2 hours 0.3% as needed (not Solution taking) Ketoconazole apply twice a day Unknown 2% Cream prn Lidocaine apply patch up to Unknown 5% Patches 12 hours once a day prn Epinastine HCL 1 gtt both eyes [place], 0.05% twice daily Shelly, OD Solution Atorvastatin Calcium 1 by mouth every Unknown day 80mg Tablets Lisinopril 1 by mouth every Unknown 5mg day ( started [facility] Tablets 08/03/16) Metoprolol Succinate 1/2 tablet in Am, 1 Unknown ER tablet po evening 50mg Tablets ER 24HR Levothyroxine Sodium 1 by mouth every Unknown day, 5 days a week 112mcg Tablets Vitamin D3 1 by mouth every Unknown 1000Unit day Tablets Allergy Shots Q 2-4 weeks at MD Unknown office Sennosides-Docusate take one- two Unknown Sodium tablet by mouth 8.6-50mg every day as needed Tablets Albuterol Sulfate 1 vial via Unknown nebulizer 4 times (2.5mg/3ML) 0.083% daily as needed Nebulizer Refresh use daily as needed Unknown 1.4-0.6% for dry eyes Solution Clotrimazole as needed Unknown Nasal [place] Extra as needed Unknown Moisturizing 12 Hour 0.05% Solution Vitamin B-12 1 by mouth every Unknown 1000mcg day Tablets Senior Multivitamin one daily Unknown Plus Tablets Aspirin 1 by mouth every Unknown 81mg Tablets day Am DR Parker topically every day Unknown 1.3% Patches as needed Fluticasone 2 sprays each Unknown Propionate nostril daily prn 50mcg/Act Suspension Asmanex 14 Metered 1 puff twice a day Unknown Doses 220mcg/Inh Aerosol Proair HFA 2 puffs by mouth Unknown every 4 hours as 108(90Base) mcg/Act needed Aerosol Leflunomide 1 by mouth every Unknown 20mg day Tablets Oxycodone HCL One by mouth every Unknown 5mg 4-6 hours as needed Tablets for breakthrough pain Oxycontin 2 by mouth each Unknown 10mg Tab ER morning and 1 12H Abuse-Det twelve hours later Metaxalone take 1 at bedtime, Unknown 800mg 1/2-1 tab q 8 hrs Tablets prn Folic Acid 1 by mouth every Unknown 1mg day Tablets Singulair 1 by mouth every Unknown 10mg day Tablets Clarinex 1 by mouth every Unknown 5mg Tablets day Albuterol Sulfate ER 1 tablet po twice Unknown daily 4mg Tablets ER 12HR Medications Administered in Office Medication SIG Qnty Indications Ordering Provider Date Synvisc Or Synvisc-One Biju Conrad M.D. 09/12/2012 Injection 1 MG Injection Synvisc Or Synvisc-One Kenneth Jean, 09/04/2012 Injection 1 MG RPA-C Injection Synvisc Or Synvisc-One Biju Conrad M.D. 08/27/2012 Injection 1 MG Injection Immunizations Description No Information Available Vital Signs Date Vital Result Comment 02/06/2019 11:22am Height 55 inches 4'7" Weight 92.00 lb Heart Rate 76 /min BP Systolic 126 mmHg BP Diastolic 76 mmHg BMI (Body Mass Index) 21.4 kg/m2 01/02/2019 11:08am Height 55 inches 4'7" Weight 95.00 lb Heart Rate 53 /min Body Temperature 97.7 F O2 % BldC Oximetry 91 % BMI (Body Mass Index) 22.1 kg/m2 Results Test Acquired Date Facility Test Result H/L Range Note Inr/Protime 12/11/2018 [facility] Inr 1.02 Normal 0.82-1.[address] [place] [address] [phone] Basic Metabolic 12/11/2018 [facility] Sodium 140 mmol/L Normal 135-145 Panel [address] [place] [address] [phone] Potassium 3.3 mmol/L Low 3.5-5.0 Chloride 104 mmol/L Normal 101-111 Co2 Carbon Dioxide 28 mmol/L Normal 22-32 Anion Gap 8 mmol/L Normal 2-11 Glucose 85 mg/dL Normal 70-100 Blood Urea Nitrogen 15 mg/dL Normal 6-24 Creatinine 0.53 mg/dL Normal 0.51-0.95 BUN/Creatinine Ratio 28.3 High 8-20 Calcium 8.7 mg/dL Normal 8.6-10.3 Egfr Non- 111.9 >60 Egfr 135.3 >60 2 CBC Auto 12/11/2018 [facility] White Blood 7.3 10^3/uL Normal 3.5-10.[address] [place] [address] [phone] Red Blood Count 3.45 10^6/uL Low 3.70-4.87 Hemoglobin 10.9 g/dL Low 12.0-16.0 Hematocrit 32 % Low 35-47 Mean Corpuscular Volume 92 fL Normal 80-97 Mean Corpuscular Hemoglobin 32 pg High 27-31 Mean Corpuscular HGB Conc 35 g/dL Normal 31-36 Red Cell Distribution Width 15 % Normal 10-15 Platelet Count 412 10^3/uL Normal 150-450 Mean Platelet Volume 8.5 fL Normal 7.4-10.4 Abs Neutrophils 4.5 10^3/uL Normal 1.5-7.7 Abs Lymphocytes 1.3 10^3/uL Normal 1.0-4.8 Abs Monocytes 1.2 10^3/uL High 0-0.8 Abs Eosinophils 0.1 10^3/uL Normal 0-0.6 Abs Basophils 0.1 10^3/uL Normal 0-0.2 Abs Nucleated RBC 0.0 10^3/uL Granulocyte % 62.3 % Lymphocyte % 18.2 % Monocyte % 16.9 % Eosinophil % 1.8 % Basophil % 0.8 % Nucleated Red Blood Cells % 0.1 1 Standard intensity warfarin therapeutic range: 2.0-3.0 High intensity warfarin therapeutic range: 2.5-3.5 2 Because ethnic data is not always readily available, this report includes an eGFR for both -Americans and non- Americans. The National Kidney Disease Education Program (NKDEP) does not endorse the use of the MDRD equation for patients that are not between the ages of 18 and 70, are , have extremes of body size, muscle mass, or nutritional status, or are non- or non-. According to the National Kidney Foundation, irrespective of diagnosis, the stage of the disease is based on the level of kidney function: Stage Description GFR(mL/min/1.73 m(2)) 1 Kidney damage with normal or decreased GFR 90 2 Kidney damage with mild decrease in GFR 60-89 3 Moderate decrease in GFR 30-59 4 Severe decrease in GFR 15-29 5 Kidney failure <15 (or dialysis) Procedures Date Code Description Status 12/11/2018 [address] Closed [place] Post Hip Arthroplasty Req Reg Or Gen Anesthesia Completed 12/11/2018 70421 Closed [place] Post Hip Arthroplasty Req Reg Or Gen Anesthesia Completed 12/11/2018 34203 Closed [place] Post Hip Arthroplasty Req Reg Or Gen Anesthesia Completed 11/20/2018 34908 ECHO Transthorasic Realtime 2D W Doppler & Color Flow Hosp Completed 11/20/2018 92576 Excision Bowel Lesion(S) Single Enterotomy Completed 11/20/2018 34086 Excision Bowel Lesion(S) Single Enterotomy Completed 10/01/2018 46991 Closed [place] Post Hip Arthroplasty Req Reg Or Gen Anesthesia Completed Medical Devices Description No Information Available Encounters Type Date Location Provider Dx Diagnosis Office Visit 12/11/2018 [facility] Diamond Rojas, S73.005A Unspecified 8:57a at [facility] dislocation of left hip, initial encounter W18.39xA Other fall on same level, initial encounter Office Visit 11/23/2018 10:57a [facility] Micha Cooper M.D. E87.6 Hypokalemia E83.42 Hypomagnesemia E83.51 Hypocalcemia E87.8 Oth disorders of electrolyte and fluid balance, NEC Office Visit 11/22/2018 10:56a [facility] Micha Cooper, R60.9 Edema, unspecified M.D. Office Visit 11/21/2018 10:56a [facility] Micha Cooper R57.1 Hypovolemic shock M.D. 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 unspecified J98.11 Atelectasis R10.9 Unspecified abdominal pain Office Visit 11/20/2018 7:00a [facility] Arnav Genao K56.699 Other intestnl Of Anca Sosa MD obst unsp as to partial versus complete obst Office Visit 11/18/2018 10:51a [facility] Leonarda Mixon, R10.31 Right lower Assoc,pc MD quadrant pain Hospitalists Assessments Date Code Description Provider 02/06/2019 T84.021D Dislocation of internal left hip Emeka Ellis M.D. prosthesis, subsequent encounter 01/02/2019 S73.005A Unspecified dislocation of left Emeka Ellis M.D. hip, initial encounter 01/02/2019 T84.021D Dislocation of internal left hip Emeka Ellis M.D. prosthesis, subsequent encounter 01/02/2019 Z96.642 Presence of left artificial hip Emeka Ellis M.D. joint 12/11/2018 T84.021A Dislocation of internal left hip Matthew Jarrett MD prosthesis, initial encounter 12/11/2018 S73.005A Unspecified dislocation of left KARTHIK Sanchez hip, initial encounter 12/11/2018 W18.39xA Other fall on same level, initial KARTHIK Sanchez encounter 12/11/2018 T84.021A Dislocation of internal left hip Kenneth Jean RPA-Howard prosthesis, initial encounter 12/11/2018 Z96.642 Presence of left artificial hip Matthew Jarrett MD joint 12/11/2018 Z96.642 Presence of left artificial hip Kenneth Jean RPA-C joint 11/23/2018 E87.6 Hypokalemia Micha Cooper M.D. 11/23/2018 E83.42 Hypomagnesemia Micha Cooper M.D. 11/23/2018 E83.51 Hypocalcemia Micha Cooper M.D. 11/23/2018 E87.8 Other disorders of electrolyte and Micha Cooper M.D. fluid balance, not elsewhere classified 11/22/2018 R60.9 Edema, unspecified Micha Cooper M.D. 11/21/2018 R57.1 Hypovolemic shock Micha Cooper M.D. 11/21/2018 K55.9 Vascular disorder of intestine, Micha Cooper M.D. unspecified 11/21/2018 J98.11 Atelectasis Micha Cooper M.D. 11/21/2018 E87.1 Hypo-osmolality and hyponatremia Micha Cooper M.D. 11/21/2018 I35.8 Other nonrheumatic aortic valve Micha Cooper M.D. disorders 11/20/2018 I95.9 Hypotension, unspecified Ananth Camacho M.D. 11/20/2018 K55.9 Vascular disorder of intestine, KARTHIK Freedman unspecified 11/20/2018 I95.9 Hypotension, unspecified Micha Cooper M.D. 11/20/2018 J98.11 Atelectasis Micha Cooper M.D. 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 11/20/2018 K56.50 Intestinal adhesions [bands], KARTHIK Freedman unspecified as to partial versus complete obstruction 11/20/2018 K56.50 Intestinal adhesions [bands], John Ko MD, FACS unspecified as to partial versus complete obstruction 11/20/2018 K56.699 Other intestinal obstruction Arnav Sosa MD unspecified as to partial versus complete obstruction 11/18/2018 R10.31 Right lower quadrant pain Leonarda Mixon MD 10/10/2018 S73.015D Posterior dislocation of left hip, Emeka Ellis M.D. subsequent encounter 10/10/2018 T84.021D Dislocation of internal left hip Emeka Ellis M.D. prosthesis, subsequent encounter 10/10/2018 Z96.642 Presence of left artificial hip Emeka Ellis M.D. joint 10/01/2018 Z96.642 Presence of left artificial hip Emeka Ellis M.D. joint 10/01/2018 T84.021A Dislocation of internal left hip Emeka Ellis M.D. prosthesis, initial encounter Plan of Treatment Future Appointment(s):04/10/2019 11:00 am - Emeka Ellis M.D. at [facility] [place]/06/2019 - Emeka Ellis M.D.T84.021D Dislocation of internal left hip prosthesis, subsequent encounterFollow up:Follow up: March 2019 - Continue PT - return sooner with any increased laxity/ pain Functional Status Description No Information Available Mental Status Description No Information Available Referrals Description No Information Available
[2019-03-09] MEDS ORDERED: Levalbuterol 0.63MG/3ML NEB* UNIT OF USE INH PRN (18:55)
[2019-03-09] MEDS ORDERED: DiMENhydriNATE IV* 50 MG/ML VIAL IV PUSH PRN (18:55)
[2019-03-09] MEDS ORDERED: Ondansetron INJ* 2 MG/ML VIAL IV PRN (18:55)
[2019-03-09] MEDS ORDERED: Buffered Lidocaine 1% SYRIN* 1 ML/SYRINGE INTRADERM ONE (18:55)
[2019-03-09] MEDS ORDERED: fentaNYL* 50 MCG/ML 2 ML VIAL (100 MCG VIAL) IV PRN (18:55)
[2019-03-09] MEDS ORDERED: Naloxone* 0.4 MG/ML 1 ML VIAL IV PRN (18:55)
[2019-03-09] MEDS ORDERED: Lactated Ringers 1000 ML Bag* 1,000 ML IV SCH (19:00)
[2019-03-09 19:21] LABS: Urine Appearance Clear; Urine Bilirubin Negative (Negative); Urine Blood Negative (Negative); Urine Color Yellow; Urine Glucose Negative (Negative); Urine Ketones Negative (Negative); Urine Nitrite Negative (Negative); Urine Protein Negative (Negative); Urine Specific Gravity 1.009 (1.010-1.030); Urine Urobilinogen Negative (Negative)
[2019-03-09] MEDS ORDERED: fentaNYL* 50 MCG/ML 2 ML VIAL (100 MCG VIAL) ONE (19:30)
[2019-03-09] MEDS ORDERED: Midazolam* 1 MG/ML 2 ML VIAL (2 MG) ONE (19:31)
[2019-03-09] MEDS ORDERED: Succinylcholine* 20 MG/ML 10 ML VIAL ONE (19:32)
[2019-03-09] MEDS ORDERED: Ondansetron INJ* 2 MG/ML VIAL ONE (19:32)
[2019-03-09] MEDS ORDERED: Propofol* 10 MG/ML 20 ML BTL ONE (19:32)
[2019-03-09] MEDS ORDERED: Famotidine IV* 10 MG/ML 2 ML (20 mg) ONE (19:34)
[2019-03-09] MEDS ORDERED: Lidocaine 2% PF * 5 ML VIAL ONE (19:40)
[2019-03-09 20:35] VITALS: BP 123/73
--- NOTE | 2019-03-11 09:52 | OP ---
OPERATIVE REPORT: DATE OF OPERATION: 03/09/19 DATE OF : 42 SURGEON: Mariangel Martin MD POLARITY TESTER: None available. PRE-OP DIAGNOSIS: Left hip periprosthetic dislocation. POST-OP DIAGNOSIS: Left hip periprosthetic dislocation. OPERATIVE PROCEDURE: Left hip closed reduction of dislocated periprosthetic hip. COMPLICATIONS: None. ESTIMATED BLOOD LOSS: None. DISPOSITION: To home. INDICATIONS: Kim Bose is a 79-year-old female who had a total hip done by Dr. Hoang in 1999, who has had now 3 dislocations. The first was in September , the second one was in November. They were results of fall. At this time, she bent over and it dislocated. She has persistent pain. The ED did not attempt at reduction because of concern for GLADYS, which she does not have. She does have a complicated medical history however, was brought here to the OR for reduction after discussion with anesthesia. Risks and benefits were discussed at length, included but not limited to bleeding; infection; damage to nerves, vessels, surrounding structures; wound nonhealing; persistent pain; need for further surgery; scarring; stiffness; incomplete relief of symptoms; risks of anesthesia. I advised the patient that she should consult with one of my colleagues for revision of total hip. DESCRIPTION OF PROCEDURE: The patient was greeted in the preoperative area by the attending surgeon. Correct extremity was marked and consent was confirmed. The patient was brought to the operating suite and placed in supine position on the operating table, after which she underwent general anesthesia and a time- out was performed indicating site, side, and procedure. The hip was then reduced with axial traction and counter-traction on the pelvis and went in satisfactorily. Images were obtained and demonstrate the hip adequately reduced. An abduction pillow was placed and she was awoken from anesthesia in stable condition. POSTOPERATIVE PLAN: She will be weightbearing as tolerated. She will be discharged to home today. We will follow up with the patient in the office with one of our colleagues either Dr. Ellis, Dr. Shirley, or Dr. Conrad, especially she has had 3 dislocations. [id number]/CPS #: [id number] MTDD
== END 2019-03-09 21:40 | disposition home or self-care (01) ==
LOC: ED 17:01 → OR 19:14
PROVIDERS: ATTEND Orthopaedic Surgery
DX: T84.021A Dislocation of internal left hip prosthesis, initial encounter (principal); I25.10 Atherosclerotic heart disease of native coronary artery without angina pectoris; E78.00 Pure hypercholesterolemia, unspecified; I10 Essential (primary) hypertension; J45.909 Unspecified asthma, uncomplicated; E03.9 Hypothyroidism, unspecified; G89.29 Other chronic pain
CPT/HCPCS: 72170; 81003; 99285; J0330; J1170; J2250; J2405; J2704; J3010

== ENCOUNTER 2019-10-22 16:41 | Observation (INO) ==
[2019-10-22] MEDS ORDERED: NS 0.9% 1000 ml BAG 1,000 ML IV ONE (16:59)
[2019-10-22 17:22] LABS: ABS Eosinophils 0.2 10^3/ul (0-0.6); ABS Lymphocytes 1.2 10^3/ul (1.0-4.8); ABS Monocytes 1.3 10^3/ul (0-0.8); ABS Neutrophils 9.2 10^3/ul (1.5-7.7); Eosinophil % 1.7 %; Hematocrit 35 % (35-47); Hemoglobin 11.6 g/dL (12.0-16.0); Mean Corpuscular HGB Conc 34 g/dL (31-36); Mean Corpuscular Hemoglobin 30 pg (27-31); Mean Corpuscular Volume 88 fL (80-97); Mean Platelet Volume 7.8 fL (7.4-10.4); Platelet Count 483 10^3/uL (150-450); Red Blood Count 3.95 10^6 /uL (3.70-4.87); Red Cell Distribution Width 19 % (10-15); White Blood Count 11.9 10^3/uL (3.5-10.8)
[2019-10-22 17:33] LABS: Activated Partial Thrombo Time 28.9 seconds (26.0-38.0); INR 1.06 (0.82-1.09)
[2019-10-22] MEDS ORDERED: NS 0.9% 1000 ml BAG 1,000 ML IV SCH (17:45)
[2019-10-22 18:03] LABS: ALT 329 U/L (7-52); AST 266 U/L (13-39); Albumin 3.7 g/dL (3.2-5.2); Albumin/Globulin Ratio 1.4 (1-3); Alkaline Phosphatase 61 U/L (34-104); Anion Gap 7 mmol/L (2-11); BUN/Creatinine Ratio 68.9 (8-20); Blood Urea Nitrogen 31 mg/dL (6-24); CO2 Carbon Dioxide 27 mmol/L (22-32); Calcium 10.1 mg/dL (8.6-10.3); Chloride 101 mmol/L (101-111); Cholesterol 129 mg/dL; EGFR African American 163.1 (>60); EGFR Non-African American 134.8 (>60); Globulin 2.7 g/dL (2-4); Glucose 92 mg/dL (70-100); HDL Cholesterol 34.4 mg/dL; LDL Cholesterol 70 mg/dL; Potassium 4.2 mmol/L (3.5-5.0); Sodium 135 mmol/L (135-145); Total Protein 6.4 g/dL (6.4-8.9); Triglycerides 122 mg/dL
[2019-10-22 18:27] LABS: Troponin I 0.03 ng/mL (<0.03)
[2019-10-22] MEDS ORDERED: diPHENhydraMINE 25 mg TAB PO PRN (18:59)
[2019-10-22] MEDS ORDERED: Ketoconazole 2 % CREAM (NF) 30 GM TUBE TOPICAL PRN (18:59)
[2019-10-22] MEDS ORDERED: Saline NASAL SPRAY 0.65% BTL BOTH NARES PRN (18:59)
[2019-10-22] MEDS: Mometasone 220 MCG MDI INH SCH (19:13)
[2019-10-22 19:52] LABS: Urine Appearance Clear; Urine Bilirubin Negative (Negative); Urine Blood Negative (Negative); Urine Color Yellow; Urine Glucose Negative (Negative); Urine Ketones Negative (Negative); Urine Nitrite Negative (Negative); Urine Protein Negative (Negative); Urine Specific Gravity 1.015 (1.010-1.030); Urine Urobilinogen Negative (Negative)
[2019-10-22 20:41] LABS: TSH (Thyroid Stimulating Horm) 31.18 mcIU/mL (0.34-5.60)
[2019-10-22 21:07] LABS: Erythrocyte Sed Rate 20 mm/Hr (0-29)
[2019-10-22] MEDS: Azelastine/Fluticasone 137-50 MCG BTL (NF) BOTH NARES SCH (22:43)
[2019-10-22] MEDS: Heparin 5000 UNITS/ML 1 mL VIAL SUBCUT SCH (22:43)
[2019-10-22] MEDS: IPRATROPIUM BR (NF)0.03% NASAL 1 SPRAY BTL BOTH NARES SCH (22:45)
[2019-10-22] MEDS: Mupirocin 2% OINT TUBE TOPICAL SCH (22:48)
[2019-10-22] MEDS: Nystatin SUSPENSION 100,000 UNITS/ML UDC PO SCH (22:51)
[2019-10-22] MEDS: CMC:Solifenacin 5 mg TAB (NF) PO SCH (22:51)
[2019-10-22] MEDS: Albuterol HFA INHALER 8 gm MDI INH SCH (23:42)
[2019-10-22] MEDS ORDERED: Albuterol HFA INHALER 8 gm MDI INH PRN (23:44)
[2019-10-23] MEDS: Benzocaine (DENTAL) 10% TOP.GEL TOPICAL PRN ×4 (04:25→20:51)
[2019-10-23] MEDS: Azelastine/Fluticasone 137-50 MCG BTL (NF) BOTH NARES SCH ×2 (08:01→20:52)
[2019-10-23] MEDS: IPRATROPIUM BR (NF)0.03% NASAL 1 SPRAY BTL BOTH NARES SCH ×2 (08:02→20:52)
[2019-10-23] MEDS: Heparin 5000 UNITS/ML 1 mL VIAL SUBCUT SCH ×2 (08:22→20:51)
[2019-10-23] MEDS: Multivitamins/Minerals TAB PO SCH (08:23)
[2019-10-23] MEDS: oxyCODONE SR 20 mg TAB PO SCH (08:23)
[2019-10-23] MEDS: Aspirin EC 81 mg TAB.EC (enteric coated) PO SCH (08:24)
[2019-10-23] MEDS: Nystatin SUSPENSION 100,000 UNITS/ML UDC PO SCH ×4 (08:25→20:51)
[2019-10-23] MEDS: CMC:Leflunomide 10 mg TAB (NF) PO SCH (08:25)
[2019-10-23] MEDS: Mupirocin 2% OINT TUBE TOPICAL SCH ×3 (08:25→20:50)
[2019-10-23] MEDS: Mometasone 220 MCG MDI INH SCH ×2 (08:32→20:06)
[2019-10-23 09:16] LABS: Troponin I 0.04 ng/mL (<0.03)
[2019-10-23 14:07] LABS: Troponin I 0.03 ng/mL (<0.03)
[2019-10-23] MEDS ORDERED: Iohexol 350 (CONTRAST) 500 ML MDV IV ONE (17:43)
[2019-10-23] MEDS: oxyCODONE SR 10 mg TAB PO SCH (18:13)
[2019-10-23] MEDS: CMC:Solifenacin 5 mg TAB (NF) PO SCH (20:50)
[2019-10-24] MEDS: Multivitamins/Minerals TAB PO SCH (08:48)
[2019-10-24] MEDS: oxyCODONE SR 20 mg TAB PO SCH (08:49)
[2019-10-24] MEDS: Aspirin EC 81 mg TAB.EC (enteric coated) PO SCH (08:49)
[2019-10-24] MEDS: Nystatin SUSPENSION 100,000 UNITS/ML UDC PO SCH ×4 (08:50→20:51)
[2019-10-24] MEDS: Mupirocin 2% OINT TUBE TOPICAL SCH ×3 (08:50→20:55)
[2019-10-24] MEDS: Azelastine/Fluticasone 137-50 MCG BTL (NF) BOTH NARES SCH ×2 (08:51→21:07)
[2019-10-24] MEDS: CMC:Leflunomide 10 mg TAB (NF) PO SCH (08:51)
[2019-10-24] MEDS: Heparin 5000 UNITS/ML 1 mL VIAL SUBCUT SCH ×2 (08:51→20:52)
[2019-10-24] MEDS: IPRATROPIUM BR (NF)0.03% NASAL 1 SPRAY BTL BOTH NARES SCH ×2 (08:51→21:08)
[2019-10-24] MEDS: Mometasone 220 MCG MDI INH SCH ×3 (08:56→19:37)
[2019-10-24] MEDS: Benzocaine (DENTAL) 10% TOP.GEL TOPICAL PRN ×3 (09:00→21:03)
[2019-10-24 17:07] LABS: Hematocrit 32 % (35-47); Hemoglobin 11.1 g/dL (12.0-16.0); Mean Corpuscular HGB Conc 34 g/dL (31-36); Mean Corpuscular Hemoglobin 31 pg (27-31); Mean Corpuscular Volume 89 fL (80-97); Mean Platelet Volume 7.7 fL (7.4-10.4); Platelet Count 424 10^3/uL (150-450); Red Blood Count 3.61 10^6 /uL (3.70-4.87); Red Cell Distribution Width 20 % (10-15); White Blood Count 11.9 10^3/uL (3.5-10.8)
[2019-10-24] MEDS: oxyCODONE SR 10 mg TAB PO SCH (18:09)
[2019-10-24 18:16] LABS: Albumin 3.1 g/dL (3.2-5.2); Calcium 8.9 mg/dL (8.6-10.3); Potassium 3.9 mmol/L (3.5-5.0); Total Bilirubin 0.4 mg/dL (0.2-1.0)
[2019-10-24 18:22] LABS: Albumin/Globulin Ratio 1.3 (1-3); BUN/Creatinine Ratio 42.9 (8-20); EGFR African American 176.6 (>60); EGFR Non-African American 145.9 (>60); Globulin 2.3 g/dL (2-4); Total Protein 5.4 g/dL (6.4-8.9)
[2019-10-24] MEDS: CMC:Solifenacin 5 mg TAB (NF) PO SCH (20:51)
[2019-10-25] MEDS: Benzocaine (DENTAL) 10% TOP.GEL TOPICAL PRN ×2 (03:14→07:58)
[2019-10-25] MEDS: Mometasone 220 MCG MDI INH SCH (07:42)
[2019-10-25] MEDS: Multivitamins/Minerals TAB PO SCH (07:54)
[2019-10-25] MEDS: Aspirin EC 81 mg TAB.EC (enteric coated) PO SCH (07:55)
[2019-10-25] MEDS: Nystatin SUSPENSION 100,000 UNITS/ML UDC PO SCH (07:56)
[2019-10-25] MEDS: oxyCODONE SR 20 mg TAB PO SCH (07:56)
[2019-10-25] MEDS: CMC:Leflunomide 10 mg TAB (NF) PO SCH (07:56)
[2019-10-25] MEDS: Heparin 5000 UNITS/ML 1 mL VIAL SUBCUT SCH (07:58)
[2019-10-25] MEDS: Mupirocin 2% OINT TUBE TOPICAL SCH (07:58)
[2019-10-25 08:10] VITALS: BP 126/71
[2019-10-25] MEDS: IPRATROPIUM BR (NF)0.03% NASAL 1 SPRAY BTL BOTH NARES SCH (08:14)
[2019-10-25] MEDS: Azelastine/Fluticasone 137-50 MCG BTL (NF) BOTH NARES SCH (08:14)
== END 2019-10-25 11:00 | disposition home or self-care (01) ==
LOC: ED 16:41 → MEDTELE 16:41
PROVIDERS: ADMIT Student in an Organized Health Care Education/Training Program; ATTEND Internal Medicine

== ENCOUNTER 2019-11-03 03:50 | Inpatient (IN) ==
[2019-11-03] MEDS ORDERED: Morphine 4 MG/ML VIAL (1 ml) IV ONE (04:27)
[2019-11-03 04:48] LABS: Hematocrit 37 % (35-47); Hemoglobin 12.2 g/dL (12.0-16.0); Mean Corpuscular HGB Conc 33 g/dL (31-36); Mean Corpuscular Hemoglobin 30 pg (27-31); Mean Corpuscular Volume 90 fL (80-97); Mean Platelet Volume 7.8 fL (7.4-10.4); Platelet Count 397 10^3/uL (150-450); Red Blood Count 4.08 10^6 /uL (3.70-4.87); Red Cell Distribution Width 20 % (10-15); White Blood Count 13.1 10^3/uL (3.5-10.8)
[2019-11-03 04:50] LABS: ABS Basophils 0.1 10^3/ul (0-0.2); ABS Eosinophils 0.3 10^3/ul (0-0.6); ABS Lymphocytes 0.7 10^3/ul (1.0-4.8); ABS Monocytes 1.6 10^3/ul (0-0.8); ABS Neutrophils 10.4 10^3/ul (1.5-7.7); Lymphocyte % 5.7 %
[2019-11-03 05:06] LABS: Albumin 3.8 g/dL (3.2-5.2); Albumin/Globulin Ratio 1.4 (1-3); BUN/Creatinine Ratio 58.1 (8-20); Calcium 9.6 mg/dL (8.6-10.3); EGFR African American 171.8 (>60); Globulin 2.7 g/dL (2-4); Potassium 3.6 mmol/L (3.5-5.0); Total Bilirubin 0.5 mg/dL (0.2-1.0); Total Protein 6.5 g/dL (6.4-8.9)
[2019-11-03] MEDS: Morphine 4 MG/ML VIAL (1 ml) IV PRN ×2 (06:10→07:22)
[2019-11-03] MEDS ORDERED: Iohexol 300 (CONTRAST) 10 ML SDV IV ONE (06:31)
[2019-11-03] MEDS ORDERED: Ondansetron 4 mg VIAL 2 MG/ML 2 ml VIAL ONE (07:29)
[2019-11-03] MEDS ORDERED: NS 0.9% 1000 ml BAG 1,000 ML IV SCH ×2 (07:30→10:00)
[2019-11-03 08:58] LABS: C Reactive Protein 14.1 mg/L (<8.01)
[2019-11-03] MEDS ORDERED: Morphine 2 MG/ML SYRINGE IV PRN (09:08)
[2019-11-03] MEDS ORDERED: Ondansetron 4 mg VIAL 2 MG/ML 2 ml VIAL IV PRN (09:08)
[2019-11-03] MEDS ORDERED: Diclofenac 1.3% PATCH (NF) 5 PATCHS TRANSDERM PRN (09:10)
[2019-11-03] MEDS ORDERED: Lidocaine PATCH 5% PATCH TRANSDERM PRN (09:10)
[2019-11-03] MEDS ORDERED: Albuterol 2.5mg/3 ml (0.083%) NEB.SOLN INH PRN (09:10)
[2019-11-03] MEDS ORDERED: SENNOSIDES DOCUSATE SODIUM PO SCH (09:15)
[2019-11-03] MEDS ORDERED: Methylnaltrexone SQ (NF) 12 MG/0.6 ML VIAL SUBCUT SCH (10:00)
[2019-11-03] MEDS: oxyCODONE SR 20 mg TAB PO SCH (11:24)
[2019-11-03] MEDS: Polyethylene Glycol 3350 17 GM PACKET PO SCH (11:25)
[2019-11-03] MEDS: Enoxaparin 40 MG/0.4 ML SYR SUBCUT SCH (11:26)
[2019-11-03] MEDS ORDERED: Dextran 70/Hypromellose Tears Eye Drops 15 ml BTL (for Artificials Tears) BOTH EYES PRN (12:19)
[2019-11-03] MEDS: Senna TAB 8.6 mg TAB PO SCH ×2 (15:56→21:11)
[2019-11-03 16:17] LABS: Urine Appearance Clear; Urine Bilirubin Negative (Negative); Urine Blood Negative (Negative); Urine Color Yellow; Urine Glucose Negative (Negative); Urine Ketones Negative (Negative); Urine Nitrite Negative (Negative); Urine Protein Negative (Negative); Urine Specific Gravity 1.027 (1.010-1.030); Urine Urobilinogen Negative (Negative)
[2019-11-03] MEDS: oxyCODONE SR 10 mg TAB PO SCH (19:31)
[2019-11-03] MEDS: Mometasone 220 MCG MDI INH SCH (19:31)
[2019-11-03] MEDS: Lidocaine Patch REMOVE PATCH PATCH OFF SCH (21:13)
[2019-11-04 07:06] LABS: Hematocrit 34 % (35-47); Hemoglobin 11.5 g/dL (12.0-16.0); Mean Corpuscular HGB Conc 34 g/dL (31-36); Mean Corpuscular Hemoglobin 30 pg (27-31); Mean Corpuscular Volume 91 fL (80-97); Platelet Count 336 10^3/uL (150-450); Red Blood Count 3.77 10^6 /uL (3.70-4.87); Red Cell Distribution Width 20 % (10-15); White Blood Count 6.3 10^3/uL (3.5-10.8)
[2019-11-04 07:17] LABS: Albumin 3.6 g/dL (3.2-5.2); Calcium 9.1 mg/dL (8.6-10.3); Magnesium 1.8 mg/dL (1.9-2.7); Potassium 3.6 mmol/L (3.5-5.0); Total Bilirubin 0.5 mg/dL (0.2-1.0)
[2019-11-04] MEDS ORDERED: Magnesium Sulfate 2 gm BAG 2 GM/50 ML BAG IVPB ONE (07:19)
[2019-11-04 07:22] LABS: ABS Basophils 0.1 10^3/ul (0-0.2); ABS Eosinophils 0.6 10^3/ul (0-0.6); ABS Lymphocytes 0.7 10^3/ul (1.0-4.8); ABS Monocytes 0.8 10^3/ul (0-0.8); ABS Neutrophils 4.3 10^3/ul (1.5-7.7); Eosinophil % 8.9 %; Lymphocyte % 11.1 %; Nucleated Red Blood Cells % 0.1
[2019-11-04 07:23] LABS: Albumin/Globulin Ratio 1.4 (1-3); BUN/Creatinine Ratio 27.9 (8-20); EGFR African American 171.8 (>60); Globulin 2.6 g/dL (2-4); Total Protein 6.2 g/dL (6.4-8.9)
[2019-11-04] MEDS: Mometasone 220 MCG MDI INH SCH ×2 (08:20→20:07)
[2019-11-04] MEDS: Polyethylene Glycol 3350 17 GM PACKET PO SCH (09:00)
[2019-11-04] MEDS ORDERED: Leflunomide 20 MG TABLET (NF) PO SCH (09:00)
[2019-11-04] MEDS: Aspirin EC 81 mg TAB.EC (enteric coated) PO SCH (09:02)
[2019-11-04] MEDS: oxyCODONE SR 20 mg TAB PO SCH (09:02)
[2019-11-04] MEDS: Senna TAB 8.6 mg TAB PO SCH ×2 (09:02→21:03)
[2019-11-04] MEDS: Multivitamins/Minerals TAB PO SCH (09:02)
[2019-11-04] MEDS: Enoxaparin 40 MG/0.4 ML SYR SUBCUT SCH (09:08)
[2019-11-04] MEDS: oxyCODONE SR 10 mg TAB PO SCH (19:48)
[2019-11-04] MEDS: Lidocaine Patch REMOVE PATCH PATCH OFF SCH (21:07)
[2019-11-04] MEDS ORDERED: Al Hydrox/Mg Hydrox/Simet LIQ 30 ML UDC PO ONE (21:41)
[2019-11-05 08:09] LABS: BUN/Creatinine Ratio 17.9 (8-20); Calcium 8.4 mg/dL (8.6-10.3); EGFR African American 192.3 (>60); Potassium 3.5 mmol/L (3.5-5.0)
[2019-11-05] MEDS: Multivitamins/Minerals TAB PO SCH (09:06)
[2019-11-05] MEDS: oxyCODONE SR 20 mg TAB PO SCH (09:07)
[2019-11-05] MEDS: Aspirin EC 81 mg TAB.EC (enteric coated) PO SCH (09:08)
[2019-11-05] MEDS: Senna TAB 8.6 mg TAB PO SCH ×2 (09:08→21:25)
[2019-11-05] MEDS: Enoxaparin 40 MG/0.4 ML SYR SUBCUT SCH (09:09)
[2019-11-05] MEDS: Polyethylene Glycol 3350 17 GM PACKET PO SCH (09:09)
[2019-11-05] MEDS ORDERED: HYDROmorphone 1 MG/1 ML SYRINGE IV SLOW PU ONE (10:58)
[2019-11-05] MEDS ORDERED: D5W IVPB SCH (11:00)
[2019-11-05] MEDS ORDERED: POTASSIUM CHLORIDE IVPB SCH (11:00)
[2019-11-05] MEDS ORDERED: 1/4 NS IVPB SCH (11:00)
[2019-11-05] MEDS ORDERED: HYDROmorphone 1 MG/1 ML SYRINGE ONE (11:02)
[2019-11-05] MEDS: Mometasone 220 MCG MDI INH SCH ×3 (12:17→20:25)
[2019-11-05] MEDS: oxyCODONE SR 10 mg TAB PO SCH (18:11)
[2019-11-05] MEDS: Lidocaine Patch REMOVE PATCH PATCH OFF SCH (21:26)
[2019-11-06] MEDS ORDERED: SODIUM CHLORIDE IV SCH (08:00)
[2019-11-06] MEDS ORDERED: [UNRECOGNIZED DRUG - OTHER] IV SCH (08:00)
[2019-11-06] MEDS ORDERED: POTASSIUM CHLORIDE IV SCH (08:00)
[2019-11-06] MEDS: Mometasone 220 MCG MDI INH SCH ×2 (08:46→19:39)
[2019-11-06] MEDS: oxyCODONE SR 20 mg TAB PO SCH (08:51)
[2019-11-06] MEDS: Senna TAB 8.6 mg TAB PO SCH ×2 (08:51→20:28)
[2019-11-06] MEDS: Aspirin EC 81 mg TAB.EC (enteric coated) PO SCH (08:51)
[2019-11-06] MEDS: Multivitamins/Minerals TAB PO SCH (08:52)
[2019-11-06] MEDS: Polyethylene Glycol 3350 17 GM PACKET PO SCH (08:52)
[2019-11-06 09:57] LABS: Hematocrit 40 % (35-47); Hemoglobin 13.3 g/dL (12.0-16.0); Mean Corpuscular HGB Conc 33 g/dL (31-36); Mean Corpuscular Hemoglobin 31 pg (27-31); Mean Corpuscular Volume 91 fL (80-97); Mean Platelet Volume 8.2 fL (7.4-10.4); Platelet Count 390 10^3/uL (150-450); Red Blood Count 4.37 10^6 /uL (3.70-4.87); Red Cell Distribution Width 21 % (10-15); White Blood Count 5.4 10^3/uL (3.5-10.8)
[2019-11-06] MEDS: Enoxaparin 40 MG/0.4 ML SYR SUBCUT SCH (10:04)
[2019-11-06 10:15] LABS: BUN/Creatinine Ratio 14.6 (8-20); EGFR African American 181.5 (>60); Potassium 3.5 mmol/L (3.5-5.0)
[2019-11-06] MEDS: oxyCODONE SR 10 mg TAB PO SCH (17:29)
[2019-11-06] MEDS: Lidocaine Patch REMOVE PATCH PATCH OFF SCH (20:29)
[2019-11-07 06:34] LABS: ABS Basophils 0.1 10^3/ul (0-0.2); ABS Eosinophils 0.5 10^3/ul (0-0.6); ABS Lymphocytes 0.8 10^3/ul (1.0-4.8); ABS Monocytes 0.6 10^3/ul (0-0.8); ABS Neutrophils 3.9 10^3/ul (1.5-7.7); Eosinophil % 9.1 %; Hematocrit 39 % (35-47); Hemoglobin 12.6 g/dL (12.0-16.0); Lymphocyte % 14.1 %; Mean Corpuscular HGB Conc 32 g/dL (31-36); Mean Corpuscular Hemoglobin 30 pg (27-31); Mean Corpuscular Volume 94 fL (80-97); Mean Platelet Volume 7.9 fL (7.4-10.4); Platelet Count 328 10^3/uL (150-450); Red Blood Count 4.16 10^6 /uL (3.70-4.87); Red Cell Distribution Width 20 % (10-15); White Blood Count 5.9 10^3/uL (3.5-10.8)
[2019-11-07 06:40] LABS: BUN/Creatinine Ratio 20.8 (8-20); Calcium 8.4 mg/dL (8.6-10.3); EGFR African American 151.4 (>60); EGFR Non-African American 125.1 (>60); Potassium 3.7 mmol/L (3.5-5.0)
[2019-11-07] MEDS: Mometasone 220 MCG MDI INH SCH ×2 (07:54→19:15)
[2019-11-07] MEDS: Multivitamins/Minerals TAB PO SCH (09:06)
[2019-11-07] MEDS: oxyCODONE SR 20 mg TAB PO SCH (09:08)
[2019-11-07] MEDS: Senna TAB 8.6 mg TAB PO SCH ×2 (09:08→20:32)
[2019-11-07] MEDS: Polyethylene Glycol 3350 17 GM PACKET PO SCH (09:08)
[2019-11-07] MEDS: Enoxaparin 30 MG/0.3 ML SYR SUBCUT SCH (09:08)
[2019-11-07] MEDS: Aspirin EC 81 mg TAB.EC (enteric coated) PO SCH (09:09)
[2019-11-07 11:22] LABS: Total Bilirubin 0.4 mg/dL (0.2-1.0)
[2019-11-07] MEDS: oxyCODONE SR 10 mg TAB PO SCH (17:36)
[2019-11-07] MEDS: Lidocaine Patch REMOVE PATCH PATCH OFF SCH (20:45)
[2019-11-08 06:37] LABS: ABS Basophils 0.1 10^3/ul (0-0.2); ABS Eosinophils 0.5 10^3/ul (0-0.6); ABS Lymphocytes 0.8 10^3/ul (1.0-4.8); ABS Monocytes 0.8 10^3/ul (0-0.8); Hematocrit 37 % (35-47); Hemoglobin 12.4 g/dL (12.0-16.0); Lymphocyte % 9.3 %; Mean Corpuscular HGB Conc 34 g/dL (31-36); Mean Corpuscular Hemoglobin 30 pg (27-31); Mean Corpuscular Volume 90 fL (80-97); Mean Platelet Volume 8.3 fL (7.4-10.4); Nucleated Red Blood Cells % 0.1; Platelet Count 352 10^3/uL (150-450); Red Blood Count 4.12 10^6 /uL (3.70-4.87); Red Cell Distribution Width 20 % (10-15); White Blood Count 8.1 10^3/uL (3.5-10.8)
[2019-11-08 06:50] LABS: BUN/Creatinine Ratio 28.9 (8-20); Calcium 8.9 mg/dL (8.6-10.3); EGFR African American 163.1 (>60); EGFR Non-African American 134.8 (>60); Potassium 3.9 mmol/L (3.5-5.0)
[2019-11-08] MEDS: Mometasone 220 MCG MDI INH SCH (08:43)
[2019-11-08] MEDS: Polyethylene Glycol 3350 17 GM PACKET PO SCH (09:20)
[2019-11-08] MEDS: Enoxaparin 30 MG/0.3 ML SYR SUBCUT SCH (09:20)
[2019-11-08] MEDS: Aspirin EC 81 mg TAB.EC (enteric coated) PO SCH (09:21)
[2019-11-08] MEDS: oxyCODONE SR 20 mg TAB PO SCH (09:21)
[2019-11-08] MEDS: Multivitamins/Minerals TAB PO SCH (09:22)
[2019-11-08] MEDS: Senna TAB 8.6 mg TAB PO SCH (09:22)
[2019-11-08 12:20] VITALS: BP 125/68
== END 2019-11-08 14:30 | disposition home or self-care (01) | DRG 389 ==
LOC: ED 03:50 → MED 03:50
PROVIDERS: ADMIT Internal Medicine; ATTEND Internal Medicine

== ENCOUNTER 2019-11-12 21:52 | Inpatient (IN) ==
[2019-11-13] MEDS ORDERED: Ketamine HCL 50 mg/ml 10 ml VIAL (500 MG) IV ONE (00:02)
[2019-11-13] MEDS ORDERED: Albuterol 2.5mg/3 ml (0.083%) NEB.SOLN INH PRN (02:19)
[2019-11-13] MEDS ORDERED: Enoxaparin 40 MG/0.4 ML SYR SUBCUT SCH (04:00)
[2019-11-13] MEDS: Mometasone 220 MCG MDI INH SCH ×2 (07:51→21:22)
[2019-11-13] MEDS: oxyCODONE SR 20 mg TAB PO SCH (08:54)
[2019-11-13] MEDS: Multivitamins/Minerals TAB PO SCH (08:54)
[2019-11-13] MEDS: Cholecalciferol (VIT D3) 1,000 unit TAB PO SCH (08:54)
[2019-11-13] MEDS ORDERED: Polyethylene Glycol 3350 17 GM PACKET PO SCH (09:00)
[2019-11-13] MEDS ORDERED: Leflunomide 20 MG TABLET (NF) PO SCH (09:00)
[2019-11-13] MEDS: Aspirin EC 81 mg TAB.EC (enteric coated) PO SCH (09:02)
[2019-11-13] MEDS: Enoxaparin 40 MG/0.4 ML SYR SUBCUT SCH (09:02)
[2019-11-13] MEDS: Azelastine/Fluticasone 137-50 MCG BTL (NF) BOTH NARES SCH ×2 (09:04→23:12)
[2019-11-13] MEDS: oxyCODONE SR 10 mg TAB PO SCH (18:14)
[2019-11-14] MEDS: Mometasone 220 MCG MDI INH SCH ×2 (07:31→19:49)
[2019-11-14] MEDS: Azelastine/Fluticasone 137-50 MCG BTL (NF) BOTH NARES SCH ×2 (08:22→21:12)
[2019-11-14] MEDS: oxyCODONE SR 20 mg TAB PO SCH (08:32)
[2019-11-14] MEDS: CMCS:Leflunomide 10 mg TAB (NF) PO SCH (08:33)
[2019-11-14] MEDS: Cholecalciferol (VIT D3) 1,000 unit TAB PO SCH (08:33)
[2019-11-14] MEDS: Multivitamins/Minerals TAB PO SCH (08:33)
[2019-11-14] MEDS: Enoxaparin 40 MG/0.4 ML SYR SUBCUT SCH (08:36)
[2019-11-14] MEDS: Aspirin EC 81 mg TAB.EC (enteric coated) PO SCH (08:40)
[2019-11-14] MEDS ORDERED: Lorazepam PYXIS KEY PRN (12:49)
[2019-11-14] MEDS: LORazepam 2 mg VIAL 1 ml IV PUSH ONE ×2 (13:23→13:32)
[2019-11-14] MEDS: oxyCODONE SR 10 mg TAB PO SCH (18:03)
[2019-11-14] MEDS: Polyethylene Glycol 3350 17 GM PACKET PO SCH (21:17)
[2019-11-14] MEDS: Ondansetron 4 mg VIAL 2 MG/ML 2 ml VIAL IV PRN (22:42)
[2019-11-15] MEDS: Mometasone 220 MCG MDI INH SCH ×2 (07:10→19:37)
[2019-11-15] MEDS: CMCS:Leflunomide 10 mg TAB (NF) PO SCH (08:04)
[2019-11-15] MEDS: Cholecalciferol (VIT D3) 1,000 unit TAB PO SCH (08:04)
[2019-11-15] MEDS: Aspirin EC 81 mg TAB.EC (enteric coated) PO SCH (08:05)
[2019-11-15] MEDS: Multivitamins/Minerals TAB PO SCH (08:05)
[2019-11-15] MEDS: Enoxaparin 40 MG/0.4 ML SYR SUBCUT SCH (08:06)
[2019-11-15] MEDS: Azelastine/Fluticasone 137-50 MCG BTL (NF) BOTH NARES SCH ×2 (08:06→21:43)
[2019-11-15] MEDS: oxyCODONE SR 20 mg TAB PO SCH (08:06)
[2019-11-15] MEDS ORDERED: Magnesium Hydroxide LIQ 30 ML UDC PO PRN (15:20)
[2019-11-15] MEDS ORDERED: Senna TAB 8.6 mg TAB PO PRN (15:20)
[2019-11-15] MEDS: oxyCODONE SR 10 mg TAB PO SCH ×2 (18:13→21:46)
[2019-11-15 20:47] LABS: ABS Basophils 0.1 10^3/ul (0-0.2); ABS Eosinophils 0.3 10^3/ul (0-0.6); ABS Lymphocytes 1.2 10^3/ul (1.0-4.8); ABS Monocytes 0.9 10^3/ul (0-0.8); ABS Neutrophils 8.8 10^3/ul (1.5-7.7); Eosinophil % 2.8 %; Hematocrit 29 % (35-47); Hemoglobin 10.1 g/dL (12.0-16.0); Lymphocyte % 10.6 %; Mean Corpuscular HGB Conc 35 g/dL (31-36); Mean Corpuscular Hemoglobin 31 pg (27-31); Mean Corpuscular Volume 91 fL (80-97); Mean Platelet Volume 7.8 fL (7.4-10.4); Platelet Count 291 10^3/uL (150-450); Red Blood Count 3.22 10^6 /uL (3.70-4.87); Red Cell Distribution Width 20 % (10-15); White Blood Count 11.3 10^3/uL (3.5-10.8)
[2019-11-15 21:03] LABS: BUN/Creatinine Ratio 44.9 (8-20); Calcium 8.9 mg/dL (8.6-10.3); EGFR African American 147.8 (>60); EGFR Non-African American 122.1 (>60); Potassium 4.2 mmol/L (3.5-5.0)
[2019-11-15] MEDS: Polyethylene Glycol 3350 17 GM PACKET PO SCH (21:51)
[2019-11-15] MEDS: Magnesium Hydroxide LIQ 30 ML UDC PO SCH (21:53)
[2019-11-16 06:48] LABS: Albumin 3.5 g/dL (3.2-5.2); Potassium 4.3 mmol/L (3.5-5.0); Total Bilirubin 0.3 mg/dL (0.2-1.0)
[2019-11-16 06:54] LABS: Albumin/Globulin Ratio 1.5 (1-3); BUN/Creatinine Ratio 33.3 (8-20); C Reactive Protein 37.16 mg/L (<8.01); EGFR African American 151.4 (>60); EGFR Non-African American 125.1 (>60); Globulin 2.4 g/dL (2-4); Total Protein 5.9 g/dL (6.4-8.9)
[2019-11-16] MEDS: Mometasone 220 MCG MDI INH SCH ×2 (07:43→19:03)
[2019-11-16 08:00] LABS: TSH Ultra Thyroid Stim Horm 82.31 mcIU/mL (0.34-5.60)
[2019-11-16] MEDS: Multivitamins/Minerals TAB PO SCH (10:08)
[2019-11-16] MEDS: Aspirin EC 81 mg TAB.EC (enteric coated) PO SCH (10:08)
[2019-11-16] MEDS: Cholecalciferol (VIT D3) 1,000 unit TAB PO SCH (10:09)
[2019-11-16] MEDS: oxyCODONE SR 20 mg TAB PO SCH (10:09)
[2019-11-16] MEDS: Magnesium Hydroxide LIQ 30 ML UDC PO SCH ×2 (10:11→20:46)
[2019-11-16] MEDS: CMCS:Leflunomide 10 mg TAB (NF) PO SCH (10:11)
[2019-11-16] MEDS: Enoxaparin 40 MG/0.4 ML SYR SUBCUT SCH (10:13)
[2019-11-16] MEDS: Azelastine/Fluticasone 137-50 MCG BTL (NF) BOTH NARES SCH ×2 (10:21→20:46)
[2019-11-16] MEDS: Ondansetron 4 mg VIAL 2 MG/ML 2 ml VIAL IV PRN (13:02)
[2019-11-16 18:31] LABS: Free T3 1.3 pg/mL (2.5-3.9); Free T4 0.29 ng/dL (0.61-1.12)
[2019-11-16] MEDS: Polyethylene Glycol 3350 17 GM PACKET PO SCH (20:35)
[2019-11-16] MEDS: oxyCODONE SR 10 mg TAB PO SCH (20:40)
[2019-11-17 06:01] LABS: ABS Basophils 0.1 10^3/ul (0-0.2); ABS Eosinophils 0.4 10^3/ul (0-0.6); ABS Lymphocytes 1.1 10^3/ul (1.0-4.8); ABS Monocytes 0.7 10^3/ul (0-0.8); ABS Neutrophils 3.2 10^3/ul (1.5-7.7); Eosinophil % 7.2 %; Hematocrit 32 % (35-47); Hemoglobin 10.4 g/dL (12.0-16.0); Lymphocyte % 20.7 %; Mean Corpuscular HGB Conc 33 g/dL (31-36); Mean Corpuscular Hemoglobin 30 pg (27-31); Mean Corpuscular Volume 91 fL (80-97); Mean Platelet Volume 7.2 fL (7.4-10.4); Platelet Count 325 10^3/uL (150-450); Red Blood Count 3.45 10^6 /uL (3.70-4.87); Red Cell Distribution Width 20 % (10-15); White Blood Count 5.5 10^3/uL (3.5-10.8)
[2019-11-17 06:20] LABS: BUN/Creatinine Ratio 25.9 (8-20); Calcium 8.9 mg/dL (8.6-10.3); EGFR African American 132.1 (>60); EGFR Non-African American 109.2 (>60); Potassium 4.4 mmol/L (3.5-5.0)
[2019-11-17] MEDS: Magnesium Hydroxide LIQ 30 ML UDC PO SCH ×2 (07:35→20:02)
[2019-11-17] MEDS: Cholecalciferol (VIT D3) 1,000 unit TAB PO SCH (07:36)
[2019-11-17] MEDS: CMCS:Leflunomide 10 mg TAB (NF) PO SCH (07:36)
[2019-11-17] MEDS: Enoxaparin 40 MG/0.4 ML SYR SUBCUT SCH (07:36)
[2019-11-17] MEDS: Aspirin EC 81 mg TAB.EC (enteric coated) PO SCH (07:37)
[2019-11-17] MEDS: Multivitamins/Minerals TAB PO SCH (07:37)
[2019-11-17] MEDS: oxyCODONE SR 20 mg TAB PO SCH (07:37)
[2019-11-17] MEDS: Azelastine/Fluticasone 137-50 MCG BTL (NF) BOTH NARES SCH ×2 (07:38→20:08)
[2019-11-17] MEDS: Mometasone 220 MCG MDI INH SCH ×2 (07:47→18:59)
[2019-11-17] MEDS: oxyCODONE SR 10 mg TAB PO SCH (20:07)
[2019-11-17] MEDS: Polyethylene Glycol 3350 17 GM PACKET PO SCH (20:08)
[2019-11-18] MEDS: Mometasone 220 MCG MDI INH SCH (07:16)
[2019-11-18 08:08] VITALS: BP 143/80
[2019-11-18] MEDS: Cholecalciferol (VIT D3) 1,000 unit TAB PO SCH (08:47)
[2019-11-18] MEDS: Aspirin EC 81 mg TAB.EC (enteric coated) PO SCH (08:47)
[2019-11-18] MEDS: Multivitamins/Minerals TAB PO SCH (08:47)
[2019-11-18] MEDS: Magnesium Hydroxide LIQ 30 ML UDC PO SCH (08:48)
[2019-11-18] MEDS: Azelastine/Fluticasone 137-50 MCG BTL (NF) BOTH NARES SCH (08:48)
[2019-11-18] MEDS: oxyCODONE SR 20 mg TAB PO SCH (08:48)
[2019-11-18] MEDS: CMCS:Leflunomide 10 mg TAB (NF) PO SCH (08:49)
[2019-11-18] MEDS: Enoxaparin 40 MG/0.4 ML SYR SUBCUT SCH (08:50)
[2019-11-19 21:03] LABS: Tissue Transglutaminase IgA Ab <1.2 U/mL
[2019-11-19 23:37] LABS: Immunoglobulin A 168 mg/dL (61 - 356)
== END 2019-11-18 11:45 ==
LOC: ED 21:52 → MED 21:52
PROVIDERS: ADMIT Pediatrics; ATTEND Student in an Organized Health Care Education/Training Program

== ENCOUNTER 2020-02-22 03:27 | Inpatient (IN) ==
[2020-02-22] MEDS ORDERED: Ondansetron 4 mg VIAL 2 MG/ML 2 ml VIAL IV ONE (03:48)
[2020-02-22] MEDS ORDERED: NS 0.9% 1000 ml BAG 1,000 ML IV ONE (03:48)
[2020-02-22] MEDS ORDERED: Morphine 4 MG/ML VIAL (1 ml) IV ONE (03:48)
[2020-02-22 03:58] LABS: Hematocrit 41 % (35-47); Hemoglobin 13.5 g/dL (12.0-16.0); Mean Corpuscular HGB Conc 33 g/dL (31-36); Mean Corpuscular Hemoglobin 31 pg (27-31); Mean Corpuscular Volume 91 fL (80-97); Mean Platelet Volume 7.4 fL (7.4-10.4); Platelet Count 362 10^3/uL (150-450); Red Blood Count 4.43 10^6 /uL (3.70-4.87); Red Cell Distribution Width 14 % (10-15); White Blood Count 19.4 10^3/uL (3.5-10.8)
[2020-02-22 04:00] LABS: ABS Eosinophils 0.1 10^3/ul (0-0.6); ABS Lymphocytes 0.7 10^3/ul (1.0-4.8); ABS Monocytes 2.1 10^3/ul (0-0.8); ABS Neutrophils 16.6 10^3/ul (1.5-7.7); Eosinophil % 0.4 %; Lymphocyte % 3.5 %
[2020-02-22] MEDS ORDERED: HYDROmorphone 1 MG/1 ML SYRINGE IV SLOW PU PRN (04:07)
[2020-02-22] MEDS ORDERED: Lorazepam PYXIS KEY PRN (04:09)
[2020-02-22] MEDS ORDERED: LORazepam 2 mg VIAL 1 ml IV PUSH ONE (04:09)
[2020-02-22] MEDS ORDERED: Lorazepam PYXIS KEY ONE (04:12)
[2020-02-22 04:14] LABS: ALT 10 U/L (7-52); AST 19 U/L (13-39); Albumin 4.3 g/dL (3.2-5.2); Albumin/Globulin Ratio 1.6 (1-3); Alkaline Phosphatase 66 U/L (34-104); Anion Gap 9 mmol/L (2-11); BUN/Creatinine Ratio 33.8 (8-20); Blood Urea Nitrogen 22 mg/dL (6-24); C Reactive Protein 4.82 mg/L (<8.01); CO2 Carbon Dioxide 29 mmol/L (22-32); Calcium 10.6 mg/dL (8.6-10.3); Chloride 97 mmol/L (101-111); EGFR African American 106.4 (>60); EGFR Non-African American 87.9 (>60); Globulin 2.7 g/dL (2-4); Glucose 122 mg/dL (70-100); Lipase < 10 U/L (11.0-82.0); Potassium 4.1 mmol/L (3.5-5.0); Sodium 135 mmol/L (135-145)
[2020-02-22] MEDS ORDERED: Iohexol 300 (CONTRAST) 10 ML SDV IV ONE (04:55)
[2020-02-22] MEDS ORDERED: Ondansetron 4 mg VIAL 2 MG/ML 2 ml VIAL IV PRN (07:53)
[2020-02-22 08:56] LABS: Urine Appearance Cloudy; Urine Bilirubin Negative (Negative); Urine Blood 2+ (Negative); Urine Color Amber; Urine Glucose Negative (Negative); Urine Ketones Negative (Negative); Urine Nitrite Negative (Negative); Urine Protein 1+(30 mg/dL) (Negative); Urine Specific Gravity 1.051 (1.010-1.030); Urine Urobilinogen Negative (Negative)
[2020-02-22 09:31] LABS: Urine Bacteria 1+ (Absent); Urine Red Blood Cell 3+(>10/hpf) (Absent); Urine Squamous Epithelial Cell Present (Absent); Urine White Blood Cell 1+(6-10/hpf) (Absent)
[2020-02-22] MEDS: NS 0.9% w/ 20 Meq KCL 1000 ml 1,000 ML IV SCH ×2 (10:51→23:33)
[2020-02-22 11:13] LABS: TSH Ultra Thyroid Stim Horm 1.43 mcIU/mL (0.34-5.60)
[2020-02-22] MEDS: cefTRIAXone 1 gm/50 mL NS BAG 1 GM/50 ML BAG IVPB SCH (11:14)
[2020-02-22] MEDS: Heparin 5000 UNITS/ML 1 mL VIAL SUBCUT SCH (20:49)
[2020-02-22] MEDS ORDERED: Metoprolol Tartrate 5 mg VIAL 5 ml VIAL (1 mg/ml) IV ONE (21:00)
[2020-02-23] MEDS: Levothyroxine 100 MCG/5 ML VIAL IV SCH (05:13)
[2020-02-23 05:40] LABS: Albumin 3.1 g/dL (3.2-5.2); Calcium 7.8 mg/dL (8.6-10.3); Total Bilirubin 0.3 mg/dL (0.2-1.0)
[2020-02-23 05:50] LABS: Albumin/Globulin Ratio 1.3 (1-3); EGFR African American 186.3 (>60); Globulin 2.4 g/dL (2-4); Potassium 4.6 mmol/L (3.5-5.0); Total Protein 5.5 g/dL (6.4-8.9)
[2020-02-23] MEDS: HYDROmorphone 1 MG/1 ML SYRINGE IV SLOW PU PRN (08:05)
[2020-02-23] MEDS: Heparin 5000 UNITS/ML 1 mL VIAL SUBCUT SCH (08:05)
[2020-02-23] MEDS ORDERED: Enoxaparin 30 MG/0.3 ML SYR SUBCUT SCH (09:00)
[2020-02-23 09:31] LABS: ABS Basophils 0.1 10^3/ul (0-0.2); ABS Eosinophils 0.3 10^3/ul (0-0.6); ABS Lymphocytes 0.8 10^3/ul (1.0-4.8); ABS Monocytes 0.6 10^3/ul (0-0.8); ABS Neutrophils 4.7 10^3/ul (1.5-7.7); Hematocrit 36 % (35-47); Hemoglobin 11.6 g/dL (12.0-16.0); Lymphocyte % 12.1 %; Mean Corpuscular HGB Conc 33 g/dL (31-36); Mean Corpuscular Hemoglobin 31 pg (27-31); Mean Corpuscular Volume 94 fL (80-97); Mean Platelet Volume 8.3 fL (7.4-10.4); Platelet Count 271 10^3/uL (150-450); Red Blood Count 3.76 10^6 /uL (3.70-4.87); Red Cell Distribution Width 14 % (10-15); White Blood Count 6.4 10^3/uL (3.5-10.8)
[2020-02-23] MEDS: D5W NS 0.9% 20Meq KCL 1000 ml 1,000 ML IV SCH ×2 (10:38→22:02)
[2020-02-23] MEDS: cefTRIAXone 1 gm/50 mL NS BAG 1 GM/50 ML BAG IVPB SCH (11:21)
[2020-02-23] MEDS ORDERED: Albuterol 2.5mg/3 ml (0.083%) NEB.SOLN INH PRN (15:31)
[2020-02-23] MEDS: oxyCODONE SR 10 mg TAB PO SCH (16:39)
[2020-02-23] MEDS: Enoxaparin 30 MG/0.3 ML SYR SUBCUT SCH (17:07)
[2020-02-23] MEDS ORDERED: Lorazepam PYXIS KEY PRN (17:10)
[2020-02-23] MEDS ORDERED: LORazepam 2 mg VIAL 1 ml IV PUSH ONE (17:10)
[2020-02-23] MEDS: Azelastine/Fluticasone 137-50 MCG BTL (NF) BOTH NARES SCH (20:20)
[2020-02-24] MEDS: Levothyroxine 100 MCG/5 ML VIAL IV SCH (05:16)
[2020-02-24] MEDS: Azelastine/Fluticasone 137-50 MCG BTL (NF) BOTH NARES SCH ×2 (07:03→19:57)
[2020-02-24] MEDS: oxyCODONE SR 20 mg TAB PO SCH (07:05)
[2020-02-24] MEDS: D5W NS 0.9% 20Meq KCL 1000 ml 1,000 ML IV SCH (09:43)
[2020-02-24] MEDS ORDERED: Lorazepam PYXIS KEY PRN (10:06)
[2020-02-24] MEDS ORDERED: LORazepam 2 mg VIAL 1 ml IV PUSH ONE (10:06)
[2020-02-24] MEDS: cefTRIAXone 1 gm/50 mL NS BAG 1 GM/50 ML BAG IVPB SCH (10:34)
[2020-02-24] MEDS: Enoxaparin 30 MG/0.3 ML SYR SUBCUT SCH (16:06)
[2020-02-24] MEDS: oxyCODONE SR 10 mg TAB PO SCH (19:58)
[2020-02-25] MEDS: Aspirin EC 81 mg TAB.EC (enteric coated) PO SCH (07:10)
[2020-02-25] MEDS: oxyCODONE SR 20 mg TAB PO SCH (07:10)
[2020-02-25] MEDS: Azelastine/Fluticasone 137-50 MCG BTL (NF) BOTH NARES SCH ×2 (07:17→20:20)
[2020-02-25] MEDS: CMCS:Leflunomide 10 mg TAB (NF) PO SCH (07:20)
[2020-02-25] MEDS: cefTRIAXone 1 gm/50 mL NS BAG 1 GM/50 ML BAG IVPB SCH (10:11)
[2020-02-25] MEDS: Enoxaparin 30 MG/0.3 ML SYR SUBCUT SCH (15:30)
[2020-02-25] MEDS: oxyCODONE SR 10 mg TAB PO SCH (20:11)
[2020-02-25] MEDS: HYDROmorphone 1 MG/1 ML SYRINGE IV SLOW PU PRN (21:20)
[2020-02-26] MEDS: oxyCODONE SR 20 mg TAB PO SCH (10:03)
[2020-02-26] MEDS: CMCS:Leflunomide 10 mg TAB (NF) PO SCH (10:04)
[2020-02-26] MEDS: Aspirin EC 81 mg TAB.EC (enteric coated) PO SCH (10:04)
[2020-02-26] MEDS: Azelastine/Fluticasone 137-50 MCG BTL (NF) BOTH NARES SCH ×2 (10:04→21:18)
[2020-02-26] MEDS: cefTRIAXone 1 gm/50 mL NS BAG 1 GM/50 ML BAG IVPB SCH (11:20)
[2020-02-26] MEDS: Enoxaparin 30 MG/0.3 ML SYR SUBCUT SCH (17:04)
[2020-02-26] MEDS: oxyCODONE SR 10 mg TAB PO SCH (21:09)
[2020-02-27] MEDS: CMCS:Leflunomide 10 mg TAB (NF) PO SCH (08:32)
[2020-02-27] MEDS: Aspirin EC 81 mg TAB.EC (enteric coated) PO SCH (08:32)
[2020-02-27] MEDS: oxyCODONE SR 20 mg TAB PO SCH (08:32)
[2020-02-27] MEDS: Azelastine/Fluticasone 137-50 MCG BTL (NF) BOTH NARES SCH (08:33)
[2020-02-27 08:54] VITALS: BP 171/98
== END 2020-02-27 13:15 | disposition home health service (06) | DRG 389 ==
LOC: ED 03:27 → MEDTELE 10:03
PROVIDERS: ADMIT Internal Medicine; ATTEND Internal Medicine

== ENCOUNTER 2020-03-26 17:36 | Inpatient (IN) ==
[2020-03-26] MEDS ORDERED: Ondansetron 4 mg VIAL 2 MG/ML 2 ml VIAL IV ONE (19:16)
[2020-03-26 19:50] LABS: ABS Basophils 0.1 10^3/ul (0-0.2); ABS Eosinophils 0.1 10^3/ul (0-0.6); ABS Lymphocytes 0.6 10^3/ul (1.0-4.8); ABS Neutrophils 9.9 10^3/ul (1.5-7.7); Eosinophil % 0.7 %; Hematocrit 41 % (35-47); Hemoglobin 13.8 g/dL (12.0-16.0); Lymphocyte % 5.3 %; Mean Corpuscular HGB Conc 34 g/dL (31-36); Mean Corpuscular Hemoglobin 30 pg (27-31); Mean Corpuscular Volume 90 fL (80-97); Mean Platelet Volume 8.6 fL (7.4-10.4); Platelet Count 323 10^3/uL (150-450); Red Blood Count 4.57 10^6 /uL (3.70-4.87); Red Cell Distribution Width 14 % (10-15); White Blood Count 11.7 10^3/uL (3.5-10.8)
[2020-03-26 20:07] LABS: ALT 8 U/L (7-52); AST 18 U/L (13-39); Albumin 4.5 g/dL (3.2-5.2); Albumin/Globulin Ratio 1.7 (1-3); Alkaline Phosphatase 69 U/L (34-104); Anion Gap 9 mmol/L (2-11); BUN/Creatinine Ratio 39.3 (8-20); Blood Urea Nitrogen 22 mg/dL (6-24); C Reactive Protein 18.91 mg/L (<8.01); CO2 Carbon Dioxide 28 mmol/L (22-32); Chloride 98 mmol/L (101-111); EGFR African American 126.4 (>60); EGFR Non-African American 104.4 (>60); Globulin 2.7 g/dL (2-4); Glucose 120 mg/dL (70-100); Lipase < 10 U/L (11.0-82.0); Potassium 4.2 mmol/L (3.5-5.0); Sodium 135 mmol/L (135-145); Total Protein 7.2 g/dL (6.4-8.9)
[2020-03-26] MEDS ORDERED: Iohexol 300 (CONTRAST) 10 ML SDV IV ONE (21:29)
[2020-03-26] MEDS ORDERED: Morphine 2 MG/ML SYRINGE IV ONE (23:21)
[2020-03-26] MEDS ORDERED: NS 0.9% 1000 ml BAG 1,000 ML IV SCH (23:30)
[2020-03-26] MEDS ORDERED: Albuterol 2.5mg/3 ml (0.083%) NEB.SOLN INH PRN (23:39)
[2020-03-27] LABS: Activated Partial Thrombo Time 29.6 seconds (26.0-38.0); INR 1.22 (0.82-1.09)
[2020-03-27] MEDS ORDERED: HYDROmorphone 1 MG/1 ML SYRINGE IV SLOW PU ONE (00:08)
[2020-03-27 06:00] LABS: ABS Basophils 0.1 10^3/ul (0-0.2); ABS Lymphocytes 0.5 10^3/ul (1.0-4.8); ABS Monocytes 0.9 10^3/ul (0-0.8); ABS Neutrophils 5.7 10^3/ul (1.5-7.7); Eosinophil % 0.7 %; Hematocrit 39 % (35-47); Lymphocyte % 7.4 %; Mean Corpuscular HGB Conc 33 g/dL (31-36); Mean Corpuscular Hemoglobin 30 pg (27-31); Mean Corpuscular Volume 91 fL (80-97); Mean Platelet Volume 8.5 fL (7.4-10.4); Platelet Count 282 10^3/uL (150-450); Red Blood Count 4.32 10^6 /uL (3.70-4.87); Red Cell Distribution Width 14 % (10-15); White Blood Count 7.2 10^3/uL (3.5-10.8)
[2020-03-27 06:07] LABS: INR 1.33 (0.82-1.09)
[2020-03-27 06:18] LABS: BUN/Creatinine Ratio 43.3 (8-20); Calcium 8.6 mg/dL (8.6-10.3); EGFR African American 116.7 (>60); EGFR Non-African American 96.4 (>60); Potassium 4.3 mmol/L (3.5-5.0)
[2020-03-27] MEDS: Metoprolol Tartrate 5 mg VIAL 5 ml VIAL (1 mg/ml) IV SCH ×4 (06:20→18:16)
[2020-03-27] MEDS: Heparin 5000 UNITS/ML 1 mL VIAL SUBCUT SCH ×3 (06:29→21:39)
[2020-03-27] MEDS: Levothyroxine 100 MCG/5 ML VIAL IV SCH (06:29)
[2020-03-27] MEDS: Mometasone 220 MCG MDI INH SCH ×2 (11:15→20:46)
[2020-03-27] MEDS: NS 0.9% 1000 ml BAG 1,000 ML IV SCH ×2 (13:56→18:40)
[2020-03-27] MEDS: fentaNYL PATCH 12 MCG/HR 1 PATCH TRANSDERM SCH (14:23)
[2020-03-27] MEDS: Morphine 2 MG/ML SYRINGE IV PRN (17:17)
[2020-03-27] MEDS: fentaNYL Patch Check Q Shift NOTE FOLLOW UP SCH (19:12)
[2020-03-28] MEDS: Metoprolol Tartrate 5 mg VIAL 5 ml VIAL (1 mg/ml) IV SCH ×4 (00:27→17:56)
[2020-03-28] MEDS: Levothyroxine 100 MCG/5 ML VIAL IV SCH (05:50)
[2020-03-28] MEDS: Heparin 5000 UNITS/ML 1 mL VIAL SUBCUT SCH ×3 (05:51→22:12)
[2020-03-28 05:56] LABS: ABS Eosinophils 0.1 10^3/ul (0-0.6); ABS Lymphocytes 0.8 10^3/ul (1.0-4.8); ABS Monocytes 1.2 10^3/ul (0-0.8); ABS Neutrophils 2.1 10^3/ul (1.5-7.7); Hematocrit 35 % (35-47); Hemoglobin 11.6 g/dL (12.0-16.0); Lymphocyte % 18.6 %; Mean Corpuscular HGB Conc 33 g/dL (31-36); Mean Corpuscular Hemoglobin 30 pg (27-31); Mean Corpuscular Volume 92 fL (80-97); Mean Platelet Volume 8.9 fL (7.4-10.4); Platelet Count 282 10^3/uL (150-450); Red Blood Count 3.84 10^6 /uL (3.70-4.87); Red Cell Distribution Width 15 % (10-15); White Blood Count 4.2 10^3/uL (3.5-10.8)
[2020-03-28 06:17] LABS: Calcium 8.4 mg/dL (8.6-10.3); EGFR African American 162.6 (>60); EGFR Non-African American 134.4 (>60); Potassium 3.8 mmol/L (3.5-5.0)
[2020-03-28] MEDS: fentaNYL Patch Check Q Shift NOTE FOLLOW UP SCH ×2 (06:43→19:23)
[2020-03-28] MEDS: Morphine 2 MG/ML SYRINGE IV PRN ×4 (09:36→22:11)
[2020-03-28] MEDS ORDERED: D5NS 0.9% 1000 ml BAG 1,000 ML IV SCH (10:00)
[2020-03-28] MEDS: Mometasone 220 MCG MDI INH SCH ×2 (10:22→20:56)
[2020-03-28 12:19] LABS: BUN/Creatinine Ratio 55.6 (8-20); Calcium 8.1 mg/dL (8.6-10.3); EGFR African American 162.6 (>60); EGFR Non-African American 134.4 (>60); Potassium 4.1 mmol/L (3.5-5.0)
[2020-03-28 13:32] LABS: Urine Appearance Clear; Urine Bilirubin Negative (Negative); Urine Blood Negative (Negative); Urine Color Yellow; Urine Glucose Negative (Negative); Urine Ketones 2+ (Negative); Urine Nitrite Negative (Negative); Urine Protein 1+(30 mg/dL) (Negative); Urine Specific Gravity 1.025 (1.010-1.030); Urine Urobilinogen Negative (Negative)
[2020-03-28 13:35] LABS: Urine Bacteria Absent (Absent); Urine Red Blood Cell 1+(3-5/hpf) (Absent); Urine White Blood Cell Absent (Absent)
[2020-03-28] MEDS: D5NS 0.9% 1000 ml BAG 1,000 ML IV SCH (18:58)
[2020-03-29] MEDS: Metoprolol Tartrate 5 mg VIAL 5 ml VIAL (1 mg/ml) IV SCH ×4 (01:14→17:47)
[2020-03-29 05:46] LABS: ABS Lymphocytes 0.3 10^3/ul (1.0-4.8); ABS Monocytes 0.7 10^3/ul (0-0.8); ABS Neutrophils 2.5 10^3/ul (1.5-7.7); Eosinophil % 0.9 %; Hematocrit 37 % (35-47); Hemoglobin 12.5 g/dL (12.0-16.0); Lymphocyte % 8.9 %; Mean Corpuscular HGB Conc 34 g/dL (31-36); Mean Corpuscular Hemoglobin 31 pg (27-31); Mean Corpuscular Volume 90 fL (80-97); Mean Platelet Volume 8.4 fL (7.4-10.4); Platelet Count 285 10^3/uL (150-450); Red Blood Count 4.08 10^6 /uL (3.70-4.87); Red Cell Distribution Width 14 % (10-15); White Blood Count 3.6 10^3/uL (3.5-10.8)
[2020-03-29 06:02] LABS: BUN/Creatinine Ratio 39.5 (8-20); Calcium 8.5 mg/dL (8.6-10.3); EGFR African American 171.4 (>60); EGFR Non-African American 141.6 (>60); Potassium 3.5 mmol/L (3.5-5.0)
[2020-03-29] MEDS: Heparin 5000 UNITS/ML 1 mL VIAL SUBCUT SCH ×3 (06:04→21:16)
[2020-03-29] MEDS: fentaNYL Patch Check Q Shift NOTE FOLLOW UP SCH ×2 (06:53→19:16)
[2020-03-29] MEDS ORDERED: Lorazepam PYXIS KEY PRN (08:55)
[2020-03-29] MEDS: D5NS 0.9% 1000 ml BAG 1,000 ML IV SCH ×2 (08:56→23:30)
[2020-03-29] MEDS ORDERED: Aspirin EC 81 mg TAB.EC (enteric coated) PO SCH (09:00)
[2020-03-29] MEDS ORDERED: Leflunomide 20 MG TABLET (NF) PO SCH (09:00)
[2020-03-29] MEDS: Mometasone 220 MCG MDI INH SCH ×2 (10:29→22:40)
[2020-03-29] MEDS: LORazepam 2 mg VIAL 1 ml IV PUSH PRN ×2 (12:09→22:39)
[2020-03-29] MEDS: Morphine 2 MG/ML SYRINGE IV PRN ×3 (12:10→21:15)
[2020-03-29] MEDS ORDERED: Benzocaine/Menthol LOZ PO PRN (17:04)
[2020-03-29] MEDS: Ondansetron 4 mg VIAL 2 MG/ML 2 ml VIAL IV PRN (21:21)
[2020-03-30] MEDS: Metoprolol Tartrate 5 mg VIAL 5 ml VIAL (1 mg/ml) IV SCH ×4 (01:05→17:39)
[2020-03-30] MEDS: Heparin 5000 UNITS/ML 1 mL VIAL SUBCUT SCH ×3 (04:21→22:04)
[2020-03-30] MEDS: Levothyroxine 100 MCG/5 ML VIAL IV SCH (04:21)
[2020-03-30] MEDS: Morphine 2 MG/ML SYRINGE IV PRN ×5 (04:21→21:59)
[2020-03-30] MEDS: fentaNYL Patch Check Q Shift NOTE FOLLOW UP SCH ×2 (07:24→19:17)
[2020-03-30] MEDS: fentaNYL PATCH 12 MCG/HR 1 PATCH TRANSDERM SCH (07:48)
[2020-03-30] MEDS: Mometasone 220 MCG MDI INH SCH ×2 (08:17→20:48)
[2020-03-30 11:00] LABS: ABS Eosinophils 0.1 10^3/ul (0-0.6); ABS Lymphocytes 0.7 10^3/ul (1.0-4.8); ABS Monocytes 1.2 10^3/ul (0-0.8); ABS Neutrophils 3.5 10^3/ul (1.5-7.7); Eosinophil % 1.7 %; Hematocrit 37 % (35-47); Hemoglobin 12.2 g/dL (12.0-16.0); Lymphocyte % 12.1 %; Mean Corpuscular HGB Conc 33 g/dL (31-36); Mean Corpuscular Hemoglobin 30 pg (27-31); Mean Corpuscular Volume 91 fL (80-97); Mean Platelet Volume 8.3 fL (7.4-10.4); Nucleated Red Blood Cells % 0.1; Platelet Count 277 10^3/uL (150-450); Red Blood Count 4.07 10^6 /uL (3.70-4.87); Red Cell Distribution Width 14 % (10-15); White Blood Count 5.5 10^3/uL (3.5-10.8)
[2020-03-30 11:19] LABS: BUN/Creatinine Ratio 31.8 (8-20); Calcium 8.1 mg/dL (8.6-10.3); EGFR African American 166.9 (>60); EGFR Non-African American 137.9 (>60); Potassium 3.7 mmol/L (3.5-5.0)
[2020-03-30] MEDS: Ondansetron 4 mg VIAL 2 MG/ML 2 ml VIAL IV PRN ×2 (12:07→17:47)
[2020-03-30] MEDS: D5NS 0.9% 1000 ml BAG 1,000 ML IV SCH (14:50)
[2020-03-31] MEDS: Metoprolol Tartrate 5 mg VIAL 5 ml VIAL (1 mg/ml) IV SCH ×4 (00:46→18:08)
[2020-03-31] MEDS: Morphine 2 MG/ML SYRINGE IV PRN ×2 (04:37→06:46)
[2020-03-31] MEDS: Ondansetron 4 mg VIAL 2 MG/ML 2 ml VIAL IV PRN (04:44)
[2020-03-31] MEDS: Levothyroxine 100 MCG/5 ML VIAL IV SCH (06:20)
[2020-03-31] MEDS: Heparin 5000 UNITS/ML 1 mL VIAL SUBCUT SCH ×3 (06:21→22:31)
[2020-03-31] MEDS: fentaNYL Patch Check Q Shift NOTE FOLLOW UP SCH ×3 (07:07→18:58)
[2020-03-31] MEDS: Mometasone 220 MCG MDI INH SCH ×2 (08:29→22:34)
[2020-03-31] MEDS: D5NS 0.9% 1000 ml BAG 1,000 ML IV SCH (09:10)
[2020-03-31] MEDS: LORazepam 2 mg VIAL 1 ml IV PUSH PRN (09:11)
[2020-03-31] MEDS ORDERED: D5W 1/2 NS 1000 ml BAG 1,000 ML IV SCH (10:00)
[2020-04-01] MEDS: Metoprolol Tartrate 5 mg VIAL 5 ml VIAL (1 mg/ml) IV SCH ×3 (00:08→12:42)
[2020-04-01 05:26] LABS: BUN/Creatinine Ratio 33.3 (8-20); EGFR African American 232.6 (>60); EGFR Non-African American 192.2 (>60)
[2020-04-01 06:26] LABS: Potassium 2.7 mmol/L (3.5-5.0)
[2020-04-01] MEDS: Levothyroxine 100 MCG/5 ML VIAL IV SCH (06:32)
[2020-04-01] MEDS: Heparin 5000 UNITS/ML 1 mL VIAL SUBCUT SCH ×3 (06:32→21:29)
[2020-04-01] MEDS ORDERED: Lactated Ringers 500 ml BAG 500 ML IV ONE (06:33)
[2020-04-01] MEDS: KCL 20 MEQ/100 ML IVPREMIX 20 MEQ/100 ML BAG IV SCH ×2 (07:38→09:46)
[2020-04-01] MEDS: fentaNYL Patch Check Q Shift NOTE FOLLOW UP SCH ×2 (07:39→19:07)
[2020-04-01] MEDS ORDERED: Potassium Chloride LIQUID 20 MEQ/15 ML LIQUID PO ONE (08:16)
[2020-04-01] MEDS: Mometasone 220 MCG MDI INH SCH ×2 (10:51→21:27)
[2020-04-01] MEDS: Hemorrhoidal OINT 1 TUBE PR SCH ×2 (14:51→21:29)
[2020-04-02] MEDS: Heparin 5000 UNITS/ML 1 mL VIAL SUBCUT SCH ×3 (06:27→22:22)
[2020-04-02 06:34] LABS: BUN/Creatinine Ratio 12.9 (8-20); EGFR Non-African American 206.6 (>60); Potassium 2.8 mmol/L (3.5-5.0)
[2020-04-02] MEDS: fentaNYL Patch Check Q Shift NOTE FOLLOW UP SCH ×2 (06:46→19:17)
[2020-04-02] MEDS ORDERED: Potassium Chlor 20 meq TAB.ER PO ONE ×2 (08:34→15:39)
[2020-04-02] MEDS: KCL 20 MEQ/100 ML IVPREMIX 20 MEQ/100 ML BAG IV SCH ×2 (09:17→12:43)
[2020-04-02] MEDS: Aspirin EC 81 mg TAB.EC (enteric coated) PO SCH (09:17)
[2020-04-02] MEDS: Hemorrhoidal OINT 1 TUBE PR SCH ×3 (09:19→22:49)
[2020-04-02] MEDS: fentaNYL PATCH 12 MCG/HR 1 PATCH TRANSDERM SCH (09:26)
[2020-04-02] MEDS ORDERED: Lorazepam PYXIS KEY PRN (10:48)
[2020-04-02] MEDS ORDERED: LORazepam 2 mg VIAL 1 ml IV PUSH PRN (10:48)
[2020-04-02] MEDS: oxyCODONE SR 10 mg TAB PO SCH (11:01)
[2020-04-02] MEDS: Mometasone 220 MCG MDI INH SCH ×2 (11:44→20:12)
[2020-04-02 14:53] LABS: BUN/Creatinine Ratio 11.8 (8-20); Calcium 8.2 mg/dL (8.6-10.3); EGFR African American 224.7 (>60); EGFR Non-African American 185.7 (>60); Potassium 3.4 mmol/L (3.5-5.0)
[2020-04-03] MEDS: Heparin 5000 UNITS/ML 1 mL VIAL SUBCUT SCH ×3 (05:16→23:02)
[2020-04-03 06:17] LABS: BUN/Creatinine Ratio 11.1 (8-20); EGFR African American 210.4 (>60); EGFR Non-African American 173.9 (>60); Magnesium 1.2 mg/dL (1.9-2.7); Potassium 3.6 mmol/L (3.5-5.0)
[2020-04-03] MEDS: fentaNYL Patch Check Q Shift NOTE FOLLOW UP SCH ×2 (07:11→18:54)
[2020-04-03] MEDS: Mometasone 220 MCG MDI INH SCH ×2 (07:14→21:27)
[2020-04-03] MEDS ORDERED: Magnesium Sulf 4 GM/100 ML IV 4,000 MG/100 ML BAG IVPB ONE (08:16)
[2020-04-03] MEDS ORDERED: oxyCODONE SR 10 mg TAB PO SCH ×2 (09:00)
[2020-04-03] MEDS: Hemorrhoidal OINT 1 TUBE PR SCH ×3 (09:40→23:03)
[2020-04-03] MEDS: oxyCODONE SR 10 mg TAB PO SCH (09:40)
[2020-04-03] MEDS: Aspirin EC 81 mg TAB.EC (enteric coated) PO SCH (09:40)
[2020-04-04] MEDS: Heparin 5000 UNITS/ML 1 mL VIAL SUBCUT SCH ×3 (07:02→21:59)
[2020-04-04] MEDS: Mometasone 220 MCG MDI INH SCH ×2 (07:02→21:32)
[2020-04-04] MEDS: fentaNYL Patch Check Q Shift NOTE FOLLOW UP SCH ×2 (07:02→19:05)
[2020-04-04 08:35] LABS: BUN/Creatinine Ratio 13.3 (8-20); EGFR African American 259.7 (>60); EGFR Non-African American 214.6 (>60); Magnesium 1.8 mg/dL (1.9-2.7); Potassium 3.4 mmol/L (3.5-5.0)
[2020-04-04] MEDS: Potassium Chlor 10 meq TAB PO SCH (09:20)
[2020-04-04] MEDS: Aspirin EC 81 mg TAB.EC (enteric coated) PO SCH (09:20)
[2020-04-04] MEDS: Hemorrhoidal OINT 1 TUBE PR SCH ×3 (09:20→22:00)
[2020-04-04] MEDS: oxyCODONE SR 10 mg TAB PO SCH (09:21)
[2020-04-05] MEDS: Heparin 5000 UNITS/ML 1 mL VIAL SUBCUT SCH ×3 (06:08→23:52)
[2020-04-05] MEDS: fentaNYL Patch Check Q Shift NOTE FOLLOW UP SCH ×2 (06:41→19:39)
[2020-04-05 07:15] LABS: BUN/Creatinine Ratio 13.9 (8-20); Calcium 8.5 mg/dL (8.6-10.3); EGFR African American 210.4 (>60); EGFR Non-African American 173.9 (>60); Magnesium 1.7 mg/dL (1.9-2.7); Potassium 3.7 mmol/L (3.5-5.0)
[2020-04-05] MEDS: Hemorrhoidal OINT 1 TUBE PR SCH ×3 (10:14→23:05)
[2020-04-05] MEDS: Mometasone 220 MCG MDI INH SCH ×2 (10:14→23:08)
[2020-04-05] MEDS: Potassium Chlor 10 meq TAB PO SCH (10:15)
[2020-04-05] MEDS: oxyCODONE SR 10 mg TAB PO SCH (10:15)
[2020-04-05] MEDS: Aspirin EC 81 mg TAB.EC (enteric coated) PO SCH (10:17)
[2020-04-05] MEDS ORDERED: Magnesium Sulfate 2 gm BAG 2 GM/50 ML BAG IVPB ONE (13:35)
[2020-04-06] MEDS: Heparin 5000 UNITS/ML 1 mL VIAL SUBCUT SCH ×3 (05:08→22:03)
[2020-04-06] MEDS: fentaNYL Patch Check Q Shift NOTE FOLLOW UP SCH ×2 (07:18→18:53)
[2020-04-06] MEDS: Mometasone 220 MCG MDI INH SCH ×2 (07:49→19:29)
[2020-04-06] MEDS: Aspirin EC 81 mg TAB.EC (enteric coated) PO SCH (09:50)
[2020-04-06] MEDS: Potassium Chlor 10 meq TAB PO SCH (09:52)
[2020-04-06] MEDS: oxyCODONE SR 10 mg TAB PO SCH (09:56)
[2020-04-06] MEDS: Hemorrhoidal OINT 1 TUBE PR SCH ×2 (09:58→17:47)
[2020-04-07] MEDS: Hemorrhoidal OINT 1 TUBE PR SCH ×4 (01:00→21:47)
[2020-04-07] MEDS: Heparin 5000 UNITS/ML 1 mL VIAL SUBCUT SCH ×3 (05:45→21:51)
[2020-04-07 07:48] LABS: ABS Basophils 0.1 10^3/ul (0-0.2); ABS Eosinophils 0.3 10^3/ul (0-0.6); ABS Lymphocytes 1.4 10^3/ul (1.0-4.8); ABS Monocytes 0.8 10^3/ul (0-0.8); Eosinophil % 5.5 %; Hematocrit 39 % (35-47); Hemoglobin 12.7 g/dL (12.0-16.0); Lymphocyte % 24.4 %; Mean Corpuscular HGB Conc 33 g/dL (31-36); Mean Corpuscular Hemoglobin 30 pg (27-31); Mean Corpuscular Volume 90 fL (80-97); Mean Platelet Volume 8.6 fL (7.4-10.4); Platelet Count 312 10^3/uL (150-450); Red Blood Count 4.29 10^6 /uL (3.70-4.87); Red Cell Distribution Width 15 % (10-15); White Blood Count 5.6 10^3/uL (3.5-10.8)
[2020-04-07] MEDS: Mometasone 220 MCG MDI INH SCH ×2 (07:53→20:31)
[2020-04-07 07:54] LABS: CO2 Carbon Dioxide 34 mmol/L (22-32); Calcium 9.2 mg/dL (8.6-10.3); Chloride 100 mmol/L (101-111); Sodium 138 mmol/L (135-145)
[2020-04-07 07:59] LABS: INR 1.06 (0.82-1.09)
[2020-04-07 08:00] LABS: Blood Urea Nitrogen 10 mg/dL (6-24); EGFR African American 186.3 (>60); Glucose 97 mg/dL (70-100)
[2020-04-07 08:01] LABS: Anion Gap 4 mmol/L (2-11)
[2020-04-07 09:04] LABS: Ferritin 84.4 ng/mL (11-307)
[2020-04-07 09:16] LABS: Magnesium 1.8 mg/dL (1.9-2.7); Potassium Redraw 4.5 mmol/L (3.5-5.0)
[2020-04-07] MEDS: fentaNYL Patch Check Q Shift NOTE FOLLOW UP SCH ×2 (10:36→19:04)
[2020-04-07] MEDS: oxyCODONE SR 10 mg TAB PO SCH (10:38)
[2020-04-07] MEDS: Aspirin EC 81 mg TAB.EC (enteric coated) PO SCH (10:39)
[2020-04-07] MEDS: Potassium Chlor 10 meq TAB PO SCH (10:39)
[2020-04-08] MEDS: Heparin 5000 UNITS/ML 1 mL VIAL SUBCUT SCH ×3 (06:16→20:29)
[2020-04-08] MEDS: fentaNYL Patch Check Q Shift NOTE FOLLOW UP SCH (07:07)
[2020-04-08] MEDS: Mometasone 220 MCG MDI INH SCH ×2 (09:10→21:00)
[2020-04-08] MEDS: Aspirin EC 81 mg TAB.EC (enteric coated) PO SCH (10:56)
[2020-04-08] MEDS: oxyCODONE SR 10 mg TAB PO SCH (10:57)
[2020-04-08] MEDS: Potassium Chlor 10 meq TAB PO SCH (10:58)
[2020-04-08] MEDS: Hemorrhoidal OINT 1 TUBE PR SCH ×4 (15:33→20:28)
[2020-04-09 04:27] VITALS: BP 149/78
[2020-04-09] MEDS: Heparin 5000 UNITS/ML 1 mL VIAL SUBCUT SCH (05:52)
[2020-04-09] MEDS: Mometasone 220 MCG MDI INH SCH (08:30)
== END 2020-04-09 08:08 | disposition swing bed (61) | DRG 388 ==
LOC: ED 17:36 → SSU 23:17 → MED 04-05 09:20
PROVIDERS: ADMIT Internal Medicine; ATTEND Hospitalist

== ENCOUNTER 2020-04-09 08:37 | Inpatient (IN) ==
[2020-04-09] MEDS: Mometasone 220 MCG MDI INH SCH ×2 (08:36→19:42)
[2020-04-09] MEDS ORDERED: Albuterol 2.5mg/3 ml (0.083%) NEB.SOLN INH PRN (09:35)
[2020-04-09] MEDS ORDERED: Senna TAB 8.6 mg TAB PO PRN (09:35)
[2020-04-09] MEDS ORDERED: oxyCODONE SR 20 mg TAB PO SCH (10:00)
[2020-04-09] MEDS ORDERED: CMC:Alendronate 70 mg TAB (NF) PO SCH (10:00)
[2020-04-09] MEDS ORDERED: oxyCODONE SR 10 mg TAB PO ONE ×2 (11:00)
[2020-04-09] MEDS: Cholecalciferol (VIT D3) 1,000 unit TAB PO SCH (11:26)
[2020-04-09] MEDS: Aspirin EC 81 mg TAB.EC (enteric coated) PO SCH (11:26)
[2020-04-09] MEDS: CMC:Leflunomide 10 mg TAB (NF) PO SCH (13:02)
[2020-04-09] MEDS: oxyCODONE SR 10 mg TAB PO SCH (21:41)
[2020-04-09] MEDS: NF:Azelastine/Fluticasone 137-50 MCG BTL (NF) BOTH NARES SCH (21:42)
[2020-04-10] MEDS: Mometasone 220 MCG MDI INH SCH (07:44)
[2020-04-10] MEDS: oxyCODONE SR 20 mg TAB PO SCH (09:40)
[2020-04-10] MEDS: Aspirin EC 81 mg TAB.EC (enteric coated) PO SCH (09:40)
[2020-04-10] MEDS: Vitamin THERAPEUTIC TAB PO SCH (09:41)
[2020-04-10] MEDS: Cholecalciferol (VIT D3) 1,000 unit TAB PO SCH (09:41)
[2020-04-10] MEDS: NF:Azelastine/Fluticasone 137-50 MCG BTL (NF) BOTH NARES SCH ×2 (10:07→21:01)
[2020-04-10] MEDS: CMC:Leflunomide 10 mg TAB (NF) PO SCH (12:23)
[2020-04-10] MEDS: oxyCODONE SR 10 mg TAB PO SCH (21:00)
[2020-04-11] MEDS: Mometasone 220 MCG MDI INH SCH ×3 (00:57→19:53)
[2020-04-11] MEDS: Aspirin EC 81 mg TAB.EC (enteric coated) PO SCH (09:59)
[2020-04-11] MEDS: Vitamin THERAPEUTIC TAB PO SCH (09:59)
[2020-04-11] MEDS: Cholecalciferol (VIT D3) 1,000 unit TAB PO SCH (09:59)
[2020-04-11] MEDS: oxyCODONE SR 20 mg TAB PO SCH (10:04)
[2020-04-11] MEDS: CMC:Leflunomide 10 mg TAB (NF) PO SCH (10:05)
[2020-04-11] MEDS: NF:Azelastine/Fluticasone 137-50 MCG BTL (NF) BOTH NARES SCH ×2 (10:06→21:34)
[2020-04-11] MEDS: oxyCODONE SR 10 mg TAB PO SCH (21:39)
[2020-04-12] MEDS: Mometasone 220 MCG MDI INH SCH ×2 (07:44→20:28)
[2020-04-12] MEDS: Aspirin EC 81 mg TAB.EC (enteric coated) PO SCH (09:22)
[2020-04-12] MEDS: oxyCODONE SR 20 mg TAB PO SCH (09:22)
[2020-04-12] MEDS: Cholecalciferol (VIT D3) 1,000 unit TAB PO SCH (09:23)
[2020-04-12] MEDS: Vitamin THERAPEUTIC TAB PO SCH (09:23)
[2020-04-12] MEDS: CMC:Leflunomide 10 mg TAB (NF) PO SCH (09:24)
[2020-04-12] MEDS: NF:Azelastine/Fluticasone 137-50 MCG BTL (NF) BOTH NARES SCH ×2 (09:24→22:51)
[2020-04-12] MEDS: oxyCODONE SR 10 mg TAB PO SCH (20:43)
[2020-04-13] MEDS: Mometasone 220 MCG MDI INH SCH (08:26)
[2020-04-13] MEDS: oxyCODONE SR 20 mg TAB PO SCH (10:35)
[2020-04-13] MEDS: Aspirin EC 81 mg TAB.EC (enteric coated) PO SCH (10:35)
[2020-04-13] MEDS: Vitamin THERAPEUTIC TAB PO SCH (10:35)
[2020-04-13] MEDS: Cholecalciferol (VIT D3) 1,000 unit TAB PO SCH (10:35)
[2020-04-13] MEDS: NF:Azelastine/Fluticasone 137-50 MCG BTL (NF) BOTH NARES SCH ×2 (10:36→21:11)
[2020-04-13] MEDS: CMC:Leflunomide 10 mg TAB (NF) PO SCH (10:37)
[2020-04-13] MEDS: oxyCODONE SR 10 mg TAB PO SCH (21:10)
[2020-04-14 06:46] LABS: ABS Basophils 0.1 10^3/ul (0-0.2); ABS Eosinophils 0.3 10^3/ul (0-0.6); ABS Monocytes 1.3 10^3/ul (0-0.8); ABS Neutrophils 6.2 10^3/ul (1.5-7.7); Eosinophil % 3.1 %; Hematocrit 33 % (35-47); Hemoglobin 10.9 g/dL (12.0-16.0); Lymphocyte % 11.5 %; Mean Corpuscular HGB Conc 34 g/dL (31-36); Mean Corpuscular Hemoglobin 30 pg (27-31); Mean Corpuscular Volume 90 fL (80-97); Platelet Count 308 10^3/uL (150-450); Red Blood Count 3.62 10^6 /uL (3.70-4.87); Red Cell Distribution Width 15 % (10-15); White Blood Count 8.9 10^3/uL (3.5-10.8)
[2020-04-14] MEDS: Mometasone 220 MCG MDI INH SCH ×2 (06:48→07:35)
[2020-04-14 07:09] LABS: BUN/Creatinine Ratio 43.4 (8-20); Calcium 9.4 mg/dL (8.6-10.3); EGFR African American 134.6 (>60); EGFR Non-African American 111.3 (>60); Potassium 4.4 mmol/L (3.5-5.0)
[2020-04-14] MEDS: Cholecalciferol (VIT D3) 1,000 unit TAB PO SCH (10:43)
[2020-04-14] MEDS: oxyCODONE SR 20 mg TAB PO SCH (10:43)
[2020-04-14] MEDS: CMC:Leflunomide 10 mg TAB (NF) PO SCH (10:43)
[2020-04-14] MEDS: Vitamin THERAPEUTIC TAB PO SCH (10:44)
[2020-04-14] MEDS: Aspirin EC 81 mg TAB.EC (enteric coated) PO SCH (10:45)
[2020-04-14] MEDS: NF:Azelastine/Fluticasone 137-50 MCG BTL (NF) BOTH NARES SCH ×2 (10:46→20:09)
[2020-04-14] MEDS: oxyCODONE SR 10 mg TAB PO SCH (20:07)
[2020-04-15] MEDS: Mometasone 220 MCG MDI INH SCH ×3 (03:27→19:45)
[2020-04-15] MEDS: Cholecalciferol (VIT D3) 1,000 unit TAB PO SCH (10:13)
[2020-04-15] MEDS: Aspirin EC 81 mg TAB.EC (enteric coated) PO SCH (10:13)
[2020-04-15] MEDS: oxyCODONE SR 20 mg TAB PO SCH (10:14)
[2020-04-15] MEDS: Vitamin THERAPEUTIC TAB PO SCH (10:14)
[2020-04-15] MEDS: NF:Azelastine/Fluticasone 137-50 MCG BTL (NF) BOTH NARES SCH ×2 (10:16→20:43)
[2020-04-15] MEDS: CMC:Leflunomide 10 mg TAB (NF) PO SCH (13:15)
[2020-04-15] MEDS: oxyCODONE SR 10 mg TAB PO SCH (20:42)
[2020-04-16] MEDS: Mometasone 220 MCG MDI INH SCH (09:51)
[2020-04-16] MEDS: oxyCODONE SR 20 mg TAB PO SCH (10:52)
[2020-04-16] MEDS: Cholecalciferol (VIT D3) 1,000 unit TAB PO SCH (10:53)
[2020-04-16] MEDS: Aspirin EC 81 mg TAB.EC (enteric coated) PO SCH (10:53)
[2020-04-16] MEDS: CMC:Leflunomide 10 mg TAB (NF) PO SCH (10:54)
[2020-04-16] MEDS: Vitamin THERAPEUTIC TAB PO SCH (10:54)
[2020-04-16] MEDS: NF:Azelastine/Fluticasone 137-50 MCG BTL (NF) BOTH NARES SCH (10:57)
[2020-04-16 14:01] VITALS: BP 105/57
== END 2020-04-16 22:20 | disposition home or self-care (01) | DRG 388 ==
LOC: MED 09:29
PROVIDERS: ADMIT Hospitalist; ATTEND Internal Medicine

== ENCOUNTER 2020-04-25 23:16 | Inpatient (IN) ==
[2020-04-25] MEDS ORDERED: fentaNYL 100 mcg/2 ml 50 MCG/ML VIAL IV ONE (23:20)
[2020-04-25] MEDS ORDERED: fentaNYL 100 mcg/2 ml 50 MCG/ML VIAL IV SLOW PU PRN (23:21)
[2020-04-26] MEDS ORDERED: Ondansetron 4 mg VIAL 2 MG/ML 2 ml VIAL IV ONE (00:12)
[2020-04-26] MEDS ORDERED: fentaNYL 100 mcg/2 ml 50 MCG/ML VIAL IV SLOW PU ONE (00:15)
[2020-04-26 00:23] LABS: ABS Eosinophils 0.1 10^3/ul (0-0.6); ABS Lymphocytes 0.7 10^3/ul (1.0-4.8); ABS Monocytes 0.4 10^3/ul (0-0.8); ABS Neutrophils 4.1 10^3/ul (1.5-7.7); Eosinophil % 1.9 %; Hematocrit 40 % (35-47); Hemoglobin 13.1 g/dL (12.0-16.0); Lymphocyte % 13.8 %; Mean Corpuscular HGB Conc 33 g/dL (31-36); Mean Corpuscular Hemoglobin 30 pg (27-31); Mean Corpuscular Volume 91 fL (80-97); Mean Platelet Volume 8.2 fL (7.4-10.4); Nucleated Red Blood Cells % 0.1; Platelet Count 372 10^3/uL (150-450); Red Blood Count 4.37 10^6 /uL (3.70-4.87); Red Cell Distribution Width 16 % (10-15); White Blood Count 5.4 10^3/uL (3.5-10.8)
[2020-04-26 00:42] LABS: BUN/Creatinine Ratio 26.6 (8-20); Calcium 9.9 mg/dL (8.6-10.3); EGFR African American 108.3 (>60); EGFR Non-African American 89.5 (>60); Potassium 3.6 mmol/L (3.5-5.0)
[2020-04-26] MEDS ORDERED: Iohexol 300 (CONTRAST) 10 ML SDV IV ONE (02:50)
[2020-04-26] MEDS ORDERED: Ondansetron 4 mg VIAL 2 MG/ML 2 ml VIAL IV PRN (04:41)
[2020-04-26] MEDS ORDERED: NS 0.9% IV ONE (05:00)
[2020-04-26] MEDS: Aspirin EC 81 mg TAB.EC (enteric coated) PO SCH (09:17)
[2020-04-26] MEDS: oxyCODONE SR 20 mg TAB PO SCH (09:17)
[2020-04-26] MEDS: Enoxaparin 40 MG/0.4 ML SYR SUBCUT SCH (09:18)
[2020-04-26] MEDS: ALBUTEROL 2 MG PO SCH ×3 (11:55→21:20)
[2020-04-26] MEDS: LEFLUNOMIDE 20 MG PO SCH (11:55)
[2020-04-26] MEDS: Mometasone 220 MCG MDI INH SCH ×2 (11:55→20:13)
[2020-04-26] MEDS ORDERED: NS 0.9% 1000 ml BAG 1,000 ML IV SCH (14:15)
[2020-04-26] MEDS: oxyCODONE SR 10 mg TAB PO SCH (21:26)
[2020-04-27 04:47] LABS: ABS Eosinophils 0.1 10^3/ul (0-0.6); ABS Lymphocytes 0.8 10^3/ul (1.0-4.8); ABS Monocytes 1.1 10^3/ul (0-0.8); ABS Neutrophils 8.7 10^3/ul (1.5-7.7); Eosinophil % 0.8 %; Hematocrit 30 % (35-47); Lymphocyte % 7.4 %; Mean Corpuscular HGB Conc 33 g/dL (31-36); Mean Corpuscular Hemoglobin 30 pg (27-31); Mean Corpuscular Volume 92 fL (80-97); Mean Platelet Volume 8.5 fL (7.4-10.4); Platelet Count 279 10^3/uL (150-450); Red Cell Distribution Width 16 % (10-15); White Blood Count 10.7 10^3/uL (3.5-10.8)
[2020-04-27 05:04] LABS: BUN/Creatinine Ratio 28.6 (8-20); Calcium 7.8 mg/dL (8.6-10.3); EGFR African American 147.4 (>60); EGFR Non-African American 121.8 (>60)
[2020-04-27] MEDS ORDERED: KCL 20 MEQ/100 ML IVPREMIX 20 MEQ/100 ML BAG IV ONE (08:30)
[2020-04-27] MEDS: Mometasone 220 MCG MDI INH SCH ×2 (08:44→20:04)
[2020-04-27] MEDS ORDERED: Potassium Chlor 20 meq TAB.ER PO ONE (09:00)
[2020-04-27] MEDS: Enoxaparin 40 MG/0.4 ML SYR SUBCUT SCH (10:00)
[2020-04-27] MEDS: LEFLUNOMIDE 20 MG PO SCH (10:00)
[2020-04-27] MEDS: Aspirin EC 81 mg TAB.EC (enteric coated) PO SCH (10:00)
[2020-04-27] MEDS: oxyCODONE SR 20 mg TAB PO SCH (10:00)
[2020-04-27] MEDS: ALBUTEROL 2 MG PO SCH ×2 (13:45→21:25)
[2020-04-27] MEDS: oxyCODONE SR 10 mg TAB PO SCH (21:23)
[2020-04-28 06:22] LABS: ABS Basophils 0.1 10^3/ul (0-0.2); ABS Eosinophils 0.4 10^3/ul (0-0.6); ABS Lymphocytes 0.9 10^3/ul (1.0-4.8); ABS Monocytes 1.2 10^3/ul (0-0.8); ABS Neutrophils 7.6 10^3/ul (1.5-7.7); Eosinophil % 3.9 %; Hematocrit 31 % (35-47); Hemoglobin 10.4 g/dL (12.0-16.0); Lymphocyte % 9.1 %; Mean Corpuscular HGB Conc 33 g/dL (31-36); Mean Corpuscular Hemoglobin 30 pg (27-31); Mean Corpuscular Volume 90 fL (80-97); Mean Platelet Volume 8.7 fL (7.4-10.4); Nucleated Red Blood Cells % 0.1; Platelet Count 283 10^3/uL (150-450); Red Blood Count 3.47 10^6 /uL (3.70-4.87); Red Cell Distribution Width 16 % (10-15); White Blood Count 10.2 10^3/uL (3.5-10.8)
[2020-04-28 06:44] LABS: BUN/Creatinine Ratio 17.6 (8-20); Calcium 8.2 mg/dL (8.6-10.3); EGFR African American 224.7 (>60); EGFR Non-African American 185.7 (>60); Potassium 3.1 mmol/L (3.5-5.0)
[2020-04-28] MEDS: Mometasone 220 MCG MDI INH SCH ×2 (08:09→20:46)
[2020-04-28] MEDS: Aspirin EC 81 mg TAB.EC (enteric coated) PO SCH (09:01)
[2020-04-28] MEDS: oxyCODONE SR 20 mg TAB PO SCH (09:01)
[2020-04-28] MEDS: LEFLUNOMIDE 20 MG PO SCH (09:02)
[2020-04-28] MEDS: KCL 20 MEQ/100 ML IVPREMIX 20 MEQ/100 ML BAG IV SCH ×2 (09:03→17:34)
[2020-04-28] MEDS: Enoxaparin 40 MG/0.4 ML SYR SUBCUT SCH (09:03)
[2020-04-28] MEDS: ALBUTEROL 2 MG PO SCH (09:05)
[2020-04-28] MEDS ORDERED: Albuterol HFA INHALER 8 gm MDI INH PRN (12:40)
[2020-04-28] MEDS: Potassium Chlor 20 meq TAB.ER PO SCH ×2 (17:32→19:08)
[2020-04-28] MEDS: oxyCODONE SR 10 mg TAB PO SCH (20:46)
[2020-04-29 05:35] LABS: BUN/Creatinine Ratio 9.7 (8-20); Calcium 8.6 mg/dL (8.6-10.3); EGFR Non-African American 206.6 (>60); Potassium 3.4 mmol/L (3.5-5.0)
[2020-04-29] MEDS ORDERED: Potassium Chlor 20 meq TAB.ER PO ONE (09:00)
[2020-04-29] MEDS: oxyCODONE SR 20 mg TAB PO SCH (09:22)
[2020-04-29] MEDS: Aspirin EC 81 mg TAB.EC (enteric coated) PO SCH (09:22)
[2020-04-29] MEDS: Enoxaparin 40 MG/0.4 ML SYR SUBCUT SCH (09:25)
[2020-04-29] MEDS: LEFLUNOMIDE 20 MG PO SCH (09:37)
[2020-04-29 11:41] LABS: Magnesium 1.4 mg/dL (1.9-2.7)
[2020-04-29] MEDS: Mometasone 220 MCG MDI INH SCH ×2 (12:07→20:01)
[2020-04-29] MEDS ORDERED: Magnesium Sulf 4 GM/100 ML IV 4,000 MG/100 ML BAG IVPB ONE (14:00)
[2020-04-29] MEDS: oxyCODONE SR 10 mg TAB PO SCH (19:59)
[2020-04-30 01:10] LABS: Urine Appearance Clear; Urine Bilirubin Negative (Negative); Urine Blood Negative (Negative); Urine Color Colorless; Urine Glucose Negative (Negative); Urine Ketones Negative (Negative); Urine Nitrite Negative (Negative); Urine Protein Negative (Negative); Urine Specific Gravity 1.003 (1.010-1.030); Urine Urobilinogen Negative (Negative)
[2020-04-30 06:20] LABS: Anion Gap 7 mmol/L (2-11); Blood Urea Nitrogen 2 mg/dL (6-24); CO2 Carbon Dioxide 29 mmol/L (22-32); Calcium 8.4 mg/dL (8.6-10.3); Chloride 102 mmol/L (101-111); EGFR African American 259.7 (>60); EGFR Non-African American 214.6 (>60); Glucose 91 mg/dL (70-100); Magnesium 1.9 mg/dL (1.9-2.7); Sodium 138 mmol/L (135-145)
[2020-04-30] MEDS: Mometasone 220 MCG MDI INH SCH ×2 (07:55→21:18)
[2020-04-30] MEDS: Aspirin EC 81 mg TAB.EC (enteric coated) PO SCH (08:40)
[2020-04-30] MEDS: oxyCODONE SR 20 mg TAB PO SCH (08:43)
[2020-04-30] MEDS: Enoxaparin 40 MG/0.4 ML SYR SUBCUT SCH (08:48)
[2020-04-30] MEDS: LEFLUNOMIDE 20 MG PO SCH (08:48)
[2020-04-30] MEDS: Potassium Chlor 20 meq TAB.ER PO SCH ×3 (08:52→18:47)
[2020-04-30] MEDS: Lidocaine PATCH 5% PATCH TRANSDERM PRN (19:22)
[2020-04-30] MEDS: oxyCODONE SR 10 mg TAB PO SCH (21:19)
[2020-04-30] MEDS: Lidocaine Patch REMOVE PATCH PATCH OFF SCH (21:22)
[2020-05-01 04:52] LABS: BUN/Creatinine Ratio 9.5 (8-20); Calcium 8.6 mg/dL (8.6-10.3); EGFR African American 176.1 (>60); EGFR Non-African American 145.5 (>60); Magnesium 1.6 mg/dL (1.9-2.7); Potassium 4.1 mmol/L (3.5-5.0)
[2020-05-01] MEDS: Enoxaparin 40 MG/0.4 ML SYR SUBCUT SCH (08:30)
[2020-05-01] MEDS: oxyCODONE SR 20 mg TAB PO SCH (08:31)
[2020-05-01] MEDS: Aspirin EC 81 mg TAB.EC (enteric coated) PO SCH (08:38)
[2020-05-01] MEDS: LEFLUNOMIDE 20 MG PO SCH (08:39)
[2020-05-01] MEDS: Lidocaine PATCH 5% PATCH TRANSDERM PRN (08:40)
[2020-05-01] MEDS: Mometasone 220 MCG MDI INH SCH ×2 (08:40→19:45)
[2020-05-01] MEDS ORDERED: Magnesium Sulfate 2 gm BAG 2 GM/50 ML BAG IVPB ONE (08:42)
[2020-05-01] MEDS: oxyCODONE SR 10 mg TAB PO SCH (20:09)
[2020-05-01] MEDS: Lidocaine Patch REMOVE PATCH PATCH OFF SCH (22:30)
[2020-05-02 04:57] LABS: ABS Basophils 0.1 10^3/ul (0-0.2); ABS Eosinophils 0.3 10^3/ul (0-0.6); ABS Lymphocytes 1.3 10^3/ul (1.0-4.8); ABS Monocytes 1.3 10^3/ul (0-0.8); ABS Neutrophils 3.9 10^3/ul (1.5-7.7); Eosinophil % 4.8 %; Hematocrit 37 % (35-47); Hemoglobin 12.2 g/dL (12.0-16.0); Lymphocyte % 18.6 %; Mean Corpuscular HGB Conc 33 g/dL (31-36); Mean Corpuscular Hemoglobin 30 pg (27-31); Mean Corpuscular Volume 90 fL (80-97); Mean Platelet Volume 7.9 fL (7.4-10.4); Platelet Count 360 10^3/uL (150-450); Red Blood Count 4.06 10^6 /uL (3.70-4.87); Red Cell Distribution Width 15 % (10-15); White Blood Count 6.9 10^3/uL (3.5-10.8)
[2020-05-02] MEDS ORDERED: ALENDRONATE 70 MG PO SCH (05:00)
[2020-05-02 05:14] LABS: BUN/Creatinine Ratio 14.9 (8-20); Calcium 8.9 mg/dL (8.6-10.3); EGFR African American 154.7 (>60); EGFR Non-African American 127.8 (>60); Magnesium 1.7 mg/dL (1.9-2.7)
[2020-05-02] MEDS ORDERED: Magnesium Sulfate 2 gm BAG 2 GM/50 ML BAG IVPB ONE (08:05)
[2020-05-02] MEDS: oxyCODONE SR 20 mg TAB PO SCH (08:32)
[2020-05-02] MEDS: Aspirin EC 81 mg TAB.EC (enteric coated) PO SCH (08:34)
[2020-05-02] MEDS: Enoxaparin 40 MG/0.4 ML SYR SUBCUT SCH (08:35)
[2020-05-02] MEDS: LEFLUNOMIDE 20 MG PO SCH (08:35)
[2020-05-02] MEDS: Mometasone 220 MCG MDI INH SCH (08:35)
[2020-05-02 11:06] VITALS: BP 110/61
== END 2020-05-02 16:46 | disposition home health service (06) | DRG 872 ==
LOC: ED 23:16 → SSU 04-26 07:08
PROVIDERS: ADMIT Student in an Organized Health Care Education/Training Program; ATTEND Internal Medicine

== ENCOUNTER 2020-05-25 10:25 | Inpatient (IN) ==
[~2020-05-25 10:25] MED LIST: Buffered Lidocaine 1% SYRIN 1 ml INTRADERM ONE; DiMENhydriNATE IV 50 mg/ml 1 ml VIAL IV PUSH PRN; Famotidine IV 10 MG/ML 2 ml VIAL (20 mg) IV ONE; Lactated Ringers 1000 ml BAG 1,000 ML IV SCH; Naloxone 0.4 mg VIAL 0.4 mg/ml 1 ml VIAL IV PRN; Ondansetron 4 mg VIAL 2 MG/ML 2 ml VIAL IV PRN; fentaNYL 100 mcg/2 ml 50 MCG/ML VIAL IV PRN; oxyCODONE/Acetamin 5/325 mg TAB PO PRN
[2020-05-25] MEDS ORDERED: ceFAZolin 2 GM PREMIX 2 GM/50 ML BAG ONE (10:35)
[2020-05-25] MEDS ORDERED: Famotidine IV 10 MG/ML 2 ml VIAL (20 mg) ONE (10:37)
[2020-05-25] MEDS ORDERED: fentaNYL 100 mcg/2 ml 50 MCG/ML VIAL ONE (12:33)
[2020-05-25] MEDS ORDERED: Midazolam 5 mg/5 ml VIAL 1 mg/ml 5 ml VIAL (5 mg) ONE (12:33)
[2020-05-25] MEDS ORDERED: Vancomycin 1,000 MG VIAL ONE (13:33)
[2020-05-25] MEDS ORDERED: EPHEDrine (Pressors) 50 MG/ML VIAL ONE (14:25)
[2020-05-25] MEDS ORDERED: Magnesium Hydroxide LIQ 30 ML UDC PO PRN (16:17)
[2020-05-25] MEDS ORDERED: diPHENhydraMINE IV 50 MG/ML 1 ml VIAL (BENADRYL) IV PRN (16:17)
[2020-05-25] MEDS ORDERED: Ondansetron 4 mg VIAL 2 MG/ML 2 ml VIAL IV PRN (16:17)
[2020-05-25] MEDS ORDERED: Ondansetron ODT 4 mg TAB 4 MG TAB PO PRN (16:17)
[2020-05-25] MEDS ORDERED: diPHENhydraMINE 25 mg TAB PO PRN (16:17)
[2020-05-25] MEDS ORDERED: Lactulose 30 ml UDC PO PRN (16:17)
[2020-05-25] MEDS ORDERED: Lactated Ringers 1000 ml BAG 1,000 ML IV SCH (17:00)
[2020-05-25] MEDS ORDERED: Albuterol HFA INHALER 8 gm MDI INH PRN (18:19)
[2020-05-25] MEDS ORDERED: Senna TAB 8.6 mg TAB PO PRN (19:39)
[2020-05-25] MEDS: oxyCODONE SR 10 mg TAB PO SCH (19:45)
[2020-05-25] MEDS: Mometasone 220 MCG MDI INH SCH (19:59)
[2020-05-25] MEDS: NFT: Azelastine/Fluticasone 137-50 MCG BTL (NF) BOTH NARES SCH (20:53)
[2020-05-25] MEDS: Magnesium Hydroxide LIQ 30 ML UDC PO SCH (21:05)
[2020-05-25] MEDS: ceFAZolin 1 GM ADVAN 1 GM in NS 0.9% 50 ML 50 ML IVPB SCH (21:18)
[2020-05-26] MEDS: ceFAZolin 1 GM ADVAN 1 GM in NS 0.9% 50 ML 50 ML IVPB SCH ×2 (05:54→14:02)
[2020-05-26 06:37] LABS: ABS Basophils 0.1 10^3/ul (0-0.2); ABS Eosinophils 0.2 10^3/ul (0-0.6); ABS Lymphocytes 0.7 10^3/ul (1.0-4.8); ABS Monocytes 1.2 10^3/ul (0-0.8); ABS Neutrophils 9.3 10^3/ul (1.5-7.7); Eosinophil % 2.1 %; Hematocrit 31 % (35-47); Hemoglobin 10.2 g/dL (12.0-16.0); Lymphocyte % 6.5 %; Mean Corpuscular HGB Conc 33 g/dL (31-36); Mean Corpuscular Hemoglobin 30 pg (27-31); Mean Corpuscular Volume 91 fL (80-97); Mean Platelet Volume 8.1 fL (7.4-10.4); Platelet Count 259 10^3/uL (150-450); Red Blood Count 3.44 10^6 /uL (3.70-4.87); Red Cell Distribution Width 16 % (10-15); White Blood Count 11.6 10^3/uL (3.5-10.8)
[2020-05-26 06:54] LABS: BUN/Creatinine Ratio 30.2 (8-20); Calcium 8.4 mg/dL (8.6-10.3); EGFR African American 171.4 (>60); EGFR Non-African American 141.6 (>60); Potassium 4.1 mmol/L (3.5-5.0)
[2020-05-26] MEDS: Mometasone 220 MCG MDI INH SCH ×2 (07:33→19:52)
[2020-05-26] MEDS: Aspirin EC 81 mg TAB.EC (enteric coated) PO SCH (09:35)
[2020-05-26] MEDS: Vitamin THERAPEUTIC TAB PO SCH (09:35)
[2020-05-26] MEDS: Cholecalciferol (VIT D3) 1,000 unit TAB PO SCH (09:35)
[2020-05-26] MEDS: oxyCODONE SR 20 mg TAB PO SCH (09:36)
[2020-05-26] MEDS: NFT: Azelastine/Fluticasone 137-50 MCG BTL (NF) BOTH NARES SCH ×2 (09:37→21:15)
[2020-05-26] MEDS: Magnesium Hydroxide LIQ 30 ML UDC PO SCH ×3 (09:37→21:14)
[2020-05-26] MEDS: oxyCODONE SR 10 mg TAB PO SCH (18:12)
[2020-05-27 06:00] LABS: Hematocrit 30 % (35-47); Hemoglobin 9.9 g/dL (12.0-16.0); Mean Platelet Volume 8.1 fL (7.4-10.4); Platelet Count 252 10^3/uL (150-450)
[2020-05-27] MEDS: Mometasone 220 MCG MDI INH SCH ×2 (08:37→20:05)
[2020-05-27] MEDS: NFT: Azelastine/Fluticasone 137-50 MCG BTL (NF) BOTH NARES SCH ×2 (08:51→20:28)
[2020-05-27] MEDS: oxyCODONE SR 20 mg TAB PO SCH (09:06)
[2020-05-27] MEDS: Vitamin THERAPEUTIC TAB PO SCH (09:06)
[2020-05-27] MEDS: Aspirin EC 81 mg TAB.EC (enteric coated) PO SCH (09:07)
[2020-05-27] MEDS: Cholecalciferol (VIT D3) 1,000 unit TAB PO SCH (09:07)
[2020-05-27] MEDS: Magnesium Hydroxide LIQ 30 ML UDC PO SCH ×3 (09:08→20:28)
[2020-05-27] MEDS: oxyCODONE SR 10 mg TAB PO SCH (17:53)
[2020-05-28 05:57] LABS: Hematocrit 30 % (35-47); Hemoglobin 9.9 g/dL (12.0-16.0); Mean Platelet Volume 8.3 fL (7.4-10.4); Platelet Count 249 10^3/uL (150-450)
[2020-05-28] MEDS: Mometasone 220 MCG MDI INH SCH ×2 (08:25→10:21)
[2020-05-28] MEDS: NFT: Azelastine/Fluticasone 137-50 MCG BTL (NF) BOTH NARES SCH ×2 (09:02→19:48)
[2020-05-28] MEDS: Magnesium Hydroxide LIQ 30 ML UDC PO SCH ×2 (09:55→19:48)
[2020-05-28] MEDS: Aspirin EC 81 mg TAB.EC (enteric coated) PO SCH (10:19)
[2020-05-28] MEDS: Cholecalciferol (VIT D3) 1,000 unit TAB PO SCH (10:19)
[2020-05-28] MEDS: oxyCODONE SR 20 mg TAB PO SCH (10:20)
[2020-05-28] MEDS: Vitamin THERAPEUTIC TAB PO SCH (10:20)
[2020-05-28] MEDS: oxyCODONE SR 10 mg TAB PO SCH (16:24)
[2020-05-29 04:41] LABS: Hematocrit 32 % (35-47); Hemoglobin 10.4 g/dL (12.0-16.0); Mean Platelet Volume 8.2 fL (7.4-10.4); Platelet Count 272 10^3/uL (150-450)
[2020-05-29] MEDS: Mometasone 220 MCG MDI INH SCH ×2 (07:42→19:41)
[2020-05-29] MEDS: oxyCODONE SR 20 mg TAB PO SCH (08:22)
[2020-05-29] MEDS: Aspirin EC 81 mg TAB.EC (enteric coated) PO SCH (08:22)
[2020-05-29] MEDS: Cholecalciferol (VIT D3) 1,000 unit TAB PO SCH (08:22)
[2020-05-29] MEDS: Vitamin THERAPEUTIC TAB PO SCH (08:23)
[2020-05-29] MEDS: Magnesium Hydroxide LIQ 30 ML UDC PO SCH ×2 (08:25→20:41)
[2020-05-29] MEDS: NFT: Azelastine/Fluticasone 137-50 MCG BTL (NF) BOTH NARES SCH ×2 (08:47→20:41)
[2020-05-29] MEDS: oxyCODONE SR 10 mg TAB PO SCH (17:38)
[2020-05-30 06:13] LABS: Hematocrit 32 % (35-47); Hemoglobin 10.3 g/dL (12.0-16.0); Mean Platelet Volume 8.1 fL (7.4-10.4); Platelet Count 297 10^3/uL (150-450)
[2020-05-30] MEDS: oxyCODONE SR 20 mg TAB PO SCH (09:32)
[2020-05-30] MEDS: Cholecalciferol (VIT D3) 1,000 unit TAB PO SCH (09:32)
[2020-05-30] MEDS: Vitamin THERAPEUTIC TAB PO SCH (09:33)
[2020-05-30] MEDS: Aspirin EC 81 mg TAB.EC (enteric coated) PO SCH (09:33)
[2020-05-30] MEDS: Magnesium Hydroxide LIQ 30 ML UDC PO SCH ×2 (09:41→20:06)
[2020-05-30] MEDS: NFT: Azelastine/Fluticasone 137-50 MCG BTL (NF) BOTH NARES SCH ×2 (09:41→20:05)
[2020-05-30] MEDS: Mometasone 220 MCG MDI INH SCH ×2 (10:39→20:10)
[2020-05-30] MEDS: oxyCODONE SR 10 mg TAB PO SCH (18:04)
[2020-05-31] MEDS: Aspirin EC 81 mg TAB.EC (enteric coated) PO SCH (09:37)
[2020-05-31] MEDS: Mometasone 220 MCG MDI INH SCH ×2 (09:37→20:44)
[2020-05-31] MEDS: Cholecalciferol (VIT D3) 1,000 unit TAB PO SCH (09:38)
[2020-05-31] MEDS: oxyCODONE SR 20 mg TAB PO SCH (09:38)
[2020-05-31] MEDS: Vitamin THERAPEUTIC TAB PO SCH (09:38)
[2020-05-31] MEDS: NFT: Azelastine/Fluticasone 137-50 MCG BTL (NF) BOTH NARES SCH ×2 (09:44→20:03)
[2020-05-31] MEDS: Magnesium Hydroxide LIQ 30 ML UDC PO SCH ×2 (09:45→19:54)
[2020-05-31] MEDS: oxyCODONE SR 10 mg TAB PO SCH (17:48)
[2020-06-01] MEDS: Vitamin THERAPEUTIC TAB PO SCH (10:11)
[2020-06-01] MEDS: Cholecalciferol (VIT D3) 1,000 unit TAB PO SCH (10:12)
[2020-06-01] MEDS: oxyCODONE SR 20 mg TAB PO SCH (10:12)
[2020-06-01] MEDS: Aspirin EC 81 mg TAB.EC (enteric coated) PO SCH (10:12)
[2020-06-01] MEDS: NFT: Azelastine/Fluticasone 137-50 MCG BTL (NF) BOTH NARES SCH (10:14)
[2020-06-01] MEDS: Mometasone 220 MCG MDI INH SCH (10:15)
[2020-06-01] MEDS: Magnesium Hydroxide LIQ 30 ML UDC PO SCH (10:15)
[2020-06-01 11:35] VITALS: BP 152/85
== END 2020-06-01 14:21 | DRG 467 ==
LOC: OR 10:25 → SSU 17:57
PROVIDERS: ADMIT Orthopaedic Surgery; ATTEND Orthopaedic Surgery

== ENCOUNTER 2020-07-11 08:35 | Inpatient (IN) ==
[2020-07-11] MEDS ORDERED: NS 0.9% 1000 ml BAG 1,000 ML IV ONE (09:46)
[2020-07-11] MEDS ORDERED: Propofol 10 MG/ML 20 ML BTL IV PUSH ONE ×3 (09:48→10:21)
[2020-07-11] MEDS ORDERED: Lidocaine 2% PF 5 ML VIAL ONE (12:14)
[2020-07-11] MEDS ORDERED: Propofol 10 MG/ML 20 ML BTL ONE (12:14)
[2020-07-11] MEDS ORDERED: diPHENhydraMINE 25 mg TAB PO PRN (12:49)
[2020-07-11] MEDS ORDERED: Albuterol HFA INHALER 8 gm MDI INH PRN (12:59)
[2020-07-11] MEDS: oxyCODONE/Acetamin 5/325 mg TAB PO PRN (13:13)
[2020-07-11] MEDS ORDERED: oxyCODONE/Acetamin 5/325 mg TAB ONE (13:13)
[2020-07-11] MEDS ORDERED: Morphine 4 MG/ML VIAL (1 ml) ONE ×2 (13:56→14:02)
[2020-07-11] MEDS: Morphine 10 MG/ML VIAL (1 ml) IV PRN ×2 (14:06→21:23)
[2020-07-11] MEDS: Lactated Ringers 1000 ml BAG 1,000 ML IV SCH (15:42)
[2020-07-11] MEDS ORDERED: LORazepam 2 mg VIAL 1 ml ONE (17:17)
[2020-07-11] MEDS ORDERED: LORazepam 2 mg VIAL 1 ml IV PUSH PRN (17:23)
[2020-07-11] MEDS ORDERED: Lorazepam PYXIS KEY PRN (17:23)
[2020-07-11] MEDS: Mometasone 220 MCG MDI INH SCH (19:39)
[2020-07-11] MEDS: Azelastine/Fluticasone 137-50 MCG BTL (NF) BOTH NARES SCH (21:23)
[2020-07-12] MEDS: Lactated Ringers 1000 ml BAG 1,000 ML IV SCH (02:47)
[2020-07-12] MEDS: Morphine 10 MG/ML VIAL (1 ml) IV PRN ×2 (03:00→07:25)
[2020-07-12] MEDS ORDERED: Lactated Ringers 1000 ml BAG 1,000 ML IV SCH (06:00)
[2020-07-12] MEDS ORDERED: Buffered Lidocaine 1% SYRIN 1 ml INTRADERM ONE (06:00)
[2020-07-12] MEDS ORDERED: Famotidine IV 10 MG/ML 2 ml VIAL (20 mg) IV ONE (06:00)
[2020-07-12] MEDS ORDERED: Lidocaine 2% PF 5 ML VIAL ONE (07:39)
[2020-07-12] MEDS ORDERED: fentaNYL 100 mcg/2 ml 50 MCG/ML VIAL ONE (07:39)
[2020-07-12] MEDS ORDERED: Propofol 10 MG/ML 20 ML BTL ONE (07:39)
[2020-07-12] MEDS ORDERED: HYDROcodone/ACETAMIN 5/325 mg TAB PO PRN (07:54)
[2020-07-12] MEDS ORDERED: Prochlorperazine 5 mg/ml 2 ml VIAL (10 mg) IV PRN (07:54)
[2020-07-12] MEDS ORDERED: Naloxone 0.4 mg VIAL 0.4 mg/ml 1 ml VIAL IV PRN (07:54)
[2020-07-12] MEDS ORDERED: oxyCODONE/Acetamin 5/325 mg TAB PO PRN (07:54)
[2020-07-12] MEDS ORDERED: fentaNYL 100 mcg/2 ml 50 MCG/ML VIAL IV PRN (07:54)
[2020-07-12 08:20] LABS: Urine Appearance Clear; Urine Bilirubin Negative (Negative); Urine Blood Negative (Negative); Urine Color Yellow; Urine Glucose Negative (Negative); Urine Ketones Negative (Negative); Urine Nitrite Negative (Negative); Urine Protein Negative (Negative); Urine Specific Gravity 1.019 (1.002-1.030); Urine Urobilinogen Negative (Negative)
[2020-07-12] MEDS ORDERED: EPHEDrine (Pressors) 50 MG/ML VIAL ONE (08:47)
[2020-07-12] MEDS: Azelastine/Fluticasone 137-50 MCG BTL (NF) BOTH NARES SCH ×2 (09:33→21:35)
[2020-07-12] MEDS: Aspirin EC 81 mg TAB.EC (enteric coated) PO SCH (11:22)
[2020-07-12] MEDS: Mometasone 220 MCG MDI INH SCH ×2 (11:23→19:24)
[2020-07-13] MEDS: Aspirin EC 81 mg TAB.EC (enteric coated) PO SCH (08:22)
[2020-07-13] MEDS: Azelastine/Fluticasone 137-50 MCG BTL (NF) BOTH NARES SCH ×2 (08:24→21:00)
[2020-07-13] MEDS: Mometasone 220 MCG MDI INH SCH ×2 (08:26→19:12)
[2020-07-13] MEDS: oxyCODONE/Acetamin 5/325 mg TAB PO PRN (15:37)
[2020-07-14] MEDS: Aspirin EC 81 mg TAB.EC (enteric coated) PO SCH (08:36)
[2020-07-14] MEDS: Azelastine/Fluticasone 137-50 MCG BTL (NF) BOTH NARES SCH (08:37)
[2020-07-14] MEDS: Mometasone 220 MCG MDI INH SCH (11:49)
[2020-07-14 12:21] VITALS: BP 142/71
== END 2020-07-14 14:35 | DRG 566 ==
LOC: SSU 08:35 → ED 08:35 → SSU 17:02
PROVIDERS: ADMIT Orthopaedic Surgery Hand Surgery; ATTEND Orthopaedic Surgery

== ENCOUNTER 2020-09-13 11:45 | Inpatient (IN) ==
[2020-09-13] MEDS ORDERED: Propofol 10 MG/ML 20 ML BTL IV PUSH ONE ×2 (13:10→14:15)
[2020-09-13] MEDS ORDERED: Propofol 10 mg/ml 100 ML BTL 0 ML ONE (14:04)
[2020-09-13] MEDS ORDERED: NS 0.9% 1000 ml BAG 1,000 ML IV ONE (14:53)
[2020-09-13] MEDS ORDERED: Propofol 10 MG/ML 20 ML BTL ONE (15:49)
[2020-09-13] MEDS ORDERED: Lidocaine 2% PF 5 ML VIAL ONE (15:49)
[2020-09-13] MEDS ORDERED: Midazolam 5 mg/5 ml VIAL 1 mg/ml 5 ml VIAL (5 mg) ONE (15:50)
[2020-09-13] MEDS ORDERED: fentaNYL 100 mcg/2 ml 50 MCG/ML VIAL ONE (16:43)
[2020-09-13] MEDS ORDERED: Ondansetron 4 mg VIAL 2 MG/ML 2 ml VIAL IV PRN (17:39)
[2020-09-13] MEDS ORDERED: Al Hydrox/Mg Hydrox/Simet LIQ 30 ML UDC PO PRN (17:39)
[2020-09-13] MEDS ORDERED: Polyethylene Glycol 3350 17 GM PACKET PO PRN (17:43)
[2020-09-13] MEDS: Heparin 5000 UNITS/ML 1 mL VIAL SUBCUT SCH (21:56)
[2020-09-13] MEDS: Morphine 2 MG/ML SYRINGE IV PRN (21:57)
[2020-09-13] MEDS: Senna TAB 8.6 mg TAB PO SCH (21:57)
[2020-09-14] MEDS: Morphine 2 MG/ML SYRINGE IV PRN ×3 (02:46→08:29)
[2020-09-14 04:27] LABS: ABS Eosinophils 0.3 10^3/ul (0-0.6); Eosinophil % 4.2 %; Hematocrit 33 % (35-47); Hemoglobin 10.9 g/dL (12.0-16.0); Lymphocyte % 14.1 %; Mean Corpuscular HGB Conc 33 g/dL (31-36); Mean Corpuscular Hemoglobin 29 pg (27-31); Mean Corpuscular Volume 88 fL (80-97); Mean Platelet Volume 8.7 fL (7.4-10.4); Platelet Count 202 10^3/uL (150-450); Red Blood Count 3.71 10^6 /uL (3.70-4.87); Red Cell Distribution Width 16 % (10-15); White Blood Count 7.4 10^3/uL (3.5-10.8)
[2020-09-14 04:44] LABS: Calcium 8.8 mg/dL (8.6-10.3); EGFR African American 181.1 (>60); EGFR Non-African American 149.6 (>60); Magnesium 1.6 mg/dL (1.9-2.7)
[2020-09-14 04:48] LABS: INR 1.09 (0.82-1.09)
[2020-09-14] MEDS: Heparin 5000 UNITS/ML 1 mL VIAL SUBCUT SCH ×3 (05:09→22:11)
[2020-09-14] MEDS ORDERED: Magnesium Sulfate 2 gm BAG 2 GM/50 ML BAG IVPB ONE (08:34)
[2020-09-14] MEDS ORDERED: NS 0.9% 1000 ml BAG 1,000 ML IV SCH (09:30)
[2020-09-14] MEDS ORDERED: Buffered Lidocaine 1% SYRIN 1 ml INTRADERM ONE (12:52)
[2020-09-14] MEDS ORDERED: fentaNYL 100 mcg/2 ml 50 MCG/ML VIAL ONE ×2 (13:01→14:04)
[2020-09-14] MEDS ORDERED: Ondansetron 4 mg VIAL 2 MG/ML 2 ml VIAL IV PRN (13:24)
[2020-09-14] MEDS ORDERED: fentaNYL 100 mcg/2 ml 50 MCG/ML VIAL IV PRN (13:24)
[2020-09-14] MEDS ORDERED: Naloxone 0.4 mg VIAL 0.4 mg/ml 1 ml VIAL IV PRN (13:24)
[2020-09-14] MEDS ORDERED: Metoclopramide 5 MG/ML VIAL (10 mg) IV PRN (13:24)
[2020-09-14] MEDS ORDERED: HYDROcodone/ACETAMIN 5/325 mg TAB PO PRN (13:24)
[2020-09-14] MEDS: Senna TAB 8.6 mg TAB PO SCH (21:26)
[2020-09-15] MEDS: Heparin 5000 UNITS/ML 1 mL VIAL SUBCUT SCH ×3 (05:56→21:59)
[2020-09-15 06:59] LABS: ABS Basophils 0.1 10^3/ul (0-0.2); ABS Eosinophils 0.3 10^3/ul (0-0.6); ABS Lymphocytes 0.8 10^3/ul (1.0-4.8); ABS Monocytes 1.5 10^3/ul (0-0.8); ABS Neutrophils 6.7 10^3/ul (1.5-7.7); Eosinophil % 2.9 %; Hematocrit 31 % (35-47); Hemoglobin 10.4 g/dL (12.0-16.0); Lymphocyte % 8.3 %; Mean Corpuscular HGB Conc 34 g/dL (31-36); Mean Corpuscular Hemoglobin 29 pg (27-31); Mean Corpuscular Volume 88 fL (80-97); Mean Platelet Volume 8.8 fL (7.4-10.4); Platelet Count 194 10^3/uL (150-450); Red Blood Count 3.55 10^6 /uL (3.70-4.87); Red Cell Distribution Width 15 % (10-15); White Blood Count 9.2 10^3/uL (3.5-10.8)
[2020-09-15 07:06] LABS: Calcium 8.3 mg/dL (8.6-10.3); EGFR African American 224.7 (>60); EGFR Non-African American 185.7 (>60)
[2020-09-15] MEDS: Senna TAB 8.6 mg TAB PO SCH (21:59)
[2020-09-16] MEDS: Heparin 5000 UNITS/ML 1 mL VIAL SUBCUT SCH ×3 (06:04→23:10)
[2020-09-16] MEDS: Senna TAB 8.6 mg TAB PO SCH (23:10)
[2020-09-17] MEDS: Heparin 5000 UNITS/ML 1 mL VIAL SUBCUT SCH ×3 (06:20→14:55)
[2020-09-17 13:10] VITALS: BP 150/83
== END 2020-09-17 15:55 | disposition home health service (06) | DRG 560 ==
LOC: ED 11:45 → SSU 19:18
PROVIDERS: ADMIT Pediatrics; ATTEND Internal Medicine

== ENCOUNTER 2020-11-02 08:05 | Observation (INO) ==
[~2020-11-02 08:05] MED LIST changes: +DiMENhydriNATE IV 50 mg/ml 1 ml VIAL IV PUSH ONE; -DiMENhydriNATE IV 50 mg/ml 1 ml VIAL IV PUSH PRN; -Famotidine IV 10 MG/ML 2 ml VIAL (20 mg) IV ONE; +HYDROcodone/ACETAMIN 5/325 mg TAB PO PRN; +Metoclopramide 5 MG/ML VIAL (10 mg) IV PRN; -oxyCODONE/Acetamin 5/325 mg TAB PO PRN
[2020-11-02] MEDS ORDERED: DiMENhydriNATE IV 50 mg/ml 1 ml VIAL ONE (08:12)
[2020-11-02] MEDS ORDERED: ceFAZolin 2 GM in NS PREMIX 2 GM/100 ML BAG IVPB ONE (08:12)
[2020-11-02] MEDS ORDERED: Propofol 10 MG/ML 20 ML BTL ONE ×2 (08:15→11:27)
[2020-11-02] MEDS ORDERED: Lidocaine 2% PF 5 ML VIAL ONE (08:15)
[2020-11-02] MEDS ORDERED: Midazolam 2 mg/2 ml VIAL 1 mg/ml 2 ml VIAL (2 mg) ONE (08:15)
[2020-11-02] MEDS ORDERED: fentaNYL 100 mcg/2 ml 50 MCG/ML VIAL ONE (08:15)
[2020-11-02] MEDS ORDERED: Ketamine HCL 50 mg/ml 10 ml VIAL (500 MG) ONE (09:28)
[2020-11-02] MEDS ORDERED: EPHEDrine (Pressors) 50 MG/ML VIAL ONE (09:55)
[2020-11-02] MEDS ORDERED: Phenylephrine IV 10 MG/ML 1 ml VIAL ONE (10:23)
[2020-11-02] MEDS ORDERED: Ondansetron 4 mg VIAL 2 MG/ML 2 ml VIAL ONE (11:22)
[2020-11-02] MEDS ORDERED: Dexamethasone IV 4 MG/ML VIAL 1 ml VIAL ONE (11:22)
[2020-11-02] MEDS ORDERED: Vancomycin 1,000 MG VIAL ONE (11:40)
[2020-11-02] MEDS ORDERED: Lactulose 30 ml UDC PO PRN (12:34)
[2020-11-02] MEDS ORDERED: diPHENhydraMINE 25 mg TAB PO PRN (12:34)
[2020-11-02] MEDS ORDERED: Ondansetron ODT 4 mg TAB 4 MG TAB PO PRN (12:34)
[2020-11-02] MEDS ORDERED: Magnesium Hydroxide LIQ 30 ML UDC PO PRN (12:34)
[2020-11-02] MEDS ORDERED: diPHENhydraMINE IV 50 MG/ML 1 ml VIAL (BENADRYL) IV PRN (12:34)
[2020-11-02] MEDS ORDERED: Morphine 2 MG/ML SYRINGE IV PRN (12:40)
[2020-11-02] MEDS ORDERED: Polyethylene Glycol 3350 17 GM PACKET PO PRN (12:42)
[2020-11-02] MEDS ORDERED: HYDROcodone/ACETAMIN 5/325 mg TAB ONE (12:53)
[2020-11-02] MEDS: D5W 1/2 NS 1000 ml BAG 1,000 ML IV SCH (14:24)
[2020-11-02] MEDS: ceFAZolin 1 GM ADVAN 1 GM in NS 0.9% 50 ML 50 ML IVPB SCH (17:43)
[2020-11-02] MEDS: Ondansetron 4 mg VIAL 2 MG/ML 2 ml VIAL IV PRN (19:02)
[2020-11-02] MEDS: Mometasone 220 MCG MDI INH SCH (19:30)
[2020-11-02] MEDS ORDERED: NS 0.9% 1000 ml BAG 1,000 ML IV ONE (21:30)
[2020-11-02] MEDS: NF:Azelastine/Fluticasone 137-50 MCG BTL (NF) BOTH NARES SCH (21:49)
[2020-11-02] MEDS: Senna TAB 8.6 mg TAB PO SCH (21:49)
[2020-11-02] MEDS: Magnesium Hydroxide LIQ 30 ML UDC PO SCH (21:49)
[2020-11-03] MEDS: D5W 1/2 NS 1000 ml BAG 1,000 ML IV SCH ×2 (01:02→15:30)
[2020-11-03] MEDS: ceFAZolin 1 GM ADVAN 1 GM in NS 0.9% 50 ML 50 ML IVPB SCH ×2 (04:26→09:28)
[2020-11-03 07:18] LABS: Hematocrit 30 % (35-47); Hemoglobin 9.6 g/dL (12.0-16.0); Mean Platelet Volume 8.9 fL (7.4-10.4); Platelet Count 224 10^3/uL (150-450)
[2020-11-03 07:36] LABS: Calcium 7.6 mg/dL (8.6-10.3); EGFR African American 90.2 (>60); EGFR Non-African American 74.5 (>60); Potassium 4.3 mmol/L (3.5-5.0)
[2020-11-03] MEDS: NF:Azelastine/Fluticasone 137-50 MCG BTL (NF) BOTH NARES SCH (09:09)
[2020-11-03] MEDS: CMC:Leflunomide 10 mg TAB (NF) PO SCH (09:14)
[2020-11-03] MEDS: Vitamin THERAPEUTIC TAB PO SCH (09:16)
[2020-11-03] MEDS: Aspirin EC 81 mg TAB.EC (enteric coated) PO SCH (09:16)
[2020-11-03] MEDS: Magnesium Hydroxide LIQ 30 ML UDC PO SCH ×2 (09:17→22:48)
[2020-11-03] MEDS: Mometasone 220 MCG MDI INH SCH ×2 (09:28→19:31)
[2020-11-03] MEDS: Ondansetron 4 mg VIAL 2 MG/ML 2 ml VIAL IV PRN (10:38)
[2020-11-03] MEDS ORDERED: Prochlorperazine 5 mg/ml 2 ml VIAL (10 mg) IV PRN (12:13)
[2020-11-03] MEDS: Senna TAB 8.6 mg TAB PO SCH (22:45)
[2020-11-04] MEDS: D5W 1/2 NS 1000 ml BAG 1,000 ML IV SCH (03:51)
[2020-11-04 06:52] LABS: Hematocrit 29 % (35-47); Hemoglobin 9.5 g/dL (12.0-16.0); Mean Platelet Volume 8.6 fL (7.4-10.4); Platelet Count 186 10^3/uL (150-450)
[2020-11-04] MEDS: Aspirin EC 81 mg TAB.EC (enteric coated) PO SCH (09:42)
[2020-11-04] MEDS: Vitamin THERAPEUTIC TAB PO SCH (09:42)
[2020-11-04] MEDS: Magnesium Hydroxide LIQ 30 ML UDC PO SCH (09:44)
[2020-11-04] MEDS: CMC:Leflunomide 10 mg TAB (NF) PO SCH (09:44)
[2020-11-04 11:40] VITALS: BP 109/62
[2020-11-04] MEDS: Mometasone 220 MCG MDI INH SCH (12:47)
== END 2020-11-04 14:55 ==
LOC: OR 08:05 → SSU 12:34 → SUATTDRO 12:34 → INTOOBSV 12:34 → SSU 22:24
PROVIDERS: ADMIT Orthopaedic Surgery; ATTEND Orthopaedic Surgery

== ENCOUNTER 2020-12-06 00:02 | Inpatient (IN) ==
[2020-12-06] MEDS ORDERED: Morphine 4 MG/ML VIAL (1 ml) IV ONE ×4 (00:08→06:34)
[2020-12-06] MEDS ORDERED: NS 0.9% 1000 ml BAG 1,000 ML IV ONE ×2 (00:08→13:50)
[2020-12-06 01:09] LABS: ABS Basophils 0.1 10^3/ul (0-0.2); ABS Eosinophils 0.1 10^3/ul (0-0.6); ABS Lymphocytes 0.5 10^3/ul (1.0-4.8); ABS Monocytes 0.9 10^3/ul (0-0.8); ABS Neutrophils 13.9 10^3/ul (1.5-7.7); Eosinophil % 0.4 %; Hematocrit 32 % (35-47); Hemoglobin 10.2 g/dL (12.0-16.0); Lymphocyte % 2.9 %; Mean Corpuscular HGB Conc 32 g/dL (31-36); Mean Corpuscular Hemoglobin 28 pg (27-31); Mean Corpuscular Volume 86 fL (80-97); Mean Platelet Volume 7.5 fL (7.4-10.4); Platelet Count 330 10^3/uL (150-450); Red Blood Count 3.69 10^6 /uL (3.70-4.87); Red Cell Distribution Width 16 % (10-15); White Blood Count 15.4 10^3/uL (3.5-10.8)
[2020-12-06 01:30] LABS: Albumin 3.8 g/dL (3.2-5.2); Blood Urea Nitrogen 19 mg/dL (6-24); CO2 Carbon Dioxide 27 mmol/L (22-32); Calcium 9.5 mg/dL (8.6-10.3); Chloride 97 mmol/L (101-111); EGFR Non-African American 124.8 (>60); Glucose 131 mg/dL (70-100); Sodium 132 mmol/L (135-145); Total Protein 6.8 g/dL (6.4-8.9)
[2020-12-06 01:31] LABS: ALT 8 U/L (7-52); Albumin/Globulin Ratio 1.3 (1-3); Alkaline Phosphatase 95 U/L (35-149); C Reactive Protein 16.88 mg/L (<8.01); Lipase 13 U/L (11.0-82.0)
[2020-12-06 01:42] LABS: Anion Gap 8 mmol/L (2-11)
[2020-12-06] MEDS ORDERED: Iohexol 300 (CONTRAST) 10 ML SDV IV ONE (02:21)
[2020-12-06 02:53] LABS: Potassium Redraw 4.1 mmol/L (3.5-5.0)
[2020-12-06] MEDS ORDERED: Ondansetron 4 mg VIAL 2 MG/ML 2 ml VIAL IV ONE (06:34)
[2020-12-06 12:29] LABS: ABS Lymphocytes 0.2 10^3/ul (1.0-4.8); ABS Monocytes 0.8 10^3/ul (0-0.8); ABS Neutrophils 8.4 10^3/ul (1.5-7.7); Hematocrit 34 % (35-47); Hemoglobin 10.7 g/dL (12.0-16.0); Lymphocyte % 2.3 %; Mean Corpuscular HGB Conc 31 g/dL (31-36); Mean Corpuscular Hemoglobin 28 pg (27-31); Mean Corpuscular Volume 88 fL (80-97); Mean Platelet Volume 7.2 fL (7.4-10.4); Nucleated Red Blood Cells % 0.1; Platelet Count 311 10^3/uL (150-450); Red Blood Count 3.88 10^6 /uL (3.70-4.87); Red Cell Distribution Width 17 % (10-15); White Blood Count 9.5 10^3/uL (3.5-10.8)
[2020-12-06 12:35] LABS: INR 1.21 (0.86-1.15)
[2020-12-06 12:48] LABS: Albumin 3.5 g/dL (3.2-5.2); Albumin/Globulin Ratio 1.3 (1-3); Calcium 8.5 mg/dL (8.6-10.3); EGFR African American 166.9 (>60); EGFR Non-African American 137.9 (>60); Globulin 2.8 g/dL (2-4); Potassium 4.3 mmol/L (3.5-5.0); Total Bilirubin 0.5 mg/dL (0.2-1.0); Total Protein 6.3 g/dL (6.4-8.9)
[2020-12-06] MEDS: Enoxaparin 40 MG/0.4 ML SYR SUBCUT SCH (14:09)
[2020-12-06] MEDS ORDERED: Piperacillin/Tazobac ADVAN 3.375 GM in NS 0.9% 100 ml BAG 100 ML IV ONE (17:41)
[2020-12-06] MEDS ORDERED: Zosyn per Pharmacy NOTE FOLLOW UP SCH (18:00)
[2020-12-06] MEDS: NS 0.9% 1000 ml BAG 1,000 ML IV SCH ×2 (19:10→22:03)
[2020-12-06] MEDS ORDERED: NS 0.9% 500 ml BAG 500 ML IV ONE (20:20)
[2020-12-06] MEDS: cefTRIAXone 1 gm/50 mL NS BAG 1 GM/50 ML BAG IVPB SCH (20:21)
[2020-12-06] MEDS: metroNIDAZOLE IV 500 MG/100ML 500 MG/100 ML BAG IVPB SCH (22:04)
[2020-12-07] MEDS: metroNIDAZOLE IV 500 MG/100ML 500 MG/100 ML BAG IVPB SCH ×3 (05:30→23:02)
[2020-12-07] MEDS: Enoxaparin 40 MG/0.4 ML SYR SUBCUT SCH (09:48)
[2020-12-07] MEDS: NS 0.9% 1000 ml BAG 1,000 ML IV SCH (09:53)
[2020-12-07 10:14] LABS: Hematocrit 33 % (35-47); Hemoglobin 9.9 g/dL (12.0-16.0); Mean Corpuscular HGB Conc 30 g/dL (31-36); Mean Corpuscular Hemoglobin 27 pg (27-31); Mean Corpuscular Volume 91 fL (80-97); Mean Platelet Volume 7.9 fL (7.4-10.4); Platelet Count 314 10^3/uL (150-450); Red Blood Count 3.63 10^6 /uL (3.70-4.87); Red Cell Distribution Width 18 % (10-15); White Blood Count 12.2 10^3/uL (3.5-10.8)
[2020-12-07 10:37] LABS: C Reactive Protein 317.35 mg/L (<8.01); Calcium 7.9 mg/dL (8.6-10.3); EGFR African American 93.1 (>60); EGFR Non-African American 76.9 (>60); Potassium 4.5 mmol/L (3.5-5.0)
[2020-12-07 11:11] LABS: ABS Lymphocytes 0.4 10^3/ul (1.0-4.8); ABS Neutrophils 9.9 10^3/ul (1.5-7.7); Lymphocyte % 2.9 %; Nucleated Red Blood Cells % 0.1
[2020-12-07 11:14] LABS: Anisocytosis 2+; Polychromasia 1+
[2020-12-07] MEDS: Ondansetron 4 mg VIAL 2 MG/ML 2 ml VIAL IV PRN (12:11)
[2020-12-07] MEDS ORDERED: Prochlorperazine 5 mg/ml 2 ml VIAL (10 mg) IV PRN (15:04)
[2020-12-07] MEDS: cefTRIAXone 1 gm/50 mL NS BAG 1 GM/50 ML BAG IVPB SCH (21:23)
[2020-12-08] MEDS: metroNIDAZOLE IV 500 MG/100ML 500 MG/100 ML BAG IVPB SCH ×3 (04:45→21:49)
[2020-12-08 09:05] LABS: Hematocrit 30 % (35-47); Hemoglobin 9.4 g/dL (12.0-16.0); Mean Corpuscular HGB Conc 31 g/dL (31-36); Mean Corpuscular Hemoglobin 28 pg (27-31); Mean Corpuscular Volume 89 fL (80-97); Mean Platelet Volume 7.9 fL (7.4-10.4); Platelet Count 289 10^3/uL (150-450); Red Blood Count 3.38 10^6 /uL (3.70-4.87); Red Cell Distribution Width 17 % (10-15); White Blood Count 14.3 10^3/uL (3.5-10.8)
[2020-12-08] MEDS: Enoxaparin 40 MG/0.4 ML SYR SUBCUT SCH (09:18)
[2020-12-08 09:22] LABS: Calcium 7.8 mg/dL (8.6-10.3); EGFR African American 66.2 (>60); EGFR Non-African American 54.7 (>60); Potassium 4.4 mmol/L (3.5-5.0)
[2020-12-08 09:44] LABS: ABS Basophils 0.1 10^3/ul (0-0.2); ABS Lymphocytes 0.5 10^3/ul (1.0-4.8); ABS Monocytes 1.8 10^3/ul (0-0.8); Eosinophil % 0.1 %; Lymphocyte % 3.3 %; Nucleated Red Blood Cells % 0.1
[2020-12-08 09:48] LABS: Anisocytosis 1+
[2020-12-08] MEDS: cefTRIAXone 1 gm/50 mL NS BAG 1 GM/50 ML BAG IVPB SCH (19:51)
[2020-12-09] MEDS: metroNIDAZOLE IV 500 MG/100ML 500 MG/100 ML BAG IVPB SCH ×3 (03:59→20:44)
[2020-12-09] MEDS: Ondansetron 4 mg VIAL 2 MG/ML 2 ml VIAL IV PRN (08:51)
[2020-12-09] MEDS: Enoxaparin 40 MG/0.4 ML SYR SUBCUT SCH (10:12)
[2020-12-09 12:58] LABS: Urine Appearance Clear; Urine Bilirubin Negative (Negative); Urine Blood Negative (Negative); Urine Color Amber; Urine Glucose Negative (Negative); Urine Ketones Negative (Negative); Urine Nitrite Negative (Negative); Urine Protein 1+(30 mg/dL) (Negative); Urine Specific Gravity 1.015 (1.002-1.030); Urine Urobilinogen Negative (Negative)
[2020-12-09 13:16] LABS: Urine Bacteria Absent (Absent); Urine Red Blood Cell Absent (Absent); Urine White Blood Cell Trace(0-5/hpf) (Absent)
[2020-12-09 13:33] LABS: PCO2 Arterial 62 mmHg (35-45); PO2 Arterial 91 mmHg (80-100)
[2020-12-09 14:28] LABS: Hematocrit 31 % (35-47); Hemoglobin 9.2 g/dL (12.0-16.0); Mean Corpuscular HGB Conc 30 g/dL (31-36); Mean Corpuscular Hemoglobin 27 pg (27-31); Mean Corpuscular Volume 89 fL (80-97); Mean Platelet Volume 7.6 fL (7.4-10.4); Platelet Count 259 10^3/uL (150-450); Red Blood Count 3.45 10^6 /uL (3.70-4.87); Red Cell Distribution Width 17 % (10-15); White Blood Count 12.9 10^3/uL (3.5-10.8)
[2020-12-09 14:49] LABS: Albumin 3.7 g/dL (3.2-5.2); Albumin/Globulin Ratio 1.5 (1-3); Calcium 8.5 mg/dL (8.6-10.3); Direct Bilirubin 0.2 mg/dL (0.03-0.18); EGFR African American 87.5 (>60); EGFR Non-African American 72.3 (>60); Globulin 2.5 g/dL (2-4); Indirect Bilirubin 0.2 mg/dL (0.3-1.0); Magnesium 1.9 mg/dL (1.9-2.7); Phosphorus 2.8 mg/dL (2.5-5.0); Potassium 4.2 mmol/L (3.5-5.0); Total Bilirubin 0.4 mg/dL (0.2-1.0); Total Protein 6.2 g/dL (6.4-8.9)
[2020-12-09] MEDS ORDERED: NS 0.9% 1000 ml BAG 1,000 ML IV SCH (15:00)
[2020-12-09] MEDS: Aspirin EC 81 mg TAB.EC (enteric coated) PO SCH (16:48)
[2020-12-09] MEDS: Pantoprazole VIAL 40 MG VIAL IV SCH (16:54)
[2020-12-09] MEDS: Cefepime 2 GM in Dextrose 2 GM/50 ML BAG IV SCH (16:56)
[2020-12-09] MEDS: Azithromycin 500 mg/250 ml NS 500 MG/250 ML BAG IVPB SCH (17:36)
[2020-12-09] MEDS: Acetaminophen IV 1 GM/100ML 100 ML IV PRN (18:40)
[2020-12-09 18:51] LABS: PCO2 Arterial 43 mmHg (35-45); PO2 Arterial 77 mmHg (80-100)
[2020-12-09 19:22] LABS: ABS Basophils 0.1 10^3/ul (0-0.2); ABS Lymphocytes 0.7 10^3/ul (1.0-4.8); ABS Monocytes 1.3 10^3/ul (0-0.8); ABS Neutrophils 10.8 10^3/ul (1.5-7.7); ABS Nucleated RBC 0.1 10^3/ul; Eosinophil % 0.1 %; Lymphocyte % 5.2 %; Nucleated Red Blood Cells % 0.4
[2020-12-10] MEDS: Acetaminophen IV 1 GM/100ML 100 ML IV PRN ×2 (01:33→19:07)
[2020-12-10] MEDS ORDERED: Morphine 2 MG/ML SYRINGE IV ONE (02:23)
[2020-12-10] MEDS ORDERED: Morphine 2 MG/ML SYRINGE ONE (02:28)
[2020-12-10] MEDS: Cefepime 2 GM in Dextrose 2 GM/50 ML BAG IV SCH ×2 (05:32→16:34)
[2020-12-10] MEDS: metroNIDAZOLE IV 500 MG/100ML 500 MG/100 ML BAG IVPB SCH ×3 (05:33→20:56)
[2020-12-10] MEDS: Levothyroxine 100 MCG/5 ML VIAL IV SCH (07:04)
[2020-12-10 07:28] LABS: Calcium 8.6 mg/dL (8.6-10.3); EGFR African American 96.1 (>60); EGFR Non-African American 79.4 (>60); Magnesium 1.9 mg/dL (1.9-2.7); Phosphorus 2.6 mg/dL (2.5-5.0); Potassium 4.1 mmol/L (3.5-5.0)
[2020-12-10 07:30] LABS: Hematocrit 32 % (35-47); Mean Corpuscular HGB Conc 32 g/dL (31-36); Mean Corpuscular Hemoglobin 28 pg (27-31); Mean Corpuscular Volume 88 fL (80-97); Mean Platelet Volume 7.7 fL (7.4-10.4); Platelet Count 239 10^3/uL (150-450); Red Blood Count 3.59 10^6 /uL (3.70-4.87); Red Cell Distribution Width 17 % (10-15); White Blood Count 7.9 10^3/uL (3.5-10.8)
[2020-12-10 07:39] LABS: ABS Lymphocytes 0.6 10^3/ul (1.0-4.8); ABS Monocytes 0.9 10^3/ul (0-0.8); ABS Neutrophils 6.3 10^3/ul (1.5-7.7); ABS Nucleated RBC 0.1 10^3/ul; Eosinophil % 0.3 %; Lymphocyte % 8.1 %; Nucleated Red Blood Cells % 0.6
[2020-12-10] MEDS: Aspirin EC 81 mg TAB.EC (enteric coated) PO SCH (09:58)
[2020-12-10] MEDS: Enoxaparin 40 MG/0.4 ML SYR SUBCUT SCH (09:59)
[2020-12-10] MEDS: Pantoprazole VIAL 40 MG VIAL IV SCH (09:59)
[2020-12-10 11:30] LABS: PCO2 Arterial 64 mmHg (35-45); PO2 Arterial 121 mmHg (80-100)
[2020-12-10 13:08] LABS: TSH Ultra Thyroid Stim Horm 0.38 mcIU/mL (0.34-5.60)
[2020-12-10] MEDS: Azithromycin 500 mg/250 ml NS 500 MG/250 ML BAG IVPB SCH (16:35)
[2020-12-11] MEDS ORDERED: NS 0.9% 250 ml 250 ML IV ONE (01:12)
[2020-12-11] MEDS ORDERED: fentaNYL 100 mcg/2 ml 50 MCG/ML VIAL IV SLOW PU ONE (03:57)
[2020-12-11] MEDS: Cefepime 2 GM in Dextrose 2 GM/50 ML BAG IV SCH (04:18)
[2020-12-11] MEDS: Acetaminophen IV 1 GM/100ML 100 ML IV PRN (06:00)
[2020-12-11] MEDS: metroNIDAZOLE IV 500 MG/100ML 500 MG/100 ML BAG IVPB SCH (06:31)
[2020-12-11] MEDS: Levothyroxine 100 MCG/5 ML VIAL IV SCH (08:29)
[2020-12-11] MEDS: Pantoprazole VIAL 40 MG VIAL IV SCH (08:29)
[2020-12-11] MEDS ORDERED: Haloperidol 5 mg/ml SDV IV/IM 5 MG/ML AMP IV SLOW PU PRN (08:36)
[2020-12-11] MEDS: Enoxaparin 40 MG/0.4 ML SYR SUBCUT SCH (08:58)
[2020-12-11] MEDS: cefTRIAXone 1 gm/50 mL NS BAG 1 GM/50 ML BAG IVPB SCH (12:48)
[2020-12-11] MEDS ORDERED: Lorazepam PYXIS KEY PRN (13:26)
[2020-12-11] MEDS ORDERED: Haloperidol 5 mg/ml SDV IV/IM 5 MG/ML AMP IV SLOW PU ONE (13:26)
[2020-12-11] MEDS ORDERED: LORazepam 2 mg VIAL 1 ml IV PUSH ONE (13:26)
[2020-12-11] MEDS: Azithromycin 500 mg/250 ml NS 500 MG/250 ML BAG IVPB SCH (16:40)
[2020-12-11] MEDS ORDERED: Lactated Ringers 1000 ml BAG 1,000 ML IV SCH (17:00)
[2020-12-12] MEDS: Levothyroxine 100 MCG/5 ML VIAL IV SCH (05:59)
[2020-12-12 10:12] LABS: Hematocrit 30 % (35-47); Hemoglobin 9.4 g/dL (12.0-16.0); Mean Corpuscular HGB Conc 32 g/dL (31-36); Mean Corpuscular Hemoglobin 28 pg (27-31); Mean Corpuscular Volume 88 fL (80-97); Mean Platelet Volume 7.7 fL (7.4-10.4); Platelet Count 261 10^3/uL (150-450); Red Blood Count 3.36 10^6 /uL (3.70-4.87); Red Cell Distribution Width 17 % (10-15); White Blood Count 6.8 10^3/uL (3.5-10.8)
[2020-12-12 10:30] LABS: Albumin 3.1 g/dL (3.2-5.2); Albumin/Globulin Ratio 1.4 (1-3); Calcium 9.2 mg/dL (8.6-10.3); Globulin 2.2 g/dL (2-4); Magnesium 1.7 mg/dL (1.9-2.7); Phosphorus 1.7 mg/dL (2.5-5.0); Potassium 3.5 mmol/L (3.5-5.0); Total Bilirubin 0.6 mg/dL (0.2-1.0); Total Protein 5.3 g/dL (6.4-8.9)
[2020-12-12] MEDS: Enoxaparin 40 MG/0.4 ML SYR SUBCUT SCH (10:42)
[2020-12-12] MEDS: Pantoprazole VIAL 40 MG VIAL IV SCH (10:42)
[2020-12-12 11:19] LABS: ABS Eosinophils 0.2 10^3/ul (0-0.6); ABS Lymphocytes 0.8 10^3/ul (1.0-4.8); ABS Monocytes 1.3 10^3/ul (0-0.8); ABS Neutrophils 4.5 10^3/ul (1.5-7.7); Eosinophil % 2.6 %; Lymphocyte % 11.3 %; Nucleated Red Blood Cells % 0.5
[2020-12-12] MEDS ORDERED: Magnesium Sulfate 2 gm BAG 2 GM/50 ML BAG IVPB ONE (14:41)
[2020-12-12] MEDS ORDERED: Potassium Phosphate IV 5 MMOLE in NS 0.9% 250 ml 250 ML IVPB ONE (15:00)
[2020-12-12] MEDS: cefTRIAXone 1 gm/50 mL NS BAG 1 GM/50 ML BAG IVPB SCH (15:08)
[2020-12-12] MEDS: Azithromycin 500 mg/250 ml NS 500 MG/250 ML BAG IVPB SCH (22:35)
[2020-12-13 05:42] LABS: Hematocrit 31 % (35-47); Hemoglobin 9.8 g/dL (12.0-16.0); Mean Corpuscular HGB Conc 32 g/dL (31-36); Mean Corpuscular Hemoglobin 28 pg (27-31); Mean Corpuscular Volume 87 fL (80-97); Mean Platelet Volume 7.7 fL (7.4-10.4); Platelet Count 259 10^3/uL (150-450); Red Blood Count 3.57 10^6 /uL (3.70-4.87); Red Cell Distribution Width 16 % (10-15); White Blood Count 6.9 10^3/uL (3.5-10.8)
[2020-12-13 06:00] LABS: Calcium 9.3 mg/dL (8.6-10.3); EGFR African American 158.6 (>60); Potassium 3.2 mmol/L (3.5-5.0)
[2020-12-13 06:09] LABS: ABS Eosinophils 0.1 10^3/ul (0-0.6); ABS Lymphocytes 0.8 10^3/ul (1.0-4.8); ABS Monocytes 1.5 10^3/ul (0-0.8); ABS Neutrophils 4.6 10^3/ul (1.5-7.7); ABS Nucleated RBC 0.2 10^3/ul; Eosinophil % 0.8 %; Lymphocyte % 11.4 %; Nucleated Red Blood Cells % 2.1
[2020-12-13] MEDS ORDERED: KCL 20 MEQ/100 ML IVPREMIX 20 MEQ/100 ML BAG IV ONE (07:35)
[2020-12-13] MEDS: Lidocaine PATCH 5% PATCH TRANSDERM SCH ×2 (09:01→10:03)
[2020-12-13] MEDS: Enoxaparin 40 MG/0.4 ML SYR SUBCUT SCH (10:56)
[2020-12-13] MEDS: Pantoprazole VIAL 40 MG VIAL IV SCH (10:56)
[2020-12-13] MEDS ORDERED: NS 0.45% KCl 20 Meq 1000 ml 1,000 ML IV SCH (11:00)
[2020-12-13] MEDS: cefTRIAXone 1 gm/50 mL NS BAG 1 GM/50 ML BAG IVPB SCH (16:35)
[2020-12-13] MEDS: Azithromycin 500 mg/250 ml NS 500 MG/250 ML BAG IVPB SCH ×3 (21:27→22:40)
[2020-12-13] MEDS: Lidocaine Patch REMOVE PATCH PATCH OFF SCH (22:46)
[2020-12-14] MEDS: Enoxaparin 40 MG/0.4 ML SYR SUBCUT SCH (10:09)
[2020-12-14] MEDS: Pantoprazole VIAL 40 MG VIAL IV SCH (10:10)
[2020-12-14] MEDS: Lidocaine PATCH 5% PATCH TRANSDERM SCH (10:10)
[2020-12-14 10:36] LABS: Albumin 3.6 g/dL (3.2-5.2); Albumin/Globulin Ratio 1.6 (1-3); Calcium 9.5 mg/dL (8.6-10.3); Direct Bilirubin 0.2 mg/dL (0.03-0.18); EGFR African American 147.4 (>60); EGFR Non-African American 121.8 (>60); Globulin 2.3 g/dL (2-4); Indirect Bilirubin 0.4 mg/dL (0.3-1.0); Potassium 4.1 mmol/L (3.5-5.0); Total Bilirubin 0.6 mg/dL (0.2-1.0); Total Protein 5.9 g/dL (6.4-8.9)
[2020-12-14] MEDS: cefTRIAXone 1 gm/50 mL NS BAG 1 GM/50 ML BAG IVPB SCH (12:27)
[2020-12-14] MEDS: Azithromycin 500 mg/250 ml NS 500 MG/250 ML BAG IVPB SCH (21:45)
[2020-12-14] MEDS: Lidocaine Patch REMOVE PATCH PATCH OFF SCH (21:45)
[2020-12-15 06:09] LABS: Albumin 3.2 g/dL (3.2-5.2); CO2 Carbon Dioxide 22 mmol/L (22-32); Calcium 9.1 mg/dL (8.6-10.3); Sodium 144 mmol/L (135-145)
[2020-12-15 06:15] LABS: ALT 111 U/L (7-52); Albumin/Globulin Ratio 1.1 (1-3); Alkaline Phosphatase 99 U/L (35-149); Blood Urea Nitrogen 18 mg/dL (6-24); Chloride 112 mmol/L (101-111); EGFR African American 171.4 (>60); EGFR Non-African American 141.6 (>60); Globulin 2.8 g/dL (2-4); Glucose 111 mg/dL (70-100)
[2020-12-15 06:17] LABS: Anion Gap 10 mmol/L (2-11)
[2020-12-15 06:25] LABS: PCO2 Arterial 66 mmHg (35-45); PO2 Arterial 177 mmHg (80-100)
[2020-12-15] MEDS: Iohexol 350 (CONTRAST) 500 ML MDV IV ONE ×2 (06:37→08:12)
[2020-12-15] MEDS ORDERED: Furosemide 20 mg/2 ml IV VIAL IV ONE (07:17)
[2020-12-15 07:30] LABS: Direct Bilirubin Redraw 0.1 mg/dL (0.03-0.18); Potassium Redraw 3.9 mmol/L (3.5-5.0)
[2020-12-15] MEDS: Pantoprazole VIAL 40 MG VIAL IV SCH (09:44)
[2020-12-15] MEDS: Lidocaine PATCH 5% PATCH TRANSDERM SCH (09:45)
[2020-12-15] MEDS: Enoxaparin 40 MG/0.4 ML SYR SUBCUT SCH (09:50)
[2020-12-15] MEDS ORDERED: Digoxin IV 0.5 MG/2 ML AMP (0.25 MG/ML) IV SLOW PU ONE ×2 (10:49→11:43)
[2020-12-15 11:23] LABS: Troponin I 0.11 ng/mL (<0.03)
[2020-12-15] MEDS: cefTRIAXone 1 gm/50 mL NS BAG 1 GM/50 ML BAG IVPB SCH (11:43)
[2020-12-15 12:08] LABS: TSH Ultra Thyroid Stim Horm 0.74 mcIU/mL (0.34-5.60)
[2020-12-15 12:10] LABS: Free T4 1.05 ng/dL (0.61-1.12)
[2020-12-15 15:41] LABS: Troponin I 0.08 ng/mL (<0.03)
[2020-12-15] MEDS ORDERED: Enoxaparin 60 MG/0.6 ML SYR SUBCUT SCH (22:00)
[2020-12-15] MEDS: Lidocaine Patch REMOVE PATCH PATCH OFF SCH (22:17)
[2020-12-16] MEDS ORDERED: Aspirin EC 81 mg TAB.EC (enteric coated) PO SCH (09:00)
[2020-12-16] MEDS: Lidocaine PATCH 5% PATCH TRANSDERM SCH (09:36)
[2020-12-16] MEDS: Pantoprazole VIAL 40 MG VIAL IV SCH (09:37)
[2020-12-16] MEDS ORDERED: Furosemide 20 mg/2 ml IV VIAL IV ONE ×2 (10:47→13:08)
[2020-12-16] MEDS ORDERED: Furosemide 20 mg/2 ml IV VIAL ONE (13:09)
[2020-12-16 13:21] LABS: PO2 Arterial 77 mmHg (80-100)
[2020-12-16 13:24] LABS: PCO2 Arterial 78 mmHg (35-45)
[2020-12-16 13:58] LABS: Hematocrit 36 % (35-47); Hemoglobin 10.6 g/dL (12.0-16.0); Mean Corpuscular HGB Conc 30 g/dL (31-36); Mean Corpuscular Hemoglobin 27 pg (27-31); Mean Corpuscular Volume 91 fL (80-97); Mean Platelet Volume 8.5 fL (7.4-10.4); Platelet Count 254 10^3/uL (150-450); Red Blood Count 3.92 10^6 /uL (3.70-4.87); Red Cell Distribution Width 18 % (10-15); White Blood Count 8.3 10^3/uL (3.5-10.8)
[2020-12-16 14:15] LABS: Albumin 3.7 g/dL (3.2-5.2); Albumin/Globulin Ratio 1.5 (1-3); EGFR African American 137.6 (>60); EGFR Non-African American 113.8 (>60); Globulin 2.5 g/dL (2-4); Total Bilirubin 0.4 mg/dL (0.2-1.0); Total Protein 6.2 g/dL (6.4-8.9)
[2020-12-16 14:35] LABS: Hypochromasia 2+; Polychromasia 1+
[2020-12-16 14:36] LABS: Anisocytosis 2+; Basophilic Stippling 1+
[2020-12-16 14:37] LABS: ABS Eosinophils 0.1 10^3/ul (0-0.6); ABS Lymphocytes 0.7 10^3/ul (1.0-4.8); ABS Monocytes 0.8 10^3/ul (0-0.8); ABS Neutrophils 6.8 10^3/ul (1.5-7.7); ABS Nucleated RBC 0.5 10^3/ul; Eosinophil % 0.8 %; Lymphocyte % 8.3 %; Nucleated Red Blood Cells % 6.4
[2020-12-16] MEDS ORDERED: Furosemide 40 mg/4 ml IV VIAL IV ONE (14:41)
[2020-12-16 14:45] LABS: Potassium 3.6 mmol/L (3.5-5.0)
[2020-12-16 17:48] LABS: PO2 Arterial 307 mmHg (80-100)
[2020-12-16 17:58] LABS: PCO2 Arterial 74 mmHg (35-45)
[2020-12-16] MEDS ORDERED: Digoxin IV 0.5 MG/2 ML AMP (0.25 MG/ML) IV SLOW PU SCH (19:02)
[2020-12-16] MEDS: Lidocaine Patch REMOVE PATCH PATCH OFF SCH (19:24)
[2020-12-16] MEDS ORDERED: Morphine 2 MG/ML SYRINGE IV PRN (20:18)
[2020-12-16] MEDS ORDERED: Lorazepam PYXIS KEY PRN (20:28)
[2020-12-16] MEDS ORDERED: LORazepam 2 mg VIAL 1 ml IV PUSH PRN (20:28)
[2020-12-17] MEDS ORDERED: Acetaminophen IV 1 GM/100ML 100 ML IV PRN (06:07)
[2020-12-17] MEDS ORDERED: Lidocaine PATCH 5% PATCH TRANSDERM PRN (06:09)
[2020-12-17] MEDS ORDERED: Haloperidol 5 mg/ml SDV IV/IM 5 MG/ML AMP IM PRN (07:51)
[2020-12-17] MEDS ORDERED: Ondansetron ODT 4 mg TAB 4 MG TAB SL PRN (07:52)
[2020-12-17] MEDS: Morphine ORAL CONCENTRATE 5 MG/0.25 ML ORAL.SYRIN SL PRN ×3 (08:51→17:07)
[2020-12-17 10:45] VITALS: BP 138/91
[2020-12-18] MEDS: Morphine ORAL CONCENTRATE 5 MG/0.25 ML ORAL.SYRIN SL PRN ×2 (00:16→17:13)
[2020-12-18] MEDS: Lidocaine Patch REMOVE PATCH PATCH OFF SCH ×2 (01:12→21:19)
[2020-12-19] MEDS: Morphine ORAL CONCENTRATE 5 MG/0.25 ML ORAL.SYRIN SL PRN ×4 (09:00→16:01)
[2020-12-19] MEDS: Lidocaine Patch REMOVE PATCH PATCH OFF SCH (22:01)
[2020-12-20] MEDS: Morphine ORAL CONCENTRATE 5 MG/0.25 ML ORAL.SYRIN SL PRN ×7 (00:31→20:08)
[2020-12-20] MEDS: Lidocaine Patch REMOVE PATCH PATCH OFF SCH (19:07)
== END 2020-12-20 22:43 | disposition expired | DRG 388 ==
LOC: ED 00:02 → SSU 07:24 → SUATTDRO 07:24 → SSU 11:45 → ICU 12-09 16:35 → MEDTELE 12-11 18:18 → ICU 12-16 16:54 → MED 12-17 10:42
PROVIDERS: ADMIT Internal Medicine; ATTEND Internal Medicine